=== PATIENT | female | born 1960 | race American Indian/Alaskan Native ===

== ENCOUNTER 2020-01-23 07:17 | Inpatient (IN) | payer MEDICARE ==
[2020-01-23 07:23] LABS: Glucose,Whole Blood 98 mg/dL (75-99)
[2020-01-23] MEDS ORDERED: SODIUM CHLORIDE 0.9% 500 ML 500 ML IV STA (07:30)
[2020-01-23 07:36] LABS: Basophils % (A) 0 %; Eosinophils # (A) 0.1 k/uL (0-0.7); Eosinophils % (A) 2 %; HCT 37.9 % (34.0-46.0); HGB 12.7 gm/dL (11.4-16.0); Lymphocytes # (A) 2.3 k/uL (1.0-4.8); Lymphocytes % (A) 37 %; MCH 31.9 pg (25.0-35.0); MCHC 33.6 g/dL (31.0-37.0); Mean Platelet Volume 7.7; Monocytes # (A) 0.3 k/uL (0-1.0); Monocytes % (A) 6 %; Neutrophils # (A) 3.1 k/uL (1.3-7.7); Neutrophils % (A) 51 %; Platelet Count 247 k/uL (150-450); RDW 12.7 % (11.5-15.5); WBC 6.1 k/uL (3.8-10.6)
--- NOTE | 2020-01-23 07:37 | ED ---
General Adult HPI - General Chief complaint: Neuro Symptoms/Deficit Stated complaint: Poss stroke Time Seen by Provider: 01/23/20 07:17 Source: patient, EMS, RN notes reviewed, old records reviewed Mode of arrival: EMS - History of Present Illness Initial comments: This a 59-year-old female presents emergency Department because of strokelike symptoms. Patient states last night she was having difficulty manipulating remote control for the TV and according to EMS also stated she had some difficulty speaking this morning. Patient started symptoms last night at 10 PM. Patient currently states she's not having any symptoms. Patient denies headache patient denies any weakness anywhere currently patient denies any problems with coordination. I asked the patient why she was sent in she said her called she's not sure why. has not yet here to get the full history from him. Patient denies any chest pain difficulty breathing shortness breath per patient denies any recent fever chills or cough. Patient denies any abdominal pain patient denies nausea vomiting diarrhea. - Related Data Allergies Allergy/AdvReac Type Severity Reaction Status Date / Time No Known Allergies Allergy Verified 01/23/20 07:55 Review of Systems ROS Statement: Those systems with pertinent positive or pertinent negative responses have been documented in the HPI. ROS Other: All systems not noted in ROS Statement are negative. Past Medical History Past Medical History: CVA/TIA Additional Past Medical History / Comment(s): hypotension History of Any Multi-Drug Resistant Organisms: None Reported Past Surgical History: No Surgical Hx Reported Past Psychological History: Anxiety, Depression, PTSD Smoking Status: Never smoker Past Alcohol Use History: None Reported Past Drug Use History: None Reported General Exam - General Exam Comments Initial Comments: GENERAL: Patient is well-developed and well-nourished. Patient is nontoxic and well- hydrated and is in no acute distress. ENT: Neck is soft and supple. No significant lymphadenopathy is noted. Oropharynx is clear. Moist mucous membranes. Neck has full range of motion without eliciting any pain. EYES: The sclera were anicteric and conjunctiva were pink and moist. Extraocular movements were intact and pupils were equal round and reactive to light. Eyelids were unremarkable. PULMONARY: Unlabored respirations. Good breath sounds bilaterally. No audible rales rhonchi or wheezing was noted. CARDIOVASCULAR: There is a regular rate and rhythm without any murmurs gallops or rubs. ABDOMEN: Soft and nontender with normal bowel sounds. SKIN: Skin is clear with no lesions or rashes and otherwise unremarkable. NEUROLOGIC: Patient is alert and oriented x3. Cranial nerves II through XII are grossly in tact. Patient has equal strength of all 4 times. Patient has some decreased sensation in the right lower leg.. Normal speech, volume and content. Symmetrical smile. Finger to nose testing is normal bilaterally MUSCULOSKELETAL: Normal extremities with adequate strength and full range of motion. No lower extremity swelling or edema. No calf tenderness. LYMPHATICS: No significant lymphadenopathy is noted PSYCHIATRIC: Normal psychiatric evaluation. Course Vital Signs 01/23/20 01/23/20 01/23/20 07:17 07:30 07:45 Temperature 98.1 F 98.0 F 98.0 F Pulse Rate 82 82 84 Respiratory 16 16 16 Rate Blood Pressure 185/116 187/118 181/120 O2 Sat by Pulse 99 97 98 Oximetry 01/23/20 01/23/20 01/23/20 08:00 08:15 08:30 Temperature 98.0 F 98 F 98.2 F Pulse Rate 81 86 86 Respiratory 16 18 16 Rate Blood Pressure 185/111 183/112 178/129 O2 Sat by Pulse 97 100 99 Oximetry 01/23/20 01/23/20 09:00 09:26 Temperature 98.1 F Pulse Rate 88 86 Respiratory 16 16 Rate Blood Pressure 175/93 166/118 O2 Sat by Pulse 96 96 Oximetry Medical Decision Making - Medical Decision Making EKG shows normal sinus rhythm at 80 bpm KS interval is 144 QRS is 82 QT interval 412 QTC is 475. Patient's EKG shows no ST segment elevation or depression called that and told nursing that she had a carotid dissection in the past and it was being monitored. At this point time the CT head and neck was also ordered. Dr. Park called back at 813 and after hearing the history decided that the patient should just be on aspirin unless we find something significant on the CAT scan ordered a CTA also stated the patient was on and off confused since last night as well CT of the brain showed no acute abnormality. CT of the head and neck showed a carotid dissection patient's stated that they are aware of this dissecti on. I spoke with about the CTA and he stated that there would be no intervention other than aspirin and Proventil into he also stated that he was okay with the blood pressure being in the 160s over 118. He did not want any intervention with the blood pressure at this time - Lab Data Result diagrams: 01/23/20 07:22 01/23/20 07:22 Lab Results 01/23/20 01/23/20 01/23/20 Range/Units 07:21 07:22 07:22 WBC 6.1 (3.8-10.6) k/uL RBC 4.00 (3.80-5.40) m/uL Hgb 12.7 (11.4-16.0) gm/dL Hct 37.9 (34.0-46.0) % MCV 95.0 (80.0-100.0) fL MCH 31.9 (25.0-35.0) pg MCHC 33.6 (31.0-37.0) g/dL RDW 12.7 (11.5-15.5) % Plt Count 247 (150-450) k/uL Neutrophils % 51 % Lymphocytes % 37 % Monocytes % 6 % Eosinophils % 2 % Basophils % 0 % Neutrophils # 3.1 (1.3-7.7) k/uL Lymphocytes # 2.3 (1.0-4.8) k/uL Monocytes # 0.3 (0-1.0) k/uL Eosinophils # 0.1 (0-0.7) k/uL Basophils # 0.0 (0-0.2) k/uL PT (9.0-12.0) sec INR (<1.2) APTT (22.0-30.0) sec Sodium 139 (137-145) mmol/L Potassium 3.7 (3.5-5.1) mmol/L Chloride 110 H (98-107) mmol/L Carbon Dioxide 20 L (22-30) mmol/L Anion Gap 9 mmol/L BUN 10 (7-17) mg/dL Creatinine 0.56 (0.52-1.04) mg/dL Est GFR (CKD-EPI)AfAm >90 (>60 ml/min/1.73 sqM) Est GFR (CKD-EPI)NonAf >90 (>60 ml/min/1.73 sqM) Glucose 95 (74-99) mg/dL POC Glucose (mg/dL) 98 (75-99) mg/dL POC Glu Stars Analytical Lead ID Norma Jones Calcium 8.1 L (8.4-10.2) mg/dL Total Bilirubin 0.5 (0.2-1.3) mg/dL AST 85 H (14-36) U/L ALT 140 H (4-34) U/L Alkaline Phosphatase 173 H (38-126) U/L Total Creatine Kinase (30-135) U/L CK-MB (CK-2) (0.0-2.4) ng/mL CK-MB (CK-2) Rel Index Troponin I (0.000-0.034) ng/mL Total Protein 6.3 (6.3-8.2) g/dL Albumin 3.6 (3.5-5.0) g/dL Urine Color Urine Appearance (Clear) Urine pH (5.0-8.0) Ur Specific [place] (1.001-1.035) Urine Protein (Negative) Urine Glucose (UA) (Negative) Urine Ketones (Negative) Urine Blood (Negative) Urine Nitrite (Negative) Urine Bilirubin (Negative) Urine Urobilinogen (<2.0) mg/dL Ur Leukocyte Esterase (Negative) Urine RBC (0-5) /hpf Urine WBC (0-5) /hpf Ur Squamous Epith Cells (0-4) /hpf 01/23/20 01/23/20 01/23/20 Range/Units 07:22 07:22 08:53 WBC (3.8-10.6) k/uL RBC (3.80-5.40) m/uL Hgb (11.4-16.0) gm/dL Hct (34.0-46.0) % MCV (80.0-100.0) fL MCH (25.0-35.0) pg MCHC (31.0-37.0) g/dL RDW (11.5-15.5) % Plt Count (150-450) k/uL Neutrophils % % Lymphocytes % % Monocytes % % Eosinophils % % Basophils % % Neutrophils # (1.3-7.7) k/uL Lymphocytes # (1.0-4.8) k/uL Monocytes # (0-1.0) k/uL Eosinophils # (0-0.7) k/uL Basophils # (0-0.2) k/uL PT 10.9 (9.0-12.0) sec INR 1.1 (<1.2) APTT 24.9 (22.0-30.0) sec Sodium (137-145) mmol/L Potassium (3.5-5.1) mmol/L Chloride (98-107) mmol/L Carbon Dioxide (22-30) mmol/L Anion Gap mmol/L BUN (7-17) mg/dL Creatinine (0.52-1.04) mg/dL Est GFR (CKD-EPI)AfAm (>60 ml/min/1.73 sqM) Est GFR (CKD-EPI)NonAf (>60 ml/min/1.73 sqM) Glucose (74-99) mg/dL POC Glucose (mg/dL) (75-99) mg/dL POC Glu Stars Analytical Lead ID Calcium (8.4-10.2) mg/dL Total Bilirubin (0.2-1.3) mg/dL AST (14-36) U/L ALT (4-34) U/L Alkaline Phosphatase (38-126) U/L Total Creatine Kinase 41 (30-135) U/L CK-MB (CK-2) 1.1 (0.0-2.4) ng/mL CK-MB (CK-2) Rel Index 2.7 Troponin I <0.012 (0.000-0.034) ng/mL Total Protein (6.3-8.2) g/dL Albumin (3.5-5.0) g/dL Urine Color Light Yellow Urine Appearance Clear (Clear) Urine pH 6.5 (5.0-8.0) Ur Specific [place] 1.045 H (1.001-1.035) Urine Protein Negative (Negative) Urine Glucose (UA) Negative (Negative) Urine Ketones 2+ H (Negative) Urine Blood Negative (Negative) Urine Nitrite Negative (Negative) Urine Bilirubin Negative (Negative) Urine Urobilinogen <2.0 (<2.0) mg/dL Ur Leukocyte Esterase Large H (Negative) Urine RBC 5 (0-5) /hpf Urine WBC 4 (0-5) /hpf Ur Squamous Epith Cells 1 (0-4) /hpf Critical Care Time Critical Care Time: Yes Total Critical Care Time: 35 Disposition Clinical Impression: Cerebrovascular accident (CVA) Disposition: ADMITTED IP TO THIS [facility] Referrals: Nonstaff,Physician [Primary Care Provider] - 1-2 days Time of Disposition: 09:36
[2020-01-23 07:45] LABS: INR 1.1 (<1.2); Partial Thromboplastin Time 24.9 sec (22.0-30.0)
--- NOTE | 2020-01-23 07:45 | CT ---
EXAMINATION TYPE: CT brain wo con DATE OF EXAM: 01/23/2020 COMPARISON: None HISTORY: 59-year-old female Neuro deficit, acute, stroke suspected TECHNIQUE: Examination was done in axial plane without intravenous contrast. Coronal and sagittal r econstructions performed. CT DLP: 1099.4 mGycm Automated exposure control for dose reduction was used. FINDINGS: There is no evidence of acute intracranial hemorrhage, acute ischemic changes, mass, mass-effect, or extra-axial fluid collection. There is no effacement of cerebral sulci or basal subarachnoid cister ns. There is no hydrocephalus. There is no midline shift. Car-white matter distinction is preserv ed. Mild bifrontal atrophy. Benign basal ganglionic calcifications. Partially empty sella. Visualized paranasal sinuses and mastoid air cells are well pneumatized. Visualized orbits and globes are intact. IMPRESSION: Mild bifrontal atrophy. No acute intracranial abnormality seen.
[2020-01-23 07:46] LABS: Prothrombin Time 10.9 sec (9.0-12.0)
[2020-01-23 07:49] LABS: ALT 140 U/L (4-34); AST 85 U/L (14-36); African American GFR (CKD) >90 (>60 ml/min/1.73 sqM); Albumin 3.6 g/dL (3.5-5.0); Alkaline Phosphatase 173 U/L (38-126); Anion Gap 9 mmol/L; Blood Urea Nitrogen 10 mg/dL (7-17); Calcium 8.1 mg/dL (8.4-10.2); Carbon Dioxide 20 mmol/L (22-30); Chloride 110 mmol/L (98-107); Glucose 95 mg/dL (74-99); Non-African American GFR(CKD) >90 (>60 ml/min/1.73 sqM); Potassium 3.7 mmol/L (3.5-5.1); Sodium 139 mmol/L (137-145); Total Bilirubin 0.5 mg/dL (0.2-1.3); Total Protein 6.3 g/dL (6.3-8.2)
[2020-01-23 08:01] LABS: Creatine Kinase 41 U/L (30-135)
--- NOTE | 2020-01-23 08:03 | XR ---
EXAMINATION TYPE: XR chest 2V DATE OF EXAM: 01/23/2020 COMPARISON: None HISTORY: 59-year-old female confusion, altered mental status TECHNIQUE: AP and lateral views FINDINGS: Heart borderline in size. There is some focal posterior basilar opacity on the lateral view as well a s some mild increased interstitial density on the frontal view. No sizable effusion. Vertebroplasty c hanges in the upper thoracic spine. IMPRESSION: Some focal posterior basilar opacity on the lateral view and mild patchy interstitial density on the frontal view. Consider surveillance to exclude atypical pneumonia or interstitial pneumonitis.
[2020-01-23 08:14] LABS: Creatine Kinase MB 1.1 ng/mL (0.0-2.4); Troponin I <0.012 ng/mL (0.000-0.034)
--- NOTE | 2020-01-23 09:05 | CT ---
EXAMINATION TYPE: CT angio head neck DATE OF EXAM: 01/23/2020 COMPARISON: CT brain same day HISTORY: 59-year-old female Neuro deficit, acute, stroke suspected, history of carotid dissection TECHNIQUE: Contiguous axial scanning of the head and neck performed with IV Contrast, patient injecte d with 65 mL of Isovue 370. Coronal/sagittal MIP reconstructions performed. 3-D reconstructions gener ated on a dedicated independent workstation. CT DLP: 309.8 mGycm Automated exposure control for dose reduction was used. FINDINGS: NECK: BOVINE configuration to the aortic arch. The left vertebral artery is dominant. Both vessels are patent throughout the course. Tortuous lower right common carotid artery. Otherwise, the right common and internal carotid arteries are patent. Tortuous lower left common carotid artery which is a bovine origin. Otherwise, left common carotid ar edil is patent. There is a dissection of the upper left cervical internal carotid artery with opacification along bot h lumens and peripheral calcification about the more lateral lumen. 7 mm hypodense nodule left lobe of the thyroid gland. BRAIN: Hypoplastic V4 segment right vertebral artery, possibly terminating as a PICA branch. The left internal carotid artery dissection continues into the vertical petrous segment. The basilar artery is patent. Remainder of the anterior and posterior circulation appear patent. No aneurysmal change is identified. IMPRESSION: NECK: 1. BOVINE CONFIGURATION TO THE AORTIC ARCH. KNOWN DISSECTION OF THE UPPER CERVICAL LEFT ICA EXTENDING INTO THE VERTICAL PETROUS SEGMENT. There is similar enhancement within both lumens without arterial occlusion. 2. No significant ICA stenosis. 3. Dominant left vertebral artery. BRAIN: 1. The nondominant V4 segment right vertebral artery becomes very hypoplastic, possibly terminating a s a PICA branch. 2. No continuation of the patient's known left ICA dissection beyond the petrous segment. 3. No large vessel intracranial arterial occlusion or aneurysmal change.
[2020-01-23 09:15] LABS: Appearance,Urine Clear (Clear); Bilirubin,Urine Negative (Negative); Blood,Urine Negative (Negative); Color,Urine Light Yellow; Glucose,Urine (UA) Negative (Negative); Ketones,Urine 2+ (Negative); Leukocyte Esterase,Urine Large (Negative); Nitrite,Urine Negative (Negative); PH, Urine 6.5 (5.0-8.0); Protein,Urine Negative (Negative); RBC,Urine 5 /hpf (0-5); Specific Gravity,Urine 1.045 (1.001-1.035); Squamous Epithelial Cell,Urine 1 /hpf (0-4); Urobilinogen,Urine <2.0 mg/dL (<2.0); WBC,Urine 4 /hpf (0-5)
[2020-01-23] MEDS ORDERED: hydrALAZINE HCL 20 MG/ML 1 ML VIAL IVP STA (09:28)
[2020-01-23] MEDS ORDERED: ASPIRIN 325 MG TAB PO STA (09:37)
[2020-01-23] MEDS ORDERED: SUCCINYLCHOLINE CHLORIDE VIAL 200 MG/10 ML VIAL IV ONE (09:47)
[2020-01-23] MEDS ORDERED: PROPOFOL 10 MG/ML 20 ML VIAL IV ONE (09:47)
[2020-01-23] MEDS: SODIUM CHLORIDE 0.9% 1,000 ML IV SCH (13:22)
--- NOTE | 2020-01-23 14:09 | P.HPIM ---
History of Present Illness H&P Date: 01/23/20 The patient is a 59-year-old female who presented to the ER via EMS with confusion. The patient continues to be confused and is unable to provide valuable history hence the history is obtained from the medical record more specifically ER notes. I attempted to call the patient's next of kin Per[place] without any success and reaching him. Per the note the patient also was having difficulty using her home TV remote and had difficulty speaking this morning. Apparently the patient's symptoms began late last evening at approximately 10 PM. The patient denies any discomfort denies chest pain shortness of breath fever chills or cough But simply responded no to all after mention questions. She also denied any history of CVA or TIA. The patient did state that she lives at home with her . She was only oriented to self and had difficulty verbalizing her thoughts and stared blankly at me during her interview. She was unable to read the time on the clock which was 12:25 PM. She attempted to get out of bed but was redirected to remain in bed. On presentation code stroke was called she was noted to be hypertensive with blood pressure 166/118. CT of the head was negative for any acute intracranial abnormality. Indicated mild bifrontal atrophy. 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 There is no large vessel intracranial arterial occlusion or aneurysmal change. The ER physician contacted Dr. Schulte and recommended conservative management with aspirin and Brilinta. Review of Systems ROS unobtainable: due to mental status Past Medical History Past Medical History: CVA/TIA, Renal Disease Additional Past Medical History / Comment(s): Multiple falls last 4 weeks-went to [facility] on [address] and was found to have hypotension, stroke like symptoms approximately 2.5 yrs ago-worked up at [facility] and found caratid dissection/clot-received TPA and had full recovery, nephrolithiasis with surgery, magaly en Y and pt has had stomach problems since, overactive bladder, past sleep walking years ago. History of Any Multi-Drug Resistant Organisms: None Reported Past Surgical History: Bariatric Surgery, Cholecystectomy, Hysterectomy, Joint Replacement, Orthopedic Surgery Additional Past Surgical History / Comment(s): Magaly en Y, EGD, colonoscopy, cysto d/t kidney stone with stent placed/removed, L total knee arthroplasty, R lower arm injury with plates. Additional Past Anesthesia/Blood Transfusion Reaction / Comment(s): Pt has received blood in past without reaction. Past Psychological History: Anxiety, Depression, PTSD Additional Psychological History / Comment(s): Pt resides with her spouse. She sees a psychiatrist regularly and is doing well. Pt is independent. Smoking Status: Never smoker Past Alcohol Use History: None Reported Past Drug Use History: None Reported - Past Family History Mother Family Medical History: COPD Additional Family Medical History / Comment(s): Mother is on oxygen. She was a smoker. Father Family Medical History: Cancer Additional Family Medical History / Comment(s): Father had 1/2 lung removed d/t lung cancer. He has a peice of liver removed d/t cancer. He is an exsmoker. Medications and Allergies Home Medications Medication Instructions Recorded Confirmed Type Atorvastatin [Lipitor] 40 mg PO HS 01/23/20 01/23/20 History Calcium Carbonate [Calcium] 600 mg PO BID 01/23/20 01/23/20 History Cyclobenzaprine [Flexeril] 10 mg PO HS PRN 01/23/20 01/23/20 History Ergocalciferol (Vitamin D2) 50,000 unit PO DIRECTED 01/23/20 01/23/20 History [Drisdol] Escitalopram [Lexapro] 20 mg PO DAILY 01/23/20 01/23/20 History Gabapentin [Gralise] 600 mg PO HS 01/23/20 01/23/20 History Levothyroxine Sodium [Synthroid] 25 mcg PO ORTIZ 01/23/20 01/23/20 History Levothyroxine Sodium [Synthroid] 50 mcg PO [id number] 01/23/20 01/23/20 History Midodrine HCl [ProAmatine] 10 mg PO TID 01/23/20 01/23/20 History Mirabegron [Myrbetriq] 50 mg PO DAILY 01/23/20 01/23/20 History Multivitamins, Thera [Multivitamin 1 tab PO DAILY 01/23/20 01/23/20 History (formulary)] Nascobal (B12) 500mcg/[place] 1 spray NASAL Q7D 01/23/20 01/23/20 History OLANZapine [ZyPREXA] 10 mg PO DAILY 01/23/20 01/23/20 History Pantoprazole [Protonix] 40 mg PO DAILY PRN 01/23/20 01/23/20 History Pilocarpine [Salagen] 5 mg PO TID PRN 01/23/20 01/23/20 History Solifenacin Succinate [Vesicare] 5 mg PO DAILY 01/23/20 01/23/20 History Warfarin Sodium [Coumadin] 9 mg PO SUMOWEFR 01/23/20 01/23/20 History Allergies Allergy/AdvReac Type Severity Reaction Status Date / Time No Known Allergies Allergy Verified 01/23/20 10:27 Physical Exam Vitals: Vital Signs Temp Pulse Resp BP Pulse Ox 01/23/20 10:10 87 16 165/98 100 01/23/20 09:26 86 16 166/118 96 01/23/20 09:00 98.1 F 88 16 175/93 96 01/23/20 08:30 98.2 F 86 16 178/129 99 01/23/20 08:15 98 F 86 18 183/112 100 01/23/20 08:00 98.0 F 81 16 185/111 97 01/23/20 07:45 98.0 F 84 16 181/120 98 01/23/20 07:30 98.0 F 82 16 187/118 97 01/23/20 07:17 98.1 F 82 16 185/116 99 Intake and Output 01/22/20 01/23/20 01/23/20 22:59 06:59 14:59 Other: # Voids 0 Weight 66.224 kg Constitutional: No acute distress, conversant, pleasant Eyes: Anicteric sclerae, moist conjunctiva, no lid-lag, PERRLA ENMT: NC/AT,Oropharynx clear, no erythema, exudates Neck:Supple, FROM, no masses, or JVD, No carotid bruits; No thyromegaly Lungs: Clear to auscultation, Clear to percussion, Normal respiratory effort, no accessory muscle use Cardiovascular: Heart regular in rate and rhythm, No murmurs, gallops, or rubs no peripheral edema Abdominal: Soft Nontender, nom distended, no guarding, no rebound or rigidity, Normoactive bowel sounds No hepatomegaly, No splenomegaly, No palpable mass No abdominal wall hernia noted Skin: Normal temperature, tone, texture, turgor, No induration No subcutaneous nodules, No rash, lesions, No ulcers Extremities:No digital cyanosis No clubbing, Pedal pulses intact and symmetrical Radial pulses intact and symmetrical Normal gait and station, No calf tenderness Psychiatric: Alert and oriented to person only Neuro: Aphasic Speech intelligible but answers inappropriately, confused, only able to follow simple commands Results CBC & Chem 7: 01/23/20 07:22 01/23/20 07:22 Labs: Abnormal Lab Results - Last 24 Hours (Table) 01/23/20 01/23/20 Range/Units 07:22 08:53 Chloride 110 H (98-107) mmol/L Carbon Dioxide 20 L (22-30) mmol/L Calcium 8.1 L (8.4-10.2) mg/dL AST 85 H (14-36) U/L ALT 140 H (4-34) U/L Alkaline Phosphatase 173 H (38-126) U/L Ur Specific [place] 1.045 H (1.001-1.035) Urine Ketones 2+ H (Negative) Ur Leukocyte Esterase Large H (Negative) Thrombosis Risk Factor Assmnt - Choose All That Apply Any of the Below Risk Factors Present?: Yes Each Factor Represents 1 point: Age 41-60 years Other Risk Factors: No Other congenital or acquired thrombophilia - If yes, enter type in comment: No Each Risk Factor Represents 5 Points: Stroke (< 1 month) Thrombosis Risk Factor Assessment Total Risk Factor Score: 6 Thrombosis Risk Factor Assessment Level: High Risk Assessment and Plan Assessment: Confusion with ataxia and aphasia Hypertensive urgency Left carotid dissection Hyperlipidemia Elevated LFTs Hypothyroidism Schizoaffective disorder anticoagulation with Coumadin Plan: The patient is admitted anticipated greater than 2 midnight stay with confusion with ataxia and aphasia with need to rule out CVA CT/CTA as far as been negative for any acute intracranial pathology, the patient does have a known left carotid dissection and was recommended to be continued on conservative management with aspirin and Brillinta into as the patient had also presented outside the window for which he would be indicated. We'll plan to order a neurology consultation, KINJAL echo, MRI of the head. We'll continue to observe blood pressures allowing for permissive hypertension. We'll check a swallow eval. Continue to monitor patient's clinical course and will plan to consult PTOT Left message with the patient's to call me back to establish a baseline CODE STATUS: Full code Anticipated discharge place: group home facility versus home Medical decision maker: Patient and her Perico Prophylaxis: SCDs Greater than 60 minutes was spent in evaluation of this complex patient
[2020-01-23] MEDS ORDERED: levETIRAcetam IV 250 MG in SODIUM CHLORIDE 0.9% 100 ML IVPB STA ×2 (14:30→16:32)
[2020-01-23] MEDS ORDERED: LORazepam 2 MG/ML INJ IV ONE (14:31)
--- NOTE | 2020-01-23 15:02 | ECHOF ---
Referral Reason:confusion/ataxia rule out CVA MEASUREMENTS -------- HEIGHT: 165.1 cm WEIGHT: 66.2 kg BP: 165/98 RVIDd: 3.2 cm (< 3.3) IVSd: 1.7 cm (0.6 - 1.1) LVIDd: 4.1 cm (3.9 - 5.3) LVPWd: 1.5 cm (0.6 - 1.1) IVSs: 1.9 cm LVIDs: 3.0 cm LVPWs: 1.7 cm LAESV Index (A-L): 39.01 ml/m Ao Diam: 3.1 cm (2.0 - 3.7) AV Cusp: 1.9 cm (1.5 - 2.6) MV EXCURSION: 12.364 mm (> 18.000) MV EF SLOPE: 94 mm/s (70 - 150) EPSS: 0.4 cm MV E Liu: 0.84 m/s MV DecT: 131 ms MV A Liu: 0.56 m/s MV E/A Ratio: 1.50 RAP: 5.00 mmHg RVSP: 49.56 mmHg FINDINGS -------- Sinus rhythm. This was a technically adequate study. The left ventricular size is normal. There is moderate concentric left ventricular hypertrophy. O verall left ventricular systolic function is normal with, an EF between 55 - 60 %. The right ventricle is normal in size. LA is moderately dilated 34-39 ml/m2 The right atrial size is normal. Interatrial and interventricular septum intact. The aortic valve is trileaflet, and appears structurally normal. No aortic stenosis or regurgitation. The mitral valve leaflets are mildly thickened. Moderate mitral regurgitation is present. Moderate tricuspid regurgitation present. There is moderate pulmonary hypertension. The right nabeel tricular systolic pressure, as measured by Doppler, is 49.56mmHg. There is no pulmonic regurgitation present. The aortic root size is normal. Normal inferior vena cava with normal inspiratory collapse consistent with estimated right atrial pre ssure of 5 mmHg. There is no pericardial effusion. CONCLUSIONS -------- 1. There is moderate concentric left ventricular hypertrophy. 2. Overall left ventricular systolic function is normal with, an EF between 55 - 60 %. 3. LA is moderately dilated 34-39 ml/m2 4. The aortic valve is trileaflet, and appears structurally normal. No aortic stenosis or regurgitati on. 5. The mitral valve leaflets are mildly thickened. 6. Moderate mitral regurgitation is present. 7. Moderate tricuspid regurgitation present. 8. There is moderate pulmonary hypertension. 9. There is no pulmonic regurgitation present. 10. Normal inferior vena cava with normal inspiratory collapse consistent with estimated right atrial pressure of 5 mmHg. 11. There is no pericardial effusion. DEVELOPMENT ENG: Kyra Benito RDCS
--- NOTE | 2020-01-23 16:19 | MR ---
EXAMINATION TYPE: MR brain wo/w con DATE OF EXAM: 01/23/2020 COMPARISON: CT AngioJet head and neck and CT brain of the same date HISTORY: rule out cva, Neuro deficit TECHNIQUE: Multiplanar, multisequence images of the brain and brainstem is performed without and with IV contras t, utilizing 6.5 mL intravenous Gadavist . FINDINGS: Examination is limited by patient motion artifact. Diffusion weighted images demonstrate no evidence of a recent infarct or other diffusion abnormality. There is no extra-axial fluid collection. Minimal T2/FLAIR hyperintensity in the periventricular wh ite matter. The ventricular system and cisternal spaces are normal in size and appearance. The brai n volume is age appropriate. Linear T2 hypointensity and FLAIR hypointensity is seen outlining the cr anial aspect of the central sulcus on the right however no restricted diffusion is seen on the CT bra in of the same date no evidence of intracranial hemorrhage is seen. Additionally this is FLAIR hypoin tense not hyperintense. This could represent hemosiderin deposition from chronic old subarachnoid hem orrhage or prominent veins when correlated with the postcontrast coronal imaging. Midline structures demonstrate normal morphology. Motion artifact on the sagittal images however a pa rtially empty sella turcica is seen. The craniocervical junction appears within normal limits. Post contrast images demonstrate no abnormal enhancement. The dural venous sinuses appear patent. The visu alized sinuses display minimal mucosal thickening within the ethmoid sinuses but are otherwise clear and the globes are intact. The known left internal carotid artery dissection again is noted on the CTA of the same date does not involve the petrous nor intracranial portions of the left internal carotid artery. Right V4 segment is again extremely hypoplastic. IMPRESSION: Examination is limited by patient motion artifact. 1. No acute infarct, midline shift or mass effect. No abnormal intracranial enhancement. 2. T2/FLAIR hypointensity along the cranial aspect of the central sulcus on the right when correlated with the CT of the same date could represent hemosiderin deposition from old, chronic subarachnoid h emorrhage or prominent draining veins. 3. Mild burden nonspecific white matter change, most commonly on the basis of chronic microangiopathy . 4. As stated on the CTA head and neck of the same date the patient's known left internal carotid marly ry dissection does not continue be on the petrous segment into the intracranial portion of the left i nternal carotid artery.
[2020-01-23 17:13] LABS: Basophils % (A) 0 %; Eosinophils % (A) 0 %; HCT 36.9 % (34.0-46.0); HGB 12.3 gm/dL (11.4-16.0); Lymphocytes % (A) 16 %; MCH 31.9 pg (25.0-35.0); MCHC 33.4 g/dL (31.0-37.0); MCV 95.6 fL (80.0-100.0); Mean Platelet Volume 8.1; Monocytes # (A) 0.3 k/uL (0-1.0); Monocytes % (A) 6 %; Neutrophils # (A) 4.6 k/uL (1.3-7.7); Neutrophils % (A) 74 %; Platelet Count 281 k/uL (150-450); RBC 3.85 m/uL (3.80-5.40); RDW 12.9 % (11.5-15.5); WBC 6.1 k/uL (3.8-10.6)
[2020-01-23 17:26] LABS: ALT 126 U/L (4-34); AST 73 U/L (14-36); Amylase 37 U/L (30-110); C Reactive Protein <5.0 mg/L (<10.0); GGT 178 U/L (12-43)
[2020-01-23 17:30] LABS: Amphetamine Screen,Urine Not Detected (NotDetected); Barbiturate Screen,Urine Not Detected (NotDetected); Benzodiazepines Screen,Urine Not Detected (NotDetected); Cocaine Screen,Urine Not Detected (NotDetected); Methadone Screen, Urine Not Detected (NotDetected); Opiate Screen,Urine Not Detected (NotDetected); Oxycodone Screen, Urine Not Detected (NotDetected); Phencyclidine Screen,Urine Not Detected (NotDetected); Tricyclic Antidepressant,Urine Not Detected (NotDetected); Urn Cannabinoid Scrn Not Detected (NotDetected)
--- NOTE | 2020-01-23 17:35 | P.CNNES ---
History of Present Illness Consult date: 01/23/20 Reason for Consult: Aphasia Chief complaint: Increasing confusion and word finding difficulty. History of Present Illness: This is a new neurology consult requested for further advice and recommendations for a 59-year-old female who was admitted for finding difficulty. The patient was brought in by EMS.The patient underwent a stroke work with ANTERIOS-stroke. CT scan of the head did not show any evidence of acute ischemi but there was significant cortical atrophy and evidence of a prior dissection involving the left ICA upper cervical area that was noted on CT Angio. There is no evidence of any intracranial or extracranial large vessel occlusion Pertinent labs on admission include a positive UA with significant elevation in leukocyte esterase as well as elevated liver function enzymes. Initial NIH stroke scale was reported to be 2 but after further evaluation based on her aphasia she was given a NIH stroke scale of 7. Additional history provided by her indicates that she has been having these episodes of altered mental status that involve difficulty speech and twitching of her face for some period of time. Her reports that she had periods where she would be unable to answer questions. She still however is mostly able to follow simple commands but at times will. Her very confused. During examination I witnessed facial twitching on the left side of the face up at the eyebrow. I also noted that she was doing some lip smacking and picking at her clothes. These are activities very suspicious for complex partial seizures. Intermittently during these episodes the patient would be able to only answer yes and no questions. She had great difficulty in following the commands to open and close her eyes. She could however raise her arms and lift her legs when we reassessed her on her NIH stroke scale. Review of Systems The patient was unable to provide a review of systems. Review of systems was reviewed in the patient's chart. Past Medical History Past Medical History: CVA/TIA, Renal Disease Additional Past Medical History / Comment(s): Multiple falls last 4 weeks-went to [facility] on [address] and was found to have hypotension, stroke like symptoms approximately 2.5 yrs ago-worked up at [facility] and found caratid dissection/clot-received TPA and had full recovery, nephrolithiasis with surgery, john en Y and pt has had stomach problems since, overactive bladder, past sleep walking years ago. History of Any Multi-Drug Resistant Organisms: None Reported Past Surgical History: Bariatric Surgery, Cholecystectomy, Hysterectomy, Joint Replacement, Orthopedic Surgery Additional Past Surgical History / Comment(s): John en Y, EGD, colonoscopy, cysto d/t kidney stone with stent placed/removed, L total knee arthroplasty, R lower arm injury with plates. Additional Past Anesthesia/Blood Transfusion Reaction / Comment(s): Pt has received blood in past without reaction. Past Psychological History: Anxiety, Depression, PTSD Additional Psychological History / Comment(s): Pt resides with her spouse. She sees a psychiatrist regularly and is doing well. Pt is independent. Smoking Status: Never smoker Past Alcohol Use History: None Reported Past Drug Use History: None Reported - Past Family History Mother Family Medical History: COPD Additional Family Medical History / Comment(s): Mother is on oxygen. She was a smoker. Father Family Medical History: Cancer Additional Family Medical History / Comment(s): Father had 1/2 lung removed d/t lung cancer. He has a peice of liver removed d/t cancer. He is an exsmoker. Medications and Allergies Home Medications Medication Instructions Recorded Confirmed Type Atorvastatin [Lipitor] 40 mg PO HS 01/23/20 01/23/20 History Calcium Carbonate [Calcium] 600 mg PO BID 01/23/20 01/23/20 History Cyclobenzaprine [Flexeril] 10 mg PO HS PRN 01/23/20 01/23/20 History Ergocalciferol (Vitamin D2) 50,000 unit PO DIRECTED 01/23/20 01/23/20 History [Drisdol] Escitalopram [Lexapro] 20 mg PO DAILY 01/23/20 01/23/20 History Gabapentin [Gralise] 600 mg PO HS 01/23/20 01/23/20 History Levothyroxine Sodium [Synthroid] 25 mcg PO ORTIZ 01/23/20 01/23/20 History Levothyroxine Sodium [Synthroid] 50 mcg PO MOTUWETHFRSA 01/23/20 01/23/20 History Midodrine HCl [ProAmatine] 10 mg PO TID 01/23/20 01/23/20 History Mirabegron [Myrbetriq] 50 mg PO DAILY 01/23/20 01/23/20 History Multivitamins, Thera [Multivitamin 1 tab PO DAILY 01/23/20 01/23/20 History (formulary)] Nascobal (B12) 500mcg/[place] 1 spray NASAL Q7D 01/23/20 01/23/20 History OLANZapine [ZyPREXA] 10 mg PO DAILY 01/23/20 01/23/20 History Pantoprazole [Protonix] 40 mg PO DAILY PRN 01/23/20 01/23/20 History Pilocarpine [Salagen] 5 mg PO TID PRN 01/23/20 01/23/20 History Solifenacin Succinate [Vesicare] 5 mg PO DAILY 01/23/20 01/23/20 History Warfarin Sodium [Coumadin] 9 mg PO SUMOWEFR 01/23/20 01/23/20 History Allergies Allergy/AdvReac Type Severity Reaction Status Date / Time No Known Allergies Allergy Verified 01/23/20 10:27 Physical Examination - Vital Signs Vital Signs: Vital Signs Temp Pulse Pulse Resp BP BP Pulse Ox 01/23/20 12:00 98.0 F 89 18 172/88 98 01/23/20 10:10 87 16 165/98 100 01/23/20 09:26 86 16 166/118 96 01/23/20 09:00 98.1 F 88 16 175/93 96 01/23/20 08:30 98.2 F 86 16 178/129 99 01/23/20 08:15 98 F 86 18 183/112 100 01/23/20 08:00 98.0 F 81 16 185/111 97 01/23/20 07:45 98.0 F 84 16 181/120 98 01/23/20 07:30 98.0 F 82 16 187/118 97 01/23/20 07:17 98.1 F 82 16 185/116 99 Intake and Output 01/23/20 01/23/20 01/23/20 06:59 14:59 22:59 Other: # Voids 0 0 Weight 66.224 kg Gen. physical examination: Appearance: Awake alert no acute distress. HEENT clear sclera clear oropharynx. Dry mucous membranes. Extremities: No edema noted in the hands or feet. Skin: No rash bruising or petechia noted. Scars noted over the left knee. Neurological exam NIH stroke scale 7 Pupils: 2 mm equally reactive to light and accommodation. Cranial nerve examination: Extraocular movements are full. There is no nystagmus noted on vertical horizontal gaze. Face appears symmetric. Palate elevates symmetrically. Shoulder shrug is symmetric. Tongue is midline without fasciculations or deviation. Cranial nerve VIII is intact by clinical observa tion. Mental status: The patient is awake intermittently she is able to follow commands but not consistently. She has only the ability due to repeat yes and no but that is not consistent either. Overall appears with an expressive aphasia at times questionable receptive aphasia. Patient was unable to provide any history or conversation. Minimal speech output does indicate she had fluency present. Unable to assess her orientation due to her aphasia. Motor examination: The patient was noted to have a brief periods of twitching involving the left. The right eyelid and occasionally twitching around the right corner of the mouth. Patient was noted to be fumbling with her sheets and rarely gently lipsmacking. Patient does appear to be able to move all 4 extremities equally. No evidence of any hemiparesis. No fasciculations of the muscles noted or tremor noted in the extremities. Patient was able to lift both legs off the bed at 30 and sustain this for 5 seconds. Patient had difficulty however executing arm strength maneuvers. Their biceps triceps and brachial radialis appear to be -5 over 5 on testing. Lower extremity testing appears -5 over 5 with some mild weakness noted in the hip flexors proximally. Deep tendon reflexes: +2 over the biceps brachial radialis and triceps. Patellar reflexes are absent bilaterally. Ankle jerks are trace bilaterally. Plantar responses are withdrawal bilaterally. No ankle clonus is elicited. Sensory examination patient does withdraw to tactile stimulation. Unable to do formal testing due to her expressive aphasia. Gait examination deferred. Results - Laboratory Findings CBC and BMP: 01/23/20 07:22 01/23/20 07:22 Abnormal Lab Findings: Abnormal Labs 01/23/20 01/23/20 07:22 08:53 Chloride 110 H Carbon Dioxide 20 L Calcium 8.1 L AST 85 H ALT 140 H Alkaline Phosphatase 173 H Ur Specific [place] 1.045 H Urine Ketones 2+ H Ur Leukocyte Esterase Large H - Diagnostic Findings EKG: report reviewed Chest x-ray: report reviewed Additional findings: CT of the head reviewed along with the CT angiogram of the head and neck. The CT of the brain does show out of proportion atrophy for this patient's stated age. There is also significant cerebellar degeneration out of proportion for this patient's stated age. Assessment and Plan Assessment: Neurology consult requested for 59-year-old female who has a history of a clot retrieval. TPA 2 half years ago for carotid dissection and has been admitted for further evaluation of aphasia. The patient currently now is on oral anticoagulation. The computed tomography scan shows out of proportion atrophy and cerebellar atrophy for this patient's stated age. On examination the patient did have an NIH stroke scale 7 and was noted to have suspicious activity for focal motor seizures. Review of her last visit indicate high probability of an acute urinary tract infection in the presence of elevated liver enzymes. This patient does have a history of nephrolithiasis. Summary 1. History of intermittent increasing episodes of both expressive and receptive aphasia of unclear etiology. 2. History of carotid dissection clot retrieval TPA 2.5 years ago 3. Computed tomography scan shows no evidence of stroke but significant atrophy and cerebellar atrophy out of proportion for this patient's stated age. 4. Abnormal neurological exam: Expressive and receptive aphasia with episodes of focal twitching involving the left side of the face, lip smacking and nonpurposeful picking at her clothes and sheets. Activity suspicious for complex partial seizures without secondary generalization. 5. No evidence of an acute ischemic infarct, hemorrhagic infarct on CT of the head. Plan: 1. Stat MRI of the brain with and without contrast to rule out underlying structural mass lesion. 2. Start Keppra IV and give 250 mg bolus dose IV now and monitor. Then follow with 500 mg IV every 12. We'll reassess daily and hope to consider switching to oral within the next 48 hours. 3. Stat urine drug screen. 4. Metabolic workup to look for potential underlying factors to lower seizure threshold. 5. EEG in the morning. 6. Aspiration patient precautions per nursing protocol. Neuro checks every 2 hours per nursing protocol. 7. PT/OT/ speech evaluation. 8. Patient to be maintained on Holter monitoring. 9. Transthoracic cardiac echo with cardiology consult. 10. Normal saline 90 mL per hour 1 L for gentle hydration. 11. Speech therapy to provide swallow evaluation today. 12. Hospitalist team to address abnormal UA suggestive of urinary tract infection. This could be potentially lowering her seizure threshold. 13. Patient to be under seizure precautions per nursing protocol. 14. Blood pressure management: Maintain systolic blood pressure less than 140 diastolic blood pressure between 80 and 90. 15. Continue with recommendations by cardiology for oral anticoagulation. High probability this patient could be at risk for cardioembolic event. 16. DVT prophylaxis with compression stockings. 17. Once cleared by speech therapy with swallow evaluation: Cardiac diet Thank you for this consultation. This patient's prognosis remains guarded. Further recommendations will be made as this case evolves.
[2020-01-23 18:01] LABS: Erythrocyte Sedimentation Rate 17 mm/hr (0-20)
[2020-01-23 19:11] LABS: T4, Free (Free Thyroxine) 1.73 ng/dL (0.78-2.19)
[2020-01-23] MEDS: TICAGRELOR 90 MG TAB PO SCH (20:00)
[2020-01-23] MEDS ORDERED: levETIRAcetam IV 500 MG in SODIUM CHLORIDE 0.9% 100 ML IVPB SCH (21:00)
[2020-01-24 01:04] LABS: Prolactin 49.6 ng/mL (2.8-29.2)
[2020-01-24] MEDS: SODIUM CHLORIDE 0.9% 1,000 ML IV SCH ×2 (04:32→08:57)
[2020-01-24] MEDS: levETIRAcetam IV 500 MG in SODIUM CHLORIDE 0.9% 100 ML IVPB SCH ×2 (04:33→17:55)
[2020-01-24 04:42] LABS: Glucose,Whole Blood 115 mg/dL (75-99)
[2020-01-24] MEDS ORDERED: diphenhydrAMINE 50 MG/ML 1 ML VIAL IVP ONE (05:34)
[2020-01-24 06:01] LABS: Cholesterol 133 mg/dL (<200); HDL Cholesterol 77 mg/dL (40-60); LDL Cholesterol,Calculated 46 mg/dL (0-99); Triglycerides 48 mg/dL (<150)
--- NOTE | 2020-01-24 06:08 | P.EN ---
I was notified to evalute patient , less responsive and tachycardiac .. rule out seizure patient RN reports that she is almost back to her baseline, she responds on and off, and minimally talking would answer with yes and no only . she made brief eye contact. but then followed my simple commands neck is stiff, as her extremity are but moves with reassurance as if she is purposefully resists. then she has moements where she starts moving her mouth smoothly and wet her lips and swallows, then goes back to stiff grin reflexes over bialteral knee are equal +2 no clonus over bilateral ankle hands in claw spasm, but soft when i try to move it passively when i attempted to move patients extremities and place her in uncomfortable positions, she seems to maintain that position for more than a minute , and then slowly returns to resting position. her SBP 140-150, HR 95-103, afebrile, oxygen sat 98% differential diagnosis #1 partial seizure , or status epilepticus (not clear what is her baseline mental status), neuro following , continue keppra, seizure precautions #2 Catatonia ([facility] psych history ) , psych eval however patient is not hypoxic, and followed simple commands (so i doubt this is a seizure now, but she could have had an episode earlier but now resolved, however concerns remain if this could be status epilepticus , neurology was notified with these symptoms already) when i asked her to look to the left then look to the right, then she stopped following commands. but then attempted to lift her right hand when asked with alot of effort but what she did was she lifted her right upper extremity off the bed about 1-2 inches then was stuck in that position. but then when i place both upper extremity in an uncomfortable po sition above her head , she was able to maintain that for about a minute then very slowly lowered that back to resting position may be over 15-30 seconds. #3 Neuroleptic malignant syndrome (check CPK, not clear what is her baseline mental status , no fever, no diaphoresis , but she does have some rigidity, and tachycardia) plan check creatine kinase (was normal upon admission ) patient has elevated liver enzymes upon admission no metabolic abnormalities otherwise except for mild acidosis patient is not currently on any antipsychotic meds #4 meningitis no fever, no leukocytosis consider LP otherwise
[2020-01-24] MEDS ORDERED: LORazepam 2 MG/ML INJ IV STA ×2 (06:12→20:16)
[2020-01-24 06:46] LABS: Creatine Kinase 95 U/L (30-135)
[2020-01-24 06:50] LABS: C Reactive Protein <5.0 mg/L (<10.0)
[2020-01-24] MEDS: TICAGRELOR 90 MG TAB PO SCH (08:54)
[2020-01-24] MEDS ORDERED: ASPIRIN 81 MG PO SCH (09:00)
[2020-01-24] MEDS ORDERED: ASPIRIN 325 MG TAB PO SCH (09:00)
--- NOTE | 2020-01-24 10:53 | XR ---
EXAMINATION TYPE: XR chest 1V DATE OF EXAM: 01/24/2020 COMPARISON: 01/23/20 HISTORY: Shortness of breath TECHNIQUE: Single frontal view of the chest is obtained. FINDINGS: Any mediastinal silhouette is enlarged. Senescent changes are seen throughout the lungs. N o new focal consolidation, pleural effusion or pneumothorax. Kyphoplasty changes are redemonstrated o f the upper thoracic spine with diffuse osseous demineralization. Cardia mediastinal silhouette is en larged. Surgical clips in the upper abdomen. IMPRESSION: Chronic changes with no acute cardiopulmonary process.
--- NOTE | 2020-01-24 13:00 | EEG ---
ELECTROENCEPHALOGRAM REPORT DATE OF SERVICE: 01/24/2020. HISTORY: This is an inpatient EEG performed on a 59-year-old female who is admitted for possible transient ischemic attack. The patient was found to have focal seizures involving the left side of her face with both expressive and receptive aphasia. The urine drug screen was positive for methamphetamine. Her past medical history is significant for a prior aneurysm clipping intracranially. She is currently on Keppra for seizure management. TECHNICAL REPORT: This is an inpatient EEG performed on the [employer] EEG monitor with electrodes placed according to the international 10-20 system and a single EKG channel. Simultaneous video EEG monitoring was performed. This EEG was reviewed in both the longitudinal bipolar, average differential and transverse montages. Hyperventilation was not performed. The recording begins with a low to moderate amplitude background consisting primarily of frequencies in the background from 5 to 7 Hz up to maximum 8 Hz. This is consistent with drowsiness and wakefulness. Excessive muscle artifact is also noted in the frontal head regions. Throughout this study, there are episodes between 1 to 4 seconds of frontal intermittent rhythmic delta activity noted bifrontally. Rare episodes of high amplitude single sharp and slow-wave discharges are noted to occur over the right frontal central parietal head region. This is best viewed in the average referential montage with maximum negativity at the right frontal electrode placement. This is not associated with any clinical event. Deeper stages of sleep were not achieved. IMPRESSION: This is an abnormal awake drowsy EEG recording. This EEG is considered abnormal due to the frequent frontal intermittent delta activity that was noted bifrontally. In addition, the rare episodes of single high amplitude sharp and slow-wave discharges lateralize to the right hemisphere. The wake background appears normal for the patient's stated age. Drowsiness/sleep architecture also appears normal for the patient's stage age. CLINICAL CORRELATION: The appearance of frontal intermittent rhythmic delta activity could suggest an underlying structural mass lesion. The episodes of epileptiform activity lateralized to the right frontal central parietal region indicate an underlying epileptogenic focus involving this head region. This EEG confirms this patient has increased risk for seizures. Further clinical correlation is needed. Serial EEGS are recommended. If possible, a more prolonged overnight study could provide additional information. MMODL / IJN: [id number] / MICHAEL
--- NOTE | 2020-01-24 13:36 | P.CN ---
Psychiatric Consult - . Consult date: 01/24/20 Consult:: 01/24/20 13:28 IDENTIFYING DATA: This patient is a 59-year-old female currently admitted for a CVA and altered mental status. HISTORY OF PRESENT ILLNESS: The patient presented to the hospital yesterday and was seen in the ER for strokelike symptoms. According to ER report patient had altered mental status and apparently had an acute onset of difficulty using her remote for her TV at home and had changes in her speech and was brought into the hospital by EMS. Patient was not a very good historian. Her urinalysis was positive for infection and patient had a CT of her brain which did not show any acute ischemia however did show carotid dissection in her neck which apparently is an ongoing issue. Psychiatry was consulted for altered mental status. Neurology currently following a long. Attempted to see patient this afternoon however patient was sleeping soundly at the bedside. Resident Service Coordinator attempted to awaken patient however patient did not awake at this time and was not responding to any commands. Unable to assess for sleep, mood and unable to assess for auditory or visual hallucinations. Patient was not responding to internal stimuli. Unable to assess for suicidal homicidal ideation intent or plan. PAST PSYCHIATRIC HISTORY: Patient has a significant history of anxiety and depression and is currently on Lexapro 20 mg daily and Zyprexa 10 mg daily. PAST MEDICAL HISTORY: CVA and carotid dissection.. ALLERGIES: as per EMR. CHEMICAL DEPENDENCY HISTORY: Unable to assess. FAMILY PSYCHIATRIC/SUBSTANCE USE HISTORY: Unable to assess SOCIAL HISTORY: Unable to assess due to mental status.. MENTAL STATUS EXAM: General Appearance: Patient appears to be stated age is sleeping soundly and unable to be awoken. Patient appears to have fair hygiene and grooming wearing hospital gown. Behavior: Not following any commands, sleeping soundly in her bed. Speech: Unable to assess Mood/Affect: Unable to assess Suicidality/Homicidality: Unable to assess Perceptions: Unable to assess Though content/process: Unable to assess Memory and concentration: Patient not able to participate in cognitive exam as patient is unable to be awoken. Patient does not follow any commands. Judgment and insight: poor IMPRESSIONS: Likely delirium secondary to CVA, seizures or possibly urinary infection. PLAN: -At this time patient DOES NOT meet criteria for inpatient psychiatric admission. -Delirium precautions recommended with patient including - avoiding use of narcotics and [employer] sedatives, limit anticholinergic medications when possible, frequent re-orientation, minimize use of restraints, open window shades during the day and close them at night -Would recommend the following medication changes/additions: Will hold off on restarting patient's antidepressants and Zyprexa at this time. Avoid benzodiazepines and anticholinergic medications as this may worsen delirium. -Appreciate neurology recommendations. Neurology continuing to workup patient's CVA and seizures. -Psychiatry will sign off at this point, please contact with any questions.
--- NOTE | 2020-01-24 13:41 | P.CRDCN ---
History of Present Illness Consult date: 01/24/20 Requesting physician: Rani Cao Chief complaint: expressive aphasia History of present illness: This is a 59-year-old female with history of possible prior TIA, apparently she was at [facility] on arrival recently, she had been experiencing multiple falls at home and was found to be quite hypotensive. She was initiated at that time on midodrine. Patient also had history of strokelike symptoms 2-1/2 years ago, she was worked up at [facility] and found to have a carotid dissection/clot retrieval with TPA and had full recovery. She presented to the hospital on this admission with mental status changes as well as symptoms of expressive aphasia. Apparently the patient was also not able to use the remote control for her television. The patient has been seen in consultation by neurology. She under went a stroke evaluation with the telemetry stroke, the computed tomography scan of the head did not show any evidence of acute ischemia but there was significant cortical atrophy and evidence of prior dissection involving the left ICA, upper cervical area. There is no evidence of any intracranial or extracranial large vessel occlusion. Her initial NIH stroke scale was 7 on presentation here. She apparently had another episode this morning with what appeared to be possible seizure activity, she was given some Ativan just prior to the time of my evaluation. Initially she was brought into the hospital with suspicion of possible stroke, for this reason a cardiology consultation was requested, to rule out the possibility of cardiac causes for her stroke. It appears that the opinion of the neurologist is that the patient may be having complex partial seizures. Her EKG on presentation here shows a normal sinus rhythm with no acute changes. No atrial arrhythmias have been noted on the monitor. Blood pressure 160/90 with a heart rate of 112 to 1:15. White blood cell count 6.1, hemoglobin 12.3, platelet count 281. GGT 178, AST 73, ALT 126. Less than 0.012. TSH level 0.31. Positive UTI. Drug screen positive for methamphetamines. Sodium 139, potassium 3.7, chloride 110, CO2 20, BUN 10, creatinine 0.5. At my examination, the patient was quite lethargic, as mentioned she had just received a dose of Ativan. Past Medical History Past Medical History: CVA/TIA, Renal Disease Additional Past Medical History / Comment(s): Multiple falls last 4 weeks-went to [facility] on [address] and was found to have hypotension, stroke like symptoms approximately 2.5 yrs ago-worked up at [facility] and found caratid dissection/clot-received TPA and had full recovery, nephrolithiasis with surgery, john en Y and pt has had stomach problems since, overactive bladder, past sleep walking years ago. History of Any Multi-Drug Resistant Organisms: None Reported Past Surgical History: Bariatric Surgery, Cholecystectomy, Hysterectomy, Joint Replacement, Orthopedic Surgery Additional Past Surgical History / Comment(s): John en Y, EGD, colonoscopy, cysto d/t kidney stone with stent placed/removed, L total knee arthroplasty, R lower arm injury with plates. Additional Past Anesthesia/Blood Transfusion Reaction / Comment(s): Pt has received blood in past without reaction. Past Psychological History: Anxiety, Depression, PTSD Additional Psychological History / Comment(s): Pt resides with her spouse. She sees a psychiatrist regularly and is doing well. Pt is independent. Smoking Status: Never smoker Past Alcohol Use History: None Reported Past Drug Use History: None Reported - Past Family History Mother Family Medical History: COPD Additional Family Medical History / Comment(s): Mother is on oxygen. She was a smoker. Father Family Medical History: Cancer Additional Family Medical History / Comment(s): Father had 1/2 lung removed d/t lung cancer. He has a peice of liver removed d/t cancer. He is an exsmoker. Medications and Allergies Home Medications Medication Instructions Recorded Confirmed Type Atorvastatin [Lipitor] 40 mg PO HS 01/23/20 01/23/20 History Calcium Carbonate [Calcium] 600 mg PO BID 01/23/20 01/23/20 History Cyclobenzaprine [Flexeril] 10 mg PO HS PRN 01/23/20 01/23/20 History Ergocalciferol (Vitamin D2) 50,000 unit PO DIRECTED 01/23/20 01/23/20 History [Drisdol] Escitalopram [Lexapro] 20 mg PO DAILY 01/23/20 01/23/20 History Gabapentin [Gralise] 600 mg PO HS 01/23/20 01/23/20 History Levothyroxine Sodium [Synthroid] 25 mcg PO ORTIZ 01/23/20 01/23/20 History Levothyroxine Sodium [Synthroid] 50 mcg PO MOTUWETHFRSA 01/23/20 01/23/20 His tory Midodrine HCl [ProAmatine] 10 mg PO TID 01/23/20 01/23/20 History Mirabegron [Myrbetriq] 50 mg PO DAILY 01/23/20 01/23/20 History Multivitamins, Thera [Multivitamin 1 tab PO DAILY 01/23/20 01/23/20 History (formulary)] Nascobal (B12) 500mcg/Neihart 1 spray NASAL Q7D 01/23/20 01/23/20 History OLANZapine [ZyPREXA] 10 mg PO DAILY 01/23/20 01/23/20 History Pantoprazole [Protonix] 40 mg PO DAILY PRN 01/23/20 01/23/20 History Pilocarpine [Salagen] 5 mg PO TID PRN 01/23/20 01/23/20 History Solifenacin Succinate [Vesicare] 5 mg PO DAILY 01/23/20 01/23/20 History Warfarin Sodium [Coumadin] 9 mg PO SUMOWEFR 01/23/20 01/23/20 History Allergies Allergy/AdvReac Type Severity Reaction Status Date / Time No Known Allergies Allergy Verified 01/23/20 10:27 Physical Exam Vitals: Vital Signs Temp Pulse Resp BP BP Pulse Ox 01/24/20 08:50 115 H 22 160/98 98 01/24/20 08:00 115 H 24 01/24/20 05:30 111 H 142/93 01/24/20 04:58 103 H 17 178/81 99 01/24/20 04:39 98 F 119 H 24 186/119 98 01/24/20 03:37 98.1 F 97 16 164/94 97 01/23/20 23:00 89 16 160/81 98 01/23/20 20:00 97.9 F 89 16 158/83 97 01/23/20 18:20 148/76 01/23/20 16:00 86 20 170/93 99 Intake and Output 01/23/20 01/24/20 01/24/20 22:59 06:59 14:59 Intake Total 600 Output Total 400 1500 Balance 200 -1500 Intake: Intake, IV Titration 360 Amount Sodium Chloride 0.9% 1, 360 000 ml @ 90 mls/hr IV . Q11H7M [facility] Rx#:[id number] Oral 240 Output: Urine 400 1500 Straight 600 Other: # Voids 0 1 Weight 77.5 kg PHYSICAL EXAMINATION: GENERAL: 59-year-old female, quite lethargic, in no acute distress at the time of my examination HEENT: Head is atraumatic, normocephalic. Pupils equal, round. Sclera anicteric. Conjunctiva are clear. Mucous membranes of the mouth are moist. Neck is supple. There is no elevated jugular venous pressure. No carotid bruit is heard. HEART EXAMINATION: Heart S1, S2 normal. No murmur or gallop heard. CHEST EXAMINATION: Lungs are clear to auscultation and precussion. No chest wall tenderness is noted on palpation or with deep breathing. ABDOMEN: Soft, nontender. Bowel sounds are heard. No organomegaly noted. EXTREMITIES: 2+ peripheral pulses with no evidence of peripheral edema and no calf tenderness noted. NEUROLOGIC [patient is lethargic, arousable Results 01/23/20 16:49 01/23/20 07:22 Cardiac Enzymes 01/23/20 01/23/20 01/24/20 Range/Units 16:49 16:49 06:04 AST 73 H (14-36) U/L Troponin I <0.012 <0.012 (0.000-0.034) ng/mL Lipids 01/23/20 Range/Units 07:22 Triglycerides 48 (<150) mg/dL Cholesterol 133 (<200) mg/dL HDL Cholesterol 77 H (40-60) mg/dL CBC 01/23/20 Range/Units 16:49 WBC 6.1 (3.8-10.6) k/uL RBC 3.85 (3.80-5.40) m/uL Hgb 12.3 (11.4-16.0) gm/dL Hct 36.9 (34.0-46.0) % Plt Count 281 (150-450) k/uL Comprehensive Metabolic Panel 01/23/20 Range/Units 16:49 AST 73 H (14-36) U/L ALT 126 H (4-34) U/L Current Medications Generic Name Dose Route Start Last Admin Trade Name Freq PRN Reason Stop Dose Admin Aspirin 81 mg 01/24/20 09:00 01/24/20 08:54 Aspirin PO 81 mg DAILY [facility] Administration Sodium Chloride 1,000 mls @ 90 mls/hr 01/23/20 13:15 01/24/20 08:57 Saline 0.9% IV Not Given .Q11H7M [facility] Levetiracetam 500 mg/ Sodium 105 mls @ 400 mls/hr 01/24/20 05:00 01/24/20 04:33 Chloride IVPB 400 mls/hr Q12H [facility] Administration Intake and Output 01/23/20 01/24/20 01/24/20 22:59 06:59 14:59 Intake Total 600 Output Total 400 1500 Balance 200 -1500 Intake: Intake, IV Titration 360 Amount Sodium Chloride 0.9% 1, 360 000 ml @ 90 mls/hr IV . Q11H7M [facility] Rx#:[id number] Oral 240 Output: Urine 400 1500 Straight 600 Other: # Voids 0 1 Weight 77.5 kg 01/23/20 16:49 01/23/20 07:22 EKG Interpretations (text) EKG shows a normal sinus rhythm with nonspecific ST-T wave changes Assessment and Plan Plan: Assessment and plan #1 symptoms of confusion with associated expressive aphasia CAT scan of the brain did not reveal any evidence of stroke, it did show significant atrophy wh ich was out of proportion for the patient stated age. It is felt by neurology that the patient may be experiencing complex partial seizures. #2 accelerated hypertension #3 drug screen positive for methamphetamine use #4 history of left carotid dissection and prior clot removal / TPA #5 history of hypothyroidism, TSH this admission, TSH 0.31 Plan We will obtain an echocardiogram with Doppler study. Add Norvasc 5 mg daily to the patient's medication regime. Discontinue the Coumadin and Brilinta per Dr. Castillo and start the patient on subcu heparin. DNP note has been reviewed, I agree with a documented findings and plan of care. Patient was seen and examined.
[2020-01-24] MEDS ORDERED: amLODIPine 5 MG TAB PO SCH (14:00)
--- NOTE | 2020-01-24 18:22 | P.PN ---
Subjective Progress Note Date: 01/24/20 Patient seen and examined at bedside, still pretty aphasic more somnolent and less arousable, today, apparently had a dose of Ativan approximately 6 AM this morning. Patient is scheduled to have a EEG today, UDS did come positive for methamphetamine prolactin was positive at 49.6, Patient is also tachypneic, echocardiogram showing moderate left concentric hypertrophy ejection fraction 55-60% there's moderate MR and moderate TR moderate PAH, urinalysis was abnormal positive for ketones and leuk esterase Objective - Vital Signs Vital signs: Vital Signs Temp 98 F 01/24/20 04:39 Pulse 105 H 01/24/20 12:00 Resp 24 01/24/20 12:00 BP 154/90 01/24/20 12:00 Pulse Ox 96 01/24/20 17:24 Intake & Output 01/23/20 01/24/20 01/24/20 18:59 06:59 18:59 Intake Total 240 360 736 Output Total 400 1500 Balance -160 -1140 736 Weight 66.224 kg 77.5 kg Intake: Intake, IV Titration 360 Amount Sodium Chloride 0.9% 1, 360 000 ml @ 90 mls/hr IV . Q11H7M [facility] Rx#:[id number] Oral 240 736 Output: Urine 400 1500 Straight 600 Other: # Voids 0 1 1 - Exam Constitutional: No acute distress, conversant, pleasant Eyes: Anicteric sclerae, moist conjunctiva, no lid-lag, PERRLA ENMT: NC/AT,Oropharynx clear, no erythema, exudates Neck:Supple, FROM, no masses, or JVD, No carotid bruits; No thyromegaly Lungs: Clear to auscultation, Clear to percussion, Normal respiratory effort, no accessory muscle use Cardiovascular: Heart regular in rate and rhythm, No murmurs, gallops, or rubs no peripheral edema Abdominal: Soft Nontender, nom distended, no guarding, no rebound or rigidity, Normoactive bowel sounds No hepatomegaly, No splenomegaly, No palpable mass No abdominal wall hernia noted Skin: Normal temperature, tone, texture, turgor, No induration No subcutaneous nodules, No rash, lesions, No ulcers Extremities:No digital cyanosis No clubbing, Pedal pulses intact and symmetrical Radial pulses intact and symmetrical Normal gait and station, No calf tenderness Neuro: More lethargic withdraws from painful stimuli, not very arousable - Labs CBC & Chem 7: 01/23/20 16:49 01/23/20 07:22 Labs: Abnormal Lab Results - Last 24 Hours (Table) 01/23/20 01/23/20 01/24/20 Range/Units 07:22 16:49 04:40 POC Glucose (mg/dL) 115 H (75-99) mg/dL HDL Cholesterol 77 H (40-60) mg/dL Prolactin 49.6 H (2.8-29.2) ng/mL Assessment and Plan Assessment: Confusion with ataxia and expressive aphasia * Likely secondary to possible partial seizures EEG has been ordered for later today, patient started on Ativan and Keppra * Imaging workup with CT and MRI and negative for any acute intracranial abnormalities * Patient continued on daily aspirin * We'll consult speech therapy for recommendations the patient unable to participate due to being so somnolent * Appreciate neurology recommendations plan, we will consider obtaining an LP Hypertensive urgency * We'll continue to allow permissive hypertension per neurology recommendations * Continued on Norvasc * Echocardiogram confirming preserved LVEF with some MR TR and PAH Left carotid dissection * History of clot removal * Await cardiology recommendations will likely discontinue Brilinta and Coumadin Hyperlipidemia * Continue statin therapy Elevated LFTs * will recheck tomorrow Hypothyroidism * Patient will be resumed on thyroid supplementation unable to tolerate by mouth Schizoaffective disorder * Consult to psychiatry pending anticoagulation with Coumadin Urinalysis abnormal but does not suggestive of UTI * We'll attempt to obtain cultures antibiotics indicated at this time
[2020-01-24] MEDS ORDERED: OLANZapine 10 MG VIAL IM STA (20:41)
[2020-01-24 20:48] LABS: Basophils % (A) 0 %; Eosinophils % (A) 0 %; HCT 35.8 % (34.0-46.0); HGB 11.9 gm/dL (11.4-16.0); Lymphocytes # (A) 1.3 k/uL (1.0-4.8); Lymphocytes % (A) 14 %; MCHC 33.4 g/dL (31.0-37.0); MCV 95.7 fL (80.0-100.0); Mean Platelet Volume 8.1; Monocytes # (A) 0.6 k/uL (0-1.0); Monocytes % (A) 6 %; Neutrophils # (A) 6.9 k/uL (1.3-7.7); Neutrophils % (A) 75 %; Platelet Count 277 k/uL (150-450); RBC 3.74 m/uL (3.80-5.40); RDW 13.1 % (11.5-15.5); WBC 9.1 k/uL (3.8-10.6)
--- NOTE | 2020-01-24 20:53 | XR ---
EXAMINATION TYPE: XR chest 1V portable DATE OF EXAM: 01/24/2020 COMPARISON: Today HISTORY: Short of breath TECHNIQUE: FINDINGS: Heart is enlarged. There is no gross heart failure. There is slight coarsening of the lung markings. There are chest leads. There is some mild atelectasis at the left lung base. There are mult ilevel vertebroplasty with bone cement noted in the upper thoracic spine. IMPRESSION: Mild atelectasis left lower lobe unchanged. No gross heart failure. Stable cardiomegaly.
[2020-01-24 21:00] LABS: ALT 114 U/L (4-34); AST 71 U/L (14-36); C Reactive Protein <5.0 mg/L (<10.0); GGT 165 U/L (12-43)
[2020-01-24] MEDS ORDERED: HEPARIN SODIUM,PORCINE 5,000 UNIT/ML 1 ML VIAL SQ SCH (21:00)
[2020-01-24] MEDS ORDERED: LORazepam 2 MG/ML INJ IV PRN ×3 (21:01)
[2020-01-24 21:36] LABS: Erythrocyte Sedimentation Rate 16 mm/hr (0-20)
[2020-01-24] MEDS: cloNIDine 0.2 MG/24HR PATCH TRANSDERM SCH (21:52)
--- NOTE | 2020-01-24 21:55 | P.PN ---
Progress Note - Text Progress Note Date: 01/24/20 i discussed case with neurology , RN , and went to bed side to evaluate patient still in the differential seizure with possible status epilepticus , neuro evaluating mild NMS ,, which is not severe at this point, and usual treatment is withdrawal of sntipsychotic and patients improve in 1-2 days , no fever no elevated CPK. supportive care ? infection ,, unlikely covid 19 , her blood work does not have the typical features we see with COVID patient s, inaddition patient is not hypoxic or coughing. testing would not twisting frame changer. we are using contact precautions with all patients , virus shedding is not at higher risk compared to out in the community if the patient is asymptomatic, as out in the community you will have asymptomatic patients that could be carrying the virus.. if she starts having coughing, fever, or hypoxia then i would consider testing. concerns of UTI, no leukocytosis, UA is not striking for UTI, however patient is having urinary incontinence. patient is unable to provide meaningful history at this time. however, if I start rocephine, it can lower her threshold for seizures. at this time , i dont think antibiotics will be helpful repeat UA and re-evaluate monitor for fever or leukocytosis , if that, then i would consider antibiotics will continue close monitoring
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
[2020-01-24 23:36] LABS: Appearance,Urine Clear (Clear); Bacteria,Urine Many /hpf; Bilirubin,Urine Negative (Negative); Blood,Urine Small (Negative); Color,Urine Yellow; Glucose,Urine (UA) Negative (Negative); Ketones,Urine 3+ (Negative); Leukocyte Esterase,Urine Negative (Negative); Mucus,Urine Rare /hpf; Nitrite,Urine Positive (Negative); PH, Urine 5.5 (5.0-8.0); Protein,Urine Trace (Negative); RBC,Urine 5 /hpf (0-5); Specific Gravity,Urine 1.017 (1.001-1.035); Squamous Epithelial Cell,Urine <1 /hpf (0-4); Urobilinogen,Urine <2.0 mg/dL (<2.0); WBC,Urine 3 /hpf (0-5)
[2020-01-25] MEDS: SODIUM CHLORIDE 0.9% 1,000 ML IV SCH ×3 (01:14→21:27)
[2020-01-25] MEDS: levETIRAcetam IV 500 MG in SODIUM CHLORIDE 0.9% 100 ML IVPB SCH ×2 (04:12→17:31)
[2020-01-25 06:21] LABS: Basophils % (A) 0 %; Eosinophils % (A) 0 %; HCT 36.4 % (34.0-46.0); HGB 11.8 gm/dL (11.4-16.0); Lymphocytes # (A) 1.3 k/uL (1.0-4.8); Lymphocytes % (A) 17 %; MCH 30.9 pg (25.0-35.0); MCHC 32.3 g/dL (31.0-37.0); MCV 95.7 fL (80.0-100.0); Mean Platelet Volume 7.5; Monocytes # (A) 0.4 k/uL (0-1.0); Monocytes % (A) 6 %; Neutrophils # (A) 5.6 k/uL (1.3-7.7); Neutrophils % (A) 73 %; Platelet Count 267 k/uL (150-450); WBC 7.6 k/uL (3.8-10.6)
[2020-01-25 06:32] LABS: ALT 100 U/L (4-34); AST 63 U/L (14-36); African American GFR (CKD) >90 (>60 ml/min/1.73 sqM); Albumin 3.3 g/dL (3.5-5.0); Alkaline Phosphatase 160 U/L (38-126); Anion Gap 8 mmol/L; Blood Urea Nitrogen 13 mg/dL (7-17); Calcium 7.7 mg/dL (8.4-10.2); Carbon Dioxide 19 mmol/L (22-30); Chloride 112 mmol/L (98-107); Glucose 109 mg/dL (74-99); Non-African American GFR(CKD) >90 (>60 ml/min/1.73 sqM); Potassium 4.7 mmol/L (3.5-5.1); Sodium 139 mmol/L (137-145); Total Bilirubin 0.6 mg/dL (0.2-1.3); Total Protein 6.1 g/dL (6.3-8.2)
[2020-01-25 06:33] LABS: INR 1.1 (<1.2); Prothrombin Time 10.8 sec (9.0-12.0)
--- NOTE | 2020-01-25 12:17 | P.PN ---
Subjective Progress Note Date: 01/25/20 This is a 59-year-old female with history of possible prior TIA, apparently she was at [facility] on arrival recently, she had been experiencing multiple falls at home and was found to be quite hypotensive. She was initiated at that time on midodrine. Patient also had history of strokelike symptoms 2-1/2 years ago, she was worked up at [facility] and found to have a carotid dissection/clot retrieval with TPA and had full recovery. She presented to the hospital on this admission with mental status changes as well as symptoms of expressive aphasia. Apparently the patient was also not able to use the remote control for her television. The patient has been seen in co nsultation by neurology. She under went a stroke evaluation with the telemetry stroke, the computed tomography scan of the head did not show any evidence of acute ischemia but there was significant cortical atrophy and evidence of prior dissection involving the left ICA, upper cervical area. There is no evidence of any intracranial or extracranial large vessel occlusion. Her initial NIH stroke scale was 7 on presentation here. She apparently had another episode this morning with what appeared to be possible seizure activity, she was given some Ativan just prior to the time of my evaluation. Initially she was brought into the hospital with suspicion of possible stroke, for this reason a cardiology consultation was requested, to rule out the possibility of cardiac causes for her stroke. It appears that the opinion of the neurologist is that the patient may be having complex partial seizures. Her EKG on presentation here shows a normal sinus rhythm with no acute changes. No atrial arrhythmias have been noted on the monitor. Blood pressure 160/90 with a heart rate of 112 to 1:15. White blood cell count 6.1, hemoglobin 12.3, platelet count 281. GGT 178, AST 73, ALT 126. Less than 0.012. TSH level 0.31. Positive UTI. Drug screen positive for methamphetamines. Sodium 139, potassium 3.7, chloride 110, CO2 20, BUN 10, creatinine 0.5. At my examination, the patient was quite lethargic, as mentioned she had just received a dose of Ativan. Objective - Vital Signs Vital signs: Vital Signs Temp 98.9 F 01/25/20 08:00 Pulse 109 H 01/25/20 08:00 Resp 28 H 01/25/20 08:00 BP 149/86 01/25/20 08:00 Pulse Ox 98 01/25/20 08:00 Intake & Output 01/24/20 01/25/20 01/25/20 18:59 06:59 18:59 Intake Total 736 1080 230 Output Total 600 650 Balance 736 480 -420 Weight 85.5 kg Intake: Intake, IV Titration 980 Amount Sodium Chloride 0.9% 1, 980 000 ml @ 90 mls/hr IV . Q11H7M KIRA Rx#:[id number] Oral 736 100 230 Output: Urine 600 650 Straight 300 Other: # Voids 1 1 - Exam PHYSICAL EXAMINATION: GENERAL: 59-year-old female, quite lethargic, in no acute distress at the time of my examination HEENT: Head is atraumatic, normocephalic. Pupils equal, round. Sclera anicteric. Conjunctiva are clear. Mucous membranes of the mouth are moist. Neck is supple. There is no elevated jugular venous pressure. No carotid bruit is heard. HEART EXAMINATION: Heart S1, S2 normal. No murmur or gallop heard. CHEST EXAMINATION: Lungs are clear to auscultation and precussion. No chest wall tenderness is noted on palpation or with deep breathing. ABDOMEN: Soft, nontender. Bowel sounds are heard. No organomegaly noted. EXTREMITIES: 2+ peripheral pulses with no evidence of peripheral edema and no calf tenderness noted. NEUROLOGIC [patient is lethargic, arousable - Labs CBC & Chem 7: 01/25/20 06:07 01/25/20 06:07 Labs: Abnormal Lab Results - Last 24 Hours (Table) 01/24/20 01/24/20 01/24/20 Range/Units 20:30 20:30 23:04 RBC 3.74 L (3.80-5.40) m/uL Chloride (98-107) mmol/L Carbon Dioxide (22-30) mmol/L Creatinine (0.52-1.04) mg/dL Glucose (74-99) mg/dL Calcium (8.4-10.2) mg/dL GGT 165 H (12-43) U/L AST 71 H (14-36) U/L ALT 114 H (4-34) U/L Alkaline Phosphatase (38-126) U/L Total Protein (6.3-8.2) g/dL Albumin (3.5-5.0) g/dL Urine Protein Trace H (Negative) Urine Ketones 3+ H (Negative) Urine Blood Small H (Negative) Urine Nitrite Positive H (Negative) Urine Bacteria Many H (None) /hpf Urine Mucus Rare H (None) /hpf 01/25/20 Range/Units 06:07 RBC (3.80-5.40) m/uL Chloride 112 H (98-107) mmol/L Carbon Dioxide 19 L (22-30) mmol/L Creatinine 0.50 L (0.52-1.04) mg/dL Glucose 109 H (74-99) mg/dL Calcium 7.7 L (8.4-10.2) mg/dL GGT (12-43) U/L AST 63 H (14-36) U/L ALT 100 H (4-34) U/L Alkaline Phosphatase 160 H (38-126) U/L Total Protein 6.1 L (6.3-8.2) g/dL Albumin 3.3 L (3.5-5.0) g/dL Urine Protein (Negative) Urine Ketones (Negative) Urine Blood (Negative) Urine Nitrite (Negative) Urine Bacteria (None) /hpf Urine Mucus (None) /hpf Assessment and Plan Plan: Assessment and plan #1 symptoms of confusion with associated expressive aphasia CAT scan of the brain did not reveal any evidence of stroke, it did show significant atrophy which was out of proportion for the patient stated age. It is felt by neurology that the patient may be experiencing complex partial seizures. #2 accelerated hypertension #3 drug screen positive for methamphetamine use #4 history of left carotid dissection and prior clot removal / TPA #5 history of hypothyroidism, TSH this admission, TSH 0.31 Plan Echocardiogram with Doppler study revealed a normal left ventricular systolic function. Blood pressure overall is improved today. From cardiology's perspective, we will follow this patient along with you now on an as-needed basis bases only, please don't hesitate to call with any questions. DNP note has been reviewed, I agree with a documented findings and plan of care. Patient was seen and examined.
--- NOTE | 2020-01-25 13:12 | P.PN ---
Subjective Progress Note Date: 01/25/20 Patient seen and examined at bedside, continues to be pretty aphasic more somnolent and less arousable, today, apparently had a dose of Ativan overnight. EEG yesterday suggested a right frontal parietal electrogenic focus, UDS did come positive for methamphetamine prolactin was positive at 49.6, Patient is also tachypneic, echocardiogram showing moderate left concentric hypertrophy ejection fraction 55-60% there's moderate MR and moderate TR moderate PAH, urinalysis was abnormal positive for ketones and leuk esterase Objective - Vital Signs Vital signs: Vital Signs Temp 98.4 F 01/25/20 12:00 Pulse 117 H 01/25/20 12:00 Resp 24 01/25/20 12:00 BP 162/83 01/25/20 12:00 Pulse Ox 97 01/25/20 12:00 Intake & Output 01/24/20 01/25/20 01/25/20 18:59 06:59 18:59 Intake Total 736 1080 230 Output Total 600 650 Balance 736 480 -420 Weight 85.5 kg Intake: Intake, IV Titration 980 Amount Sodium Chloride 0.9% 1, 980 000 ml @ 90 mls/hr IV . Q11H7M KIRA Rx#:[id number] Oral 736 100 230 Output: Urine 600 650 Straight 300 Other: # Voids 1 1 - Exam Constitutional: No acute distress, conversant, pleasant Eyes: Anicteric sclerae, moist conjunctiva, no lid-lag, PERRLA ENMT: NC/AT,Oropharynx clear, no erythema, exudates Neck:Supple, FROM, no masses, or JVD, No carotid bruits; No thyromegaly Lungs: Clear to auscultation, Clear to percussion, Normal respiratory effort, no accessory muscle use Cardiovascular: Heart regular in rate and rhythm, No murmurs, gallops, or rubs no peripheral edema Abdominal: Soft Nontender, nom distended, no guarding, no rebound or rigidity, Normoactive bowel sounds No hepatomegaly, No splenomegaly, No palpable mass No abdominal wall hernia noted Skin: Normal temperature, tone, texture, turgor, No induration No subcutaneous nodules, No rash, lesions, No ulcers Extremities:No digital cyanosis No clubbing, Pedal pulses intact and symmetrical Radial pulses intact and symmetrical Normal gait and station, No calf tenderness Neuro: More lethargic withdraws from painful stimuli, not very arousable - Labs CBC & Chem 7: 01/25/20 06:07 01/25/20 06:07 Labs: Abnormal Lab Results - Last 24 Hours (Table) 01/24/20 01/24/20 01/24/20 Range/Units 20:30 20:30 23:04 RBC 3.74 L (3.80-5.40) m/uL Chloride (98-107) mmol/L Carbon Dioxide (22-30) mmol/L Creatinine (0.52-1.04) mg/dL Glucose (74-99) mg/dL Calcium (8.4-10.2) mg/dL GGT 165 H (12-43) U/L AST 71 H (14-36) U/L ALT 114 H (4-34) U/L Alkaline Phosphatase (38-126) U/L Total Protein (6.3-8.2) g/dL Albumin (3.5-5.0) g/dL Urine Protein Trace H (Negative) Urine Ketones 3+ H (Negative) Urine Blood Small H (Negative) Urine Nitrite Positive H (Negative) Urine Bacteria Many H (None) /hpf Urine Mucus Rare H (None) /hpf 01/25/20 Range/Units 06:07 RBC (3.80-5.40) m/uL Chloride 112 H (98-107) mmol/L Carbon Dioxide 19 L (22-30) mmol/L Creatinine 0.50 L (0.52-1.04) mg/dL Glucose 109 H (74-99) mg/dL Calcium 7.7 L (8.4-10.2) mg/dL GGT (12-43) U/L AST 63 H (14-36) U/L ALT 100 H (4-34) U/L Alkaline Phosphatase 160 H (38-126) U/L Total Protein 6.1 L (6.3-8.2) g/dL Albumin 3.3 L (3.5-5.0) g/dL Urine Protein (Negative) Urine Ketones (Negative) Urine Blood (Negative) Urine Nitrite (Negative) Urine Bacteria (None) /hpf Urine Mucus (None) /hpf Assessment and Plan Assessment: Confusion with ataxia and expressive aphasia * Likely secondary to possible partial seizures EEG has been ordered for later today, patient continued on Keppra * Imaging workup with CT and MRI and negative for any acute intracranial abnormalities * Patient increasingly catatonic and lethargic concern for seizures versus infection versus NMS * Appreciate neurology recommendations plan, patient unable to have LP done and she did have Brilinta yesterday Hypertensive urgency * We'll continue to allow permissive hypertension per neurology recommendations * Continued on Norvasc * Echocardiogram confirming preserved LVEF with some MR TR and PAH Left carotid dissection * History of clot removal * Await cardiology recommendations will likely discontinue Brilinta and Coumadin Hyperlipidemia * Continue statin therapy Elevated LFTs * will recheck tomorrow Hypothyroidism * Patient will be resumed on thyroid supplementation unable to tolerate by mouth Schizoaffective disorder * Consult to psychiatry pending anticoagulation with Coumadin Urinalysis abnormal but does not suggestive of UTI * We'll attempt to obtain cultures antibiotics indicated at this time disposition * Declining mental status patient catatonic, workup as far as been negative will attempt to get LP done in a timely manner * NG tube will be placed with enteral feeding initiated
--- NOTE | 2020-01-25 15:05 | XR ---
EXAMINATION TYPE: XR chest 1V portable DATE OF EXAM: 01/25/2020 COMPARISON: 01/24/2020 INDICATION: Placement of NG tube TECHNIQUE: Single frontal view of the chest is obtained. FINDINGS: The heart size is mild the prominent. The pulmonary vasculature is normal. The lungs are clear. Multiple calcified lymphadenopathy appears to be at the level of the aortic arch. There is placement of a nasogastric tube. This appears to extend to the distal esophagus and curls to reside slightly more proximal in the distal third of the esophagus. IMPRESSION: 1. Cardiomegaly. 2. Placement of a nasogastric tube which is curled and redirected superiorly within the distal esopha shilpa with the tip in the distal third of the radius thoracic esophagus region.
--- NOTE | 2020-01-25 16:01 | EEG ---
ELECTROENCEPHALOGRAM REPORT DATE OF ADMISSION: 01/23/2020 This is a repeat EEG performed on a 59-year-old female who was admitted to the Emergency Room for possible stroke. She has remained in altered mental status with evidence of positive methamphetamine in the urine. The patient was found to have light facial twitching and global aphasia on her admission. The initial EEG did show evidence of epileptiform activity lateralized to the right frontal, septal and parietal head region. This was associated with extensive slowing of the background but at times reaching an 8 Hz posterior dominant rhythm. Over the interim, the patient has been on Keppra. She has had further neurological deterioration to the point of being almost catatonic. She has minimal response to deep stimulation. She has forced eye closure and dose not track, follow commands and is nonverbal. Her imaging studies did not show evidence of an acute ischemic infarct on this admission. She does; however, have a history of a prior left internal carotid artery dissection treated by thrombectomy two years ago. CURRENT MEDICATIONS: Zyprexa, Keppra. TECHNICAL REPORT: This is an inpatient EEG performed on the [employer] EEG monitor. The electrodes placed according to the international 10-20 system in a single EKG channel. Hyperventilation was not performed. Photic stimulation was performed. This EEG was reviewed in both longitudinal bipolar, average differential and transverse montages. The recording begins with the patient in supine position, eyes closed. There is muscle artifact noted in the bifrontal electrode placement. The background is of low amplitude, synchronous well modulated with theta frequencies between 6 to 7 Hz. Intermittently throughout the study there is also a build up of muscle artifact noted bifrontally. At 12:45:16 sternal chest rub was applied. This caused no change in the background, no evidence of any alerting or increasing the background to wakefulness. Throughout the study there was moderate to high amplitude, frontal intermittent rhythmic delta activity again noted bilaterally. At 12:46:53 an episode of rare sharp wave activity was noted bifrontally. Passive eye opening was noted at 13:09:36 and this was associated with an attenuation of the background and a slowing of the frequencies to 5 to 6 Hz. Persistent frontal intermittent rhythmic delta activity occurred. Photic stimulation was performed with various splash frequencies and failed to elicit a consistent driving response. No clear wake, drowsy state was recorded in this study. IMPRESSION: This is an abnormal followup EEG with worsening compared to the initial EEG on January 22. This EEG consists of generalized slowing consistent with generalized cerebral dysfunction. Persistent frontal intermittent rhythmic delta activity is occurring. This is often associated with encephalopathic states and/or frontal mass lesions. Rare sharp wave activity was noted over the right frontal and left frontal had region. This EEG; however, does not show evidence of repetitive epileptiform activity lateralized to the right hemisphere as the initial study did. This study also showed minimum response to stimulation with change in the background. CLINICAL CORRELATION: This EEG is consistent with generalized cerebral dysfunction consistent with an encephalopathic state. The presence of frontal intermittent rhythmic delta activity along with the rare shock waves again noted over the right hemisphere suggests this patient has an increased risk for seizure activity. This patient is not in nonconvulsive status. No clinical seizures were observed, no electrographic seizures were obtained. No abnormalities were noted in the EKG. RECOMMENDATIONS: Further clinical correlation is required. Serial EEG's are recommended and/or if clinically available, a more prolonged overnight study could provide additional information. MMODL / IJN: [id number] /
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
[2020-01-25] MEDS ORDERED: OXYMETAZOLINE 0.05% NASL SPRAY 1 SPRAY BOTTLE NASAL STA (20:07)
--- NOTE | 2020-01-25 20:22 | XR ---
EXAMINATION TYPE: XR chest 1V portable DATE OF EXAM: 01/25/2020 COMPARISON: Today HISTORY: Short of breath TECHNIQUE: Single view. FINDINGS: Heart is enlarged. There is mild pulmonary congestion. There is some minimal infiltrate left lower l obe. There are chest leads. There is apparent removal of the NG tube compared to exam earlier today. IMPRESSION: There is some mild infiltrate left lower lobe increased compared to exam earlier today. M ild pulmonary vascular congestion but no obvious heart failure. Pulmonary congestion increased compar ed to last exam.
[2020-01-25 20:37] LABS: Glucose,Whole Blood 125 mg/dL (75-99)
[2020-01-25 20:55] LABS: Glucose,Whole Blood 144 mg/dL (75-99)
[2020-01-25] MEDS ORDERED: NALOXONE 0.4 MG/ML 1 ML VIAL IV PRN (21:13)
[2020-01-25] MEDS: PROPOFOL 1,000 MG in EMPTY BAG 1 BAG IV SCH (21:29)
[2020-01-25 21:37] LABS: ABG Base Excess -11.7 mmol/L; ABG HCO3 15 mmol/L (21-25); ABG PCO2 31 mmHg (35-45); ABG PH 7.29 (7.35-7.45); ABG PO2 85 mmHg (83-108); ABG TCO2 16 mmol/L (19-24); Allen Test Performed? Yes
--- NOTE | 2020-01-25 21:53 | XR ---
EXAMINATION TYPE: XR chest 1V DATE OF EXAM: 01/25/2020 COMPARISON: Today HISTORY: Hypoxemia. Intubation. TECHNIQUE: Single view FINDINGS: Endotracheal tube is 2.4 cm from the josefina. There is some patchy airspace consolidation in the left lower lobe. Right lung is clear. There is nasogastric tube with the tip near the gastroesop hageal junction. There are chest leads. There is no heart failure. IMPRESSION: Endotracheal tube in fairly good position. There is increasing infiltrate left lower lobe compared to recent exam. Nasogastric tube is not clearly in the stomach. Tip is probably in the dist al esophagus.
[2020-01-25 22:26] LABS: Appearance,Urine Cloudy (Clear); Bacteria,Urine Many /hpf; Bilirubin,Urine Negative (Negative); Blood,Urine Small (Negative); Color,Urine Yellow; Glucose,Urine (UA) Negative (Negative); Ketones,Urine 3+ (Negative); Leukocyte Esterase,Urine Large (Negative); Mucus,Urine Rare /hpf; Nitrite,Urine Negative (Negative); PH, Urine 5.5 (5.0-8.0); Protein,Urine 1+ (Negative); RBC,Urine 9 /hpf (0-5); Specific Gravity,Urine 1.014 (1.001-1.035); Urobilinogen,Urine <2.0 mg/dL (<2.0); WBC,Urine 42 /hpf (0-5)
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
[2020-01-26] MEDS: PROPOFOL 1,000 MG in EMPTY BAG 1 BAG IV SCH ×4 (00:53→23:29)
[2020-01-26] MEDS: PIPERACILLIN-TAZOBACTAM 3.375 GM in SODIUM CHLORIDE 0.9% 100 ML IVPB SCH ×3 (00:53→16:17)
[2020-01-26 05:00] LABS: ABG HCO3 15 mmol/L (21-25); ABG PCO2 27 mmHg (35-45); ABG PH 7.37 (7.35-7.45); ABG PO2 351 mmHg (83-108); ABG TCO2 16 mmol/L (19-24)
[2020-01-26 05:01] LABS: Allen Test Performed? no
[2020-01-26 05:14] LABS: Basophils % (A) 0 %; Eosinophils % (A) 0 %; HCT 35.7 % (34.0-46.0); Lymphocytes # (A) 0.7 k/uL (1.0-4.8); Lymphocytes % (A) 8 %; MCH 31.9 pg (25.0-35.0); MCHC 33.5 g/dL (31.0-37.0); MCV 95.2 fL (80.0-100.0); Mean Platelet Volume 8.2; Monocytes # (A) 0.4 k/uL (0-1.0); Monocytes % (A) 5 %; Neutrophils # (A) 7.2 k/uL (1.3-7.7); Neutrophils % (A) 84 %; Platelet Count 259 k/uL (150-450); RBC 3.75 m/uL (3.80-5.40); WBC 8.5 k/uL (3.8-10.6)
[2020-01-26 05:37] LABS: African American GFR (CKD) >90 (>60 ml/min/1.73 sqM); Anion Gap 9 mmol/L; Blood Urea Nitrogen 19 mg/dL (7-17); Calcium 7.5 mg/dL (8.4-10.2); Carbon Dioxide 15 mmol/L (22-30); Chloride 116 mmol/L (98-107); Glucose 125 mg/dL (74-99); Non-African American GFR(CKD) >90 (>60 ml/min/1.73 sqM); Potassium 3.5 mmol/L (3.5-5.1); Sodium 140 mmol/L (137-145)
[2020-01-26] MEDS ORDERED: Potassium Replacement Protocol 1 EACH MISC MISCELLANE PRN (05:54)
[2020-01-26] MEDS: levETIRAcetam IV 250 MG in SODIUM CHLORIDE 0.9% 100 ML IVPB SCH ×2 (06:08→18:14)
[2020-01-26] MEDS: SODIUM CHLORIDE 0.9% 1,000 ML IV SCH ×2 (06:08→18:14)
[2020-01-26] MEDS: POTASSIUM BICARBONATE/CIT AC 20 MEQ TABLET.EFF NG-TUBE SCH ×2 (06:08→06:55)
--- NOTE | 2020-01-26 06:43 | XR ---
EXAMINATION TYPE: XR chest 1V DATE OF EXAM: 01/26/2020 HISTORY: respiratory failure. REFERENCE: Previous study dated 01/25/2020. FINDINGS: The patient is ET tube and NG tube remain in place, the NG tube is clearly within the stoma ch at this time. There is dense radiopaque material overlying the thoracic spine, likely secondary to kyphoplasty. There is continuing left basilar airspace disease. There is also some airspace disease in the left up per lobe. The right lung is overinflated but clear. The heart is not enlarged. I could not exclude a small left effusion. IMPRESSION: 1. COPD. 2. CONTINUING LEFT BASILAR AIRSPACE DISEASE WITH A CONCOMITANT EFFUSION.
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
[2020-01-26 08:45] LABS: ALT 84 U/L (4-34); AST 60 U/L (14-36)
[2020-01-26] MEDS ORDERED: levETIRAcetam ORAL SOLN 500 MG/5 ML CUP OG-TUBE SCH (09:00)
--- NOTE | 2020-01-26 10:39 | CT ---
EXAMINATION TYPE: CT angio head neck DATE OF EXAM: 01/26/2020 HISTORY: brain stem CVA COMPARISON: Previous study dated 01/23/2020 CT DLP: 1379.2 mGycm. Automated Exposure Control for Dose Reduction was Utilized. TECHNIQUE: CTA scan of the neck is performed without and with IV Contrast, patient injected with 65 mL of Isovue 370, axial images are obtained, coronal and sagittal reformatted images are reviewed. Th ree-D reconstructed images are created on an independent workstation and reviewed. FINDINGS: There are emphysematous changes within the lungs. The patient is intubated. The tip of the ET tube is just above the josefina and should likely be withdrawn slightly. An NG tube is also present. Its tip is not visualized. Prevertebral soft tissues are unremarkable. Vertebral body height and alignment are maintained. Atlantoaxial relationships are normal. Visualized portions of the paranasal sinuses and mastoids are clear. Within the cranium, Central structures are midline. There is no evidence of hydrocephalus. There is m ild, diffuse periventricular white matter lucency which may be on the basis small vessel ischemic radha nge. There is no evidence of focal lesion, mass effect or intracranial blood. There is a bovine configuration to the aortic arch. The left vertebral artery is dominant and the right vertebral artery is diminutive. There is no significant atheromatous calcification of either carotid bulb. The distal left common car otid artery shows atheromatous calcification as well as a short segment dissection extending into the petrous portion of the internal carotid artery. This is similar in appearance to previous. The basilar artery is patent but is diminutive. The [place] is unremarkable. No sizable aneurysm is seen. No large vessel occlusion is ident ified. IMPRESSION: 1. REVISUALIZATION OF THE PATIENT'S KNOWN DISTAL LEFT INTERNAL CAROTID DISSECTION WHICH DOES NOT APPE AR TO HAVE PROGRESSED. 2. DIMINUTIVE RIGHT VERTEBRAL ARTERY. 3. BORDERLINE APPEARANCE OF THE AORTIC ARCH. 4. EMPHYSEMATOUS CHANGE. 5. LOW LYING ET TUBE. 6. LEFT THYROID NODULE NOT WELL VISUALIZED ON TODAY'S EXAMINATION. 7. NO DEFINITE ACUTE INTRACRANIAL ABNORMALITY.
[2020-01-26] MEDS: LEVOTHYROXINE IVP 100 MCG/5 ML VIAL IV SCH (10:42)
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
[2020-01-26 16:06] LABS: Arsenic Whole Blood <3 mcg/L (< 23); Mercury Whole Blood <2 mcg/L (< 11)
--- NOTE | 2020-01-26 16:12 | XR ---
EXAMINATION TYPE: XR chest 1V portable DATE OF EXAM: 01/26/2020 COMPARISON: Today HISTORY: Respiratory failure TECHNIQUE: FINDINGS: Endotracheal tube is 5 cm from the josefina. There is left subclavian catheter with the tip i n the superior vena cava. There is nasogastric tube with the tip at the gastric fundus. There is some infiltrate in the left lower lobe. Right lung is clear. Trachea is midline. There is no heart failur e. Heart size is normal. IMPRESSION: Left lower lobe infiltrate is the same or slightly improved compared to exam this morning . No heart failure.
[2020-01-26] MEDS ORDERED: amLODIPine 5 MG TAB PO SCH (16:30)
[2020-01-26 16:43] LABS: Glucose,CSF 75 mg/dL (40-70); Total Protein,CSF 29 mg/dL (12-60)
--- NOTE | 2020-01-26 16:45 | P.PN ---
Subjective Progress Note Date: 01/26/20 Principal diagnosis: Ventilator dependent acute respiratory failure Patient seen and examined at bedside. Patient continues to be vent dependent. Today patient opens her eyes slightly and responds to painful stimuli. Objective - Vital Signs Vital signs: Vital Signs Temp 99.1 F 01/26/20 08:00 Pulse 113 H 01/26/20 16:00 Resp 32 H 01/26/20 16:00 BP 133/96 01/26/20 16:00 Pulse Ox 98 01/26/20 16:00 Intake & Output 01/25/20 01/26/20 01/26/20 18:59 06:59 18:59 Intake Total 230 945.096 870 Output Total 1350 665 990 Balance -1120 280.096 -120 Weight 85.5 kg 86 kg 86 kg Intake: IV 720 580 Sodium Chloride 0.9% 1, 720 580 000 ml @ 50 mls/hr IV . Q20H [facility] Rx#:[id number] Intake, IV Titration 225.096 200 Amount Piperacillin-Tazobactam 3 75 200 .375 gm In Sodium Chloride 0.9% 100 ml @ 25 mls/hr IVPB Q8HR [facility] Rx# :[id number] Propofol 1,000 mg In 150.096 Empty Bag 1 bag @ Titrate IV .Q0M [facility] Rx#: [id number] Oral 230 Tube Feeding 60 Other 30 Output: Urine 1350 665 990 Other: Voiding Method Indwelling Catheter Indwelling Catheter ABP, PAP, CO, CI - Last Documented Arterial Blood Pressure 154/94 - Exam General: [vent support mildly arousable ] Derm: [warm], [dry] Head: [atraumatic], [normocephalic], [symmetric] Eyes: [EOMI], [no lid lag], [anicteric sclera] Mouth: [no lip lesion], [mucus membranes moist] Cardiovascular: [S1S2 reg], [no murmur], [positive posterior tibial pulse bilate ral], Lungs: [[b/l rhonchi, b/l rales] , [no accessory muscle use] Abdominal: [soft], [ nontender to palpation], [no guarding], [no appreciable organomegaly] Ext: [no gross muscle atrophy], [no edema], [no contractures] Neuro: [ CN II-XI grossly intact], [no focal neuro deficits] Psych: sedated - Labs CBC & Chem 7: 01/26/20 04:10 01/26/20 04:10 Labs: Abnormal Lab Results - Last 24 Hours (Table) 01/25/20 01/25/20 01/25/20 Range/Units 06:07 20:35 20:53 RBC (3.80-5.40) m/uL Lymphocytes # (1.0-4.8) k/uL ABG pH (7.35-7.45) ABG pCO2 (35-45) mmHg ABG pO2 (83-108) mmHg ABG HCO3 (21-25) mmol/L ABG Total CO2 (19-24) mmol/L ABG O2 Saturation (94-97) % Chloride (98-107) mmol/L Carbon Dioxide (22-30) mmol/L BUN (7-17) mg/dL Glucose (74-99) mg/dL POC Glucose (mg/dL) 125 H 144 H (75-99) mg/dL Calcium (8.4-10.2) mg/dL AST (14-36) U/L ALT (4-34) U/L Prolactin 37.0 H (2.8-29.2) ng/mL Urine Appearance (Clear) Urine Protein (Negative) Urine Ketones (Negative) Urine Blood (Negative) Ur Leukocyte Esterase (Negative) Urine RBC (0-5) /hpf Urine WBC (0-5) /hpf Urine WBC Clumps (None) /hpf Urine Bacteria (None) /hpf Urine Mucus (None) /hpf 01/25/20 01/25/20 01/26/20 Range/Units 21:34 22:00 04:10 RBC 3.75 L (3.80-5.40) m/uL Lymphocytes # 0.7 L (1.0-4.8) k/uL ABG pH 7.29 L (7.35-7.45) ABG pCO2 31 L (35-45) mmHg ABG pO2 (83-108) mmHg ABG HCO3 15 L (21-25) mmol/L ABG Total CO2 16 L (19-24) mmol/L ABG O2 Saturation 93.0 L (94-97) % Chloride (98-107) mmol/L Carbon Dioxide (22-30) mmol/L BUN (7-17) mg/dL Glucose (74-99) mg/dL POC Glucose (mg/dL) (75-99) mg/dL Calcium (8.4-10.2) mg/dL AST (14-36) U/L ALT (4-34) U/L Prolactin (2.8-29.2) ng/mL Urine Appearance Cloudy H (Clear) Urine Protein 1+ H (Negative) Urine Ketones 3+ H (Negative) Urine Blood Small H (Negative) Ur Leukocyte Esterase Large H (Negative) Urine RBC 9 H (0-5) /hpf Urine WBC 42 H (0-5) /hpf Urine WBC Clumps Few H (None) /hpf Urine Bacteria Many H (None) /hpf Urine Mucus Rare H (None) /hpf 01/26/20 01/26/20 01/26/20 Range/Units 04:10 04:10 04:58 RBC (3.80-5.40) m/uL Lymphocytes # (1.0-4.8) k/uL ABG pH (7.35-7.45) ABG pCO2 27 L (35-45) mmHg ABG pO2 351 H (83-108) mmHg ABG HCO3 15 L (21-25) mmol/L ABG Total CO2 16 L (19-24) mmol/L ABG O2 Saturation 98.0 H (94-97) % Chloride 116 H (98-107) mmol/L Carbon Dioxide 15 L (22-30) mmol/L BUN 19 H (7-17) mg/dL Glucose 125 H (74-99) mg/dL POC Glucose (mg/dL) (75-99) mg/dL Calcium 7.5 L (8.4-10.2) mg/dL AST 60 H (14-36) U/L ALT 84 H (4-34) U/L Prolactin (2.8-29.2) ng/mL Urine Appearance (Clear) Urine Protein (Negative) Urine Ketones (Negative) Urine Blood (Negative) Ur Leukocyte Esterase (Negative) Urine RBC (0-5) /hpf Urine WBC (0-5) /hpf Urine WBC Clumps (None) /hpf Urine Bacteria (None) /hpf Urine Mucus (None) /hpf Microbiology - Last 24 Hours (Table) 01/25/20 21:30 Gram Stain - Preliminary Sputum Sputum Culture - Preliminary 01/25/20 22:00 Urine Culture - Preliminary Urine,Voided 01/24/20 20:30 Blood Culture - Preliminary Blood No Growth after 24 hours 01/25/20 14:08 Blood Fungal Culture - Preliminary Blood Assessment and Plan Assessment: -Acute hypoxic respiratory failure multi-factorial secondary to aspiration pneumonia and altered mental status due to recurrent seizures Pulmonary recommendations appreciated and neurology recs appreciated Continue IV antibiotics for aspiration pneumonia Consult ID CT of brain and MRI of brain negative for acute pathology -Hypertension uncontrolled Patient is currently on clonidine transdermal patch will add Norvasc 5 mg daily -Left carotid dissection Cardiology recommendations appreciated CT revealed revisualization of the patient's known testicular distal left internal carotid dissection which does not appear to have progressed. Diminutive right vertebral or artery. Borderline appearance of the aortic arc. Emphysematous changes. Low-lying ET tube. -Hyperlipidemia continue statin -Elevated LFTs improving continue to trend -Hypothyroidism Patient will be resumed on thyroid supplementation unable to tolerate by mouth -Schizoaffective disorder psychiatry pending anticoagulation with Coumadin Am labs
[2020-01-26 17:00] LABS: Appearance,CSF Clear; CSF Tube Number 4; Nucleated Cells, CSF 0 u/L (0-5); Red Blood Cell,CSF 2 u/L (0-10)
[2020-01-26 18:47] LABS: Glucose,Whole Blood 144 mg/dL (75-99)
--- NOTE | 2020-01-26 19:01 | P.PCN ---
Date of Procedure: 01/26/20 Preoperative Diagnosis: altered mental status, respiratory failure, aspiration Postoperative Diagnosis: same Procedure(s) Performed: Central line insertion Anesthesia: local Surgeon: Anyi Caldwell Estimated Blood Loss (ml): 0 Pathology: other Condition: stable Disposition: ICU Operative Findings: Indication: Hemodynamic monitoring/Intravenous access. A time-out was completed verifying correct patient, procedure, site, positioning, and implant(s) or special equipment if applicable. The patient was placed in a dependent position appropriate for central line placement based on the vein to be cannulated. The patient left shoulder/upper chest was prepped and draped in sterile fashion. 1% Lidocaine was used to anesthetize the surrounding skin area. A triple lumen 9F Cordis catheter was introduced into the left subclavian vein using Seldinger technique. The cathet er was threaded smoothly over the guide wire and appropriate blood return was obtained. Each lumen of the catheter was evacuated of air and flushed with sterile saline. The catheter was then sutured in place to the skin and a sterile dressing applied. Perfusion to the extremity distal to the point of catheter insertion was checked and found to be adequate. The patient tolerated the procedure well and there were no complications.
--- NOTE | 2020-01-26 19:07 | P.PCN ---
Date of Procedure: 01/26/20 Preoperative Diagnosis: ltered mental status Postoperative Diagnosis: altered mental status Procedure(s) Performed: lumbar puncture Anesthesia: local Surgeon: Anyi Caldwell Estimated Blood Loss (ml): 0 Disposition: ICU Operative Findings: PROCEDURE SUMMARY: A time-out was performed. My hands were washed immediately prior to the procedure. I wore a surgical cap, mask with protective eyewear, sterile gown and sterile gloves throughout the procedure. The patient was placed in the left lateralposition with help from the nursing staff. The area was cleansed and draped in usual sterile fashion using betadine scrub. Anesthesia was achieved with 1% lidocaine. A 20-gauge 3.5-inch spinal needle was placed in theL4-L5 lumbar interspace. On the first attempt, clear colored cerebral spinal fluid was obtained. The opening pressure was not measured. CSF was collected into 4 tubes. These were sent for the usual tests, including 1 tube to be held for further analysis if needed. A sterile bandaid was placed over the puncture site. The patient had no immediate complications and tolerated the procedure well. Estimated blood loss was none.
[2020-01-27 00:09] LABS: Glucose,Whole Blood 181 mg/dL (75-99)
[2020-01-27] MEDS: PIPERACILLIN-TAZOBACTAM 3.375 GM in SODIUM CHLORIDE 0.9% 100 ML IVPB SCH ×3 (00:11→15:57)
--- NOTE | 2020-01-27 00:19 | P.CONS ---
History of Present Illness - Reason for Consult Consult date: 01/26/20 pneumonia Requesting physician: Jack Jin - Chief Complaint shortness of breath x 1 day - History of Present Illness Patient is a 59-year-old female admitted to the hospital on 01/23/2020 the patient presented via EMS for episodes of confusion apparently the patient was having difficulty using her home TV remote and has difficulty speaking he had difficulty verbalizing her thoughts and started blankly patient did have elevated blood pressure on presentation to the hospital a CT of the brain was negative for any intracranial bleed CT angiogram of the neck shows no laceration of the left upper cervical ICA codominant left vertebral artery no large percen tage bilateral atrial occlusion or aneurysmal change patient currently has been treated with aspirin and Brilinta and has been evaluated by neurology services last night the patient was noticed to reduce to be becoming less responsive and NG was attempted which led to epistaxis with the worsening respiratory distress and possible aspiration subsequently the patient has been transferred out of the ICU she was maintained on BiPAP subsequent antibiotic intubated because of respiratory status patient did have a low-grade fever of 99.9 early in the morning around 4 AM patient has been mildly tachycardic and this morning her white count was normal kidney function normal levels is mildly elevated she did have positive UA as of yesterday with large as well as trace 40 WBCs and many bacteria patient also have LP completed today which was colorless white cells 0 glucose 75 protein of 29 patient did have a chest x-ray with left lower lobe infiltrate concerning for possible aspiration pneumonia patient will be started on Zosyn infectious disease was consulted for further recommendation of antibi otic therapy most information has been obtained from from review of the chart as the patient is currently intubated on the vent and is unable to provide any reliable history. 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 History of Any Multi-Drug Resistant Organisms: None Reported Past Surgical History: Bariatric Surgery, Cholecystectomy, Hysterectomy, Joint Replacement, Orthopedic Surgery Additional Past Surgical History / Comment(s): John en Y, EGD, colonoscopy, cysto d/t kidney stone with stent placed/removed, L total knee arthroplasty, R lower arm injury with plates. Additional Past Anesthesia/Blood Transfusion Reaction / Comm: Pt has received blood in past without reaction. Past Psychological History: Anxiety, Depression, PTSD Additional Psychological History / Comment(s): Pt resides with her spouse. She sees a psychiatrist regularly and is doing well. Pt is independent. Smoking Status: Never smoker Past Alcohol Use History: None Reported Past Drug Use History: None Reported - Past Family History Mother Family Medical History: COPD Additional Family Medical History / Comment(s): Mother is on oxygen. She was a smoker. Father Family Medical History: Cancer Additional Family Medical History / Comment(s): Father had 1/2 lung removed d/t lung cancer. He has a peice of liver removed d/t cancer. He is an exsmoker. Medications and Allergies Home Medications Medication Instructions Recorded Confirmed Type Atorvastatin [Lipitor] 40 mg PO HS 01/23/20 01/23/20 History Calcium Carbonate [Calcium] 600 mg PO BID 01/23/20 01/23/20 History Cyclobenzaprine [Flexeril] 10 mg PO HS PRN 01/23/20 01/23/20 History Ergocalciferol (Vitamin D2) 50,000 unit PO DIRECTED 01/23/20 01/23/20 History [Drisdol] Escitalopram [Lexapro] 20 mg PO DAILY 01/23/20 01/23/20 History Gabapentin [Gralise] 600 mg PO HS 01/23/20 01/23/20 History Levothyroxine Sodium [Synthroid] 25 mcg PO ORTIZ 01/23/20 01/23/20 History Levothyroxine Sodium [Synthroid] 50 mcg PO [id number] 01/23/20 01/23/20 History Midodrine HCl [ProAmatine] 10 mg PO TID 01/23/20 01/23/20 History Mirabegron [Myrbetriq] 50 mg PO DAILY 01/23/20 01/23/20 History Multivitamins, Thera [Multivitamin 1 tab PO DAILY 01/23/20 01/23/20 History (formulary)] Nascobal (B12) 500mcg/Hudson 1 spray NASAL Q7D 01/23/20 01/23/20 History OLANZapine [ZyPREXA] 10 mg PO DAILY 01/23/20 01/23/20 History Pantoprazole [Protonix] 40 mg PO DAILY PRN 01/23/20 01/23/20 History Pilocarpine [Salagen] 5 mg PO TID PRN 01/23/20 01/23/20 History Solifenacin Succinate [Vesicare] 5 mg PO DAILY 01/23/20 01/23/20 History Warfarin Sodium [Coumadin] 9 mg PO SUMOWEFR 01/23/20 01/23/20 History Allergies Allergy/AdvReac Type Severity Reaction Status Date / Time No Known Allergies Allergy Verified 01/23/20 10:27 Physical Exam Vitals: Vital Signs Temp Pulse Pulse Resp BP BP Pulse Ox 01/26/20 15:00 94 29 H 133/96 99 01/26/20 13:00 93 28 H 133/96 99 01/26/20 12:00 92 27 H 121/85 98 01/26/20 11:00 90 27 H 98 01/26/20 09:00 114 H 31 H 98 01/26/20 08:00 99.1 F 95 25 H 127/81 98 01/26/20 07:00 105 H 26 H 98 01/26/20 06:00 104 H 26 H 97 01/26/20 05:00 92 24 98 01/26/20 04:00 99.9 F H 98 115 H 24 123/53 98 01/26/20 03:00 97 24 123/53 99 01/26/20 02:00 104 H 24 99 01/26/20 01:00 111 H 29 H 110/99 98 01/26/20 00:00 116 H 29 H 96 01/25/20 23:30 122 H 27 H 94 L 01/25/20 23:00 116 H 33 H 94 L 01/25/20 22:49 115 H 30 H 01/25/20 22:45 118 H 32 H 95 01/25/20 22:30 117 H 32 H 95 01/25/20 22:15 120 H 32 H 95 01/25/20 22:00 122 H 35 H 01/25/20 21:45 98.3 F 118 H 137/97 01/25/20 21:30 116 H 30 H 01/25/20 21:15 123 H 31 H 149/108 93 L 01/25/20 21:00 120 H 27 H 140/80 87 L 01/25/20 20:50 78 L 01/25/20 20:02 92 L 01/25/20 15:53 98.7 F 98 16 160/94 94 L Intake and Output 01/26/20 01/26/20 01/26/20 06:59 14:59 22:59 Intake Total 932.057 580 50 Output Total 665 765 50 Balance 267.057 -185 0 Intake: IV 720 480 50 Sodium Chloride 0.9% 1, 720 480 50 000 ml @ 50 mls/hr IV . Q20H [facility] Rx#:[id number] Intake, IV Titration 212.057 100 Amount Piperacillin-Tazobactam 3 75 100 .375 gm In Sodium Chloride 0.9% 100 ml @ 25 mls/hr IVPB Q8HR [facility] Rx# :[id number] Propofol 1,000 mg In 137.057 Empty Bag 1 bag @ Titrate IV .Q0M [facility] Rx#: [id number] Output: Urine 665 765 50 Other: Voiding Method Indwelling Catheter Indwelling Catheter Weight 86 kg 86 kg ABP, PAP, CO, CI - Last 8 Hours Arterial Blood Pressure 139/85 Arterial Blood Pressure 139/83 Arterial Blood Pressure 140/85 Arterial Blood Pressure 139/86 Arterial Blood Pressure 136/84 Arterial Blood Pressure 149/79 Arterial Blood Pressure 115/74 GENERAL DESCRIPTION: Middle-aged female lying in bed, intubated on the vent no tachypnea or accessory muscle of respiration use. HEENT: Shows Pallor , no scleral icterus. Oral mucous membrane cannot be examined as the patient intubated patient intubated on the vent nECK: Trachea central, no thyromegaly. LUNGS: Unlabored breathing. Decreased breath sound at the base. No wheeze or crackle. HEART: S1, S2, regular rate and rhythm. ABDOMEN: Soft, no tenderness , guarding or rigidity EXTREMITIES: No edema of feet. SKIN: No rash, no masses palpable. NEUROLOGICAL: The patient is sedated on the vent. Results CBC & Chem 7: 01/26/20 04:10 01/26/20 04:10 Labs: Abnormal Lab Results - Last 24 Hours (Table) 01/25/20 01/25/20 01/25/20 Range/Units 06:07 20:35 20:53 RBC (3.80-5.40) m/uL Lymphocytes # (1.0-4.8) k/uL ABG pH (7.35-7.45) ABG pCO2 (35-45) mmHg ABG pO2 (83-108) mmHg ABG HCO3 (21-25) mmol/L ABG Total CO2 (19-24) mmol/L ABG O2 Saturation (94-97) % Chloride (98-107) mmol/L Carbon Dioxide (22-30) mmol/L BUN (7-17) mg/dL Glucose (74-99) mg/dL POC Glucose (mg/dL) 125 H 144 H (75-99) mg/dL Calcium (8.4-10.2) mg/dL AST (14-36) U/L ALT (4-34) U/L Prolactin 37.0 H (2.8-29.2) ng/mL Urine Appearance (Clear) Urine Protein (Negative) Urine Ketones (Negative) Urine Blood (Negative) Ur Leukocyte Esterase (Negative) Urine RBC (0-5) /hpf Urine WBC (0-5) /hpf Urine WBC Clumps (None) /hpf Urine Bacteria (None) /hpf Urine Mucus (None) /hpf 01/25/20 01/25/20 01/26/20 Range/Units 21:34 22:00 04:10 RBC 3.75 L (3.80-5.40) m/uL Lymphocytes # 0.7 L (1.0-4.8) k/uL ABG pH 7.29 L (7.35-7.45) ABG pCO2 31 L (35-45) mmHg ABG pO2 (83-108) mmHg ABG HCO3 15 L (21-25) mmol/L ABG Total CO2 16 L (19-24) mmol/L ABG O2 Saturation 93.0 L (94-97) % Chloride (98-107) mmol/L Carbon Dioxide (22-30) mmol/L BUN (7-17) mg/dL Glucose (74-99) mg/dL POC Glucose (mg/dL) (75-99) mg/dL Calcium (8.4-10.2) mg/dL AST (14-36) U/L ALT (4-34) U/L Prolactin (2.8-29.2) ng/mL Urine Appearance Cloudy H (Clear) Urine Protein 1+ H (Negative) Urine Ketones 3+ H (Negative) Urine Blood Small H (Negative) Ur Leukocyte Esterase Large H (Negative) Urine RBC 9 H (0-5) /hpf Urine WBC 42 H (0-5) /hpf Urine WBC Clumps Few H (None) /hpf Urine Bacteria Many H (None) /hpf Urine Mucus Rare H (None) /hpf 01/26/20 01/26/20 01/26/20 Range/Units 04:10 04:10 04:58 RBC (3.80-5.40) m/uL Lymphocytes # (1.0-4.8) k/uL ABG pH (7.35-7.45) ABG pCO2 27 L (35-45) mmHg ABG pO2 351 H (83-108) mmHg ABG HCO3 15 L (21-25) mmol/L ABG Total CO2 16 L (19-24) mmol/L ABG O2 Saturation 98.0 H (94-97) % Chloride 116 H (98-107) mmol/L Carbon Dioxide 15 L (22-30) mmol/L BUN 19 H (7-17) mg/dL Glucose 125 H (74-99) mg/dL POC Glucose (mg/dL) (75-99) mg/dL Calcium 7.5 L (8.4-10.2) mg/dL AST 60 H (14-36) U/L ALT 84 H (4-34) U/L Prolactin (2.8-29.2) ng/mL Urine Appearance (Clear) Urine Protein (Negative) Urine Ketones (Negative) Urine Blood (Negative) Ur Leukocyte Esterase (Negative) Urine RBC (0-5) /hpf Urine WBC (0-5) /hpf Urine WBC Clumps (None) /hpf Urine Bacteria (None) /hpf Urine Mucus (None) /hpf Microbiology - Last 24 Hours (Table) 01/25/20 21:30 Gram Stain - Preliminary Sputum Sputum Culture - Preliminary 01/25/20 22:00 Urine Culture - Preliminary Urine,Voided 01/24/20 20:30 Blood Culture - Preliminary Blood No Growth after 24 hours 01/25/20 14:08 Blood Fungal Culture - Preliminary Blood Assessment and Plan Assessment: 1-patient with acute vent dependent respiratory failure which is likely multifactorial and a possible component of aspiration pneumonitis as the patient did have significant epistaxis after multiple episodes of NG insertion with the process during her hospital record for resistant gram-negative pathogen [id number] urinary tract infection (1) Aspiration pneumonia Current Visit: Yes Status: Acute Code(s): J69.0 - PNEUMONITIS DUE TO INHALATION OF FOOD AND VOMIT SNOMED Code(s): 741917737 (2) UTI (urinary tract infection) Current Visit: Yes Status: Acute Code(s): N39.0 - URINARY TRACT INFECTION, SITE NOT SPECIFIED SNOMED Code(s): 76657021 Plan: 1-Zosyn 3.375 g every 8 hour 2-gentle IV fluid We will follow on clinical condition and cultures to further adjust medication if needed Thank you for this consultation we will follow the patient along with you Time with Patient: Greater than 30
[2020-01-27] MEDS: INSULIN ASPART (NovoLOG) 100 UNIT/ML VIAL SQ SCH ×4 (00:50→19:12)
[2020-01-27 04:21] LABS: ABG Base Excess -8.2 mmol/L; ABG HCO3 16 mmol/L (21-25); ABG Oxygen Saturation 97.1 % (94-97); ABG PCO2 25 mmHg (35-45); ABG PH 7.42 (7.35-7.45); ABG PO2 133 mmHg (83-108); ABG TCO2 17 mmol/L (19-24); Allen Test Performed? Yes
[2020-01-27] MEDS: PROPOFOL 1,000 MG in EMPTY BAG 1 BAG IV SCH ×4 (04:41→22:39)
[2020-01-27 05:16] LABS: ALT 72 U/L (4-34); AST 59 U/L (14-36); African American GFR (CKD) >90 (>60 ml/min/1.73 sqM); Albumin 2.7 g/dL (3.5-5.0); Alkaline Phosphatase 131 U/L (38-126); Anion Gap 8 mmol/L; Blood Urea Nitrogen 24 mg/dL (7-17); Calcium 7.9 mg/dL (8.4-10.2); Carbon Dioxide 16 mmol/L (22-30); Chloride 121 mmol/L (98-107); Glucose 170 mg/dL (74-99); Magnesium 2.3 mg/dL (1.6-2.3); Non-African American GFR(CKD) >90 (>60 ml/min/1.73 sqM); Phosphorus 1.8 mg/dL (2.5-4.5); Potassium 3.5 mmol/L (3.5-5.1); Sodium 145 mmol/L (137-145); Total Bilirubin 0.6 mg/dL (0.2-1.3); Total Protein 5.3 g/dL (6.3-8.2)
[2020-01-27 05:25] LABS: Basophils % (A) 0 %; Eosinophils % (A) 0 %; HCT 35.1 % (34.0-46.0); HGB 11.6 gm/dL (11.4-16.0); Lymphocytes # (A) 1.3 k/uL (1.0-4.8); Lymphocytes % (A) 15 %; MCH 31.7 pg (25.0-35.0); MCV 96.3 fL (80.0-100.0); Mean Platelet Volume 8.3; Monocytes # (A) 0.5 k/uL (0-1.0); Monocytes % (A) 6 %; Neutrophils # (A) 6.3 k/uL (1.3-7.7); Neutrophils % (A) 75 %; Platelet Count 262 k/uL (150-450); RBC 3.64 m/uL (3.80-5.40); RDW 13.4 % (11.5-15.5); WBC 8.4 k/uL (3.8-10.6)
[2020-01-27 05:58] LABS: Glucose,Whole Blood 175 mg/dL (75-99)
[2020-01-27] MEDS: POTASSIUM BICARBONATE/CIT AC 20 MEQ TABLET.EFF NG-TUBE SCH ×2 (06:03→06:55)
[2020-01-27] MEDS: levETIRAcetam IV 250 MG in SODIUM CHLORIDE 0.9% 100 ML IVPB SCH ×2 (06:04→19:12)
--- NOTE | 2020-01-27 06:46 | XR ---
EXAMINATION TYPE: XR chest 1V DATE OF EXAM: 01/27/2020 HISTORY: intubated. REFERENCE: Previous study dated 01/26/2020. FINDINGS: Patient is ET tube remains in place unchanged in appearance.. The patient is NG tube is bar tom within the lumen of the stomach and should likely be advanced. 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 There is left basilar airspace disease. There is a worsening left effusion. The right lung is clear. The heart is not enlarged. There is underlying COPD. IMPRESSION: 1. MALPOSITIONING OF THE PATIENT IS NG TUBE WHICH SHOULD BE ADVANCED. 2. CONTINUING LEFT BASILAR AIRSPACE DISEASE. 3. WORSENING LEFT-SIDED EFFUSION. NUMBER 4 UNDERLYING COPD.
[2020-01-27] MEDS: LEVOTHYROXINE IVP 100 MCG/5 ML VIAL IV SCH (08:40)
[2020-01-27] MEDS: POTAS-SOD-PHOS 278-164-250 MG 1 EACH PACKET PO SCH ×3 (08:41→19:54)
[2020-01-27] MEDS: amLODIPine 2.5 MG TAB PO SCH (08:42)
[2020-01-27 11:50] LABS: Glucose,Whole Blood 205 mg/dL (75-99)
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
--- NOTE | 2020-01-27 15:03 | P.PN ---
Subjective Progress Note Date: 01/27/20 Principal diagnosis: Hypoxic respiratory failure Patient seen and examined at bedside. Patient continues to be vent dependent secondary to hypoxic respiratory failure and altered mental state. Earlier today sedation was decreased and patient became agitated resulting in SVT. Patient converted to normal sinus rhythm after propofol was given. Chest x-ray reveals worsening left-sided effusion with underlying COPD. Objective - Vital Signs Vital signs: Vital Signs Temp 100.7 F H 01/27/20 12:00 Pulse 137 H 01/27/20 14:00 Resp 30 H 01/27/20 14:00 BP 154/103 01/27/20 14:00 Pulse Ox 98 01/27/20 14:00 Intake & Output 01/26/20 01/27/20 01/27/20 18:59 06:59 18:59 Intake Total 1170 1164.328 167.720 Output Total 1140 990 75 Balance 30 174.328 92.720 Weight 86 kg Intake: IV 680 600 50 Sodium Chloride 0.9% 1, 680 600 50 000 ml @ 50 mls/hr IV . Q20H [facility] Rx#:[id number] Intake, IV Titration 400 164.328 87.720 Amount Piperacillin-Tazobactam 3 200 .375 gm In Sodium Chloride 0.9% 100 ml @ 25 mls/hr IVPB Q8HR [facility] Rx# :[id number] Propofol 1,000 mg In 100 164.328 87.720 Empty Bag 1 bag @ Titrate IV .Q0M [facility] Rx#: [id number] levETIRAcetam IV 250 mg 100 In Sodium Chloride 0.9% 100 ml @ 400 mls/hr IVPB Q12H [facility] Rx#:[id number] Tube Feeding 60 310 30 Other 30 90 Output: Urine 1140 990 75 Other: Voiding Method Indwelling Catheter Indwelling Catheter Indwelling Catheter ABP, PAP, CO, CI - Last Documented Arterial Blood Pressure 140/96 - Exam General: sedated appears at stated age] Derm: [warm], [dry] Head: [atraumatic], [normocephalic], [symmetric] Eyes: [EOMI], [no lid lag], [anicteric sclera] Mouth: [no lip lesion], [mucus membranes moist] Cardiovascular: [S1S2 reg], [no murmur], [positive posterior tibial pulse bilateral], Lungs: [diminished bilateral], [scattered rhonchi, no rales] , [no accessory muscle use] Abdominal: [soft], [ nontender to palpation], [no guarding], [no appreciable organomegaly] Ext: [no gross muscle atrophy], [no edema], [no contractures] Neuro: [ CN II-XI grossly intact], [no focal neuro deficits] - Labs CBC & Chem 7: 01/27/20 04:01/27/20 04:20 Labs: Abnormal Lab Results - Last 24 Hours (Table) 01/26/20 01/26/20 01/27/20 Range/Units 16:05 18:45 00:07 RBC (3.80-5.40) m/uL ABG pCO2 (35-45) mmHg ABG pO2 (83-108) mmHg ABG HCO3 (21-25) mmol/L ABG Total CO2 (19-24) mmol/L ABG O2 Saturation (94-97) % Chloride (98-107) mmol/L Carbon Dioxide (22-30) mmol/L BUN (7-17) mg/dL Glucose (74-99) mg/dL POC Glucose (mg/dL) 144 H 181 H (75-99) mg/dL Calcium (8.4-10.2) mg/dL Phosphorus (2.5-4.5) mg/dL AST (14-36) U/L ALT (4-34) U/L Alkaline Phosphatase (38-126) U/L Total Protein (6.3-8.2) g/dL Albumin (3.5-5.0) g/dL CSF Glucose 75 H (40-70) mg/dL 01/27/20 01/27/20 01/27/20 Range/Units 04:16 04: 04:20 RBC 3.64 L (3.80-5.40) m/uL ABG pCO2 25 L (35-45) mmHg ABG pO2 133 H (83-108) mmHg ABG HCO3 16 L (21-25) mmol/L ABG Total CO2 17 L (19-24) mmol/L ABG O2 Saturation 97.1 H (94-97) % Chloride 121 H (98-107) mmol/L Carbon Dioxide 16 L (22-30) mmol/L BUN 24 H (7-17) mg/dL Glucose 170 H (74-99) mg/dL POC Glucose (mg/dL) (75-99) mg/dL Calcium 7.9 L (8.4-10.2) mg/dL Phosphorus 1.8 L (2.5-4.5) mg/dL AST 59 H (14-36) U/L ALT 72 H (4-34) U/L Alkaline Phosphatase 131 H (38-126) U/L Total Protein 5.3 L (6.3-8.2) g/dL Albumin 2.7 L (3.5-5.0) g/dL CSF Glucose (40-70) mg/dL 01/27/20 01/27/20 Range/Units 05:57 11:49 RBC (3.80-5.40) m/uL ABG pCO2 (35-45) mmHg ABG pO2 (83-108) mmHg ABG HCO3 (21-25) mmol/L ABG Total CO2 (19-24) mmol/L ABG O2 Saturation (94-97) % Chloride (98-107) mmol/L Carbon Dioxide (22-30) mmol/L BUN (7-17) mg/dL Glucose (74-99) mg/dL POC Glucose (mg/dL) 175 H 205 H (75-99) mg/dL Calcium (8.4-10.2) mg/dL Phosphorus (2.5-4.5) mg/dL AST (14-36) U/L ALT (4-34) U/L Alkaline Phosphatase (38-126) U/L Total Protein (6.3-8.2) g/dL Albumin (3.5-5.0) g/dL CSF Glucose (40-70) mg/dL Microbiology - Last 24 Hours (Table) 01/25/20 21:30 Gram Stain - Preliminary Sputum Sputum Culture - Preliminary 01/26/20 16:05 CSF Gram Stain - Preliminary Cerebral Spinal Fluid CSF Culture - Preliminary 01/24/20 20:30 Blood Culture - Preliminary Blood No Growth after 48 hours 01/25/20 22:00 Urine Culture - Preliminary Urine,Voided Gram Neg Bacilli Assessment and Plan Assessment: -Acute hypoxic respiratory failure multi-factorial secondary to aspiration pneumonia and altered mental status due to recurrent seizures vs psychiatric d/o vs catatonia Pulmonary recommendations appreciated along with neurology and psychiatry Continue IV antibiotics for aspiration pneumonia and gram negative bacteria in urine -Hypertension decrease norvasc to 2.5mg daily -Left carotid dissection Cardiology recommendations appreciated CT revealed revisualization of the patient's known testicular distal left internal carotid dissection which does not appear to have progressed. Diminutive right vertebral or artery. Borderline appearance of the aortic arc. Emphysematous changes. Low-lying ET tube. -Hyperlipidemia continue statin -Elevated LFTs improving continue to trend -Hypothyroidism levothyroxine IVP check tsh -Schizoaffective disorder psychiatry pending -Am labs
[2020-01-27] MEDS: SODIUM CHLORIDE 0.9% 1,000 ML IV SCH (15:33)
[2020-01-27] MEDS: NOREPINEPHRINE 4 MG in SODIUM CHLORIDE 0.9% 250 ML IV SCH (15:33)
[2020-01-27] MEDS ORDERED: ACETAMINOPHEN TAB 325 MG TAB PO PRN (17:56)
[2020-01-27 18:10] LABS: Glucose,Whole Blood 242 mg/dL (75-99)
--- NOTE | 2020-01-27 20:57 | EEG ---
ELECTROENCEPHALOGRAM REPORT PROCEDURE DATE: 01/27/2020. ELECTROENCEPHALOGRAM (EEG) REPORT: TECHNIQUE: A routine 18 channel EEG was performed with video using the 10/20 electrode placement system. HISTORY: Stroke, seizure. Patient had presented to the emergency department with confusion. CURRENT MEDICATIONS: Narcan, Ativan, Synthroid, Keppra, insulin, fentanyl citrate and insulin. STUDY DURATION: 30 minutes. FINDINGS: BACKGROUND: A sustained posterior dominant rhythm was not seen. Frequencies of the posterior quadrants consisted of poorly modulated 2-4 Hz waveforms. ACTIVATION: Hyperventilation: Not performed. Photic stimulation: No driving seen. Sleep: Distinctive sleep stages not seen. ABNORMALITIES: 1. Frequent moderate to high voltage frontally predominant triphasic waves were seen. 2. Intermixed with the abnormality mentioned in #1 above with diffuse synchronous and asynchronous 2-4 hertz slow wave activity, more frontally predominant. IMPRESSION: Abnormal EEG. The triphasic waves mentioned above are not epileptiform in nature. The diffuse synchronous and asynchronous delta range slowing mentioned above is not epileptiform in nature. Triphasic waves can be seen in the setting of a metabolic encephalopathy. In combination, these findings indicate severe diffuse cerebral dysfunction as may be seen in a toxometabolic encephalopathy. No seizures were recorded. No epileptiform activity was present. MMODL / IJN: [id number] /
--- NOTE | 2020-01-27 21:12 | PN ---
PROGRESS NOTE DATE OF SERVICE: 01/27/2020 REASON FOR FOLLOWUP: Aspiration pneumonia. INTERVAL HISTORY: The patient is currently spiking a fever of 101.7. The patient is hemodynamically stable not requiring any pressor support. FiO2 is currently down to 40%. No significant has been reported or any diarrhea. PHYSICAL EXAMINATION: Blood pressure is 125/86, pulse of 135, temperature 101.7. She is 97% on 40% FiO2. General description is a middle-aged female intubated on the vent. Respiratory system: Unlabored breathing, decreased breath sounds at the base. No wheeze. Heart S1, S2. Regular rate and rhythm. Abdomen soft, no tenderness. LABS: Hemoglobin 11.8, white count 8.4, BUN of 24, creatinine 0.61. Urine showing an E coli. The pathogen is ESBL. DIAGNOSTIC IMPRESSION AND PLAN: Patient with acute respiratory failure which is likely multifactorial. Did have a component of pneumonia, likely aspiration etiology, now with urine showing ESBL pathogen. We will discontinue Zosyn and start the patient on meropenem. Repeat the blood culture in view of the persistent fever and monitor clinical course closely. MMODL / IJN: [id number] /
[2020-01-27] MEDS: MEROPENEM 1 GM in SODIUM CHLORIDE 0.9% 100 ML IVPB SCH (22:01)
[2020-01-27 23:44] LABS: Glucose,Whole Blood 160 mg/dL (75-99)
[2020-01-28] MEDS: INSULIN ASPART (NovoLOG) 100 UNIT/ML VIAL SQ SCH ×5 (00:02→23:46)
[2020-01-28] MEDS: PROPOFOL 1,000 MG in EMPTY BAG 1 BAG IV SCH ×2 (02:17→07:09)
[2020-01-28] MEDS: NOREPINEPHRINE 4 MG in SODIUM CHLORIDE 0.9% 250 ML IV SCH (03:00)
[2020-01-28 04:19] LABS: Basophils % (A) 0 %; Eosinophils # (A) 0.1 k/uL (0-0.7); Eosinophils % (A) 1 %; HGB 11.1 gm/dL (11.4-16.0); Lymphocytes # (A) 1.2 k/uL (1.0-4.8); Lymphocytes % (A) 12 %; MCH 31.3 pg (25.0-35.0); MCHC 32.7 g/dL (31.0-37.0); MCV 95.5 fL (80.0-100.0); Mean Platelet Volume 8.9; Monocytes # (A) 0.4 k/uL (0-1.0); Monocytes % (A) 4 %; Neutrophils # (A) 7.9 k/uL (1.3-7.7); Neutrophils % (A) 81 %; Platelet Count 233 k/uL (150-450); RBC 3.55 m/uL (3.80-5.40); RDW 13.6 % (11.5-15.5); WBC 9.7 k/uL (3.8-10.6)
[2020-01-28 04:36] LABS: ALT 61 U/L (4-34); AST 47 U/L (14-36); African American GFR (CKD) >90 (>60 ml/min/1.73 sqM); Albumin 2.4 g/dL (3.5-5.0); Alkaline Phosphatase 118 U/L (38-126); Anion Gap 4 mmol/L; Blood Urea Nitrogen 26 mg/dL (7-17); Calcium 7.8 mg/dL (8.4-10.2); Carbon Dioxide 21 mmol/L (22-30); Chloride 123 mmol/L (98-107); Glucose 165 mg/dL (74-99); LDH 638 U/L (313-618); Non-African American GFR(CKD) >90 (>60 ml/min/1.73 sqM); Phosphorus 2.2 mg/dL (2.5-4.5); Potassium 3.6 mmol/L (3.5-5.1); Sodium 148 mmol/L (137-145); Total Bilirubin 0.8 mg/dL (0.2-1.3); Total Protein 5.1 g/dL (6.3-8.2)
[2020-01-28 04:50] LABS: C Reactive Protein 165.9 mg/L (<10.0)
[2020-01-28 04:53] LABS: ABG Base Excess -1.5 mmol/L; ABG HCO3 22 mmol/L (21-25); ABG Oxygen Saturation 96.6 % (94-97); ABG PCO2 28 mmHg (35-45); ABG PO2 113 mmHg (83-108); ABG TCO2 23 mmol/L (19-24); Allen Test Performed? Yes
[2020-01-28 05:31] LABS: Mycoplasma IgG Antibody (EIA) 1.17 INDEX (<=0.90); Mycoplasma IgM Antibody 0.21 INDEX (<=0.90)
[2020-01-28] MEDS: MEROPENEM 1 GM in SODIUM CHLORIDE 0.9% 100 ML IVPB SCH ×3 (05:40→23:31)
[2020-01-28 05:45] LABS: Glucose,Whole Blood 182 mg/dL (75-99)
[2020-01-28] MEDS: levETIRAcetam IV 250 MG in SODIUM CHLORIDE 0.9% 100 ML IVPB SCH ×2 (06:22→19:45)
[2020-01-28 07:08] LABS: T4, Free (Free Thyroxine) 1.46 ng/dL (0.78-2.19)
[2020-01-28] MEDS ORDERED: POTASSIUM CHLORIDE 10 MEQ in WATER FOR INJECTION 1 100ML.BAG IVPB SCH (08:00)
[2020-01-28] MEDS: POTAS-SOD-PHOS 278-164-250 MG 1 EACH PACKET PO SCH ×3 (08:04→23:36)
[2020-01-28] MEDS: LEVOTHYROXINE IVP 100 MCG/5 ML VIAL IV SCH (08:07)
--- NOTE | 2020-01-28 09:08 | XR ---
EXAMINATION TYPE: XR chest 1V DATE OF EXAM: 01/28/2020 COMPARISON: 01/27/2020 HISTORY: COVID, shortness of breath TECHNIQUE: Single frontal view of the chest is obtained. FINDINGS: There is been interval advancement of the enteric tube now located at or just beyond the g astroesophageal junction. The retrocardiac opacity remains with a component of atelectasis slightly e levating the mid left hemidiaphragm. Endotracheal tube appears similar in positioning terminating at the level of the aortic arch. Kyphoplasty change of the thoracic spine likely obscures visualization. Similar positioning of the left subclavian central venous catheter. Trace pleural effusions blunt th e costophrenic angles. Diffuse osseous demineralization seen. Underlying emphysema. Stable cardiomedi astinal silhouette size. IMPRESSION: 1. Interval advancement of the enteric tube that could continue to be advanced approximately 2 to 3 c m for more optimal placement. Appropriate placement of the left subclavian approach central venous ca theter and endotracheal tube. 2. Stable retrocardiac opacity, likely combination of both atelectasis and pneumonia.
[2020-01-28] MEDS: amLODIPine 2.5 MG TAB PO SCH (09:39)
[2020-01-28] MEDS: DEXTROSE 5%-0.45% NACL 1,000 ML IV SCH (09:52)
[2020-01-28 11:43] LABS: Glucose,Whole Blood 142 mg/dL (75-99)
[2020-01-28 12:22] LABS: Hemoglobin A1C 6.3 % (4.0-6.0)
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
--- NOTE | 2020-01-28 13:07 | P.PN ---
Subjective Progress Note Date: 01/28/20 Principal diagnosis: Altered mental status Sedation held last night and patient started to become agitated, it was restarted in the morning. Otherwise no overnight issues. Patient still on mechanical ventilation. Objective - Vital Signs Vital signs: Vital Signs Temp 100.2 F H 01/28/20 12:00 Pulse 105 H 01/28/20 12:00 Resp 24 01/28/20 12:00 BP 133/101 01/28/20 12:00 Pulse Ox 97 01/28/20 12:00 Intake & Output 01/27/20 01/28/20 01/28/20 18:59 06:59 18:59 Intake Total 2336.996 9006.904 708.432 Output Total 585 700 260 Balance 964.720 988.904 448.432 Weight 69.7 kg 69.7 kg Intake: IV 600 650 100 Sodium Chloride 0.9% 1, 600 650 100 000 ml @ 50 mls/hr IV . Q20H [facility] Rx#:[id number] Intake, IV Titration 487.720 168.904 288.432 Amount Dextrose 5%-0.45% NaCl 1, 150 000 ml @ 50 mls/hr IV . Q20H [facility] Rx#:[id number] Piperacillin-Tazobactam 3 200 .375 gm In Sodium Chloride 0.9% 100 ml @ 25 mls/hr IVPB Q8HR [facility] Rx# :[id number] Propofol 1,000 mg In 187.720 168.904 138.432 Empty Bag 1 bag @ Titrate IV .Q0M [facility] Rx#: [id number] levETIRAcetam IV 250 mg 100 In Sodium Chloride 0.9% 100 ml @ 400 mls/hr IVPB Q12H [facility] Rx#:[id number] Tube Feeding 402 780 260 Other 60 90 60 Output: Urine 585 700 260 Other: Voiding Method Indwelling Catheter Indwelling Catheter Indwelling Catheter ABP, PAP, CO, CI - Last Documented Arterial Blood Pressure 141/93 - Exam General: sedated appears at stated age] Derm: [warm], [dry] Head: [atraumatic], [normocephalic], [symmetric] Eyes: [EOMI], [no lid lag], [anicteric sclera] Mouth: [no lip lesion], [mucus membranes moist] Cardiovascular: [S1S2 reg], [no murmur], [positive posterior tibial pulse bilateral], Lungs: [diminished bilateral], [scattered rhonchi, no rales] , [no accessory muscle use] Abdominal: [soft], [ nontender to palpation], [no guarding], [no appreciable organomegaly] Ext: [no gross muscle atrophy], [no edema], [no contractures] Neuro: [ CN II-XI grossly intact], [no focal neuro deficits] - Labs CBC & Chem 7: 01/28/20 04:07 01/28/20 04:07 Labs: Abnormal Lab Results - Last 24 Hours (Table) 01/24/20 01/27/20 01/27/20 Range/Units 20:30 18:09 23:43 RBC (3.80-5.40) m/uL Hgb (11.4-16.0) gm/dL Neutrophils # (1.3-7.7) k/uL D-Dimer (<0.60) mg/L FEU ABG pH (7.35-7.45) ABG pCO2 (35-45) mmHg ABG pO2 (83-108) mmHg Sodium (137-145) mmol/L Chloride (98-107) mmol/L Carbon Dioxide (22-30) mmol/L BUN (7-17) mg/dL Creatinine (0.52-1.04) mg/dL Glucose (74-99) mg/dL POC Glucose (mg/dL) 242 H 160 H (75-99) mg/dL Hemoglobin A1c (4.0-6.0) % Calcium (8.4-10.2) mg/dL Phosphorus (2.5-4.5) mg/dL AST (14-36) U/L ALT (4-34) U/L Lactate Dehydrogenase (313-618) U/L C-Reactive Protein (<10.0) mg/L Total Protein (6.3-8.2) g/dL Albumin (3.5-5.0) g/dL TSH (0.465-4.680) mIU/L Mycoplasma pneumon IgG 1.17 H (<=0.90) INDEX 01/28/20 01/28/20 01/28/20 Range/Units 04:07 04:07 04:07 RBC 3.55 L (3.80-5.40) m/uL Hgb 11.1 L (11.4-16.0) gm/dL Neutrophils # 7.9 H (1.3-7.7) k/uL D-Dimer (<0.60) mg/L FEU ABG pH (7.35-7.45) ABG pCO2 (35-45) mmHg ABG pO2 (83-108) mmHg Sodium 148 H (137-145) mmol/L Chloride 123 H (98-107) mmol/L Carbon Dioxide 21 L (22-30) mmol/L BUN 26 H (7-17) mg/dL Creatinine 0.49 L (0.52-1.04) mg/dL Glucose 165 H (74-99) mg/dL POC Glucose (mg/dL) (75-99) mg/dL Hemoglobin A1c 6.3 H (4.0-6.0) % Calcium 7.8 L (8.4-10.2) mg/dL Phosphorus 2.2 L (2.5-4.5) mg/dL AST 47 H (14-36) U/L ALT 61 H (4-34) U/L Lactate Dehydrogenase 638 H (313-618) U/L C-Reactive Protein 165.9 H (<10.0) mg/L Total Protein 5.1 L (6.3-8.2) g/dL Albumin 2.4 L (3.5-5.0) g/dL TSH 0.226 L (0.465-4.680) mIU/L Mycoplasma pneumon IgG (<=0.90) INDEX 01/28/20 01/28/20 01/28/20 Range/Units 04:07 04:48 05:44 RBC (3.80-5.40) m/uL Hgb (11.4-16.0) gm/dL Neutrophils # (1.3-7.7) k/uL D-Dimer 1.02 H (<0.60) mg/L FEU ABG pH 7.50 H (7.35-7.45) ABG pCO2 28 L (35-45) mmHg ABG pO2 113 H (83-108) mmHg Sodium (137-145) mmol/L Chloride (98-107) mmol/L Carbon Dioxide (22-30) mmol/L BUN (7-17) mg/dL Creatinine (0.52-1.04) mg/dL Glucose (74-99) mg/dL POC Glucose (mg/dL) 182 H (75-99) mg/dL Hemoglobin A1c (4.0-6.0) % Calcium (8.4-10.2) mg/dL Phosphorus (2.5-4.5) mg/dL AST (14-36) U/L ALT (4-34) U/L Lactate Dehydrogenase (313-618) U/L C-Reactive Protein (<10.0) mg/L Total Protein (6.3-8.2) g/dL Albumin (3.5-5.0) g/dL TSH (0.465-4.680) mIU/L Mycoplasma pneumon IgG (<=0.90) INDEX 01/28/20 Range/Units 11:42 RBC (3.80-5.40) m/uL Hgb (11.4-16.0) gm/dL Neutrophils # (1.3-7.7) k/uL D-Dimer (<0.60) mg/L FEU ABG pH (7.35-7.45) ABG pCO2 (35-45) mmHg ABG pO2 (83-108) mmHg Sodium (137-145) mmol/L Chloride (98-107) mmol/L Carbon Dioxide (22-30) mmol/L BUN (7-17) mg/dL Creatinine (0.52-1.04) mg/dL Glucose (74-99) mg/dL POC Glucose (mg/dL) 142 H (75-99) mg/dL Hemoglobin A1c (4.0-6.0) % Calcium (8.4-10.2) mg/dL Phosphorus (2.5-4.5) mg/dL AST (14-36) U/L ALT (4-34) U/L Lactate Dehydrogenase (313-618) U/L C-Reactive Protein (<10.0) mg/L Total Protein (6.3-8.2) g/dL Albumin (3.5-5.0) g/dL TSH (0.465-4.680) mIU/L Mycoplasma pneumon IgG (<=0.90) INDEX Microbiology - Last 24 Hours (Table) 04/03/20 21:30 Gram Stain - Final Sputum Sputum Culture - Final 01/24/20 20:30 Blood Culture - Preliminary Blood No Growth after 72 hours 01/25/20 22:00 Urine Culture - Final Urine,Voided Escherichia coli Escherichia coli#2 01/26/20 16:05 CSF Gram Stain - Preliminary Cerebral Spinal Fluid CSF Culture - Preliminary Assessment and Plan Plan: -Acute hypoxic respiratory failure multi-factorial secondary to aspiration pneumonia and altered mental status due to recurrent seizures vs psychiatric due to catatonia Pulmonary recommendations appreciated along with neurology and psychiatry Continue meropenem for aspiration pneumonia and e.coli in urine Pulmonary planning on sedation holiday today to see how patient does and possibly EEG -Hypernatremia IV fluids changed to D5 half normal saline -Hypertension Continue clonidine patch and Norvasc -Left carotid dissection Stable according to repeat imaging -Hyperlipidemia continue statin -Elevated LFTs improving continue to trend -Hypothyroidism levothyroxine IVP check tsh -Schizoaffective disorder -Am labs
[2020-01-28] MEDS: PANTOPRAZOLE 40 MG/10 ML VIAL IVP SCH (14:53)
[2020-01-28] MEDS: CHLORHEXIDINE GLUCONATE 15 ML CUP MUCOUS MEM SCH ×2 (14:54→23:26)
[2020-01-28] MEDS ORDERED: SODIUM CHLORIDE 0.9% IVPB ONE (18:00)
[2020-01-28] MEDS ORDERED: PHENYTOIN SODIUM IVPB ONE (18:00)
[2020-01-28 18:05] LABS: Glucose,Whole Blood 157 mg/dL (75-99)
--- NOTE | 2020-01-28 18:31 | P.PN ---
Subjective Progress Note Date: 01/28/20 Patient is a 59-year-old female admitted to the hospital on 01/23/2020 for strokelike symptoms. She was having difficulty with manipulating remote control for the TV and according to the EMS also had difficulty speaking on the morning of admission. CT head showed mild bifrontal atrophy. CTA of the neck showed bovine configuration to the aortic arch. No dissection of the upper cervical left ICA extending into the vertical petrous segment. There is similar enhancement within both lumens without arterial occlusion. No significant ICA stenosis. Dominant left vertebral artery. CT of the brain showed nondominant V4 segment right vertebral artery becomes very hypoplastic, possibly terminating as a PICA branch. No continuation of the patient's known left ICA dissection beyond the petrous segment. No large vessel intercranial arterial occlusion or aneurysmal change. Patient had a repeat CTA of head and neck on 01/26/2020 again revealed the visualization of the patient's known distal left ICA dissection. Diminutive right vertebral artery. Borderline appearance of the aortic arch. 2-D echo showed moderate concentric LVH, EF 55-60%. Left atrium is moderately dilated. Moderate MR, TR. MRI of the brain showed no acute process. T2/FLAIR hypointensity along the cranial aspect of the central sulcus on the right when correlated with the CT of the same date could represent hemosiderin deposition from old chronic subarachnoid hemorrhage or prominent draining veins. Patient's blood test shows normal WBC 9.7 hemoglobin 11.1 PT/PTT normal. Sodium 148, potassium 3.6, renal functions with BUN 26, creatinine 0.49. A1c 6.3, AST is 47, ALT 61 both elevated. Ammonia is <9. TSH is mildly low 0.226, free T4 normal. Prolactin mildly elevated 37.0, B12 627. Folate 18.0. Total choles terol 133, LDL 46, HDL 77 and triglycerides 48. CSF protein is normal 29, glucose 75, WBC 0, RBC 2. Viral panel negative including HSV 1, and HSV 2, varicella-zoster, CMV, adenovirus and enterovirus. Urine drug screen positive for methamphetamine. Patient is off sedation since 10:30 AM. Patient is not suffering any clinical improvement. Previously she was under prevent 40 g. She is not following any commands. Please refer to examination below. Objective - Vital Signs Vital signs: Vital Signs Temp 100.2 F H 04/06/20 12:00 Pulse 104 H 01/28/20 15:00 Resp 24 01/28/20 15:00 BP 133/101 01/28/20 12:00 Pulse Ox 98 01/28/20 15:00 Intake & Output 01/27/20 01/28/20 01/28/20 18:59 06:59 18:59 Intake Total 5488.174 6132.904 960.432 Output Total 585 700 390 Balance 964.720 988.904 570.432 Weight 69.7 kg 69.7 kg Intake: IV 600 650 100 Sodium Chloride 0.9% 1, 600 650 100 000 ml @ 50 mls/hr IV . Q20H [facility] Rx#:[id number] Intake, IV Titration 487.720 168.904 438.432 Amount Dextrose 5%-0.45% NaCl 1, 300 000 ml @ 50 mls/hr IV . Q20H [facility] Rx#:[id number] Piperacillin-Tazobactam 3 200 .375 gm In Sodium Chloride 0.9% 100 ml @ 25 mls/hr IVPB Q8HR [facility] Rx# :[id number] Propofol 1,000 mg In 187.720 168.904 138.432 Empty Bag 1 bag @ Titrate IV .Q0M [facility] Rx#: [id number] levETIRAcetam IV 250 mg 100 In Sodium Chloride 0.9% 100 ml @ 400 mls/hr IVPB Q12H [facility] Rx#:[id number] Tube Feeding 402 780 362 Other 60 90 60 Output: Urine 585 700 390 Other: Voiding Method Indwelling Catheter Indwelling Catheter Indwelling Catheter ABP, PAP, CO, CI - Last Documented Arterial Blood Pressure 141/89 - Exam On examination patient is completely obtunded, not following commands. Does not respond to noxious stimuli. Does not open her eyes to calling name or with noxious stimulus. Patient is exhibiting very slow rhythmic twitching of her eyelids when her eyes are manually opened. Otherwise no obvious seizure activity. Pupils are round and reacting. - Labs CBC & Chem 7: 01/29/20 04:25 01/29/20 04:25 Labs: Abnormal Lab Results - Last 24 Hours (Table) 01/24/20 01/27/20 01/27/20 Range/Units 20:30 18:09 23:43 RBC (3.80-5.40) m/uL Hgb (11.4-16.0) gm/dL Neutrophils # (1.3-7.7) k/uL D-Dimer (<0.60) mg/L FEU ABG pH (7.35-7.45) ABG pCO2 (35-45) mmHg ABG pO2 (83-108) mmHg Sodium (137-145) mmol/L Chloride (98-107) mmol/L Carbon Dioxide (22-30) mmol/L BUN (7-17) mg/dL Creatinine (0.52-1.04) mg/dL Glucose (74-99) mg/dL POC Glucose (mg/dL) 242 H 160 H (75-99) mg/dL Hemoglobin A1c (4.0-6.0) % Calcium (8.4-10.2) mg/dL Phosphorus (2.5-4.5) mg/dL Ferritin (10.0-291.0) ng/mL AST (14-36) U/L ALT (4-34) U/L Lactate Dehydrogenase (313-618) U/L C-Reactive Protein (<10.0) mg/L Total Protein (6.3-8.2) g/dL Albumin (3.5-5.0) g/dL TSH (0.465-4.680) mIU/L Mycoplasma pneumon IgG 1.17 H (<=0.90) INDEX 01/28/20 01/28/20 01/28/20 Range/Units 04:07 04:07 04:07 RBC 3.55 L (3.80-5.40) m/uL Hgb 11.1 L (11.4-16.0) gm/dL Neutrophils # 7.9 H (1.3-7.7) k/uL D-Dimer (<0.60) mg/L FEU ABG pH (7.35-7.45) ABG pCO2 (35-45) mmHg ABG pO2 (83-108) mmHg Sodium 148 H (137-145) mmol/L Chloride 123 H (98-107) mmol/L Carbon Dioxide 21 L (22-30) mmol/L BUN 26 H (7-17) mg/dL Creatinine 0.49 L (0.52-1.04) mg/dL Glucose 165 H (74-99) mg/dL POC Glucose (mg/dL) (75-99) mg/dL Hemoglobin A1c 6.3 H (4.0-6.0) % Calcium 7.8 L (8.4-10.2) mg/dL Phosphorus 2.2 L (2.5-4.5) mg/dL Ferritin 491.0 H (10.0-291.0) ng/mL AST 47 H (14-36) U/L ALT 61 H (4-34) U/L Lactate Dehydrogenase 638 H (313-618) U/L C-Reactive Protein 165.9 H (<10.0) mg/L Total Protein 5.1 L (6.3-8.2) g/dL Albumin 2.4 L (3.5-5.0) g/dL TSH 0.226 L (0.465-4.680) mIU/L Mycoplasma pneumon IgG (<=0.90) INDEX 01/28/20 01/28/20 01/28/20 Range/Units 04:07 04:48 05:44 RBC (3.80-5.40) m/uL Hgb (11.4-16.0) gm/dL Neutrophils # (1.3-7.7) k/uL D-Dimer 1.02 H (<0.60) mg/L FEU ABG pH 7.50 H (7.35-7.45) ABG pCO2 28 L (35-45) mmHg ABG pO2 113 H (83-108) mmHg Sodium (137-145) mmol/L Chloride (98-107) mmol/L Carbon Dioxide (22-30) mmol/L BUN (7-17) mg/dL Creatinine (0.52-1.04) mg/dL Glucose (74-99) mg/dL POC Glucose (mg/dL) 182 H (75-99) mg/dL Hemoglobin A1c (4.0-6.0) % Calcium (8.4-10.2) mg/dL Phosphorus (2.5-4.5) mg/dL Ferritin (10.0-291.0) ng/mL AST (14-36) U/L ALT (4-34) U/L Lactate Dehydrogenase (313-618) U/L C-Reactive Protein (<10.0) mg/L Total Protein (6.3-8.2) g/dL Albumin (3.5-5.0) g/dL TSH (0.465-4.680) mIU/L Mycoplasma pneumon IgG (<=0.90) INDEX 01/28/20 Range/Units 11:42 RBC (3.80-5.40) m/uL Hgb (11.4-16.0) gm/dL Neutrophils # (1.3-7.7) k/uL D-Dimer (<0.60) mg/L FEU ABG pH (7.35-7.45) ABG pCO2 (35-45) mmHg ABG pO2 (83-108) mmHg Sodium (137-145) mmol/L Chloride (98-107) mmol/L Carbon Dioxide (22-30) mmol/L BUN (7-17) mg/dL Creatinine (0.52-1.04) mg/dL Glucose (74-99) mg/dL POC Glucose (mg/dL) 142 H (75-99) mg/dL Hemoglobin A1c (4.0-6.0) % Calcium (8.4-10.2) mg/dL Phosphorus (2.5-4.5) mg/dL Ferritin (10.0-291.0) ng/mL AST (14-36) U/L ALT (4-34) U/L Lactate Dehydrogenase (313-618) U/L C-Reactive Protein (<10.0) mg/L Total Protein (6.3-8.2) g/dL Albumin (3.5-5.0) g/dL TSH (0.465-4.680) mIU/L Mycoplasma pneumon IgG (<=0.90) INDEX Microbiology - Last 24 Hours (Table) 01/25/20 21:30 Gram Stain - Final Sputum Sputum Culture - Final 01/24/20 20:30 Blood Culture - Preliminary Blood No Growth after 72 hours 01/25/20 22:00 Urine Culture - Final Urine,Voided Escherichia coli Escherichia coli#2 01/26/20 16:05 CSF Gram Stain - Preliminary Cerebral Spinal Fluid CSF Culture - Preliminary Assessment and Plan Assessment: * Acute altered mental status, with severe encephalopathy, obtundation, unresponsiveness. * Persistently abnormal EEG. Rule out subclinical status. Patient's examination revealed rhythmic twitching of the eyelids on manually opening the eyes. * History of left ICA dissection. Patient was on Coumadin. Plan: * Full loading dose of Dilantin 1 g IVPB stat, and then maintain on Dilantin 200 mg twice a day. Check levels in the morning. * Repeat EEG in the morning, if no improvement. * Continue Keppra for now. * Patient to be started on aspirin 325 mg daily due to her history of left ICA dissection for stroke prevention.
--- NOTE | 2020-01-28 22:34 | EEG ---
ELECTROENCEPHALOGRAM REPORT DATE OF SERVICE: 01/28/2020 PREAMBLE: A 59-year-old female with history of persistent encephalopathy. This study is performed to evaluate for encephalopathy, rule out status. This is a followup EEG. EEG FINDINGS: A 21-channel portable EEG recorded utilizing standard referential and bipolar montages. The recording starts and continues with the presence of bilaterally symmetric, moderate amplitude activity and diffuse delta and theta activity seen in bihemispheric region. Frequent triphasic type waves were seen in bihemispheric region. At times, the appearance of generalized sharp waves also seen periodically during the study. Different stages of sleep were not seen. Photic driving response was not seen. IMPRESSION: This is a severely abnormal EEG due to: 1. Background slowing. 2. Excessive triphasic waves. 3. Presence of sporadic generalized sharp waves intermixed with these triphasic type waves. Clinical correlation: This electroencephalogram is suggestive of generalized cerebral dysfunction, as can be seen with toxic metabolic encephalopathy or due to diffuse structural brain abnormality. Presence of excessive triphasic waves is suggestive of hepatic encephalopathy. Clinical correlation is recommended. There was some sporadic generalized sharp waves seen intermixed with these triphasic waves. This implies underlying cortical irritability and tendency for seizures. Clinical correlation is strongly recommended. MMODL / IJN: [id number] / [facility]OSPITALTerence
--- NOTE | 2020-01-28 23:07 | PN ---
PROGRESS NOTE DATE OF SERVICE: 01/28/2020 REASON FOR FOLLOWUP: Aspiration pneumonia. INTERVAL HISTORY: The patient is currently running a low-grade fever of 100.2, though overall fever pattern has improved compared to 101.5 the day before. The patient is hemodynamically stable. The patient remains intubated on the vent. FiO2 is currently stable at 40%. No significant purulent secretions in the ET. No diarrhea has been reported. PHYSICAL EXAMINATION: Blood pressure is 118/76, pulse of 90, temperature of 99.8. She is 98% on 40% FiO2. General description is a middle-aged female lying in bed in no distress. RESPIRATORY SYSTEM: Unlabored breathing with decreased breath sounds at the base. No wheeze. HEART: S1, S2. Regular rate and rhythm. ABDOMEN: Soft. No tenderness. LABS: Hemoglobin 11.1, white count 9.7, BUN of 26, creatinine 0.49. Urine is showing two E coli. One of them is ESBL. Sputum culture has been negative so far. DIAGNOSTIC IMPRESSION AND PLAN: Patient with acute respiratory failure which is likely multifactorial with a possible component of pneumonia, likely aspiration etiology in this patient who did have a component of urinary tract infection. Urine is showing ESBL. Antibiotic was adjusted to meropenem yesterday; to continue and monitor clinical course closely. Continue with supportive care. MMODL / IJN: [id number] /
[2020-01-28] MEDS: PHENYTOIN SODIUM INJ 200 MG in SODIUM CHLORIDE 0.9% 100 ML IVPB SCH (23:27)
[2020-01-28 23:29] LABS: Glucose,Whole Blood 193 mg/dL (75-99)
[2020-01-29] MEDS: NOREPINEPHRINE 4 MG in SODIUM CHLORIDE 0.9% 250 ML IV SCH ×3 (01:22→23:23)
[2020-01-29 04:43] LABS: Basophils % (A) 0 %; Eosinophils # (A) 0.1 k/uL (0-0.7); Eosinophils % (A) 1 %; HCT 34.4 % (34.0-46.0); HGB 11.5 gm/dL (11.4-16.0); Lymphocytes # (A) 1.1 k/uL (1.0-4.8); Lymphocytes % (A) 10 %; MCH 31.8 pg (25.0-35.0); MCHC 33.4 g/dL (31.0-37.0); MCV 95.4 fL (80.0-100.0); Monocytes # (A) 0.5 k/uL (0-1.0); Monocytes % (A) 4 %; Neutrophils # (A) 9.4 k/uL (1.3-7.7); Neutrophils % (A) 83 %; Platelet Count 271 k/uL (150-450); RBC 3.61 m/uL (3.80-5.40); RDW 13.7 % (11.5-15.5); WBC 11.3 k/uL (3.8-10.6)
[2020-01-29 04:59] LABS: ALT 70 U/L (4-34); AST 62 U/L (14-36); African American GFR (CKD) >90 (>60 ml/min/1.73 sqM); Albumin 2.5 g/dL (3.5-5.0); Alkaline Phosphatase 129 U/L (38-126); Anion Gap 3 mmol/L; Blood Urea Nitrogen 22 mg/dL (7-17); Calcium 7.8 mg/dL (8.4-10.2); Carbon Dioxide 24 mmol/L (22-30); Chloride 123 mmol/L (98-107); Glucose 189 mg/dL (74-99); Non-African American GFR(CKD) >90 (>60 ml/min/1.73 sqM); Potassium 3.6 mmol/L (3.5-5.1); Sodium 150 mmol/L (137-145); Total Bilirubin 0.6 mg/dL (0.2-1.3); Total Protein 5.1 g/dL (6.3-8.2)
[2020-01-29 05:36] LABS: Glucose,Whole Blood 177 mg/dL (75-99)
[2020-01-29] MEDS ORDERED: Potassium Replacement Protocol 1 EACH MISC MISCELLANE PRN (05:48)
[2020-01-29] MEDS ORDERED: POTASSIUM BICARBONATE/CIT AC 20 MEQ TABLET.EFF NG-TUBE SCH (06:00)
[2020-01-29] MEDS: MEROPENEM 1 GM in SODIUM CHLORIDE 0.9% 100 ML IVPB SCH ×3 (06:16→21:41)
[2020-01-29] MEDS: INSULIN ASPART (NovoLOG) 100 UNIT/ML VIAL SQ SCH ×3 (06:16→18:11)
[2020-01-29] MEDS: levETIRAcetam IV 250 MG in SODIUM CHLORIDE 0.9% 100 ML IVPB SCH ×2 (07:15→18:11)
[2020-01-29] MEDS: DEXTROSE 5%-0.45% NACL 1,000 ML IV SCH (07:16)
[2020-01-29 07:19] LABS: ABG Base Excess 1.5 mmol/L; ABG HCO3 25 mmol/L (21-25); ABG Oxygen Saturation 97.1 % (94-97); ABG PCO2 31 mmHg (35-45); ABG PH 7.51 (7.35-7.45); ABG PO2 118 mmHg (83-108); ABG TCO2 26 mmol/L (19-24)
--- NOTE | 2020-01-29 07:19 | XR ---
EXAMINATION TYPE: XR chest 1V DATE OF EXAM: 01/29/2020 COMPARISON: 01/28/2020 HISTORY: 59-year-old female pneumonia TECHNIQUE: Single frontal view of the chest is obtained. FINDINGS: ET tube tip remains at the medial clavicular heads. NG tube sidehole at the level of the GE junction. It can be further advanced by 3 to 4 cm. Left subclavian CVC tip at the cavoatrial junction. Heart n ormal size. Hyperinflation. Focal patchy left basilar opacity remains. Vertebroplasty change at the u pper thoracic spine. IMPRESSION: 1. COPD with continued left basilar airspace disease. 2. NG tube sidehole at the GE junction level. Advance by 3 to 4 cm into the stomach.
[2020-01-29] MEDS: PANTOPRAZOLE 40 MG/10 ML VIAL IVP SCH (08:43)
[2020-01-29] MEDS: amLODIPine 2.5 MG TAB PO SCH (08:43)
[2020-01-29] MEDS: DEXTROSE 5% IN WATER 1,000 ML IV SCH ×2 (08:43→20:17)
[2020-01-29] MEDS: CHLORHEXIDINE GLUCONATE 15 ML CUP MUCOUS MEM SCH ×2 (08:43→20:17)
[2020-01-29] MEDS: LEVOTHYROXINE IVP 100 MCG/5 ML VIAL IV SCH (08:43)
[2020-01-29] MEDS: PHENYTOIN SODIUM INJ 200 MG in SODIUM CHLORIDE 0.9% 100 ML IVPB SCH (09:56)
[2020-01-29 11:57] LABS: Glucose,Whole Blood 186 mg/dL (75-99)
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
--- NOTE | 2020-01-29 12:56 | P.PN ---
Subjective Progress Note Date: 01/29/20 Patient is a 59-year-old female admitted to the hospital on 01/23/2020 for strokelike symptoms. She was having difficulty with manipulating remote control for the TV and according to the EMS also had difficulty speaking on the morning of admission. CT head showed mild bifrontal atrophy. CTA of the neck showed bovine configuration to the aortic arch. No dissection of the upper cervical left ICA extending into the vertical petrous segment. There is similar enhancement within both lumens without arterial occlusion. No significant ICA stenosis. Dominant left vertebral artery. CT of the brain showed nondominant V4 segment right vertebral artery becomes very hypoplastic, possibly terminating as a PICA branch. No continuation of the patient's known left ICA dissection beyond the petrous segment. No large vessel intercranial arterial occlusion or aneurysmal change. Patient had a repeat CTA of head and neck on 01/26/2020 again revealed the visualization of the patient's known distal left ICA dissection. Diminutive right vertebral artery. Borderline appearance of the aortic arch. 2-D echo showed moderate concentric LVH, EF 55-60%. Left atrium is moderately dilated. Moderate MR, TR. MRI of the brain showed no acute process. T2/FLAIR hypointensity along the cranial aspect of the central sulcus on the right when correlated with the CT of the same date could represent hemosiderin deposition from old chronic subarachnoid hemorrhage or prominent draining veins. Patient's blood test shows normal WBC 9.7 hemoglobin 11.1 PT/PTT normal. Sodium 148, potassium 3.6, renal functions with BUN 26, creatinine 0.49. A1c 6.3, AST is 47, ALT 61 both elevated. Ammonia is <9. TSH is mildly low 0.226, free T4 normal. Prolactin mildly elevated 37.0, B12 627. Folate 18.0. Total choles terol 133, LDL 46, HDL 77 and triglycerides 48. CSF protein is normal 29, glucose 75, WBC 0, RBC 2. Viral panel negative including HSV 1, and HSV 2, varicella-zoster, CMV, adenovirus and enterovirus. Urine drug screen positive for methamphetamine. Patient is off sedation since 10:30 AM yesterday. Patient still not showing any clinical improvement. She is not following any commands. Please refer to examination below. Objective - Vital Signs Vital signs: Vital Signs Temp 97.9 F 01/29/20 12:00 Pulse 117 H 01/29/20 12:00 Resp 24 01/29/20 12:00 BP 136/95 01/29/20 12:00 Pulse Ox 98 01/29/20 12:00 Intake & Output 01/28/20 01/29/20 01/29/20 18:59 06:59 18:59 Intake Total 4661.511 9962 1074 Output Total 595 935 480 Balance 1049.432 627 594 Weight 69.7 kg 68.6 kg 68.6 kg Intake: IV 100 758 518 Art line flush 33 18 Dextrose 5% in Water 1, 300 000 ml @ 75 mls/hr IV . [id number] [facility] Rx#:[id number] Dextrose 5%-0.45% NaCl 1, 525 100 000 ml @ 50 mls/hr IV . Q20H [facility] Rx#:[id number] Meropenem 1 gm In Sodium 100 Chloride 0.9% 100 ml @ 200 mls/hr IVPB Q8H [facility] Rx#:[id number] Phenytoin Sodium Inj 200 100 100 mg In Sodium Chloride 0.9 % 100 ml @ 200 mls/hr IVPB BID [facility] Rx#: [id number] Sodium Chloride 0.9% 1, 100 000 ml @ 50 mls/hr IV . Q20H [facility] Rx#:[id number] Intake, IV Titration 888.432 Amount Dextrose 5%-0.45% NaCl 1, 500 000 ml @ 50 mls/hr IV . Q20H [facility] Rx#:[id number] Phenytoin Sodium Inj 200 250 mg In Sodium Chloride 0.9 % 100 ml @ 200 mls/hr IVPB BID [facility] Rx#: [id number] Propofol 1,000 mg In 138.432 Empty Bag 1 bag @ Titrate IV .Q0M [facility] Rx#: [id number] Tube Feeding 566 714 306 Other 90 90 250 Output: Urine 595 935 480 Other: Voiding Method Indwelling Catheter Indwelling Catheter Indwelling Catheter ABP, PAP, CO, CI - Last Documented Arterial Blood Pressure 127/81 - Exam On examination patient is completely obtunded, not following commands. Does not respond to noxious stimuli. Does not open her eyes to calling name or with noxious stimulus. Patient is exhibiting very slow rhythmic twitching of her eyelids when her eyes are manually opened. Otherwise no obvious seizure activity. Pupils are round and reacting. - Labs CBC & Chem 7: 01/29/20 04:25 01/29/20 04:25 Labs: Abnormal Lab Results - Last 24 Hours (Table) 01/28/20 01/28/20 01/28/20 Range/Units 04:07 18:04 23:28 WBC (3.8-10.6) k/uL RBC (3.80-5.40) m/uL Neutrophils # (1.3-7.7) k/uL ABG pH (7.35-7.45) ABG pCO2 (35-45) mmHg ABG pO2 (83-108) mmHg ABG Total CO2 (19-24) mmol/L ABG O2 Saturation (94-97) % Sodium (137-145) mmol/L Chloride (98-107) mmol/L BUN (7-17) mg/dL Creatinine (0.52-1.04) mg/dL Glucose (74-99) mg/dL POC Glucose (mg/dL) 157 H 193 H (75-99) mg/dL Calcium (8.4-10.2) mg/dL Ferritin 491.0 H (10.0-291.0) ng/mL AST (14-36) U/L ALT (4-34) U/L Alkaline Phosphatase (38-126) U/L Ammonia (<30) umol/L Total Protein (6.3-8.2) g/dL Albumin (3.5-5.0) g/dL 01/29/20 01/29/20 01/29/20 Range/Units 04:00 04:25 04:25 WBC 11.3 H (3.8-10.6) k/uL RBC 3.61 L (3.80-5.40) m/uL Neutrophils # 9.4 H (1.3-7.7) k/uL ABG pH 7.51 H (7.35-7.45) ABG pCO2 31 L (35-45) mmHg ABG pO2 118 H (83-108) mmHg ABG Total CO2 26 H (19-24) mmol/L ABG O2 Saturation 97.1 H (94-97) % Sodium 150 H (137-145) mmol/L Chloride 123 H (98-107) mmol/L BUN 22 H (7-17) mg/dL Creatinine 0.38 L (0.52-1.04) mg/dL Glucose 189 H (74-99) mg/dL POC Glucose (mg/dL) (75-99) mg/dL Calcium 7.8 L (8.4-10.2) mg/dL Ferritin (10.0-291.0) ng/mL AST 62 H (14-36) U/L ALT 70 H (4-34) U/L Alkaline Phosphatase 129 H (38-126) U/L Ammonia (<30) umol/L Total Protein 5.1 L (6.3-8.2) g/dL Albumin 2.5 L (3.5-5.0) g/dL 01/29/20 01/29/20 01/29/20 Range/Units 05:34 11:25 11:55 WBC (3.8-10.6) k/uL RBC (3.80-5.40) m/uL Neutrophils # (1.3-7.7) k/uL ABG pH (7.35-7.45) ABG pCO2 (35-45) mmHg ABG pO2 (83-108) mmHg ABG Total CO2 (19-24) mmol/L ABG O2 Saturation (94-97) % Sodium (137-145) mmol/L Chloride (98-107) mmol/L BUN (7-17) mg/dL Creatinine (0.52-1.04) mg/dL Glucose (74-99) mg/dL POC Glucose (mg/dL) 177 H 186 H (75-99) mg/dL Calcium (8.4-10.2) mg/dL Ferritin (10.0-291.0) ng/mL AST (14-36) U/L ALT (4-34) U/L Alkaline Phosphatase (38-126) U/L Ammonia 32 H (<30) umol/L Total Protein (6.3-8.2) g/dL Albumin (3.5-5.0) g/dL Microbiology - Last 24 Hours (Table) 01/27/20 20:47 Blood Culture - Preliminary Blood No Growth after 24 hours 01/24/20 20:30 Blood Culture - Preliminary Blood No Growth after 96 hours 01/25/20 21:30 Gram Stain - Final Sputum Sputum Culture - Final Assessment and Plan Assessment: * Acute encephalopathy, probably hepatic encephalopathy. Patient has triphasic waves seen on the EEG, which is classically seen with hepatic encephalopathy. Patient has persistently abnormal LFTs. * Persistently abnormal EEG, with evidence of significant triphasic waves and some sharp-appearing waves. Subclinical status appears less likely, as patient did not respond to any conventional antiepileptic medications. * History of left ICA dissection. Patient was on Coumadin. Plan: * Dilantin level checked today is 11.6, which is therapeutic. Patient has not shown any clinical improvement as of today. * EEG from yesterday again showed background slowing, excessive triphasic waves, suggestive of hepatic encephalopathy. * Patient's ammonia level was < 9 on arrival to the hospital. Repeat ammonia level today is 32 today, which is mildly elevated, but significantly elevated as compared to the initial ammonia level. Patient has persistently abnormal LFTs. Strongly suspect hepatic encephalopathy at this time. * Recommend GI consultation for probable hepatic encephalopathy. * We will keep her on Keppra, and discontinue Dilantin, as it was not effective. * Patient to be started on aspirin 162 mg daily due to her history of left ICA dissection for stroke prevention.
--- NOTE | 2020-01-29 14:22 | US ---
EXAMINATION TYPE: US liver DATE OF EXAM: 01/29/2020 COMPARISON: NONE CLINICAL HISTORY: r/o cirrhosis. ICU patient. Intubated. Covid. EXAM MEASUREMENTS: Liver Length: 14.3 cm Gallbladder Wall: 0.4 cm CBD: 1.0 cm Right Kidney: 9.4 x 3.9 x 4.6 cm Limited exam due to patient position Pancreas: Echogenic in appearance. Tail obscured by overlying bowel gas Liver: Appears coarse and lobular. Gallbladder: Not well visualized, best seen transverse. LLD images not taken. Evidence for sonographic Tovar's sign: neg CBD: dilated Right Kidney: Limited visualization due to overlying bowel gas IMPRESSION: 1. Underlying cirrhotic liver disease is not excluded. 2. Dilated common bile duct is 1 cm. Gallbladder not well visualized.
[2020-01-29] MEDS: ASPIRIN 81 MG PO SCH (14:52)
[2020-01-29 16:45] LABS: Glucose,Whole Blood 195 mg/dL (75-99)
[2020-01-29 18:12] LABS: Glucose,Whole Blood 167 mg/dL (75-99)
--- NOTE | 2020-01-29 21:42 | PN ---
PROGRESS NOTE DATE OF SERVICE: 01/29/2020 REASON FOR FOLLOWUP: Aspiration pneumonia. INTERVAL HISTORY: The patient is currently afebrile. The patient is hemodynamically stable. FiO2 is currently stable at 35%. No significant purulent secretion through the ET and no diarrhea has been reported. PHYSICAL EXAMINATION: Blood pressure 131/90 with a pulse of 113, temperature 98.1. She is 98% on 35% FiO2. General description is a middle-aged female lying in bed in no distress. RESPIRATORY SYSTEM: Unlabored breathing with decreased breath sounds at the base. No wheeze. HEART: S1, S2. Regular rate and rhythm. ABDOMEN: Soft. No tenderness. LABS: Hemoglobin 11.5, white count 11.3, BUN of 22, creatinine 0.38. Urine with ESBL E coli. Sputum culture has been negative so far. DIAGNOSTIC IMPRESSION AND PLAN: Patient with acute respiratory failure which is likely multifactorial with a component of aspiration pneumonia. The patient also has evidence of ESBL E coli UTI. The patient is currently covered with meropenem; to continue while monitoring her clinical course closely. MMODL / IJN: [id number] /
[2020-01-29 23:59] LABS: Glucose,Whole Blood 168 mg/dL (75-99)
[2020-01-30] MEDS: INSULIN ASPART (NovoLOG) 100 UNIT/ML VIAL SQ SCH ×5 (00:23→23:24)
[2020-01-30 04:25] LABS: Basophils % (A) 0 %; Eosinophils # (A) 0.2 k/uL (0-0.7); Eosinophils % (A) 2 %; HGB 11.4 gm/dL (11.4-16.0); Lymphocytes # (A) 1.1 k/uL (1.0-4.8); Lymphocytes % (A) 11 %; MCH 31.6 pg (25.0-35.0); MCHC 32.7 g/dL (31.0-37.0); MCV 96.8 fL (80.0-100.0); Mean Platelet Volume 9.1; Monocytes # (A) 0.7 k/uL (0-1.0); Monocytes % (A) 6 %; Neutrophils # (A) 8.2 k/uL (1.3-7.7); Neutrophils % (A) 78 %; Platelet Count 266 k/uL (150-450); RBC 3.61 m/uL (3.80-5.40); RDW 13.7 % (11.5-15.5); WBC 10.5 k/uL (3.8-10.6)
[2020-01-30 04:35] LABS: ALT 86 U/L (4-34); AST 87 U/L (14-36); African American GFR (CKD) >90 (>60 ml/min/1.73 sqM); Albumin 2.4 g/dL (3.5-5.0); Alkaline Phosphatase 145 U/L (38-126); Anion Gap 5 mmol/L; Blood Urea Nitrogen 21 mg/dL (7-17); Calcium 7.7 mg/dL (8.4-10.2); Carbon Dioxide 26 mmol/L (22-30); Chloride 117 mmol/L (98-107); Glucose 168 mg/dL (74-99); Non-African American GFR(CKD) >90 (>60 ml/min/1.73 sqM); Potassium 3.8 mmol/L (3.5-5.1); Sodium 148 mmol/L (137-145); Total Bilirubin 0.4 mg/dL (0.2-1.3)
[2020-01-30] MEDS ORDERED: POTASSIUM CHLORIDE ER 20 MEQ TAB.ER PO SCH (05:00)
[2020-01-30 05:22] LABS: Glucose,Whole Blood 165 mg/dL (75-99)
[2020-01-30] MEDS: MEROPENEM 1 GM in SODIUM CHLORIDE 0.9% 100 ML IVPB SCH ×3 (05:36→20:39)
[2020-01-30 06:00] LABS: Glucose,Whole Blood 162 mg/dL (75-99)
[2020-01-30] MEDS: levETIRAcetam IV 250 MG in SODIUM CHLORIDE 0.9% 100 ML IVPB SCH (06:06)
--- NOTE | 2020-01-30 07:25 | XR ---
EXAMINATION TYPE: XR chest 1V portable DATE OF EXAM: 01/30/2020 COMPARISON: NONE HISTORY: SOB, Follow Up FINDINGS: Indwelling tubes and catheters are unchanged. Persistent left lower lobe infiltrate. Mild patchy density right medial lung base as well. Stable appearance of the cardio-mediastinal structures at this time. Pleural effusion unchanged. IMPRESSION: 1. Stable portable chest. Clinical correlation and follow up until resolution is recommended.
[2020-01-30 07:31] LABS: ABG Base Excess 2.4 mmol/L; ABG HCO3 26 mmol/L (21-25); ABG Oxygen Saturation 97.6 % (94-97); ABG PCO2 32 mmHg (35-45); ABG PH 7.51 (7.35-7.45); ABG PO2 135 mmHg (83-108); ABG TCO2 27 mmol/L (19-24)
[2020-01-30 07:33] LABS: Allen Test Performed? no
[2020-01-30] MEDS: DEXTROSE 5% IN WATER 1,000 ML IV SCH ×2 (09:25→20:44)
--- NOTE | 2020-01-30 11:14 | P.PN ---
Subjective Progress Note Date: 01/30/20 Principal diagnosis: Altered mental status Patient has not been showing significant improvement in regards to her mental status. She is currently off sedation for the past 2 days. Not waking up much. Objective - Vital Signs Vital signs: Vital Signs Temp 98.6 F 01/30/20 04:00 Pulse 99 01/30/20 10:00 Resp 24 01/30/20 10:00 BP 124/90 01/30/20 10:00 Pulse Ox 97 01/30/20 10:00 Intake & Output 01/29/20 01/30/20 01/30/20 18:59 06:59 18:59 Intake Total 1871 2159 621 Output Total 965 930 490 Balance 906 1229 131 Weight 68.6 kg 72.1 kg 72.1 kg Intake: IV 1264 998 268 Art line flush 39 33 3 Dextrose 5% in Water 1, 825 825 225 000 ml @ 75 mls/hr IV . [id number] [facility] Rx#:[id number] Dextrose 5%-0.45% NaCl 1, 100 000 ml @ 50 mls/hr IV . Q20H [facility] Rx#:[id number] KVO 140 40 Meropenem 1 gm In Sodium 100 Chloride 0.9% 100 ml @ 200 mls/hr IVPB Q8H [facility] Rx#:[id number] Phenytoin Sodium Inj 200 100 mg In Sodium Chloride 0.9 % 100 ml @ 200 mls/hr IVPB BID [facility] Rx#: [id number] levETIRAcetam IV 250 mg 100 In Sodium Chloride 0.9% 100 ml @ 400 mls/hr IVPB Q12H [facility] Rx#:[id number] Tube Feeding 357 561 153 Other 250 600 200 Output: Urine 965 930 490 Other: Voiding Method Indwelling Catheter Indwelling Catheter Indwelling Catheter # Voids 1 ABP, PAP, CO, CI - Last Documented Arterial Blood Pressure 125/79 - Exam General: No acute distress, on mechanical ventilation Derm: [warm], [dry] Head: [atraumatic], [normocephalic], [symmetric] Eyes: [no lid lag], [anicteric sclera] Mouth: [no lip lesion], [mucus membranes moist] Cardiovascular: [S1S2 reg], [no murmur], [positive posterior tibial pulse bilateral], Lungs: [diminished bilateral], [scattered rhonchi, no rales] , [no accessory muscle use] Abdominal: [soft], [ nontender to palpation], [no guarding], [no appreciable organomegaly] Ext: [no gross muscle atrophy], [no edema], [no contractures] Neuro: No response to painful stimuli, minimal gag reflux, eyes flickering at times. Weak corneal reflux. - Labs CBC & Chem 7: 01/30/20 04:10 01/30/20 09:20 Labs: Abnormal Lab Results - Last 24 Hours (Table) 01/29/20 01/29/20 01/29/20 Range/Units 11:25 11:55 16:42 RBC (3.80-5.40) m/uL Neutrophils # (1.3-7.7) k/uL ABG pH (7.35-7.45) ABG pCO2 (35-45) mmHg ABG pO2 (83-108) mmHg ABG HCO3 (21-25) mmol/L ABG Total CO2 (19-24) mmol/L ABG O2 Saturation (94-97) % Sodium (137-145) mmol/L Chloride (98-107) mmol/L BUN (7-17) mg/dL Creatinine (0.52-1.04) mg/dL Glucose (74-99) mg/dL POC Glucose (mg/dL) 186 H 195 H (75-99) mg/dL Calcium (8.4-10.2) mg/dL AST (14-36) U/L ALT (4-34) U/L Alkaline Phosphatase (38-126) U/L Ammonia 32 H (<30) umol/L Total Protein (6.3-8.2) g/dL Albumin (3.5-5.0) g/dL 01/29/20 01/29/20 01/30/20 Range/Units 18:09 23:57 04:10 RBC 3.61 L (3.80-5.40) m/uL Neutrophils # 8.2 H (1.3-7.7) k/uL ABG pH (7.35-7.45) ABG pCO2 (35-45) mmHg ABG pO2 (83-108) mmHg ABG HCO3 (21-25) mmol/L ABG Total CO2 (19-24) mmol/L ABG O2 Saturation (94-97) % Sodium (137-145) mmol/L Chloride (98-107) mmol/L BUN (7-17) mg/dL Creatinine (0.52-1.04) mg/dL Glucose (74-99) mg/dL POC Glucose (mg/dL) 167 H 168 H (75-99) mg/dL Calcium (8.4-10.2) mg/dL AST (14-36) U/L ALT (4-34) U/L Alkaline Phosphatase (38-126) U/L Ammonia (<30) umol/L Total Protein (6.3-8.2) g/dL Albumin (3.5-5.0) g/dL 01/30/20 01/30/20 01/30/20 Range/Units 04:10 05:20 05:57 RBC (3.80-5.40) m/uL Neutrophils # (1.3-7.7) k/uL ABG pH (7.35-7.45) ABG pCO2 (35-45) mmHg ABG pO2 (83-108) mmHg ABG HCO3 (21-25) mmol/L ABG Total CO2 (19-24) mmol/L ABG O2 Saturation (94-97) % Sodium 148 H (137-145) mmol/L Chloride 117 H (98-107) mmol/L BUN 21 H (7-17) mg/dL Creatinine 0.34 L (0.52-1.04) mg/dL Glucose 168 H (74-99) mg/dL POC Glucose (mg/dL) 165 H 162 H (75-99) mg/dL Calcium 7.7 L (8.4-10.2) mg/dL AST 87 H (14-36) U/L ALT 86 H (4-34) U/L Alkaline Phosphatase 145 H (38-126) U/L Ammonia (<30) umol/L Total Protein 5.0 L (6.3-8.2) g/dL Albumin 2.4 L (3.5-5.0) g/dL 01/30/20 Range/Units 07:29 RBC (3.80-5.40) m/uL Neutrophils # (1.3-7.7) k/uL ABG pH 7.51 H (7.35-7.45) ABG pCO2 32 L (35-45) mmHg ABG pO2 135 H (83-108) mmHg ABG HCO3 26 H (21-25) mmol/L ABG Total CO2 27 H (19-24) mmol/L ABG O2 Saturation 97.6 H (94-97) % Sodium (137-145) mmol/L Chloride (98-107) mmol/L BUN (7-17) mg/dL Creatinine (0.52-1.04) mg/dL Glucose (74-99) mg/dL POC Glucose (mg/dL) (75-99) mg/dL Calcium (8.4-10.2) mg/dL AST (14-36) U/L ALT (4-34) U/L Alkaline Phosphatase (38-126) U/L Ammonia (<30) umol/L Total Protein (6.3-8.2) g/dL Albumin (3.5-5.0) g/dL Microbiology - Last 24 Hours (Table) 01/27/20 20:47 Blood Culture - Preliminary Blood No Growth after 48 hours 01/24/20 20:30 Blood Culture - Preliminary Blood No Growth after 120 hours 01/26/20 16:05 CSF Gram Stain - Preliminary Cerebral Spinal Fluid CSF Culture - Preliminary Assessment and Plan Plan: -Acute hypoxic respiratory failure multi-factorial secondary to aspiration pneumonia and altered mental status due to recurrent seizures vs psychiatric due to catatonia versus hepatic encephalopathy Pulmonary recommendations appreciated along with neurology and psychiatry Continue meropenem for aspiration pneumonia and e.coli in urine 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 Neurologist recommended adding aspirin to protect against carotid artery dissection clotting Liver ultrasound showing possible cirrhosis, GI consulted for possible hepatic encephalopathy Pulmonary will be discussing with possible trach and PEG placement -Hypernatremia Improving Continue D5W at 75 mL per hour. -Hypertension Continue clonidine patch and Norvasc -Left carotid dissection Stable according to repeat imaging Resume aspirin -Hyperlipidemia continue statin -Elevated LFTs Could be secondary to liver cirrhosis Ammonia level checked, was slightly elevated earlier, now normalized. -Hypothyroidism levothyroxine IVP -Schizoaffective disorder -Am labs ammonia level in a.m.
[2020-01-30] MEDS: LACTULOSE 20 GM/30 ML CUP PO SCH ×2 (11:30→20:24)
[2020-01-30] MEDS: LEVOTHYROXINE IVP 100 MCG/5 ML VIAL IV SCH (11:30)
[2020-01-30] MEDS: PANTOPRAZOLE 40 MG/10 ML VIAL IVP SCH (11:30)
[2020-01-30] MEDS: amLODIPine 2.5 MG TAB PO SCH (11:31)
[2020-01-30] MEDS: CHLORHEXIDINE GLUCONATE 15 ML CUP MUCOUS MEM SCH ×2 (11:31→20:24)
[2020-01-30] MEDS: ASPIRIN 81 MG PO SCH (11:31)
[2020-01-30 11:49] LABS: Glucose,Whole Blood 161 mg/dL (75-99)
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
--- NOTE | 2020-01-30 14:00 | P.GSCN ---
History of Present Illness History of present illness: HISTORY OF PRESENTING ILLNESS Patient is being maintained on mechanical ventilatory support secondary to metabolic encephalopathy and hypoxic respiratory failure. We have been asked to place a trach and PEG tube for nursing home ventilatory support and nutrition. REVIEW OF SYSTEMS Sedated on the ventilator PAST MEDICAL HISTORY See list PAST SURGICAL HISTORY See list MEDICATIONS See list PHYSICAL EXAMINATION Blood pressure 134/81 heart rate 107 afebrile and maintaining oxygen saturation on mechanical ventilation. CONSTITUTIONAL: No apparent distress. HEENT: ET tube in place NEUROLOGIC EXAMINATION: Sedated on mechanical ventilator ASSESSMENT Acute hypoxic respiratory failure Protein calorie malnutrition PLAN Hold tube feedings as of midnight tonight for PEG and trach placement tomorrow afternoon. Neurology is planning to speak to the today and this will determine moving forward with procedure tomorrow. If the is agreeable, consent will be obtained. The above impression and plan of care have been discussed and directed by the signing physician. Allyson Duff, nurse practitioner, acting as scribe for signing physician. Past Medical History Past Medical History: CVA/TIA Additional Past Medical History / Comment(s): Multiple falls last 4 weeks-went to [facility] on [address] and was found to have hypotension, stroke like symptoms approximately 2.5 yrs ago-worked up at [facility] and found caratid dissection/clot-received TPA and had full recovery, nephrolithiasis with surgery, john en Y and pt has had stomach problems since, overactive bladder, past sleep walking years ago. History of Any Multi-Drug Resistant Organisms: None Reported Past Surgical History: Bariatric Surgery, Cholecystectomy, Hysterectomy, Joint Replacement, Orthopedic Surgery Additional Past Surgical History / Comment(s): John en Y, EGD, colonoscopy, cysto d/t kidney stone with stent placed/removed, L total knee arthroplasty, R lower arm injury with plates. Additional Past Anesthesia/Blood Transfusion Reaction / Comm: Pt has received blood in past without reaction. Past Psychological History: Anxiety, Depression, PTSD Additional Psychological History / Comment(s): Pt resides with her spouse. She sees a psychiatrist regularly and is doing well. Pt is independent. Smoking Status: Never smoker Past Alcohol Use History: None Reported Past Drug Use History: None Reported - Past Family History Mother Family Medical History: COPD Additional Family Medical History / Comment(s): Mother is on oxygen. She was a smoker. Father Family Medical History: Cancer Additional Family Medical History / Comment(s): Father had 1/2 lung removed d/t lung cancer. He has a peice of liver removed d/t cancer. He is an exsmoker. Medications and Allergies Home Medications Medication Instructions Recorded Confirmed Type Atorvastatin [Lipitor] 40 mg PO HS 01/23/20 01/23/20 History Calcium Carbonate [Calcium] 600 mg PO BID 01/23/20 01/23/20 History Cyclobenzaprine [Flexeril] 10 mg PO HS PRN 01/23/20 01/23/20 History Ergocalciferol (Vitamin D2) 50,000 unit PO DIRECTED 01/23/20 01/23/20 History [Drisdol] Escitalopram [Lexapro] 20 mg PO DAILY 01/23/20 01/23/20 History Gabapentin [Gralise] 600 mg PO HS 01/23/20 01/23/20 History Levothyroxine Sodium [Synthroid] 25 mcg PO ORTIZ 01/23/20 01/23/20 History Levothyroxine Sodium [Synthroid] 50 mcg PO MOTUWETHFRSA 01/23/20 01/23/20 History Midodrine HCl [ProAmatine] 10 mg PO TID 01/23/20 01/23/20 History Mirabegron [Myrbetriq] 50 mg PO DAILY 01/23/20 01/23/20 History Multivitamins, Thera [Multivitamin 1 tab PO DAILY 01/23/20 01/23/20 History (formulary)] Nascobal (B12) 500mcg/[place] 1 spray NASAL Q7D 01/23/20 01/23/20 History OLANZapine [ZyPREXA] 10 mg PO DAILY 01/23/20 01/23/20 History Pantoprazole [Protonix] 40 mg PO DAILY PRN 01/23/20 01/23/20 History Pilocarpine [Salagen] 5 mg PO TID PRN 01/23/20 01/23/20 History Solifenacin Succinate [Vesicare] 5 mg PO DAILY 01/23/20 01/23/20 History Warfarin Sodium [Coumadin] 9 mg PO SUMOWEFR 01/23/20 01/23/20 History Allergies Allergy/AdvReac Type Severity Reaction Status Date / Time No Known Allergies Allergy Verified 01/23/20 10:27 Surgical - Exam Vital Signs Temp Pulse Resp BP Pulse Ox 98.1 F 82 16 185/116 98 01/23/20 07:17 01/23/20 07:17 01/23/20 07:17 01/23/20 07:17 01/23/20 07:17 Results - Labs 01/30/20 04:10 01/30/20 09:20 Abnormal Lab Results - Last 24 Hours (Table) 01/29/20 01/29/20 01/29/20 Range/Units 16:42 18:09 23:57 RBC (3.80-5.40) m/uL Neutrophils # (1.3-7.7) k/uL ABG pH (7.35-7.45) ABG pCO2 (35-45) mmHg ABG pO2 (83-108) mmHg ABG HCO3 (21-25) mmol/L ABG Total CO2 (19-24) mmol/L ABG O2 Saturation (94-97) % Sodium (137-145) mmol/L Chloride (98-107) mmol/L BUN (7-17) mg/dL Creatinine (0.52-1.04) mg/dL Glucose (74-99) mg/dL POC Glucose (mg/dL) 195 H 167 H 168 H (75-99) mg/dL Calcium (8.4-10.2) mg/dL AST (14-36) U/L ALT (4-34) U/L Alkaline Phosphatase (38-126) U/L Total Protein (6.3-8.2) g/dL Albumin (3.5-5.0) g/dL 01/30/20 01/30/20 01/30/20 Range/Units 04:10 04:10 05:20 RBC 3.61 L (3.80-5.40) m/uL Neutrophils # 8.2 H (1.3-7.7) k/uL ABG pH (7.35-7.45) ABG pCO2 (35-45) mmHg ABG pO2 (83-108) mmHg ABG HCO3 (21-25) mmol/L ABG Total CO2 (19-24) mmol/L ABG O2 Saturation (94-97) % Sodium 148 H (137-145) mmol/L Chloride 117 H (98-107) mmol/L BUN 21 H (7-17) mg/dL Creatinine 0.34 L (0.52-1.04) mg/dL Glucose 168 H (74-99) mg/dL POC Glucose (mg/dL) 165 H (75-99) mg/dL Calcium 7.7 L (8.4-10.2) mg/dL AST 87 H (14-36) U/L ALT 86 H (4-34) U/L Alkaline Phosphatase 145 H (38-126) U/L Total Protein 5.0 L (6.3-8.2) g/dL Albumin 2.4 L (3.5-5.0) g/dL 01/30/20 01/30/20 01/30/20 Range/Units 05:57 07:29 11:47 RBC (3.80-5.40) m/uL Neutrophils # (1.3-7.7) k/uL ABG pH 7.51 H (7.35-7.45) ABG pCO2 32 L (35-45) mmHg ABG pO2 135 H (83-108) mmHg ABG HCO3 26 H (21-25) mmol/L ABG Total CO2 27 H (19-24) mmol/L ABG O2 Saturation 97.6 H (94-97) % Sodium (137-145) mmol/L Chloride (98-107) mmol/L BUN (7-17) mg/dL Creatinine (0.52-1.04) mg/dL Glucose (74-99) mg/dL POC Glucose (mg/dL) 162 H 161 H (75-99) mg/dL Calcium (8.4-10.2) mg/dL AST (14-36) U/L ALT (4-34) U/L Alkaline Phosphatase (38-126) U/L Total Protein (6.3-8.2) g/dL Albumin (3.5-5.0) g/dL Microbiology - Last 24 Hours (Table) 01/27/20 20:47 Blood Culture - Preliminary Blood No Growth after 48 hours 01/24/20 20:30 Blood Culture - Preliminary Blood No Growth after 120 hours 01/26/20 16:05 CSF Gram Stain - Preliminary Cerebral Spinal Fluid CSF Culture - Preliminary Diabetes panel 01/30/20 01/30/20 Range/Units 04:10 09:20 Sodium 148 H (137-145) mmol/L Potassium 3.8 4.1 (3.5-5.1) mmol/L Chloride 117 H (98-107) mmol/L Carbon Dioxide 26 (22-30) mmol/L BUN 21 H (7-17) mg/dL Creatinine 0.34 L (0.52-1.04) mg/dL Glucose 168 H (74-99) mg/dL Calcium 7.7 L (8.4-10.2) mg/dL AST 87 H (14-36) U/L ALT 86 H (4-34) U/L Alkaline Phosphatase 145 H (38-126) U/L Total Protein 5.0 L (6.3-8.2) g/dL Albumin 2.4 L (3.5-5.0) g/dL Calcium panel 01/30/20 Range/Units 04:10 Calcium 7.7 L (8.4-10.2) mg/dL Albumin 2.4 L (3.5-5.0) g/dL Pituitary panel 01/30/20 01/30/20 Range/Units 04:10 09:20 Sodium 148 H (137-145) mmol/L Potassium 3.8 4.1 (3.5-5.1) mmol/L Chloride 117 H (98-107) mmol/L Carbon Dioxide 26 (22-30) mmol/L BUN 21 H (7-17) mg/dL Creatinine 0.34 L (0.52-1.04) mg/dL Glucose 168 H (74-99) mg/dL Calcium 7.7 L (8.4-10.2) mg/dL Adrenal panel 01/30/20 01/30/20 Range/Units 04:10 09:20 Sodium 148 H (137-145) mmol/L Potassium 3.8 4.1 (3.5-5.1) mmol/L Chloride 117 H (98-107) mmol/L Carbon Dioxide 26 (22-30) mmol/L BUN 21 H (7-17) mg/dL Creatinine 0.34 L (0.52-1.04) mg/dL Glucose 168 H (74-99) mg/dL Calcium 7.7 L (8.4-10.2) mg/dL Total Bilirubin 0.4 (0.2-1.3) mg/dL AST 87 H (14-36) U/L ALT 86 H (4-34) U/L Alkaline Phosphatase 145 H (38-126) U/L Total Protein 5.0 L (6.3-8.2) g/dL Albumin 2.4 L (3.5-5.0) g/dL
--- NOTE | 2020-01-30 16:05 | P.CONS ---
History of Present Illness - Reason for Consult Consult date: 01/30/20 Altered mental status, possible hepatic encephalopathy Requesting physician: Reilly Nix - Chief Complaint Altered mental status - History of Present Illness 59-year-old female with a medical history significant for hypothyroidism, PTSD, depression, anxiety, prior John-en-Y surgery, hypertension, prior CVA, prior carotid dissection who presented to the hospital due to altered mental status. Patient was noted to have difficulty speaking and understanding after presentation to the hospital. Mentation remains poor and patient was subsequently intubated with concerns over aspiration pneumonia resulting in hypoxia. Patient has been seen by the neurology service with consideration for subclinical seizures however mentation has not improved on epileptic medication. Patient has remained unresponsive even after sedation has been held, unclear if this is secondary to subclinical seizures, metabolic encephalopathy, catatonia, with concerns over possible hepatic encephalopathy given triphasic wave form on EEG. Patient's liver enzymes only mildly elevated with total bilirubin 0.9, alkaline phosphatase 148, AST 87 and MALT 86. Prior INR was found to be normal. Ammonia level only mildly elevated at 27. Platelet count normal at 266 with WBC 10.5 and hemoglobin 11.4. Ultrasound was significant for a nodular appearing liver. Review of Systems Patient currently unresponsive and review of systems cannot be obtained secondar y to mental status ROS unobtainable: due to mental status (.) Past Medical History Past Medical History: CVA/TIA Additional Past Medical History / Comment(s): Multiple falls last 4 weeks-went to [facility] on [address] and was found to have hypotension, stroke like symptoms approximately 2.5 yrs ago-worked up at [facility] and found caratid dissection/clot-received TPA and had full recovery, nephrolithiasis with park rgery, john en Y and pt has had stomach problems since, overactive bladder, past sleep walking years ago. History of Any Multi-Drug Resistant Organisms: None Reported Past Surgical History: Bariatric Surgery, Cholecystectomy, Hysterectomy, Joint Replacement, Orthopedic Surgery Additional Past Surgical History / Comment(s): John en Y, EGD, colonoscopy, cysto d/t kidney stone with stent placed/removed, L total knee arthroplasty, R lower arm injury with plates. Additional Past Anesthesia/Blood Transfusion Reaction / Comm: Pt has received blood in past without reaction. Past Psychological History: Anxiety, Depression, PTSD Additional Psychological History / Comment(s): Pt resides with her spouse. She sees a psychiatrist regularly and is doing well. Pt is independent. Smoking Status: Never smoker Past Alcohol Use History: None Reported Past Drug Use History: None Reported - Past Family History Mother Family Medical History: COPD Additional Family Medical History / Comment(s): Mother is on oxygen. She was a smoker. Father Family Medical History: Cancer Additional Family Medical History / Comment(s): Father had 1/2 lung removed d/t lung cancer. He has a peice of liver removed d/t cancer. He is an exsmoker. Medications and Allergies Home Medications Medication Instructions Recorded Confirmed Type Atorvastatin [Lipitor] 40 mg PO HS 01/23/20 01/23/20 History Calcium Carbonate [Calcium] 600 mg PO BID 01/23/20 01/23/20 History Cyclobenzaprine [Flexeril] 10 mg PO HS PRN 01/23/20 01/23/20 History Ergocalciferol (Vitamin D2) 50,000 unit PO DIRECTED 01/23/20 01/23/20 History [Drisdol] Escitalopram [Lexapro] 20 mg PO DAILY 01/23/20 01/23/20 History Gabapentin [Gralise] 600 mg PO HS 01/23/20 01/23/20 History Levothyroxine Sodium [Synthroid] 25 mcg PO [place]ARK 01/23/20 01/23/20 History Levothyroxine Sodium [Synthroid] 50 mcg PO MOTUWETHFRSA 01/23/20 01/23/20 History Midodrine HCl [ProAmatine] 10 mg PO TID 01/23/20 01/23/20 History Mirabegron [Myrbetriq] 50 mg PO DAILY 01/23/20 01/23/20 History Multivitamins, Thera [Multivitamin 1 tab PO DAILY 01/23/20 01/23/20 History (formulary)] Nascobal (B12) 500mcg/[place] 1 spray NASAL Q7D 01/23/20 01/23/20 History OLANZapine [ZyPREXA] 10 mg PO DAILY 01/23/20 01/23/20 History Pantoprazole [Protonix] 40 mg PO DAILY PRN 01/23/20 01/23/20 History Pilocarpine [Salagen] 5 mg PO TID PRN 01/23/20 01/23/20 History Solifenacin Succinate [Vesicare] 5 mg PO DAILY 01/23/20 01/23/20 History Warfarin Sodium [Coumadin] 9 mg PO SUMOWEFR 01/23/20 01/23/20 History Allergies Allergy/AdvReac Type Severity Reaction Status Date / Time No Known Allergies Allergy Verified 01/23/20 10:27 Physical Exam Vitals: Vital Signs Temp Pulse Resp BP Pulse Ox 01/30/20 15:00 105 H 127/82 98 01/30/20 14:00 112 H 122/67 98 01/30/20 13:00 99 F 107 H 134/81 97 01/30/20 12:00 112 H 126/74 97 01/30/20 11:00 106 H 24 124/84 97 01/30/20 10:00 99 24 124/90 97 01/30/20 09:00 112 H 24 130/94 97 01/30/20 08:00 102 H 24 120/74 99 01/30/20 07:00 101 H 24 130/86 98 01/30/20 06:00 114 H 26 H 122/81 99 01/30/20 05:00 114 H 24 126/66 99 01/30/20 04:00 98.6 F 116 H 25 H 126/83 98 01/30/20 03:00 116 H 24 125/71 98 01/30/20 02:00 109 H 24 112/77 99 01/30/20 01:00 112 H 24 139/90 98 01/30/20 00:00 98.6 F 118 H 26 H 125/80 98 01/29/20 23:00 112 H 24 129/87 98 01/29/20 22:00 113 H 30 H 139/92 98 01/29/20 21:00 129 H 26 H 132/85 96 01/29/20 20:00 98.1 F 116 H 24 131/90 98 01/29/20 19:00 112 H 24 131/86 98 01/29/20 18:00 115 H 26 H 127/88 98 01/29/20 17:00 114 H 24 127/85 98 01/29/20 16:00 99.7 F H 102 H 24 130/81 98 Intake and Output 01/30/20 01/30/20 01/30/20 06:59 14:59 22:59 Intake Total 1572 1311 126 Output Total 690 890 75 Balance 882 421 51 Intake: IV 764 703 75 Art line flush 24 3 Dextrose 5% in Water 1, 600 600 75 000 ml @ 75 mls/hr IV . [id number] [facility] Rx#:[id number] KVO 140 100 Tube Feeding 408 408 51 Other 400 200 Output: Urine 690 890 75 Other: Voiding Method Indwelling Catheter Indwelling Catheter Weight 72.1 kg 72.1 kg ABP, PAP, CO, CI - Last 8 Hours Arterial Blood Pressure 120/74 Arterial Blood Pressure 135/83 Arterial Blood Pressure 123/76 Arterial Blood Pressure 137/85 Arterial Blood Pressure 133/84 Arterial Blood Pressure 125/79 Arterial Blood Pressure 145/95 Arterial Blood Pressure 108/100 On physical examination, patient appears comfortable in no apparent distress. HEAD: Normocephalic, atraumatic. EYES: No scleral icterus. No conjunctival injection. MOUTH: No lesions, tongue midline, endotracheal tube in place. NECK: Trachea midline, no gross abnormalities. CHEST: Coarse respiratory noises in all lung hernandez. HEART: Regular rate and rhythm. ABDOMEN: Soft, nontender to palpation. Bowel sounds are positive. No organomegaly. No guarding or rigidity. EXTREMITIES: No pedal edema, no palmar erythema. SKIN: No rashes, no jaundice no evidence of spider angiomas. NEUROLOGIC: Not awake or oriented no response to painful stimuli. Results CBC & Chem 7: 01/30/20 04:10 01/30/20 09:20 Labs: Abnormal Lab Results - Last 24 Hours (Table) 01/29/20 01/29/20 01/29/20 Range/Units 16:42 18:09 23:57 RBC (3.80-5.40) m/uL Neutrophils # (1.3-7.7) k/uL ABG pH (7.35-7.45) ABG pCO2 (35-45) mmHg ABG pO2 (83-108) mmHg ABG HCO3 (21-25) mmol/L ABG Total CO2 (19-24) mmol/L ABG O2 Saturation (94-97) % Sodium (137-145) mmol/L Chloride (98-107) mmol/L BUN (7-17) mg/dL Creatinine (0.52-1.04) mg/dL Glucose (74-99) mg/dL POC Glucose (mg/dL) 195 H 167 H 168 H (75-99) mg/dL Calcium (8.4-10.2) mg/dL AST (14-36) U/L ALT (4-34) U/L Alkaline Phosphatase (38-126) U/L Total Protein (6.3-8.2) g/dL Albumin (3.5-5.0) g/dL 01/30/20 01/30/20 01/30/20 Range/Units 04:10 04:10 05:20 RBC 3.61 L (3.80-5.40) m/uL Neutrophils # 8.2 H (1.3-7.7) k/uL ABG pH (7.35-7.45) ABG pCO2 (35-45) mmHg ABG pO2 (83-108) mmHg ABG HCO3 (21-25) mmol/L ABG Total CO2 (19-24) mmol/L ABG O2 Saturation (94-97) % Sodium 148 H (137-145) mmol/L Chloride 117 H (98-107) mmol/L BUN 21 H (7-17) mg/dL Creatinine 0.34 L (0.52-1.04) mg/dL Glucose 168 H (74-99) mg/dL POC Glucose (mg/dL) 165 H (75-99) mg/dL Calcium 7.7 L (8.4-10.2) mg/dL AST 87 H (14-36) U/L ALT 86 H (4-34) U/L Alkaline Phosphatase 145 H (38-126) U/L Total Protein 5.0 L (6.3-8.2) g/dL Albumin 2.4 L (3.5-5.0) g/dL 01/30/20 01/30/20 01/30/20 Range/Units 05:57 07:29 11:47 RBC (3.80-5.40) m/uL Neutrophils # (1.3-7.7) k/uL ABG pH 7.51 H (7.35-7.45) ABG pCO2 32 L (35-45) mmHg ABG pO2 135 H (83-108) mmHg ABG HCO3 26 H (21-25) mmol/L ABG Total CO2 27 H (19-24) mmol/L ABG O2 Saturation 97.6 H (94-97) % Sodium (137-145) mmol/L Chloride (98-107) mmol/L BUN (7-17) mg/dL Creatinine (0.52-1.04) mg/dL Glucose (74-99) mg/dL POC Glucose (mg/dL) 162 H 161 H (75-99) mg/dL Calcium (8.4-10.2) mg/dL AST (14-36) U/L ALT (4-34) U/L Alkaline Phosphatase (38-126) U/L Total Protein (6.3-8.2) g/dL Albumin (3.5-5.0) g/dL Microbiology - Last 24 Hours (Table) 01/27/20 20:47 Blood Culture - Preliminary Blood No Growth after 48 hours 01/24/20 20:30 Blood Culture - Preliminary Blood No Growth after 120 hours 01/26/20 16:05 CSF Gram Stain - Preliminary Cerebral Spinal Fluid CSF Culture - Preliminary US - abdomen: report reviewed (Nodular appearance of the liver on ultrasound) Assessment and Plan (1) Increased ammonia level Narrative/Plan: 59-year-old female with multiple medical comorbidities who presented for altered mental status of unknown etiology with subsequent decompensation and development of hypoxia requiring intubation. Patient was previously sedated which was weaned however has remained unresponsive. Neurology following the patient's and unclear etiology, patient's altered mental status with concern for possible hepatic encephalopathy in the setting of mildly elevated ammonia and elevated liver enzymes and a predominantly hepatocellular pattern. Differential also includes catatonia, metabolic encephalopathy in a patient with suspected aspiration pneumonia, or subclinical seizures or other etiology. Patient's symptoms have failed to respond to antiepileptic medications. Liver enzymes have remained persistently elevated with AST 87 and MALT 86 today. Normal INR on presentation and platelet count of 266,000 are not suggestive of a cirrhotic liver or portal hypertension with the patient's APRI score 0.9 (greater than 1 is suggestive of a cirrhotic liver). However liver does appear nodular on ultrasound and ammonia was found to be mildly elevated. Cannot rule out a component of hepatic encephalopathy. Current Visit: Yes Status: Acute Code(s): R79.89 - OTHER SPECIFIED ABNORMAL FINDINGS OF BLOOD CHEMISTRY SNOMED Code(s): 388865376 (2) Elevated liver enzymes Current Visit: Yes Status: Acute Code(s): R74.8 - ABNORMAL LEVELS OF OTHER SERUM ENZYMES SNOMED Code(s): 166840769 Plan: Supportive care Continue to monitor CBC, BMP, LFTs Viral hepatitis panel ordered INR ordered for tomorrow Repeat ammonia level in the a.m. Will empirically add lactulose twice a day for treatment of possible hepatic encephalopathy We'll continue to follow symptomatically Thank you for allowing us to participate in the care of the patient
--- NOTE | 2020-01-30 16:24 | P.PN ---
Subjective Progress Note Date: 01/30/20 01/30/2020: Patient continues to be comatose. Not responding to vocal or painful stimuli. Patient continues to have some twitching of her eyelids on manually opening the eyelids. No twitching of the eyes. No twitching of facial muscles, or extremities. No obvious seizure noted by the staff. Patient's liver ultrasound showed liver appears course and low Tamiko. Underlying cirrhotic liver disease is not excluded. Dilated common bile duct 1 cm. Gallbladder not well visualized. Patient's liver functions shows worsening pattern with AST 87 (62 yesterday), ALT 86 (70 yesterday). Repeat ammonia level normal 27. CPK and temperature is normal, therefore doubt NMS. Patient has been seen by gastroenterology, who does not feel symptoms are completely explained by hepatic encephalopathy although may be a component of hepatic encephalopathy. Patient is a 59-year-old female admitted to the hospital on 01/23/2020 for strokelike symptoms. She was having difficulty with manipulating remote control for the TV and according to the EMS also had difficulty speaking on the morning of admission. CT head showed mild bifrontal atrophy. CTA of the neck showed bovine configuration to the aortic arch. No dissection of the upper cervical left ICA extending into the vertical petrous segment. There is similar enhancement within both lumens without arterial occlusion. No significant ICA stenosis. Dominant left vertebral artery. CT of the brain showed nondominant V4 segment right vertebral artery becomes very hypoplastic, possibly terminating as a PICA branch. No continuation of the patient's known left ICA dissection beyond the petrous segment. No large vessel intercranial arterial occlusion or aneurysmal change. Patient had a repeat CTA of head and neck on 01/26/2020 again revealed the visualization of the patient's known distal left ICA dissection. Diminutive right vertebral artery. Borderline appearance of the aortic arch. 2-D echo showed moderate concentric LVH, EF 55-60%. Left atrium is moderately dilated. Moderate MR, TR. MRI of the brain showed no acute process. T2/FLAIR hypointensity along the cranial aspect of the central sulcus on the right when correlated with the CT of the same date could represent hemosiderin deposition from old chronic subarachnoid hemorrhage or prominent draining veins. Patient's blood test shows normal WBC 9.7 hemoglobin 11.1 PT/PTT normal. Sodium 148, potassium 3.6, renal functions with BUN 26, creatinine 0.49. A1c 6.3, AST is 47, ALT 61 both elevated. Ammonia is <9. TSH is mildly low 0.226, free T4 normal. Prolactin mildly elevated 37.0, B12 627. Folate 18.0. Total cholesterol 133, LDL 46, HDL 77 and triglycerides 48. CSF protein is normal 29, glucose 75, WBC 0, RBC 2. Viral panel negative including HSV 1, and HSV 2, varicella-zoster, CMV, adenovirus and enterovirus. Urine drug screen positive for methamphetamine. Patient is off sedation since 10:30 AM yesterday. Patient still not showing any clinical improvement. She is not following any commands. Please refer to examination below. Objective - Vital Signs Vital signs: Vital Signs Temp 99 F 01/30/20 13:00 Pulse 105 H 01/30/20 15:00 Resp 24 01/30/20 11:00 BP 127/82 01/30/20 15:00 Pulse Ox 98 01/30/20 15:00 Intake & Output 01/29/20 01/30/20 01/30/20 18:59 06:59 18:59 Intake Total 1871 2159 1437 Output Total 965 930 965 Balance 906 1229 472 Weight 68.6 kg 72.1 kg 72.1 kg Intake: IV 1264 998 778 Art line flush 39 33 3 Dextrose 5% in Water 1, 825 825 675 000 ml @ 75 mls/hr IV . [id number] [facility] Rx#:[id number] Dextrose 5%-0.45% NaCl 1, 100 000 ml @ 50 mls/hr IV . Q20H [facility] Rx#:[id number] KVO 140 100 Meropenem 1 gm In Sodium 100 Chloride 0.9% 100 ml @ 200 mls/hr IVPB Q8H [facility] Rx#:[id number] Phenytoin Sodium Inj 200 100 mg In Sodium Chloride 0.9 % 100 ml @ 200 mls/hr IVPB BID [facility] Rx#: [id number] levETIRAcetam IV 250 mg 100 In Sodium Chloride 0.9% 100 ml @ 400 mls/hr IVPB Q12H [facility] Rx#:[id number] Tube Feeding 357 561 459 Other 250 600 200 Output: Urine 965 930 965 Other: Voiding Method Indwelling Catheter Indwelling Catheter Indwelling Catheter ABP, PAP, CO, CI - Last Documented Arterial Blood Pressure 120/74 - Exam On examination patient is comatose. Does not respond to verbal or noxious stimuli. Does not open her eyes to calling name or with noxious stimulus. Patient is exhibiting very slow rhythmic twitching of her eyelids when her eyes are manually opened. Otherwise no obvious seizure activity. Pupils are round and reacting. - Labs CBC & Chem 7: 01/30/20 04:10 01/30/20 09:20 Labs: Abnormal Lab Results - Last 24 Hours (Table) 01/29/20 01/29/20 01/29/20 Range/Units 16:42 18:09 23:57 RBC (3.80-5.40) m/uL Neutrophils # (1.3-7.7) k/uL ABG pH (7.35-7.45) ABG pCO2 (35-45) mmHg ABG pO2 (83-108) mmHg ABG HCO3 (21-25) mmol/L ABG Total CO2 (19-24) mmol/L ABG O2 Saturation (94-97) % Sodium (137-145) mmol/L Chloride (98-107) mmol/L BUN (7-17) mg/dL Creatinine (0.52-1.04) mg/dL Glucose (74-99) mg/dL POC Glucose (mg/dL) 195 H 167 H 168 H (75-99) mg/dL Calcium (8.4-10.2) mg/dL AST (14-36) U/L ALT (4-34) U/L Alkaline Phosphatase (38-126) U/L Total Protein (6.3-8.2) g/dL Albumin (3.5-5.0) g/dL 01/30/20 01/30/20 01/30/20 Range/Units 04:10 04:10 05:20 RBC 3.61 L (3.80-5.40) m/uL Neutrophils # 8.2 H (1.3-7.7) k/uL ABG pH (7.35-7.45) ABG pCO2 (35-45) mmHg ABG pO2 (83-108) mmHg ABG HCO3 (21-25) mmol/L ABG Total CO2 (19-24) mmol/L ABG O2 Saturation (94-97) % Sodium 148 H (137-145) mmol/L Chloride 117 H (98-107) mmol/L BUN 21 H (7-17) mg/dL Creatinine 0.34 L (0.52-1.04) mg/dL Glucose 168 H (74-99) mg/dL POC Glucose (mg/dL) 165 H (75-99) mg/dL Calcium 7.7 L (8.4-10.2) mg/dL AST 87 H (14-36) U/L ALT 86 H (4-34) U/L Alkaline Phosphatase 145 H (38-126) U/L Total Protein 5.0 L (6.3-8.2) g/dL Albumin 2.4 L (3.5-5.0) g/dL 01/30/20 01/30/20 01/30/20 Range/Units 05:57 07:29 11:47 RBC (3.80-5.40) m/uL Neutrophils # (1.3-7.7) k/uL ABG pH 7.51 H (7.35-7.45) ABG pCO2 32 L (35-45) mmHg ABG pO2 135 H (83-108) mmHg ABG HCO3 26 H (21-25) mmol/L ABG Total CO2 27 H (19-24) mmol/L ABG O2 Saturation 97.6 H (94-97) % Sodium (137-145) mmol/L Chloride (98-107) mmol/L BUN (7-17) mg/dL Creatinine (0.52-1.04) mg/dL Glucose (74-99) mg/dL POC Glucose (mg/dL) 162 H 161 H (75-99) mg/dL Calcium (8.4-10.2) mg/dL AST (14-36) U/L ALT (4-34) U/L Alkaline Phosphatase (38-126) U/L Total Protein (6.3-8.2) g/dL Albumin (3.5-5.0) g/dL Microbiology - Last 24 Hours (Table) 01/27/20 20:47 Blood Culture - Preliminary Blood No Growth after 48 hours 01/24/20 20:30 Blood Culture - Preliminary Blood No Growth after 120 hours 01/26/20 16:05 CSF Gram Stain - Preliminary Cerebral Spinal Fluid CSF Culture - Preliminary Assessment and Plan Assessment: * Acute encephalopathy, probably hepatic encephalopathy/hepatic coma. Patient has triphasic waves seen on the EEG, which is classically seen with hepatic e ncephalopathy. Patient has persistently abnormal LFTs. * Persistently abnormal EEG, with evidence of significant triphasic waves and some sharp-appearing waves. Subclinical status appears less likely, as patient did not respond to any conventional antiepileptic medications. * History of left ICA dissection. Patient was on Coumadin. Plan: * Patient continues to be comatose. Started on lactulose today. GI input appreciated. * EEG from 01/28/2020 again showed background slowing, excessive triphasic waves, suggestive of hepatic encephalopathy. We will repeat EEG in a.m. * Patient continues to have persistently abnormal liver functions. Ammonia level is now normal. Uncertain if it is hepatic coma or some other process. We will repeat EEG in a.m. Increase Keppra to 500 mg twice a day. * Continue aspirin 81 mg daily due to her history of left ICA dissection for stroke prevention.
[2020-01-30 16:53] LABS: Hepatitis A Antibody IgM Non-Reactive (Non-Reactive); Hepatitis C IgG Antibody Non-Reactive (Non-Reactive)
[2020-01-30 16:54] LABS: Hepatitis B Core IgM Non-Reactive (Non-Reactive); Hepatitis B Surface Antigen Non-Reactive (Non-Reactive)
--- NOTE | 2020-01-30 17:06 | PN ---
PROGRESS NOTE DATE OF SERVICE: 01/30/2020 REASON FOR FOLLOWUP: ESBL E coli urinary tract infection and possible aspiration pneumonia. INTERVAL HISTORY: The patient remains to be afebrile. The patient is hemodynamically stable. Not on any pressor support. The patient remains to be intubated on the vent. FiO2 is currently 30%. No significant purulent secretion has been reported and no diarrhea. PHYSICAL EXAMINATION: Blood pressure 127/87, pulse of 107, temperature 98.9. She is 98% on 30% FiO2. General description is a middle-aged female, lying in bed in no distress. RESPIRATORY SYSTEM: Unlabored breathing, decreased breath sounds, no wheeze. HEART: S1, S2. Regular rate and rhythm. ABDOMEN: Soft, no tenderness. LABS: Hemoglobin 11.4, white count 10.5, BUN of 21, creatinine 0.34. Blood cultures have been negative. DIAGNOSTIC IMPRESSION AND PLAN: Patient with acute ventilator dependent respiratory failure which is likely multifactorial, possible aspiration pneumonia. The patient did have significant epistaxis with attempted NG insertion and aspiration. Patient also showed ESBL E coli in the urine, again is covered with meropenem to continue and monitor clinical course closely. Continue supportive care. MMODL / IJN: [id number] /
[2020-01-30 17:35] LABS: Glucose,Whole Blood 153 mg/dL (75-99)
[2020-01-30] MEDS: NOREPINEPHRINE 4 MG in SODIUM CHLORIDE 0.9% 250 ML IV SCH (19:38)
[2020-01-30] MEDS: levETIRAcetam IV 500 MG in SODIUM CHLORIDE 0.9% 100 ML IVPB SCH (20:39)
[2020-01-30 23:20] LABS: Glucose,Whole Blood 142 mg/dL (75-99)
[2020-01-31 04:54] LABS: Basophils % (A) 0 %; Eosinophils # (A) 0.3 k/uL (0-0.7); Eosinophils % (A) 3 %; HCT 37.5 % (34.0-46.0); HGB 12.3 gm/dL (11.4-16.0); Lymphocytes # (A) 1.3 k/uL (1.0-4.8); Lymphocytes % (A) 13 %; MCH 31.6 pg (25.0-35.0); MCHC 32.9 g/dL (31.0-37.0); MCV 96.1 fL (80.0-100.0); Mean Platelet Volume 8.7; Monocytes # (A) 0.5 k/uL (0-1.0); Monocytes % (A) 5 %; Neutrophils # (A) 7.6 k/uL (1.3-7.7); Neutrophils % (A) 76 %; Platelet Count 309 k/uL (150-450); RDW 13.7 % (11.5-15.5); WBC 9.9 k/uL (3.8-10.6)
[2020-01-31 05:04] LABS: ALT 105 U/L (4-34); AST 92 U/L (14-36); African American GFR (CKD) >90 (>60 ml/min/1.73 sqM); Albumin 2.6 g/dL (3.5-5.0); Alkaline Phosphatase 175 U/L (38-126); Anion Gap 7 mmol/L; Blood Urea Nitrogen 18 mg/dL (7-17); Calcium 7.8 mg/dL (8.4-10.2); Carbon Dioxide 24 mmol/L (22-30); Chloride 111 mmol/L (98-107); Glucose 157 mg/dL (74-99); Non-African American GFR(CKD) >90 (>60 ml/min/1.73 sqM); Potassium 4.4 mmol/L (3.5-5.1); Sodium 142 mmol/L (137-145); Total Bilirubin 0.5 mg/dL (0.2-1.3); Total Protein 5.3 g/dL (6.3-8.2)
[2020-01-31 05:28] LABS: Glucose,Whole Blood 136 mg/dL (75-99)
[2020-01-31] MEDS: INSULIN ASPART (NovoLOG) 100 UNIT/ML VIAL SQ SCH ×4 (05:30→23:57)
[2020-01-31] MEDS: MEROPENEM 1 GM in SODIUM CHLORIDE 0.9% 100 ML IVPB SCH ×3 (05:34→21:05)
[2020-01-31 07:20] LABS: ABG HCO3 24 mmol/L (21-25); ABG Oxygen Saturation 96.2 % (94-97); ABG PCO2 31 mmHg (35-45); ABG PH 7.51 (7.35-7.45); ABG PO2 96 mmHg (83-108); ABG TCO2 25 mmol/L (19-24)
[2020-01-31 07:22] LABS: Allen Test Performed? no
--- NOTE | 2020-01-31 07:58 | XR ---
EXAMINATION TYPE: XR chest 1V portable DATE OF EXAM: 01/31/2020 COMPARISON: 01/30/2020 INDICATION: Left lower lobe infiltrate TECHNIQUE: Single frontal view of the chest is obtained. FINDINGS: The heart size is normal. The pulmonary vasculature is normal. Left lower lobe infiltrate may be worsening retrocardiac region. Small left pleural effusion may be p resent. Endotracheal tube tip is above the josefina. Nasogastric tube transverses the thorax. Left central veno us catheter tip in the proximal right atrium. IMPRESSION: 1. Worsening consolidation retrocardiac left lower lobe. 2. Multiple lines and catheters discussed above
[2020-01-31] MEDS ORDERED: fentaNYL (PF) 50 MCG/ML 2 ML AMP ONE (08:45)
[2020-01-31] MEDS ORDERED: ROCURONIUM BROMIDE 10 MG/ML 5 ML VIAL IV ONE (08:45)
[2020-01-31] MEDS ORDERED: MIDAZOLAM 2 MG/2 ML VIAL ONE (08:45)
[2020-01-31] MEDS ORDERED: SODIUM CHLORIDE 0.9% 1,000 ML IV ONE (08:50)
[2020-01-31] MEDS ORDERED: LIDOCAINE 1% INJ 10MG/ML (20 ML MDV) SQ ONE (08:50)
--- NOTE | 2020-01-31 10:23 | P.OP ---
Date of Procedure: 01/31/20 Preoperative Diagnosis: Respiratory failure Protein calorie malnutrition Postoperative Diagnosis: Respiratory failure Protein calorie malnutrition Procedure(s) Performed: Tracheostomy EGD Anesthesia: MAC Surgeon: Abdifatah Garcia Estimated Blood Loss (ml): 5 Pathology: none sent Condition: stable Disposition: PACU Description of Procedure: The patient's placed on the operating table in supine position. She received general anesthesia. Her neck was prepped and draped usual fashion. A standard Friona incision was made and then using left cautery the platysma and subcutaneous fat was divided. The trachea was visualized. The endotracheal tube was then inserted into the right mainstem bronchus after the balloon was deflated. Patient was ventilated. The patient was then disconnected from the ventilator. The tracheotomy was then performed between the second and third tracheal rings. The endotracheal tube was then brought back under direct vision. And then the #7 foam cuff of bovina tracheostomy tube was placed into the trachea. Patient's cut to the ventilator and end-tidal CO2 was confirmed. The skin was closed with 3-0 nylon. The trachea was secured with umbilical tape. Next EGD is performed. The gastroscope placed oropharynx and passed in the esophagus and into the stomach. The patient had evidence of appears gastric bypass. There was no significant stomach to place a PEG tube. This point scope was withdrawn. The patient will require a feeding J-tube for her malnutrition
[2020-01-31] MEDS: LACTULOSE 20 GM/30 ML CUP PO SCH ×2 (10:47→20:22)
[2020-01-31] MEDS: amLODIPine 2.5 MG TAB PO SCH (10:47)
[2020-01-31] MEDS: ASPIRIN 81 MG PO SCH (10:47)
[2020-01-31] MEDS: LEVOTHYROXINE IVP 100 MCG/5 ML VIAL IV SCH (10:51)
[2020-01-31] MEDS: PANTOPRAZOLE 40 MG/10 ML VIAL IVP SCH (10:52)
[2020-01-31] MEDS: CHLORHEXIDINE GLUCONATE 15 ML CUP MUCOUS MEM SCH ×2 (10:52→21:05)
--- NOTE | 2020-01-31 11:08 | P.PN ---
Subjective Progress Note Date: 01/31/20 Principal diagnosis: Altered mental status Patient's condition has been the same, still patient is unresponsive. She just went down for tracheostomy and PEG tube placement. Objective - Vital Signs Vital signs: Vital Signs Temp 98.4 F 01/31/20 08:00 Pulse 101 H 01/31/20 08:00 Resp 24 01/31/20 08:00 BP 113/80 01/31/20 09:00 Pulse Ox 99 01/31/20 08:00 Intake & Output 01/30/20 01/31/20 01/31/20 18:59 06:59 18:59 Intake Total 1815 1439 334 Output Total 1240 795 285 Balance 575 644 49 Weight 72.1 kg 71.5 kg 71.5 kg Intake: IV 1003 933 334 Art line flush 3 33 9 Dextrose 5% in Water 1, 900 900 225 000 ml @ 75 mls/hr IV . [id number] [facility] Rx#:[id number] KVO 100 Tube Feeding 612 306 Other 200 200 Output: Urine 1240 795 280 Estimated Blood Loss 5 Other: Voiding Method Indwelling Catheter Indwelling Catheter Indwelling Catheter ABP, PAP, CO, CI - Last Documented Arterial Blood Pressure 115/81 - Exam General: No acute distress, on mechanical ventilation Derm: [warm], [dry] Head: [atraumatic], [normocephalic], [symmetric] Eyes: [no lid lag], [anicteric sclera] Mouth: [no lip lesion], [mucus membranes moist] Cardiovascular: [S1S2 reg], [no murmur], [positive posterior tibial pulse bilateral], Lungs: [diminished bilateral], [scattered rhonchi, no rales] , [no accessory muscle use] Abdominal: [soft], [ nontender to palpation], [no guarding], [no appreciable organomegaly] Ext: [no gross muscle atrophy], [no edema], [no contractures] Neuro: No response to painful stimuli, minimal gag reflux, eyes flickering at times. Weak corneal reflux. - Labs CBC & Chem 7: 01/31/20 04:45 01/31/20 04:45 Labs: Abnormal Lab Results - Last 24 Hours (Table) 01/30/20 01/30/20 01/30/20 Range/Units 11:47 17:33 23:19 ABG pH (7.35-7.45) ABG pCO2 (35-45) mmHg ABG Total CO2 (19-24) mmol/L Chloride (98-107) mmol/L BUN (7-17) mg/dL Creatinine (0.52-1.04) mg/dL Glucose (74-99) mg/dL POC Glucose (mg/dL) 161 H 153 H 142 H (75-99) mg/dL Calcium (8.4-10.2) mg/dL AST (14-36) U/L ALT (4-34) U/L Alkaline Phosphatase (38-126) U/L Ammonia (<30) umol/L Total Protein (6.3-8.2) g/dL Albumin (3.5-5.0) g/dL 01/31/20 01/31/20 01/31/20 Range/Units 04:45 04:45 05:26 ABG pH (7.35-7.45) ABG pCO2 (35-45) mmHg ABG Total CO2 (19-24) mmol/L Chloride 111 H (98-107) mmol/L BUN 18 H (7-17) mg/dL Creatinine 0.28 L (0.52-1.04) mg/dL Glucose 157 H (74-99) mg/dL POC Glucose (mg/dL) 136 H (75-99) mg/dL Calcium 7.8 L (8.4-10.2) mg/dL AST 92 H (14-36) U/L ALT 105 H (4-34) U/L Alkaline Phosphatase 175 H (38-126) U/L Ammonia 31 H (<30) umol/L Total Protein 5.3 L (6.3-8.2) g/dL Albumin 2.6 L (3.5-5.0) g/dL 01/31/20 Range/Units 07:18 ABG pH 7.51 H (7.35-7.45) ABG pCO2 31 L (35-45) mmHg ABG Total CO2 25 H (19-24) mmol/L Chloride (98-107) mmol/L BUN (7-17) mg/dL Creatinine (0.52-1.04) mg/dL Glucose (74-99) mg/dL POC Glucose (mg/dL) (75-99) mg/dL Calcium (8.4-10.2) mg/dL AST (14-36) U/L ALT (4-34) U/L Alkaline Phosphatase (38-126) U/L Ammonia (<30) umol/L Total Protein (6.3-8.2) g/dL Albumin (3.5-5.0) g/dL Microbiology - Last 24 Hours (Table) 01/27/20 20:47 Blood Culture - Preliminary Blood No Growth after 72 hours 01/24/20 20:30 Blood Culture - Final Blood No Growth after 144 hours 01/26/20 16:05 CSF Gram Stain - Final Cerebral Spinal Fluid CSF Culture - Final Assessment and Plan Plan: -Acute hypoxic respiratory failure multi-factorial secondary to aspiration pneumonia and altered mental status due to recurrent seizures vs psychiatric due to catatonia versus hepatic encephalopathy Pulmonary, neurology, GI following patient Continue meropenem for aspiration pneumonia and e.coli in urine 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 Also checking hepatitis profile. S/p trach and PEG placement -Hypernatremia Improving Continue D5W at 75 mL per hour. -Hypertension Continue clonidine patch and Norvasc -Left carotid dissection Stable according to repeat imaging Resume aspirin -Hyperlipidemia continue statin -Elevated LFTs Could be secondary to liver cirrhosis Ammonia level checked, slightly elevated Send hepatitis profile GI on board -Hypothyroidism levothyroxine IVP -Schizoaffective disorder -Am labs
[2020-01-31] MEDS: levETIRAcetam IV 500 MG in SODIUM CHLORIDE 0.9% 100 ML IVPB SCH ×2 (11:10→21:05)
[2020-01-31] MEDS: NOREPINEPHRINE 4 MG in SODIUM CHLORIDE 0.9% 250 ML IV SCH (11:11)
[2020-01-31 11:40] LABS: Glucose,Whole Blood 125 mg/dL (75-99)
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
[2020-01-31] MEDS: DEXTROSE 5% IN WATER 1,000 ML IV SCH (13:01)
--- NOTE | 2020-01-31 17:58 | EEG ---
ELECTROENCEPHALOGRAM REPORT DATE OF SERVICE: 01/31/2020 PREAMBLE: This is a 59-year-old female with a history of severe encephalopathy, comatose state, has a follow up EEG performed today. EEG FINDINGS: A portable 21-channel routine EEG was recorded utilizing 10/20 international system using bipolar and referential montages. The recording starts and continues with the presence of diffuse mixed delta and theta frequency intermixed with triphasic waves seen in bihemispheric region. However, on this current study, there are more periods of intermittent fairly well-formed background activity in 5 to 7 Hz theta seen. Different stages of sleep were not seen. Photic driving response was not seen. No definitive focal or generalized epileptiform activity was seen. IMPRESSION: Abnormal EEG due to background slowing and presence of excessive triphasic waves seen in bihemispheric region. This is suggestive of generalized cerebral dysfunction as can be seen with toxic metabolic encephalopathies. Presence of triphasic waves is suggestive of hepatic encephalopathy. Clinical correlation is recommended. No definitive epileptiform activity was seen. When compared with the previous EEG, there is much improvement in the background. Clinical correlation is recommended. MMODL / IJN: [id number] /
[2020-01-31 18:14] LABS: Glucose,Whole Blood 132 mg/dL (75-99)
--- NOTE | 2020-01-31 19:33 | P.PN ---
Subjective Progress Note Date: 01/31/20 01/31/2020: Patient had undergone track and PEG today. She has very minimally responded to calling her name loudly with minimal trying to open the eyes. Otherwise no change. She is off sedation since 01/28/2020. 01/30/2020: Patient continues to be comatose. Not responding to vocal or painful stimuli. Patient continues to have some twitching of her eyelids on manually opening the eyelids. No twitching of the eyes. No twitching of facial muscles, or extremities. No obvious seizure noted by the staff. Patient's liver ultrasound showed liver appears course and low [place]. Underlying cirrhotic liver disease is not excluded. Dilated common bile duct 1 cm. Gallbladder not well visualized. Patient's liver functions shows worsening pattern with AST 87 (62 yesterday), ALT 86 (70 yesterday). Repeat ammonia level normal 27. CPK and temperature is normal, therefore doubt NMS. Patient has b een seen by gastroenterology, who does not feel symptoms are completely explained by hepatic encephalopathy although may be a component of hepatic encephalopathy. Patient is a 59-year-old female admitted to the hospital on 01/23/2020 for strokelike symptoms. She was having difficulty with manipulating remote control for the TV and according to the EMS also had difficulty speaking on the morning of admission. CT head showed mild bifrontal atrophy. CTA of the neck showed bovine configuration to the aortic arch. No dissection of the upper cervical left ICA extending into the vertical petrous segment. There is similar enhancement within both lumens without arterial occlusion. No significant ICA stenosis. Dominant left vertebral artery. CT of the brain showed nondominant V4 segment right vertebral artery becomes very hypoplastic, possibly terminating as a PICA branch. No continuation of the patient's known left ICA dissection beyond the petrous segment. No large vessel intercranial arterial occlusion or aneurysmal change. Patient had a repeat CTA of head and neck on 01/26/2020 again revealed the visualization of the patient's known distal left ICA dissection. Diminutive right vertebral artery. Borderline appearance of the aortic arch. 2-D echo showed moderate concentric LVH, EF 55-60%. Left atrium is moderately dilated. Moderate MR, TR. MRI of the brain showed no acute process. T2/FLAIR hypointensity along the cranial aspect of the central sulcus on the right when correlated with the CT of the same date could represent hemosiderin deposition from old chronic subarachnoid hemorrhage or prominent draining veins. Patient's blood test shows normal WBC 9.7 hemoglobin 11.1 PT/PTT normal. Sodium 148, potassium 3.6, renal functions with BUN 26, creatinine 0.49. A1c 6.3, AST is 47, ALT 61 both elevated. Ammonia is <9. TSH is mildly low 0.226, free T4 normal. Prolactin mildly elevated 37.0, B12 627. Folate 18.0. Total cholesterol 133, LDL 46, HDL 77 and triglycerides 48. CSF protein is normal 29, glucose 75, WBC 0, RBC 2. Viral panel negative including HSV 1, and HSV 2, varicella-zoster, CMV, adenovirus and enterovirus. Urine drug screen positive for methamphetamine. Patient is off sedation since 10:30 AM yesterday. Patient still not showing any clinical improvement. She is not following any commands. Please refer to examination below. Objective - Vital Signs Vital signs: Vital Signs Temp 98.2 F 01/31/20 16:00 Pulse 107 H 01/31/20 19:00 Resp 24 01/31/20 19:00 BP 111/86 01/31/20 19:00 Pulse Ox 97 01/31/20 19:00 Intake & Output 01/31/20 01/31/20 02/01/20 06:59 18:59 06:59 Intake Total 1439 1158 78 Output Total 795 1055 50 Balance 644 103 28 Weight 71.5 kg 71.5 kg Intake: IV 933 1158 78 Art line flush 33 33 3 Dextrose 5% in Water 1, 900 750 75 000 ml @ 75 mls/hr IV . [id number] [facility] Rx#:[id number] Meropenem 1 gm In Sodium 100 Chloride 0.9% 100 ml @ 200 mls/hr IVPB Q8H [facility] Rx#:[id number] levETIRAcetam IV 250 mg 175 In Sodium Chloride 0.9% 100 ml @ 400 mls/hr IVPB Q12H [facility] Rx#:[id number] Tube Feeding 306 Other 200 Output: Urine 795 1050 50 Estimated Blood Loss 5 Other: Voiding Method Indwelling Catheter Indwelling Catheter # Voids 1 ABP, PAP, CO, CI - Last Documented Arterial Blood Pressure 112/77 - Exam On examination patient is comatose. Patient very minimally tried to open her eye when I called her name. It was not very consistent. Does not track. Does not respond to verbal or noxious stimuli. No obvious seizure activity. Pupils are round and reacting. - Labs CBC & Chem 7: 01/31/20 04:45 01/31/20 04:45 Labs: Abnormal Lab Results - Last 24 Hours (Table) 01/30/20 01/31/20 01/31/20 Range/Units 23:19 04:45 04:45 ABG pH (7.35-7.45) ABG pCO2 (35-45) mmHg ABG Total CO2 (19-24) mmol/L Chloride 111 H (98-107) mmol/L BUN 18 H (7-17) mg/dL Creatinine 0.28 L (0.52-1.04) mg/dL Glucose 157 H (74-99) mg/dL POC Glucose (mg/dL) 142 H (75-99) mg/dL Calcium 7.8 L (8.4-10.2) mg/dL AST 92 H (14-36) U/L ALT 105 H (4-34) U/L Alkaline Phosphatase 175 H (38-126) U/L Ammonia 31 H (<30) umol/L Total Protein 5.3 L (6.3-8.2) g/dL Albumin 2.6 L (3.5-5.0) g/dL 01/31/20 01/31/20 01/31/20 Range/Units 05:26 07:18 11:38 ABG pH 7.51 H (7.35-7.45) ABG pCO2 31 L (35-45) mmHg ABG Total CO2 25 H (19-24) mmol/L Chloride (98-107) mmol/L BUN (7-17) mg/dL Creatinine (0.52-1.04) mg/dL Glucose (74-99) mg/dL POC Glucose (mg/dL) 136 H 125 H (75-99) mg/dL Calcium (8.4-10.2) mg/dL AST (14-36) U/L ALT (4-34) U/L Alkaline Phosphatase (38-126) U/L Ammonia (<30) umol/L Total Protein (6.3-8.2) g/dL Albumin (3.5-5.0) g/dL 01/31/20 Range/Units 18:12 ABG pH (7.35-7.45) ABG pCO2 (35-45) mmHg ABG Total CO2 (19-24) mmol/L Chloride (98-107) mmol/L BUN (7-17) mg/dL Creatinine (0.52-1.04) mg/dL Glucose (74-99) mg/dL POC Glucose (mg/dL) 132 H (75-99) mg/dL Calcium (8.4-10.2) mg/dL AST (14-36) U/L ALT (4-34) U/L Alkaline Phosphatase (38-126) U/L Ammonia (<30) umol/L Total Protein (6.3-8.2) g/dL Albumin (3.5-5.0) g/dL Microbiology - Last 24 Hours (Table) 01/27/20 20:47 Blood Culture - Preliminary Blood No Growth after 72 hours 01/24/20 20:30 Blood Culture - Final Blood No Growth after 144 hours 01/26/20 16:05 CSF Gram Stain - Final Cerebral Spinal Fluid CSF Culture - Final Assessment and Plan Assessment: * Acute encephalopathy, probably hepatic encephalopathy/hepatic coma. Patient has triphasic waves seen on the EEG, which is classically seen with hepatic encephalopathy. Patient has persistently abnormal LFTs. * Persistently abnormal EEG, with evidence of significant triphasic waves, consistent with hepatic encephalopathy. Repeat EEG from today appears improvement with slight appearance of normal appearing background, and less triphasic waves. No definitive epileptiform activity seen. No electrographic evidence of status epilepticus. * History of left ICA dissection. Patient was on Coumadin. Plan: * Patient is status post trach and PEG. * EEG from today, 01/31/2020, revealed improvement of background slowing, some appearance of relatively better background activity, and less triphasic waves. No definitive epileptiform activity seen. Continue Keppra 500 mg twice a day. * Patient's LFTs continues to worsen. Hepatitis panel negative, ramirez virus PCR negative. Influenza negative. * Although her ammonia is normal, or borderline abnormal, but with abnormal liver parenchyma, persistently abnormal liver functions, and triphasic waves seen on EEG, overall picture is suggestive of hepatic coma. Continue lactulose. * Continue aspirin 81 mg daily due to her history of left ICA dissection for stroke prevention. * Hopefully mentation will improve in the next day or 2.
[2020-01-31] MEDS: cloNIDine 0.2 MG/24HR PATCH TRANSDERM SCH (22:01)
--- NOTE | 2020-01-31 22:01 | PN ---
PROGRESS NOTE DATE OF SERVICE: 01/31/2020 REASON FOR FOLLOWUP: ESBL E coli UTI and aspiration pneumonia. INTERVAL HISTORY: The patient has been afebrile. The patient did have a tracheostomy done today for failure to be weaned off the vent. The patient is hemodynamically stable, not requiring pressor support. No diarrhea has been reported. PHYSICAL EXAMINATION: On examination, her blood pressure is 150/85 with a pulse of 102, temperature 98.4. She is 97% on 30% FiO2. General description is a middle-aged female lying in bed in no distress. RESPIRATORY SYSTEM: Unlabored breathing with decreased breath sounds at the base. No wheeze. HEART: S1, S2. Regular rate and rhythm. ABDOMEN: Soft. No tenderness. LABS: Hemoglobin is 12.3, white count 9.9, BUN of 18, creatinine 0.28. DIAGNOSTIC IMPRESSION AND PLAN: Patient with acute respiratory failure which is likely multifactorial with a possible component of aspiration pneumonia in this patient who did have ESBL Escherichia coli urinary tract infection. The patient is currently covered with the meropenem. That should continue and monitor clinical course closely. Continue with supportive care. MMODL / IJN: [id number] /
[2020-01-31 23:53] LABS: Glucose,Whole Blood 131 mg/dL (75-99)
[2020-02-01] MEDS: NOREPINEPHRINE 4 MG in SODIUM CHLORIDE 0.9% 250 ML IV SCH ×2 (04:05→19:08)
[2020-02-01 05:11] LABS: Basophils % (A) 0 %; Eosinophils # (A) 0.3 k/uL (0-0.7); Eosinophils % (A) 3 %; HCT 36.3 % (34.0-46.0); HGB 11.6 gm/dL (11.4-16.0); Lymphocytes # (A) 1.2 k/uL (1.0-4.8); Lymphocytes % (A) 14 %; MCH 30.9 pg (25.0-35.0); MCHC 31.9 g/dL (31.0-37.0); MCV 96.7 fL (80.0-100.0); Mean Platelet Volume 8.8; Monocytes # (A) 0.5 k/uL (0-1.0); Monocytes % (A) 5 %; Neutrophils # (A) 6.8 k/uL (1.3-7.7); Neutrophils % (A) 76 %; Platelet Count 278 k/uL (150-450); RBC 3.75 m/uL (3.80-5.40); RDW 13.6 % (11.5-15.5)
[2020-02-01 05:22] LABS: ALT 92 U/L (4-34); AST 72 U/L (14-36); African American GFR (CKD) >90 (>60 ml/min/1.73 sqM); Albumin 2.4 g/dL (3.5-5.0); Alkaline Phosphatase 214 U/L (38-126); Anion Gap 3 mmol/L; Blood Urea Nitrogen 17 mg/dL (7-17); Calcium 7.6 mg/dL (8.4-10.2); Carbon Dioxide 23 mmol/L (22-30); Chloride 108 mmol/L (98-107); Glucose 143 mg/dL (74-99); Non-African American GFR(CKD) >90 (>60 ml/min/1.73 sqM); Potassium 4.2 mmol/L (3.5-5.1); Sodium 134 mmol/L (137-145); Total Bilirubin 0.3 mg/dL (0.2-1.3)
[2020-02-01 05:24] LABS: Prothrombin Time 10.4 sec (9.0-12.0)
[2020-02-01] MEDS: MEROPENEM 1 GM in SODIUM CHLORIDE 0.9% 100 ML IVPB SCH ×3 (05:41→21:05)
[2020-02-01] MEDS: DEXTROSE 5% IN WATER 1,000 ML IV SCH ×2 (05:42→19:08)
[2020-02-01 05:53] LABS: Glucose,Whole Blood 158 mg/dL (75-99)
[2020-02-01] MEDS: INSULIN ASPART (NovoLOG) 100 UNIT/ML VIAL SQ SCH ×3 (05:53→19:09)
[2020-02-01 07:09] LABS: ABG Base Excess -0.3 mmol/L; ABG HCO3 23 mmol/L (21-25); ABG Oxygen Saturation 95.2 % (94-97); ABG PCO2 28 mmHg (35-45); ABG PH 7.51 (7.35-7.45); ABG PO2 84 mmHg (83-108); ABG TCO2 24 mmol/L (19-24)
--- NOTE | 2020-02-01 07:09 | XR ---
EXAMINATION TYPE: XR chest 1V portable DATE OF EXAM: 02/01/2020 CLINICAL HISTORY: Difficulty breathing progress study. TECHNIQUE: Single AP portable upright view of the chest is obtained. COMPARISON: Chest x-ray from one day earlier and older studies. FINDINGS: New tracheostomy tube. Interval removal of endotracheal and orogastric tubes. Stable left subclavian central venous catheter. Persistent mild cardiomegaly. Background chronic emphysematous change with left basilar opacity. Righ t lung remains clear. Osseous structures remain demineralized. Surgical clips epigastric region noted . IMPRESSION: New tracheostomy tube. Stable mild cardiomegaly with underlying emphysematous change and left basilar acute infiltrate and/or atelectasis with probable small left pleural effusion all redemo nstrated.
[2020-02-01 07:57] LABS: Allen Test Performed? no
[2020-02-01] MEDS ORDERED: ROCURONIUM BROMIDE 10 MG/ML 5 ML VIAL IV ONE (08:09)
[2020-02-01] MEDS ORDERED: MIDAZOLAM 2 MG/2 ML VIAL ONE (08:09)
[2020-02-01] MEDS ORDERED: PHENYLEPHRINE-0.9% NACL SYG 1 MG/10 ML SYRINGE ONE (08:09)
[2020-02-01] MEDS ORDERED: HYDROmorphone (PF) 1 MG/ML ONE (08:09)
--- NOTE | 2020-02-01 09:55 | P.OP ---
Date of Procedure: 02/01/20 Preoperative Diagnosis: Protein calorie Malnutrition Postoperative Diagnosis: Protein calorie Malnutrition Procedure(s) Performed: Feeding jejunostomy tube Anesthesia: VIBHA Surgeon: Abdifatah Garcia Estimated Blood Loss (ml): 10 Pathology: none sent Condition: stable Disposition: PACU Description of Procedure: The patient's placed on the operating table in supine position. She received general anesthesia. Her abdomen was prepped and draped in sterile fashion. The abdomen was entered through a midline incision. The small bowel was visualized small bowel was then run. The jejunojejunostomy was visualized. In the small bowel was run the ligament of [place]itz. There were several adhesive bands were lysed. A suitable spot for the jejunostomy tube was found on the jejunum. Using 3-0 GI silk suture a pursestring suture was placed on the jejunum and then the 16- Somali WILBUR tube was placed through the abdominal wall and then placed through an enterotomy into the jejunum. The catheter was positioned into the jejunum. The catheter was then secured by the pursestring suture. The balloon was inflated with 6 mL of saline. Using 3-0 GI silk suture the Jejunum was tacked to the anterior abdominal wall. The catheter then was secured with a 2-0 Prolene suture. The fascia was then closed with looped #1 PDS suture. Skin was closed ilana. Patient top she will was sent back to the ICU in stable condition.
[2020-02-01] MEDS: ASPIRIN 81 MG PO SCH (10:08)
[2020-02-01] MEDS: amLODIPine 2.5 MG TAB PO SCH (10:08)
[2020-02-01] MEDS: LACTULOSE 20 GM/30 ML CUP PO SCH (10:09)
[2020-02-01] MEDS: levETIRAcetam IV 500 MG in SODIUM CHLORIDE 0.9% 100 ML IVPB SCH ×2 (10:14→20:56)
[2020-02-01] MEDS: LEVOTHYROXINE IVP 100 MCG/5 ML VIAL IV SCH (10:14)
[2020-02-01] MEDS: PANTOPRAZOLE 40 MG/10 ML VIAL IVP SCH (10:14)
[2020-02-01] MEDS: CHLORHEXIDINE GLUCONATE 15 ML CUP MUCOUS MEM SCH ×2 (10:14→20:59)
--- NOTE | 2020-02-01 11:12 | P.PN ---
Subjective Progress Note Date: 02/01/20 Principal diagnosis: Altered mental status Patient is postop and status post tracheostomy yesterday and J-tube placement today. Overall stable, responding to pain. Objective - Vital Signs Vital signs: Vital Signs Temp 98.1 F 02/01/20 08:00 Pulse 89 02/01/20 10:00 Resp 24 02/01/20 10:00 BP 133/94 02/01/20 09:00 Pulse Ox 99 02/01/20 10:00 Intake & Output 01/31/20 02/01/20 02/01/20 18:59 06:59 18:59 Intake Total 1158 1156 472 Output Total 1055 750 285 Balance 103 406 187 Weight 71.5 kg 74.4 kg 74.4 kg Intake: IV 1158 1156 472 Art line flush 33 36 12 Dextrose 5% in Water 1, 750 900 300 000 ml @ 75 mls/hr IV . [id number] [facility] Rx#:[id number] KVO 220 60 Meropenem 1 gm In Sodium 100 Chloride 0.9% 100 ml @ 200 mls/hr IVPB Q8H [facility] Rx#:[id number] levETIRAcetam IV 250 mg 175 100 In Sodium Chloride 0.9% 100 ml @ 400 mls/hr IVPB Q12H [facility] Rx#:[id number] Output: Urine 1050 750 275 Estimated Blood Loss 5 10 Other: Voiding Method Indwelling Catheter Indwelling Catheter Indwelling Catheter # Voids 1 ABP, PAP, CO, CI - Last Documented Arterial Blood Pressure 98/60 - Exam Patient not examined due to suspected covid infection. Defer physical exam to primary care team. - Labs CBC & Chem 7: 02/01/20 04:52 02/01/20 04:52 Labs: Abnormal Lab Results - Last 24 Hours (Table) 01/31/20 01/31/20 01/31/20 Range/Units 11:38 18:12 23:52 RBC (3.80-5.40) m/uL ABG pH (7.35-7.45) ABG pCO2 (35-45) mmHg Sodium (137-145) mmol/L Chloride (98-107) mmol/L Creatinine (0.52-1.04) mg/dL Glucose (74-99) mg/dL POC Glucose (mg/dL) 125 H 132 H 131 H (75-99) mg/dL Calcium (8.4-10.2) mg/dL AST (14-36) U/L ALT (4-34) U/L Alkaline Phosphatase (38-126) U/L Total Protein (6.3-8.2) g/dL Albumin (3.5-5.0) g/dL 02/01/20 02/01/20 02/01/20 Range/Units 04:52 04:52 05:52 RBC 3.75 L (3.80-5.40) m/uL ABG pH (7.35-7.45) ABG pCO2 (35-45) mmHg Sodium 134 L (137-145) mmol/L Chloride 108 H (98-107) mmol/L Creatinine 0.38 L (0.52-1.04) mg/dL Glucose 143 H (74-99) mg/dL POC Glucose (mg/dL) 158 H (75-99) mg/dL Calcium 7.6 L (8.4-10.2) mg/dL AST 72 H (14-36) U/L ALT 92 H (4-34) U/L Alkaline Phosphatase 214 H (38-126) U/L Total Protein 5.0 L (6.3-8.2) g/dL Albumin 2.4 L (3.5-5.0) g/dL 02/01/20 Range/Units 07:04 RBC (3.80-5.40) m/uL ABG pH 7.51 H (7.35-7.45) ABG pCO2 28 L (35-45) mmHg Sodium (137-145) mmol/L Chloride (98-107) mmol/L Creatinine (0.52-1.04) mg/dL Glucose (74-99) mg/dL POC Glucose (mg/dL) (75-99) mg/dL Calcium (8.4-10.2) mg/dL AST (14-36) U/L ALT (4-34) U/L Alkaline Phosphatase (38-126) U/L Total Protein (6.3-8.2) g/dL Albumin (3.5-5.0) g/dL Microbiology - Last 24 Hours (Table) 01/27/20 20:47 Blood Culture - Preliminary Blood No Growth after 96 hours Assessment and Plan (1) Increased ammonia level Narrative/Plan: 59-year-old female with multiple medical comorbidities who presented for altered mental status of unknown etiology with subsequent decompensation and development of hypoxia requiring intubation. Patient was previously sedated which was weaned however has remained unresponsive. Neurology following the patient's and unclear etiology, patient's altered mental status with concern for possible hepatic encephalopathy in the setting of mildly elevated ammonia and elevated liver enzymes and a predominantly hepatocellular pattern. Differential also includes catatonia, metabolic encephalopathy in a patient with suspected aspiration pneumonia, or subclinical seizures or other etiology. Patient's symptoms have failed to respond to antiepileptic medications. Liver enzymes have remained persistently elevated with AST 87 and MALT 86 today. Normal INR on presentation and platelet count of 266,000 are not suggestive of a cirrhotic liver or portal hypertension with the patient's APRI score 0.9 (greater than 1 is suggestive of a cirrhotic liver). However liver does appear nodular on ultrasound and ammonia was found to be mildly elevated. Cannot rule out a component of hepatic encephalopathy. Current Visit: Yes Status: Acute Code(s): R79.89 - OTHER SPECIFIED ABNORMAL FINDINGS OF BLOOD CHEMISTRY SNOMED Code(s): 470510946 (2) Elevated liver enzymes Current Visit: Yes Status: Acute Code(s): R74.8 - ABNORMAL LEVELS OF OTHER SERUM ENZYMES SNOMED Code(s): 907753459 Plan: Supportive care Continue to monitor CBC, BMP, LFTs Viral hepatitis panel negative INR normal Repeat ammonia level in the a.m. Will empirically add lactulose twice a day for treatment of possible hepatic encephalopathy, which was switched to rectal today We'll continue to follow symptomatically Thank you for allowing us to participate in the care of the patient
[2020-02-01 11:41] LABS: Glucose,Whole Blood 112 mg/dL (75-99)
[2020-02-01] MEDS: LACTULOSE 200 GM/300 ML (FROM 1/2 GAL JUG) RECTAL SCH ×2 (11:58→22:48)
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
--- NOTE | 2020-02-01 12:25 | P.PN ---
Subjective Progress Note Date: 02/01/20 Principal diagnosis: Altered mental status Patient just has a feeding tube placed by general surgery. She still unresponsive. Nurse supported that she was withdrawing to pain earlier but patient did not do that for me this morning. She is opening her eyes but not on purpose. Objective - Vital Signs Vital signs: Vital Signs Temp 98 F 02/01/20 12:00 Pulse 99 02/01/20 12:00 Resp 24 02/01/20 12:00 BP 94/51 02/01/20 11:00 Pulse Ox 98 02/01/20 12:00 Intake & Output 01/31/20 02/01/20 02/01/20 18:59 06:59 18:59 Intake Total 1158 1156 668 Output Total 1055 750 380 Balance 103 406 288 Weight 71.5 kg 74.4 kg 74.4 kg Intake: IV 1158 1156 668 Art line flush 33 36 18 Dextrose 5% in Water 1, 750 900 450 000 ml @ 75 mls/hr IV . [id number] [facility]A Rx#:[id number] KVO 220 100 Meropenem 1 gm In Sodium 100 Chloride 0.9% 100 ml @ 200 mls/hr IVPB Q8H [facility] Rx#:[id number] levETIRAcetam IV 250 mg 175 100 In Sodium Chloride 0.9% 100 ml @ 400 mls/hr IVPB Q12H [facility] Rx#:[id number] Output: Urine 1050 750 370 Estimated Blood Loss 5 10 Other: Voiding Method Indwelling Catheter Indwelling Catheter Indwelling Catheter # Voids 1 ABP, PAP, CO, CI - Last Documented Arterial Blood Pressure 97/68 - Exam General: No acute distress, on mechanical ventilation Derm: [warm], [dry] Head: [atraumatic], [normocephalic], [symmetric] Eyes: [no lid lag], [anicteric sclera] Mouth: [no lip lesion], [mucus membranes moist] Cardiovascular: [S1S2 reg], [no murmur], [positive posterior tibial pulse bilateral], Lungs: [diminished bilateral], [scattered rhonchi, no rales] , [no accessory muscle use] Abdominal: [soft], [ nontender to palpation], [no guarding], [no appreciable organomegaly] Ext: [no gross muscle atrophy], [no edema], [no contractures] Neuro: No response to painful stimuli, minimal gag reflux, eyes flickering at times. Weak corneal reflux. - Labs CBC & Chem 7: 02/01/20 04:52 02/01/20 04:52 Labs: Abnormal Lab Results - Last 24 Hours (Table) 01/31/20 01/31/20 02/01/20 Range/Units 18:12 23:52 04:52 RBC (3.80-5.40) m/uL ABG pH (7.35-7.45) ABG pCO2 (35-45) mmHg Sodium 134 L (137-145) mmol/L Chloride 108 H (98-107) mmol/L Creatinine 0.38 L (0.52-1.04) mg/dL Glucose 143 H (74-99) mg/dL POC Glucose (mg/dL) 132 H 131 H (75-99) mg/dL Calcium 7.6 L (8.4-10.2) mg/dL AST 72 H (14-36) U/L ALT 92 H (4-34) U/L Alkaline Phosphatase 214 H (38-126) U/L Total Protein 5.0 L (6.3-8.2) g/dL Albumin 2.4 L (3.5-5.0) g/dL 02/01/20 02/01/20 02/01/20 Range/Units 04:52 05:52 07:04 RBC 3.75 L (3.80-5.40) m/uL ABG pH 7.51 H (7.35-7.45) ABG pCO2 28 L (35-45) mmHg Sodium (137-145) mmol/L Chloride (98-107) mmol/L Creatinine (0.52-1.04) mg/dL Glucose (74-99) mg/dL POC Glucose (mg/dL) 158 H (75-99) mg/dL Calcium (8.4-10.2) mg/dL AST (14-36) U/L ALT (4-34) U/L Alkaline Phosphatase (38-126) U/L Total Protein (6.3-8.2) g/dL Albumin (3.5-5.0) g/dL 02/01/20 Range/Units 11:39 RBC (3.80-5.40) m/uL ABG pH (7.35-7.45) ABG pCO2 (35-45) mmHg Sodium (137-145) mmol/L Chloride (98-107) mmol/L Creatinine (0.52-1.04) mg/dL Glucose (74-99) mg/dL POC Glucose (mg/dL) 112 H (75-99) mg/dL Calcium (8.4-10.2) mg/dL AST (14-36) U/L ALT (4-34) U/L Alkaline Phosphatase (38-126) U/L Total Protein (6.3-8.2) g/dL Albumin (3.5-5.0) g/dL Microbiology - Last 24 Hours (Table) 01/27/20 20:47 Blood Culture - Preliminary Blood No Growth after 96 hours Assessment and Plan Plan: -Acute hypoxic respiratory failure multi-factorial secondary to aspiration pneumonia and altered mental status due to unclear etiology, could be recurrent seizures vs psychiatric due to catatonia versus hepatic encephalopathy Pulmonary, neurology, GI following patient Had LP already which did not show infection Continue meropenem for aspiration pneumonia and e.coli in urine Continue Keppra for possible nonconclusive status epilepticus, neurologist doubts that this is secondary to subclinical seizures because of lack of improvement with phenytoin loading. Dr. Patino ruling out significant liver disease, hepatitis profile negative. Still treating with lactulose anyway. Getting it rectally. Saul called by myself and updated today Consult psychiatry to look into restarting her psychiatric home medications as her insists that patient gets sleepy and lethargic when she does not get her psych meds. S/p trach and PEG placement -Hypernatremia Resolved Continue D5W at 75 mL per hour. -Hypertension Continue clonidine patch and Norvasc -Left carotid dissection Stable according to repeat imaging Resume aspirin -Hyperlipidemia continue statin -Elevated LFTs As above -Hypothyroidism levothyroxine IVP -Schizoaffective disorder Restart lexapr Hold zyprexa due to sedation Consult pschiatry -Am labs
--- NOTE | 2020-02-01 14:31 | P.PN ---
Progress Note - Text Progress Note Date: 02/01/20 Psychiatric progress note: Interval History: Patient was seen for psychiatric follow-up as patient's supposedly wants patients medications to be restarted. Patient was initially seen on 01/24/2020 for psychiatric consultation was thought to have delirium and was nonverbal and not following any commands during examination. At that point psychiatric medications were held including Lexapro and Zyprexa. Patient has been transferred to the ICU and is currently on feeding tube and intubated. Patient continues to be unresponsive and blinks at times according to nurse taking care of patient. Patient also has acute hypoxic failure and aspiration pneumonia which is being treated. Patient was seen by underwriter solicitation director at the bedside and continues to be nonverbal and unresponsive to stimuli and not following any commands. Mental Status Exam: General Appearance: Patient appears to be stated age is laying in bed with her eyes open, blinking intermittently and not tracking movement. Patient is nonverbal. Patient appears to have fair hygiene and grooming wearing hospital gown. Behavior: Not following any commands, blinking intermittently. Not responding to stimuli. Speech: Nonverbal. Mood/Affect: Unable to assess Suicidality/Homicidality: Unable to assess Perceptions: Unable to assess Though content/process: Unable to assess Memory and concentration: Patient not able to participate in cognitive exam. Patient does not follow any commands. Judgment and insight: Unable to assess. Assessment Delirium/encephalopathy, with unknown etiologies possibly secondary to CVA or infection vs. Hepatic etiology. Unlikely that patient has catatonia as patient is not displaying classic signs of this. Plan: -At this time patient DOES NOT meet criteria for inpatient psychiatric admission. -Delirium precautions recommended with patient including - avoiding use of na rcotics and [employer]GER sedatives, limit anticholinergic medications when possible, frequent re-orientation, minimize use of restraints, open window shades during the day and close them at night -Would recommend the following medication changes/additions: I do not see much benefit in restarting Lexapro or Zyprexa at this time this patient is not having any changes in her mood or agitation/psychosis. If anything Zyprexa will make patient more sedated. -Neurology continuing to follow patient. -Will follow along if needed for any questions.
[2020-02-01 17:55] LABS: Glucose,Whole Blood 127 mg/dL (75-99)
--- NOTE | 2020-02-01 18:24 | P.PN ---
Subjective Progress Note Date: 02/01/20 02/01/2020: Patient showing slight but definite clinical improvement. She tried to open her eyes when I called her name. She then closed her eyes. After I manually opened her eyes, she held her eyes open appeared much more awake. Still not much tracking or following commands. 01/31/2020: Patient had undergone track and PEG today. She has very minimally responded to calling her name loudly with minimal trying to open the eyes. Otherwise no change. She is off sedation since 01/28/2020. 01/30/2020: Patient continues to be comatose. Not responding to vocal or painful stimuli. Patient continues to have some twitching of her eyelids on manually opening the eyelids. No twitching of the eyes. No twitching of facial muscles, or extremities. No obvious seizure noted by the staff. Patient's liver ultrasound showed liver appears course and low Tamiko. Underlying cirrhotic liver disease is not excluded. Dilated common bile duct 1 cm. Gallbladder not well visualized. Patient's liver functions shows worsening pattern with AST 87 (62 yesterday), ALT 86 (70 yesterday). Repeat ammonia level normal 27. CPK and temperature is normal, therefore doubt NMS. Patient has been seen by gastroenterology, who does not feel symptoms are completely explained by hepatic encephalopathy although may be a component of hepatic encephalopathy. Patient is a 59-year-old female admitted to the hospital on 01/23/2020 for strokelike symptoms. She was having difficulty with manipulating remote control for the TV and according to the EMS also had difficulty speaking on the morning of admission. CT head showed mild bifrontal atrophy. CTA of the neck showed bovine configuration to the aortic arch. No dissection of the upper cervical left ICA extending into the vertical petrous segment. There is similar enhancement within both lumens without arterial occlusion. No significant ICA stenosis. Dominant left vertebral artery. CT of the brain showed nondominant V4 segment right vertebral artery becomes very hypoplastic, possibly terminating as a PICA branch. No continuation of the patient's known left ICA dissection beyond the petrous segment. No large vessel intercranial arterial occlusion or aneurysmal change. Patient had a repeat CTA of head and neck on 01/26/2020 again revealed the visualization of the patient's known distal left ICA dissection. Diminutive right vertebral artery. Borderline appearance of the aortic arch. 2-D echo showed moderate concentric LVH, EF 55-60%. Left atrium is moderately dilated. Moderate MR, TR. MRI of the brain showed no acute process. T2/FLAIR hypointensity along the cranial aspect of the central sulcus on the right when correlated with the CT of the same date could represent hemosiderin deposition from old chronic subarachnoid hemorrhage or prominent draining veins. Patient's blood test shows normal WBC 9.7 hemoglobin 11.1 PT/PTT normal. Sodium 148, potassium 3.6, renal functions with BUN 26, creatinine 0.49. A1c 6.3, AST is 47, ALT 61 both elevated. Ammonia is <9. TSH is mildly low 0.226, free T4 normal. Prolactin mildly elevated 37.0, B12 627. Folate 18.0. Total cholesterol 133, LDL 46, HDL 77 and triglycerides 48. CSF protein is normal 29, glucose 75, WBC 0, RBC 2. Viral panel negative including HSV 1, and HSV 2, varicella-zoster, CMV, adenovirus and enterovirus. Urine drug screen positive for methamphetamine. Patient is off sedation since 10:30 AM yesterday. Patient still not showing any clinical improvement. She is not following any commands. Please refer to examination below. Objective - Vital Signs Vital signs: Vital Signs Temp 98 F 02/01/20 16:00 Pulse 113 H 02/01/20 18:00 Resp 24 02/01/20 18:00 BP 114/48 02/01/20 18:00 Pulse Ox 94 L 02/01/20 18:00 Intake & Output 01/31/20 02/01/20 02/01/20 18:59 06:59 18:59 Intake Total 1158 1156 1256 Output Total 1055 750 705 Balance 103 406 551 Weight 71.5 kg 74.4 kg 74.4 kg Intake: IV 1158 1156 1256 Art line flush 33 36 36 Dextrose 5% in Water 1, 750 900 900 000 ml @ 75 mls/hr IV . [id number] [facility] Rx#:[id number] KVO 220 220 Meropenem 1 gm In Sodium 100 Chloride 0.9% 100 ml @ 200 mls/hr IVPB Q8H [facility] Rx#:[id number] levETIRAcetam IV 250 mg 175 100 In Sodium Chloride 0.9% 100 ml @ 400 mls/hr IVPB Q12H [facility] Rx#:[id number] Output: Urine 1050 750 695 Estimated Blood Loss 5 10 Other: Voiding Method Indwelling Catheter Indwelling Catheter Indwelling Catheter # Voids 1 ABP, PAP, CO, CI - Last Documented Arterial Blood Pressure 112/79 - Exam On examination patient is responding to calling her name loudly. She opened her eyes slightly but then closed it. After her eyes were manually open, then she held it open and appeared quite awake. Still not tracking or following commands. No obvious seizure activity. Pupils are round and reacting. - Labs CBC & Chem 7: 02/01/20 04:52 02/01/20 04:52 Labs: Abnormal Lab Results - Last 24 Hours (Table) 01/31/20 02/01/20 02/01/20 Range/Units 23:52 04:52 04:52 RBC 3.75 L (3.80-5.40) m/uL ABG pH (7.35-7.45) ABG pCO2 (35-45) mmHg Sodium 134 L (137-145) mmol/L Chloride 108 H (98-107) mmol/L Creatinine 0.38 L (0.52-1.04) mg/dL Glucose 143 H (74-99) mg/dL POC Glucose (mg/dL) 131 H (75-99) mg/dL Calcium 7.6 L (8.4-10.2) mg/dL AST 72 H (14-36) U/L ALT 92 H (4-34) U/L Alkaline Phosphatase 214 H (38-126) U/L Total Protein 5.0 L (6.3-8.2) g/dL Albumin 2.4 L (3.5-5.0) g/dL 02/01/20 02/01/20 02/01/20 Range/Units 05:52 07:04 11:39 RBC (3.80-5.40) m/uL ABG pH 7.51 H (7.35-7.45) ABG pCO2 28 L (35-45) mmHg Sodium (137-145) mmol/L Chloride (98-107) mmol/L Creatinine (0.52-1.04) mg/dL Glucose (74-99) mg/dL POC Glucose (mg/dL) 158 H 112 H (75-99) mg/dL Calcium (8.4-10.2) mg/dL AST (14-36) U/L ALT (4-34) U/L Alkaline Phosphatase (38-126) U/L Total Protein (6.3-8.2) g/dL Albumin (3.5-5.0) g/dL 02/01/20 Range/Units 17:54 RBC (3.80-5.40) m/uL ABG pH (7.35-7.45) ABG pCO2 (35-45) mmHg Sodium (137-145) mmol/L Chloride (98-107) mmol/L Creatinine (0.52-1.04) mg/dL Glucose (74-99) mg/dL POC Glucose (mg/dL) 127 H (75-99) mg/dL Calcium (8.4-10.2) mg/dL AST (14-36) U/L ALT (4-34) U/L Alkaline Phosphatase (38-126) U/L Total Protein (6.3-8.2) g/dL Albumin (3.5-5.0) g/dL Microbiology - Last 24 Hours (Table) 01/27/20 20:47 Blood Culture - Preliminary Blood No Growth after 96 hours Assessment and Plan Assessment: * Acute encephalopathy, probably hepatic encephalopathy/hepatic coma. Patient has triphasic waves seen on the EEG, which is classically seen with hepatic encephalopathy. Patient has persistently abnormal LFTs. * History of left ICA dissection. Patient was on Coumadin. Plan: * Patient is showing definite signs of clinical improvement. Patient is opening her eyes mildly, more consistently to calling her name. * Patient is status post trach and PEG 01/31/2020.. * Patient's LFTs has started to show improvement. AST 72, ALT 92. Hepatitis panel negative, ramirez virus PCR negative. Influenza negative. * Continue lactulose, patient receiving it rectally. * Continue aspirin 81 mg daily due to her history of left ICA dissection for stroke prevention. * Hopefully mentation will continue to improve gradually in the next day or 2. * Neurology coverage not available on the weekend.
--- NOTE | 2020-02-01 22:41 | PN ---
PROGRESS NOTE DATE OF SERVICE: 02/01/2020 REASON FOR FOLLOWUP: Aspiration pneumonia and ESBL E coli UTI. INTERVAL HISTORY: The patient is currently afebrile. The patient remains intubated on the vent through the trach. He is hemodynamically stable, not requiring any pressor support. No diarrhea has been reported. PHYSICAL EXAMINATION: Blood pressure 109/71 with a pulse of 112, temperature of 99.1. She is 99% on 30% FiO2. General description is a middle-aged female lying in bed in no distress. RESPIRATORY SYSTEM: Unlabored breathing with decreased breath sounds at the base. No wheeze. HEART: S1, S2. Regular rate and rhythm. ABDOMEN: Soft. No tenderness. LABS: Hemoglobin 11.6, white count 9.0. BUN of 17, creatinine 0.38. Electrolytes have been normal. Liver enzymes mildly elevated. DIAGNOSTIC IMPRESSION AND PLAN: Patient with acute respiratory failure which is likely multifactorial in this patient who did have a component of possible aspiration pneumonia. The patient is status post trach and jejunostomy tube placement. The patient is currently covered with meropenem to cover for the ESBL E coli UTI as well as aspiration pneumonia and we will monitor her clinical course closely. MMODL / IJN: [id number] /
[2020-02-01 23:52] LABS: Glucose,Whole Blood 138 mg/dL (75-99)
[2020-02-02] MEDS: INSULIN ASPART (NovoLOG) 100 UNIT/ML VIAL SQ SCH ×4 (00:21→18:18)
[2020-02-02] MEDS: DEXTROSE 5% IN WATER 1,000 ML IV SCH (02:00)
[2020-02-02] MEDS: MEROPENEM 1 GM in SODIUM CHLORIDE 0.9% 100 ML IVPB SCH ×3 (05:37→21:12)
[2020-02-02 05:41] LABS: ALT 68 U/L (4-34); AST 63 U/L (14-36); African American GFR (CKD) >90 (>60 ml/min/1.73 sqM); Albumin 2.4 g/dL (3.5-5.0); Alkaline Phosphatase 195 U/L (38-126); Anion Gap 5 mmol/L; Blood Urea Nitrogen 15 mg/dL (7-17); Calcium 7.5 mg/dL (8.4-10.2); Carbon Dioxide 20 mmol/L (22-30); Chloride 107 mmol/L (98-107); Glucose 140 mg/dL (74-99); Non-African American GFR(CKD) >90 (>60 ml/min/1.73 sqM); Potassium 4.1 mmol/L (3.5-5.1); Sodium 132 mmol/L (137-145); Total Bilirubin 0.3 mg/dL (0.2-1.3)
[2020-02-02 05:43] LABS: Glucose,Whole Blood 128 mg/dL (75-99)
[2020-02-02 05:47] LABS: Basophils % (A) 0 %; Eosinophils # (A) 0.2 k/uL (0-0.7); Eosinophils % (A) 2 %; HCT 35.7 % (34.0-46.0); HGB 11.7 gm/dL (11.4-16.0); Lymphocytes % (A) 11 %; MCH 31.4 pg (25.0-35.0); MCHC 32.8 g/dL (31.0-37.0); MCV 95.7 fL (80.0-100.0); Mean Platelet Volume 8.5; Monocytes # (A) 0.5 k/uL (0-1.0); Monocytes % (A) 5 %; Neutrophils # (A) 7.6 k/uL (1.3-7.7); Neutrophils % (A) 80 %; Platelet Count 335 k/uL (150-450); RBC 3.73 m/uL (3.80-5.40); RDW 13.8 % (11.5-15.5); WBC 9.4 k/uL (3.8-10.6)
[2020-02-02 05:57] LABS: Glucose,Whole Blood 144 mg/dL (75-99)
[2020-02-02 06:25] LABS: ABG Base Excess -1.2 mmol/L; ABG HCO3 21 mmol/L (21-25); ABG Oxygen Saturation 96.1 % (94-97); ABG PCO2 25 mmHg (35-45); ABG PH 7.54 (7.35-7.45); ABG PO2 92 mmHg (83-108); ABG TCO2 22 mmol/L (19-24); Allen Test Performed? Yes
--- NOTE | 2020-02-02 06:49 | XR ---
EXAMINATION TYPE: XR chest 1V portable DATE OF EXAM: 02/02/2020 HISTORY: Pneumonia. REFERENCE: Previous study dated 02/01/2020. FINDINGS: Tracheostomy tube remains in place. Its tip overlies the tracheal air column in this single frontal projection. A left subclavian catheter remains in place. Its tip is at the cavoatrial juncti on. There've been multiple previous thoracoplasties. Lungs are overinflated. There is improved aeration at the left lung base. There is a small left effus ion. IMPRESSION: 1. COPD. 2. IMPROVED AERATION, LEFT LUNG BASE. 3. SMALL LEFT EFFUSION.
[2020-02-02] MEDS: amLODIPine 2.5 MG TAB PO SCH (09:11)
[2020-02-02] MEDS: NOREPINEPHRINE 4 MG in SODIUM CHLORIDE 0.9% 250 ML IV SCH (09:11)
[2020-02-02] MEDS: ASPIRIN 81 MG PO SCH (09:11)
[2020-02-02] MEDS: ESCITALOPRAM 20 MG TAB PO SCH (09:12)
[2020-02-02] MEDS: LEVOTHYROXINE IVP 100 MCG/5 ML VIAL IV SCH (09:38)
[2020-02-02] MEDS: levETIRAcetam IV 500 MG in SODIUM CHLORIDE 0.9% 100 ML IVPB SCH ×2 (09:39→21:12)
[2020-02-02] MEDS: PANTOPRAZOLE 40 MG/10 ML VIAL IVP SCH (09:39)
[2020-02-02] MEDS: CHLORHEXIDINE GLUCONATE 15 ML CUP MUCOUS MEM SCH ×2 (09:39→21:12)
[2020-02-02] MEDS: SODIUM CHLORIDE 0.9% 1,000 ML IV SCH (09:41)
--- NOTE | 2020-02-02 10:04 | P.PN ---
Subjective Progress Note Date: 02/02/20 Principal diagnosis: CVA Patient remains on the ventilator. J-tube feedings to begin today. No issues with the tracheostomy. Patient is afebrile. Objective - Vital Signs Vital signs: Vital Signs Temp 98.8 F 02/02/20 04:00 Pulse 103 H 02/02/20 07:00 Resp 24 02/02/20 07:00 BP 110/81 02/02/20 07:00 Pulse Ox 100 02/02/20 07:00 Intake & Output 02/01/20 02/02/20 02/02/20 18:59 06:59 18:59 Intake Total 1256 1176 98 Output Total 705 660 50 Balance 551 516 48 Weight 74.4 kg 75.5 kg Intake: IV 1256 1176 98 Art line flush 36 36 3 Dextrose 5% in Water 1, 900 900 75 000 ml @ 75 mls/hr IV . [id number] [facility] Rx#:[id number] KVO 220 240 20 levETIRAcetam IV 250 mg 100 In Sodium Chloride 0.9% 100 ml @ 400 mls/hr IVPB Q12H [facility] Rx#:[id number] Output: Urine 695 660 50 Estimated Blood Loss 10 Other: Voiding Method Indwelling Catheter Indwelling Catheter ABP, PAP, CO, CI - Last Documented Arterial Blood Pressure 81/76 - Exam Tracheostomy intact without drainage or erythema Midline dressing clean and dry, J-tube intact - Labs CBC & Chem 7: 02/02/20 05:10 02/02/20 05:10 Labs: Abnormal Lab Results - Last 24 Hours (Table) 02/01/20 02/01/20 02/01/20 Range/Units 11:39 17:54 23:51 RBC (3.80-5.40) m/uL ABG pH (7.35-7.45) ABG pCO2 (35-45) mmHg Sodium (137-145) mmol/L Carbon Dioxide (22-30) mmol/L Creatinine (0.52-1.04) mg/dL Glucose (74-99) mg/dL POC Glucose (mg/dL) 112 H 127 H 138 H (75-99) mg/dL Calcium (8.4-10.2) mg/dL AST (14-36) U/L ALT (4-34) U/L Alkaline Phosphatase (38-126) U/L Total Protein (6.3-8.2) g/dL Albumin (3.5-5.0) g/dL 02/02/20 02/02/20 02/02/20 Range/Units 05:10 05:10 05:42 RBC 3.73 L (3.80-5.40) m/uL ABG pH (7.35-7.45) ABG pCO2 (35-45) mmHg Sodium 132 L (137-145) mmol/L Carbon Dioxide 20 L (22-30) mmol/L Creatinine 0.32 L (0.52-1.04) mg/dL Glucose 140 H (74-99) mg/dL POC Glucose (mg/dL) 128 H (75-99) mg/dL Calcium 7.5 L (8.4-10.2) mg/dL AST 63 H (14-36) U/L ALT 68 H (4-34) U/L Alkaline Phosphatase 195 H (38-126) U/L Total Protein 5.0 L (6.3-8.2) g/dL Albumin 2.4 L (3.5-5.0) g/dL 02/02/20 02/02/20 Range/Units 05:56 06:19 RBC (3.80-5.40) m/uL ABG pH 7.54 H (7.35-7.45) ABG pCO2 25 L (35-45) mmHg Sodium (137-145) mmol/L Carbon Dioxide (22-30) mmol/L Creatinine (0.52-1.04) mg/dL Glucose (74-99) mg/dL POC Glucose (mg/dL) 144 H (75-99) mg/dL Calcium (8.4-10.2) mg/dL AST (14-36) U/L ALT (4-34) U/L Alkaline Phosphatase (38-126) U/L Total Protein (6.3-8.2) g/dL Albumin (3.5-5.0) g/dL Microbiology - Last 24 Hours (Table) 01/27/20 20:47 Blood Culture - Preliminary Blood No Growth after 120 hours Assessment and Plan (1) Cerebrovascular accident (CVA) Narrative/Plan: Initiate J-tube feedings today at low rate of 10 mL. No medications through the J-tube. Continue tracheostomy care. Current Visit: Yes Status: Acute Code(s): I63.9 - CEREBRAL INFARCTION, UNSPECIFIED SNOMED Code(s): 452519205
[2020-02-02] MEDS: LACTULOSE 200 GM/300 ML (FROM 1/2 GAL JUG) RECTAL SCH ×2 (12:15→22:03)
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
[2020-02-02 12:20] LABS: Glucose,Whole Blood 137 mg/dL (75-99)
--- NOTE | 2020-02-02 18:11 | PN ---
PROGRESS NOTE DATE OF SERVICE: 02/02/2020 REASON FOR FOLLOWUP: 1. Aspiration pneumonia. 2. ESBL E. coli urinary tract infection. INTERVAL HISTORY: The patient is currently afebrile. The patient is hemodynamically stable. Not requiring any pressor support. FiO2 is currently at 30%. Tube feeds have been restarted and no diarrhea has been reported. The patient still not responding to the nursing staff. PHYSICAL EXAMINATION: Blood pressure 124/66, pulse of 117, temperature of 98. She is 98% on 30% FiO2. General description is a middle-aged female lying in bed in no distress. Respiratory system: Unlabored breathing. Clear to auscultation anteriorly. Heart S1, S2. Regular rate and rhythm. ABDOMEN: Soft. No tenderness. EXTREMITIES: No edema of the feet. LABS: Hemoglobin 11.5, white count 9.4, BUN of 15, creatinine 0.32. Liver enzymes are mildly elevated. Blood culture has been negative. DIAGNOSTIC IMPRESSION AND PLAN: Patient with mental status changes and acute respiratory failure which is likely multifactorial possible component of aspiration pneumonitis. This patient also has component of ESBL E coli urinary tract infection. Patient is currently covered on meropenem to continue and monitor clinical course closely. MMODL / IJN: [id number] /
[2020-02-02 18:19] LABS: Glucose,Whole Blood 110 mg/dL (75-99)
--- NOTE | 2020-02-02 19:50 | P.PN ---
Subjective Progress Note Date: 02/02/20 (Delayed charting seen at 1145 ) Principal diagnosis: altered mentation Patient is a 59-year-old female with a past medical history of stroke, multiple falls, chronic pain, and prior John-en-Y gastric bypass who presented to the ER via EMS with confusion. Patient has had a prolonged hospital stay and this is hospital day 10 and my first evaluation. Patient seen and examined at bedside. Her eyes are open but she is not following simple commands, she is off sedation, no acute events overnight per nursing. Unable to give meds that she has a J-tube secondary to John-en-Y. Continues to have rectal lactulose. Objective - Vital Signs Vital signs: Vital Signs Temp 98 F 02/02/20 16:00 Pulse 116 H 02/02/20 19:00 Resp 32 H 02/02/20 19:00 BP 121/60 02/02/20 19:00 Pulse Ox 98 02/02/20 19:00 Intake & Output 02/02/20 02/02/20 02/03/20 06:59 18:59 06:59 Intake Total 1176 1266 108 Output Total 660 675 125 Balance 516 591 -17 Weight 75.5 kg 75.5 kg Intake: IV 1176 1176 98 Art line flush 36 36 3 Dextrose 5% in Water 1, 900 225 000 ml @ 75 mls/hr IV . [id number] [facility] Rx#:[id number] KVO 240 240 20 Sodium Chloride 0.9% 1, 675 75 000 ml @ 75 mls/hr IV . [id number] [facility] Rx#:[id number] Tube Feeding 60 10 Other 30 Output: Urine 660 675 125 Other: Voiding Method Indwelling Catheter Indwelling Catheter ABP, PAP, CO, CI - Last Documented Arterial Blood Pressure 108/93 - Exam General: ill appearing, no distress, appears at stated age Derm: warm, dry Head: atraumatic, normocephalic, symmetric Eyes: EOMI, no lid lag, anicteric sclera Mouth: no lip lesion, mucus membranes moist, trach in place Cardiovascular: S1S2 reg, no murmur, positive posterior tibial pulse bilateral, Lungs: Coarse breath sounds bilateral, no rhonchi, no rales , no accessory muscle use, on vent Abdominal: soft, nontender to palpation, no guarding, no appreciable organomegaly Ext: no gross muscle atrophy, 2+ edema bilateral, no contractures Neuro: Positive cough, positive gag, breathing over vent, positive corneal reflex Psych: Eyes open, not tracking, not following commands - Labs CBC & Chem 7: 02/02/20 05:10 02/02/20 05:10 Labs: Abnormal Lab Results - Last 24 Hours (Table) 02/01/20 02/02/20 02/02/20 Range/Units 23:51 05:10 05:10 RBC 3.73 L (3.80-5.40) m/uL ABG pH (7.35-7.45) ABG pCO2 (35-45) mmHg Sodium 132 L (137-145) mmol/L Carbon Dioxide 20 L (22-30) mmol/L Creatinine 0.32 L (0.52-1.04) mg/dL Glucose 140 H (74-99) mg/dL POC Glucose (mg/dL) 138 H (75-99) mg/dL Calcium 7.5 L (8.4-10.2) mg/dL AST 63 H (14-36) U/L ALT 68 H (4-34) U/L Alkaline Phosphatase 195 H (38-126) U/L Total Protein 5.0 L (6.3-8.2) g/dL Albumin 2.4 L (3.5-5.0) g/dL 02/02/20 02/02/20 02/02/20 Range/Units 05:42 05:56 06:19 RBC (3.80-5.40) m/uL ABG pH 7.54 H (7.35-7.45) ABG pCO2 25 L (35-45) mmHg Sodium (137-145) mmol/L Carbon Dioxide (22-30) mmol/L Creatinine (0.52-1.04) mg/dL Glucose (74-99) mg/dL POC Glucose (mg/dL) 128 H 144 H (75-99) mg/dL Calcium (8.4-10.2) mg/dL AST (14-36) U/L ALT (4-34) U/L Alkaline Phosphatase (38-126) U/L Total Protein (6.3-8.2) g/dL Albumin (3.5-5.0) g/dL 02/02/20 02/02/20 Range/Units 12:19 18:18 RBC (3.80-5.40) m/uL ABG pH (7.35-7.45) ABG pCO2 (35-45) mmHg Sodium (137-145) mmol/L Carbon Dioxide (22-30) mmol/L Creatinine (0.52-1.04) mg/dL Glucose (74-99) mg/dL POC Glucose (mg/dL) 137 H 110 H (75-99) mg/dL Calcium (8.4-10.2) mg/dL AST (14-36) U/L ALT (4-34) U/L Alkaline Phosphatase (38-126) U/L Total Protein (6.3-8.2) g/dL Albumin (3.5-5.0) g/dL Microbiology - Last 24 Hours (Table) 01/27/20 20:47 Blood Culture - Preliminary Blood No Growth after 120 hours Assessment and Plan Assessment: Acute hypoxic respiratory failure secondary to aspiration pneumonia requiring ventilator support -Vent management per pulmonary -ID recommendations appreciated -Continue with meropenem -Pulmonary hygiene -Sputum culture with normal respiratory geoffrey Acute toxic/metabolic encephalopathy with unclear etiology -Per neurology EEG appears consistent with hepatic encephalopathy, however no consistent elevation in ammonia has been seen -On Keppra for possible seizure -CSF fluid culture negative -Neurology recommendations appreciated ESBL urinary tract infection -Continue with meropenem - ID recs Chronic left carotid dissection - was on coumadin unable to tolerated oral unable to use j-tube for meds - Dyslipidemia - unable to tolerated orals Schizoaffective disorder and PTSD - psych recs appreciated - unable to have oral meds and lexapro not indicated at this time Hypothyroidism - synthroid IV unable to have meds throug J-tube DVT prophylaxis: start Lovenox Discussed with: Nursing Anticipated discharge: 4-[address]: LT[facility] A total of 35 minutes was spent on the care of this complex patient more than 50% of the time was spent in counseling and care coordination.
--- NOTE | 2020-02-02 20:13 | P.PN ---
Subjective Progress Note Date: 02/02/20 Principal diagnosis: Altered mental status Patient is postop and status post tracheostomy and J-tube placement. No acute events per nursing. No change in mentation. Objective - Vital Signs Vital signs: Vital Signs Temp 98.2 F 02/02/20 08:00 Pulse 106 H 02/02/20 10:00 Resp 24 02/02/20 10:00 BP 110/82 02/02/20 09:00 Pulse Ox 99 02/02/20 10:00 Intake & Output 02/01/20 02/02/20 02/02/20 18:59 06:59 18:59 Intake Total 1256 1176 392 Output Total 705 660 200 Balance 551 516 192 Weight 74.4 kg 75.5 kg Intake: IV 1256 1176 392 Art line flush 36 36 12 Dextrose 5% in Water 1, 900 900 225 000 ml @ 75 mls/hr IV . [id number] [facility] Rx#:[id number] KVO 220 240 80 Sodium Chloride 0.9% 1, 75 000 ml @ 75 mls/hr IV . [id number] [facility] Rx#:[id number] levETIRAcetam IV 250 mg 100 In Sodium Chloride 0.9% 100 ml @ 400 mls/hr IVPB Q12H [facility] Rx#:[id number] Output: Urine 695 660 200 Estimated Blood Loss 10 Other: Voiding Method Indwelling Catheter Indwelling Catheter Indwelling Catheter ABP, PAP, CO, CI - Last Documented Arterial Blood Pressure 117/84 - Exam Patient not examined due to suspected covid infection. Defer physical exam to primary care team. - Labs CBC & Chem 7: 02/02/20 05:10 02/02/20 05:10 Labs: Abnormal Lab Results - Last 24 Hours (Table) 02/01/20 02/01/20 02/02/20 Range/Units 17:54 23:51 05:10 RBC 3.73 L (3.80-5.40) m/uL ABG pH (7.35-7.45) ABG pCO2 (35-45) mmHg Sodium (137-145) mmol/L Carbon Dioxide (22-30) mmol/L Creatinine (0.52-1.04) mg/dL Glucose (74-99) mg/dL POC Glucose (mg/dL) 127 H 138 H (75-99) mg/dL Calcium (8.4-10.2) mg/dL AST (14-36) U/L ALT (4-34) U/L Alkaline Phosphatase (38-126) U/L Total Protein (6.3-8.2) g/dL Albumin (3.5-5.0) g/dL 02/02/20 02/02/20 02/02/20 Range/Units 05:10 05:42 05:56 RBC (3.80-5.40) m/uL ABG pH (7.35-7.45) ABG pCO2 (35-45) mmHg Sodium 132 L (137-145) mmol/L Carbon Dioxide 20 L (22-30) mmol/L Creatinine 0.32 L (0.52-1.04) mg/dL Glucose 140 H (74-99) mg/dL POC Glucose (mg/dL) 128 H 144 H (75-99) mg/dL Calcium 7.5 L (8.4-10.2) mg/dL AST 63 H (14-36) U/L ALT 68 H (4-34) U/L Alkaline Phosphatase 195 H (38-126) U/L Total Protein 5.0 L (6.3-8.2) g/dL Albumin 2.4 L (3.5-5.0) g/dL 02/02/20 Range/Units 06:19 RBC (3.80-5.40) m/uL ABG pH 7.54 H (7.35-7.45) ABG pCO2 25 L (35-45) mmHg Sodium (137-145) mmol/L Carbon Dioxide (22-30) mmol/L Creatinine (0.52-1.04) mg/dL Glucose (74-99) mg/dL POC Glucose (mg/dL) (75-99) mg/dL Calcium (8.4-10.2) mg/dL AST (14-36) U/L ALT (4-34) U/L Alkaline Phosphatase (38-126) U/L Total Protein (6.3-8.2) g/dL Albumin (3.5-5.0) g/dL Microbiology - Last 24 Hours (Table) 01/27/20 20:47 Blood Culture - Preliminary Blood No Growth after 120 hours Assessment and Plan (1) Increased ammonia level Narrative/Plan: 59-year-old female with multiple medical comorbidities who presented for altered mental status of unknown etiology with subsequent decompensation and development of hypoxia requiring intubation. Patient was previously sedated which was weaned however has remained unresponsive. Neurology following the patient's and unclear etiology, patient's altered mental status with concern for possible hepatic encephalopathy in the setting of mildly elevated ammonia and elevated liver enzymes and a predominantly hepatocellular pattern. Differential also includes catatonia, metabolic encephalopathy in a patient with suspected aspiration pneumonia, or subclinical seizures or other etiology. Patient's symptoms have failed to respond to antiepileptic medications. Liver enzymes have remained persistently elevated with AST 87 and MALT 86 today. Normal INR on presentation and platelet count of 266,000 are not suggestive of a cirrhotic liver or portal hypertension with the patient's APRI score 0.9 (greater than 1 is suggestive of a cirrhotic liver). However liver does appear nodular on u ltrasound and ammonia was found to be mildly elevated. Cannot rule out a component of hepatic encephalopathy. Current Visit: Yes Status: Acute Code(s): R79.89 - OTHER SPECIFIED ABNORMAL FINDINGS OF BLOOD CHEMISTRY SNOMED Code(s): 386644326 (2) Elevated liver enzymes Current Visit: Yes Status: Acute Code(s): R74.8 - ABNORMAL LEVELS OF OTHER SERUM ENZYMES SNOMED Code(s): 154707166 Plan: Supportive care Continue to monitor CBC, BMP, LFTs Viral hepatitis panel negative INR normal Repeat ammonia level in the a.m. Will empirically add lactulose twice a day rectally for treatment of possible hepatic encephalopathy We'll continue to follow symptomatically Thank you for allowing us to participate in the care of the patient
[2020-02-02] MEDS: ENOXAPARIN 40 MG/0.4 ML SYRINGE SQ SCH (21:12)
[2020-02-02 23:58] LABS: Glucose,Whole Blood 103 mg/dL (75-99)
[2020-02-03] MEDS: INSULIN ASPART (NovoLOG) 100 UNIT/ML VIAL SQ SCH ×5 (03:00→23:45)
[2020-02-03] MEDS: NOREPINEPHRINE 4 MG in SODIUM CHLORIDE 0.9% 250 ML IV SCH (03:01)
[2020-02-03] MEDS: SODIUM CHLORIDE 0.9% 1,000 ML IV SCH ×2 (03:03→11:15)
[2020-02-03 04:48] LABS: Basophils % (A) 0 %; Eosinophils # (A) 0.2 k/uL (0-0.7); Eosinophils % (A) 2 %; HCT 31.6 % (34.0-46.0); HGB 10.6 gm/dL (11.4-16.0); Lymphocytes # (A) 0.9 k/uL (1.0-4.8); Lymphocytes % (A) 9 %; MCH 32.1 pg (25.0-35.0); MCHC 33.6 g/dL (31.0-37.0); MCV 95.5 fL (80.0-100.0); Mean Platelet Volume 7.9; Monocytes # (A) 0.4 k/uL (0-1.0); Monocytes % (A) 4 %; Neutrophils % (A) 83 %; Platelet Count 344 k/uL (150-450); RBC 3.31 m/uL (3.80-5.40); WBC 9.7 k/uL (3.8-10.6)
[2020-02-03 05:12] LABS: ALT 61 U/L (4-34); AST 76 U/L (14-36); African American GFR (CKD) >90 (>60 ml/min/1.73 sqM); Albumin 2.2 g/dL (3.5-5.0); Alkaline Phosphatase 161 U/L (38-126); Anion Gap 4 mmol/L; Blood Urea Nitrogen 13 mg/dL (7-17); Calcium 7.2 mg/dL (8.4-10.2); Carbon Dioxide 20 mmol/L (22-30); Chloride 109 mmol/L (98-107); Glucose 110 mg/dL (74-99); Non-African American GFR(CKD) >90 (>60 ml/min/1.73 sqM); Potassium 3.7 mmol/L (3.5-5.1); Sodium 133 mmol/L (137-145); Total Bilirubin 0.4 mg/dL (0.2-1.3); Total Protein 4.8 g/dL (6.3-8.2)
[2020-02-03] MEDS: MEROPENEM 1 GM in SODIUM CHLORIDE 0.9% 100 ML IVPB SCH ×3 (05:27→22:03)
[2020-02-03] MEDS ORDERED: POTASSIUM CHLORIDE 20 MEQ in WATER FOR INJECTION 1 100ML.BAG IVPB ONE (05:38)
[2020-02-03 06:08] LABS: Glucose,Whole Blood 106 mg/dL (75-99)
--- NOTE | 2020-02-03 06:53 | XR ---
EXAMINATION TYPE: XR chest 1V portable DATE OF EXAM: 02/03/2020 HISTORY: Pneumonia. REFERENCE: Previous study dated 02/02/2020. FINDINGS: The current study is rotated. There is a tracheostomy IMPRESSION: 1. SUBOPTIMAL EXAMINATION. 2. CONTINUING LEFT BASILAR AIRSPACE DISEASE AND I SUSPECT A SMALL CONCOMITANT EFFUSION.
[2020-02-03 07:39] LABS: ABG HCO3 18 mmol/L (21-25); ABG Oxygen Saturation 99.1 % (94-97); ABG PCO2 21 mmHg (35-45); ABG PH 7.55 (7.35-7.45); ABG PO2 135 mmHg (83-108); ABG TCO2 19 mmol/L (19-24); Allen Test Performed? Yes
[2020-02-03] MEDS: levETIRAcetam IV 500 MG in SODIUM CHLORIDE 0.9% 100 ML IVPB SCH ×2 (08:17→21:05)
[2020-02-03] MEDS: LEVOTHYROXINE IVP 100 MCG/5 ML VIAL IV SCH (08:17)
[2020-02-03] MEDS: ESCITALOPRAM 20 MG TAB PO SCH (08:17)
[2020-02-03] MEDS: ASPIRIN 81 MG PO SCH (08:17)
[2020-02-03] MEDS: amLODIPine 2.5 MG TAB PO SCH (08:17)
[2020-02-03] MEDS: CHLORHEXIDINE GLUCONATE 15 ML CUP MUCOUS MEM SCH ×2 (08:18→21:05)
[2020-02-03] MEDS: PANTOPRAZOLE 40 MG/10 ML VIAL IVP SCH (08:18)
--- NOTE | 2020-02-03 11:01 | P.PN ---
Subjective Progress Note Date: 02/03/20 Principal diagnosis: CVA Patient remains on the ventilator. She is more alert at this time. Tube feeds going at 10 mL per hour. No issues with the patient's tracheostomy. Objective - Vital Signs Vital signs: Vital Signs Temp 99.4 F 02/03/20 08:00 Pulse 112 H 02/03/20 10:00 Resp 44 H 02/03/20 10:00 BP 123/80 02/03/20 10:00 Pulse Ox 99 02/03/20 10:00 Intake & Output 02/02/20 02/03/20 02/03/20 18:59 06:59 18:59 Intake Total 1266 1376 266 Output Total 675 805 140 Balance 591 571 126 Weight 75.5 kg 77.1 kg 77.1 kg Intake: IV 1176 1156 256 Art line flush 36 36 6 Dextrose 5% in Water 1, 225 000 ml @ 75 mls/hr IV . [id number] [facility] Rx#:[id number] KVO 240 20 Meropenem 1 gm In Sodium 200 Chloride 0.9% 100 ml @ 200 mls/hr IVPB Q8H [facility] Rx#:[id number] Sodium Chloride 0.9% 1, 675 900 150 000 ml @ 75 mls/hr IV . [id number] [facility] Rx#:[id number] levETIRAcetam IV 250 mg 100 In Sodium Chloride 0.9% 100 ml @ 400 mls/hr IVPB Q12H [facility] Rx#:[id number] Tube Feeding 60 160 10 Other 30 60 Output: Urine 675 805 140 Other: Voiding Method Indwelling Catheter Indwelling Catheter Indwelling Catheter ABP, PAP, CO, CI - Last Documented Arterial Blood Pressure 94/79 - Exam Tracheostomy site clean, no significant erythema Abdomen: Soft, dressing intact, mild tenderness, J-tube intact - Labs CBC & Chem 7: 02/03/20 04:25 02/03/20 04:25 Labs: Abnormal Lab Results - Last 24 Hours (Table) 02/02/20 02/02/20 02/02/20 Range/Units 12:19 18:18 23:56 RBC (3.80-5.40) m/uL Hgb (11.4-16.0) gm/dL Hct (34.0-46.0) % Neutrophils # (1.3-7.7) k/uL Lymphocytes # (1.0-4.8) k/uL ABG pH (7.35-7.45) ABG pCO2 (35-45) mmHg ABG pO2 (83-108) mmHg ABG HCO3 (21-25) mmol/L ABG O2 Saturation (94-97) % Sodium (137-145) mmol/L Chloride (98-107) mmol/L Carbon Dioxide (22-30) mmol/L Creatinine (0.52-1.04) mg/dL Glucose (74-99) mg/dL POC Glucose (mg/dL) 137 H 110 H 103 H (75-99) mg/dL Calcium (8.4-10.2) mg/dL AST (14-36) U/L ALT (4-34) U/L Alkaline Phosphatase (38-126) U/L Total Protein (6.3-8.2) g/dL Albumin (3.5-5.0) g/dL 02/03/20 02/03/20 02/03/20 Range/Units 04:25 04:25 06:07 RBC 3.31 L (3.80-5.40) m/uL Hgb 10.6 L (11.4-16.0) gm/dL Hct 31.6 L (34.0-46.0) % Neutrophils # 8.0 H (1.3-7.7) k/uL Lymphocytes # 0.9 L (1.0-4.8) k/uL ABG pH (7.35-7.45) ABG pCO2 (35-45) mmHg ABG pO2 (83-108) mmHg ABG HCO3 (21-25) mmol/L ABG O2 Saturation (94-97) % Sodium 133 L (137-145) mmol/L Chloride 109 H (98-107) mmol/L Carbon Dioxide 20 L (22-30) mmol/L Creatinine 0.28 L (0.52-1.04) mg/dL Glucose 110 H (74-99) mg/dL POC Glucose (mg/dL) 106 H (75-99) mg/dL Calcium 7.2 L (8.4-10.2) mg/dL AST 76 H (14-36) U/L ALT 61 H (4-34) U/L Alkaline Phosphatase 161 H (38-126) U/L Total Protein 4.8 L (6.3-8.2) g/dL Albumin 2.2 L (3.5-5.0) g/dL 02/03/20 Range/Units 07:35 RBC (3.80-5.40) m/uL Hgb (11.4-16.0) gm/dL Hct (34.0-46.0) % Neutrophils # (1.3-7.7) k/uL Lymphocytes # (1.0-4.8) k/uL ABG pH 7.55 H (7.35-7.45) ABG pCO2 21 L (35-45) mmHg ABG pO2 135 H (83-108) mmHg ABG HCO3 18 L (21-25) mmol/L ABG O2 Saturation 99.1 H (94-97) % Sodium (137-145) mmol/L Chloride (98-107) mmol/L Carbon Dioxide (22-30) mmol/L Creatinine (0.52-1.04) mg/dL Glucose (74-99) mg/dL POC Glucose (mg/dL) (75-99) mg/dL Calcium (8.4-10.2) mg/dL AST (14-36) U/L ALT (4-34) U/L Alkaline Phosphatase (38-126) U/L Total Protein (6.3-8.2) g/dL Albumin (3.5-5.0) g/dL Microbiology - Last 24 Hours (Table) 01/27/20 20:47 Blood Culture - Final Blood No Growth after 144 hours Assessment and Plan (1) Cerebrovascular accident (CVA) Narrative/Plan: Continue gradually advancing tube feeds through her jejunostomy. Current Visit: Yes Status: Acute Code(s): I63.9 - CEREBRAL INFARCTION, UNSPECIFIED SNOMED Code(s): 307960846
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
[2020-02-03 12:26] LABS: Glucose,Whole Blood 99 mg/dL (75-99)
[2020-02-03] MEDS: LACTULOSE 200 GM/300 ML (FROM 1/2 GAL JUG) RECTAL SCH ×2 (12:42→23:44)
--- NOTE | 2020-02-03 15:21 | P.PN ---
Subjective Progress Note Date: 02/03/20 Principal diagnosis: altered mentation Patient is a 59-year-old female with a past medical history of stroke, multiple falls, chronic pain, and prior John-en-Y gastric bypass who presented to the ER via EMS with confusion. On presentation to the ER code stroke was called and he was noted to be hypertensive with a blood pressure 166/118. CT of the head was performed was negative for any acute intracranial abnormality but indicated mild bifrontal atrophy, CTA of the neck indicated a known dissection of the left ICA extending into the vertical history as segment without any critical ICA stenosis, there was no large vessel or intracranial occlusion or aneurysmal change. The ER physician contacted [facility] who recommended admission to our facility. She was also found to have elevated LFTs and history of schizoaffective disorder. She was seen by neurology and was felt to have signs suspicious for complex partial seizures stat MRI of the brain was ordered this indicated no acute infarction, midline shift, or mass effect. She was noted to have hypo-intensity along cranial aspect of the central sulcus on the right, mild burden of nonspecific white matter changes most likely due to chronic microangiopathy. She was given a stat dose of Keppra IV. Echocardiogram was ordered which showed an EF of 55-60% without any significant valvular disease, moderate pulmonary hypertension. Overnight on 01/23 the patient became less responsive. She was noted to have a stiff neck. There is concern for possible partial seizure, catatonia, or neuroleptic malignant syndrome. Cardiology was consulted for accelerated hypertension and they recommended adding Norvasc. Her BRCA1 time Coumadin were held secondary to needing an LP. She was seen by psychiatry who felt that she likely had delirium secondary to CVA versus seizures versus UTI. EEG demonstrated an abnormal focus involving the right hemisphere and abnormal activity in the bifrontal lobes and neurology suggested continuing Keppra. On 01/24 the patient had an NG tube ordered secondary to poor nutritional intake. She did develop a significant nosebleed. She became hypoxic and subsequently required intubation. Her Keppra and Synthroid was transitioned to IV. She was also started on Zosyn for concern for aspiration pneumonia. 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 LP obtained which showed benign CSF. Infectious disease consulted who was concerned for aspiration PNA and UTI and agreed with Zosyn. 01/27 reevaluated by neurology off sedation for multiple hours and not following commands. Dilantin was added to her keppra and ASa was recommended for her ICA dissection. BY 01/28 she had been off sedation for 24 hours and still did not show any neurologic improvement. Repeat EEG on 01/27 neurology was concerned for hepatic encephalopathy and patient was started on lactulose. Urine culture showed ESBL E Coli and her Zosyn was transitioned to Merrem. SHe was tested for CVOID and FLu A/B all of which were negative. GI was consulted for elevated liver enzymes and stated possible hepatic encephalopathy, hepatitis profile negative. Trach completed on 01/31/2020. EEG from 01/30 had slight improvement and less triphasic waves. J-tube placed for. She was reevaluated by psychiatry for for but she did not meet criteria for inpatient psychiatric admission and did not recommended adding Lexapro or Zyprexa. Patient seen and examined at bedside. Eyes are open sitting with her head forward in bed. Looks at me when I enter the room. Eyes appear to track me when I walk around the room. When I ask her to look at me she is unable to do so. She cannot follow the command of closing her eyes. No withdrawal to pain in b/l UE, RLE no reaction to pain, LLE on bending large toe foot moves slightly and right leg lifts. Eyes again track me around the room but when I say her name appears that eyes drift away- unable to determine if this is purposeful. Objective - Vital Signs Vital signs: Vital Signs Temp 99.4 F 02/03/20 08:00 Pulse 112 H 02/03/20 10:00 Resp 44 H 02/03/20 10:00 BP 123/80 02/03/20 10:00 Pulse Ox 99 02/03/20 10:00 Intake & Output 02/02/20 02/03/20 02/03/20 18:59 06:59 18:59 Intake Total 1266 1376 266 Output Total 675 805 140 Balance 591 571 126 Weight 75.5 kg 77.1 kg 77.1 kg Intake: IV 1176 1156 256 Art line flush 36 36 6 Dextrose 5% in Water 1, 225 000 ml @ 75 mls/hr IV . [id number] [facility] Rx#:[id number] KVO 240 20 Meropenem 1 gm In Sodium 200 Chloride 0.9% 100 ml @ 200 mls/hr IVPB Q8H [facility] Rx#:[id number] Sodium Chloride 0.9% 1, 675 900 150 000 ml @ 75 mls/hr IV . [id number] [facility] Rx#:[id number] levETIRAcetam IV 250 mg 100 In Sodium Chloride 0.9% 100 ml @ 400 mls/hr IVPB Q12H [facility] Rx#:[id number] Tube Feeding 60 160 10 Other 30 60 Output: Urine 675 805 140 Other: Voiding Method Indwelling Catheter Indwelling Catheter Indwelling Catheter ABP, PAP, CO, CI - Last Documented Arterial Blood Pressure 94/79 - Exam General:non toxic, no distress, appears at stated age, sitting with head forward Derm: warm, dry Head: atraumatic, normocephalic, symmetric Eyes: EOMI, no lid lag, anicteric sclera Mouth: no lip lesion, mucus membranes dry, trach in place Cardiovascular: S1S2 reg, no murmur, positive posterior tibial pulse bilateral, Lungs: Coarse breath sounds bilateral, no rhonchi, no rales , no accessory muscle use, on vent Abdominal: soft, nontender to palpation, no guarding, no appreciable organ omegaly Ext: no gross muscle atrophy, diffuse anasarca, no contractures Neuro: Eyes appear to track me when I walk around the room. When I ask her to look at me she is unable to do so. She cannot follow the command of closing her eyes. No withdrawal to pain in b/l UE, RLE no reaction to pain, LLE on bending large toe foot moves slightly and right leg lifts. Eyes again track me around the room but when I say her name appears that eyes drift away- unable to determine if this is purposeful. Psych: Eyes open, not tracking, not following commands - Labs CBC & Chem 7: 02/03/20 04:25 02/03/20 04:25 Labs: Abnormal Lab Results - Last 24 Hours (Table) 02/02/20 02/02/20 02/03/20 Range/Units 18:18 23:56 04:25 RBC 3.31 L (3.80-5.40) m/uL Hgb 10.6 L (11.4-16.0) gm/dL Hct 31.6 L (34.0-46.0) % Neutrophils # 8.0 H (1.3-7.7) k/uL Lymphocytes # 0.9 L (1.0-4.8) k/uL ABG pH (7.35-7.45) ABG pCO2 (35-45) mmHg ABG pO2 (83-108) mmHg ABG HCO3 (21-25) mmol/L ABG O2 Saturation (94-97) % Sodium (137-145) mmol/L Chloride (98-107) mmol/L Carbon Dioxide (22-30) mmol/L Creatinine (0.52-1.04) mg/dL Glucose (74-99) mg/dL POC Glucose (mg/dL) 110 H 103 H (75-99) mg/dL Calcium (8.4-10.2) mg/dL AST (14-36) U/L ALT (4-34) U/L Alkaline Phosphatase (38-126) U/L Total Protein (6.3-8.2) g/dL Albumin (3.5-5.0) g/dL 02/03/20 02/03/20 02/03/20 Range/Units 04:25 06:07 07:35 RBC (3.80-5.40) m/uL Hgb (11.4-16.0) gm/dL Hct (34.0-46.0) % Neutrophils # (1.3-7.7) k/uL Lymphocytes # (1.0-4.8) k/uL ABG pH 7.55 H (7.35-7.45) ABG pCO2 21 L (35-45) mmHg ABG pO2 135 H (83-108) mmHg ABG HCO3 18 L (21-25) mmol/L ABG O2 Saturation 99.1 H (94-97) % Sodium 133 L (137-145) mmol/L Chloride 109 H (98-107) mmol/L Carbon Dioxide 20 L (22-30) mmol/L Creatinine 0.28 L (0.52-1.04) mg/dL Glucose 110 H (74-99) mg/dL POC Glucose (mg/dL) 106 H (75-99) mg/dL Calcium 7.2 L (8.4-10.2) mg/dL AST 76 H (14-36) U/L ALT 61 H (4-34) U/L Alkaline Phosphatase 161 H (38-126) U/L Total Protein 4.8 L (6.3-8.2) g/dL Albumin 2.2 L (3.5-5.0) g/dL Microbiology - Last 24 Hours (Table) 01/27/20 20:47 Blood Culture - Final Blood No Growth after 144 hours Assessment and Plan Assessment: Acute hypoxic respiratory failure secondary to aspiration pneumonia requiring ventilator support -Vent management per pulmonary -ID recommendations appreciated -Continue with meropenem -Pulmonary hygiene -Sputum culture with normal respiratory geoffrey Acute toxic/metabolic encephalopathy with unclear etiology -Per neurology EEG appears consistent with hepatic encephalopathy, on lactulose -On Keppra for possible seizure (was given trail of dilantin in addition but this has been removed) -CSF fluid culture negative -Neurology recommendations appreciated, await re-eval on 02/04/20 ESBL urinary tract infection -Continue with meropenem - ID recs Chronic left carotid dissection - was on coumadin unable to tolerated oral unable to use j-tube for meds - Change ASA to rectal Dyslipidemia - unable to tolerated orals Schizoaffective disorder and PTSD - psych recs appreciated - unable to have oral meds and lexapro not indicated at this time Hypothyroidism - synthroid IV unable to have meds throug J-tube DVT prophylaxis: Lovenox Discussed with: Nursing, Anticipated discharge: 4-[address]: [facility] A total of 35 minutes was spent on the care of this complex patient more than 50% of the time was spent in counseling and care coordination.
[2020-02-03 17:13] LABS: Glucose,Whole Blood 106 mg/dL (75-99)
--- NOTE | 2020-02-03 17:42 | P.PN ---
Subjective Progress Note Date: 02/03/20 Principal diagnosis: Altered mental status Patient is postop and status post tracheostomy and J-tube placement. No acute events per nursing. Some mild improvement in mentation noted. Objective - Vital Signs Vital signs: Vital Signs Temp 99.4 F 02/03/20 08:00 Pulse 108 H 02/03/20 08:00 Resp 31 H 02/03/20 08:00 BP 133/75 02/03/20 08:00 Pulse Ox 100 02/03/20 08:00 Intake & Output 02/02/20 02/03/20 02/03/20 18:59 06:59 18:59 Intake Total 1266 1376 266 Output Total 675 805 140 Balance 591 571 126 Weight 75.5 kg 77.1 kg Intake: IV 1176 1156 256 Art line flush 36 36 6 Dextrose 5% in Water 1, 225 000 ml @ 75 mls/hr IV . [id number] [facility] Rx#:[id number] KVO 240 20 Meropenem 1 gm In Sodium 200 Chloride 0.9% 100 ml @ 200 mls/hr IVPB Q8H [facility] Rx#:[id number] Sodium Chloride 0.9% 1, 675 900 150 000 ml @ 75 mls/hr IV . [id number] [facility] Rx#:[id number] levETIRAcetam IV 250 mg 100 In Sodium Chloride 0.9% 100 ml @ 400 mls/hr IVPB Q12H [facility] Rx#:[id number] Tube Feeding 60 160 10 Other 30 60 Output: Urine 675 805 140 Other: Voiding Method Indwelling Catheter Indwelling Catheter Indwelling Catheter ABP, PAP, CO, CI - Last Documented Arterial Blood Pressure 121/72 - Exam On physical examination, patient appears comfortable in no apparent distress. HEAD: Normocephalic, atraumatic. EYES: No scleral icterus. No conjunctival injection. MOUTH: No lesions, tongue midline. NECK: Trachea midline, no gross abnormalities tracheostomy in place. ABDOMEN: Soft, nontender with G-tube in place. Bowel sounds are positive. No organomegaly. No guarding or rigidity. EXTREMITIES: No pedal edema. SKIN: No rashes, no jaundice. NEUROLOGIC: Awake and responsive to painful stimuli. - Labs CBC & Chem 7: 02/03/20 04:25 02/03/20 04:25 Labs: Abnormal Lab Results - Last 24 Hours (Table) 02/02/20 02/02/20 02/02/20 Range/Units 12:19 18:18 23:56 RBC (3.80-5.40) m/uL Hgb (11.4-16.0) gm/dL Hct (34.0-46.0) % Neutrophils # (1.3-7.7) k/uL Lymphocytes # (1.0-4.8) k/uL ABG pH (7.35-7.45) ABG pCO2 (35-45) mmHg ABG pO2 (83-108) mmHg ABG HCO3 (21-25) mmol/L ABG O2 Saturation (94-97) % Sodium (137-145) mmol/L Chloride (98-107) mmol/L Carbon Dioxide (22-30) mmol/L Creatinine (0.52-1.04) mg/dL Glucose (74-99) mg/dL POC Glucose (mg/dL) 137 H 110 H 103 H (75-99) mg/dL Calcium (8.4-10.2) mg/dL AST (14-36) U/L ALT (4-34) U/L Alkaline Phosphatase (38-126) U/L Total Protein (6.3-8.2) g/dL Albumin (3.5-5.0) g/dL 02/03/20 02/03/20 02/03/20 Range/Units 04:25 04:25 06:07 RBC 3.31 L (3.80-5.40) m/uL Hgb 10.6 L (11.4-16.0) gm/dL Hct 31.6 L (34.0-46.0) % Neutrophils # 8.0 H (1.3-7.7) k/uL Lymphocytes # 0.9 L (1.0-4.8) k/uL ABG pH (7.35-7.45) ABG pCO2 (35-45) mmHg ABG pO2 (83-108) mmHg ABG HCO3 (21-25) mmol/L ABG O2 Saturation (94-97) % Sodium 133 L (137-145) mmol/L Chloride 109 H (98-107) mmol/L Carbon Dioxide 20 L (22-30) mmol/L Creatinine 0.28 L (0.52-1.04) mg/dL Glucose 110 H (74-99) mg/dL POC Glucose (mg/dL) 106 H (75-99) mg/dL Calcium 7.2 L (8.4-10.2) mg/dL AST 76 H (14-36) U/L ALT 61 H (4-34) U/L Alkaline Phosphatase 161 H (38-126) U/L Total Protein 4.8 L (6.3-8.2) g/dL Albumin 2.2 L (3.5-5.0) g/dL 02/03/20 Range/Units 07:35 RBC (3.80-5.40) m/uL Hgb (11.4-16.0) gm/dL Hct (34.0-46.0) % Neutrophils # (1.3-7.7) k/uL Lymphocytes # (1.0-4.8) k/uL ABG pH 7.55 H (7.35-7.45) ABG pCO2 21 L (35-45) mmHg ABG pO2 135 H (83-108) mmHg ABG HCO3 18 L (21-25) mmol/L ABG O2 Saturation 99.1 H (94-97) % Sodium (137-145) mmol/L Chloride (98-107) mmol/L Carbon Dioxide (22-30) mmol/L Creatinine (0.52-1.04) mg/dL Glucose (74-99) mg/dL POC Glucose (mg/dL) (75-99) mg/dL Calcium (8.4-10.2) mg/dL AST (14-36) U/L ALT (4-34) U/L Alkaline Phosphatase (38-126) U/L Total Protein (6.3-8.2) g/dL Albumin (3.5-5.0) g/dL Microbiology - Last 24 Hours (Table) 01/27/20 20:47 Blood Culture - Final Blood No Growth after 144 hours Assessment and Plan (1) Increased ammonia level Narrative/Plan: 59-year-old female with multiple medical comorbidities who presented for altered mental status of unknown etiology with subsequent decompensation and development of hypoxia requiring intubation. Patient was previously sedated which was wea leonid however has remained unresponsive. Neurology following the patient's and unclear etiology, patient's altered mental status with concern for possible hepatic encephalopathy in the setting of mildly elevated ammonia and elevated liver enzymes and a predominantly hepatocellular pattern. Differential also includes catatonia, metabolic encephalopathy in a patient with suspected aspiration pneumonia, or subclinical seizures or other etiology. Patient's symptoms have failed to respond to antiepileptic medications. Liver enzymes have remained persistently elevated with AST 87 and MALT 86 today. Normal INR on presentation and platelet count of 266,000 are not suggestive of a cirrhotic liver or portal hypertension with the patient's APRI score 0.9 (greater than 1 is suggestive of a cirrhotic liver). However liver does appear nodular on ultrasound and ammonia was found to be mildly elevated. Cannot rule out a component of hepatic encephalopathy. Some improvement in mentation today. Current Visit: Yes Status: Acute Code(s): R79.89 - OTHER SPECIFIED ABNORMAL FINDINGS OF BLOOD CHEMISTRY SNOMED Code(s): 784317559 (2) Elevated liver enzymes Current Visit: Yes Status: Acute Code(s): R74.8 - ABNORMAL LEVELS OF OTHER SERUM ENZYMES SNOMED Code(s): 881022613 Plan: Supportive care Continue to monitor CBC, BMP, LFTs Viral hepatitis panel negative INR normal Continue lactulose for empiric treatment of possible hepatic encephalopathy We'll continue to follow symptomatically Thank you for allowing us to participate in the care of the patient
[2020-02-03] MEDS: ENOXAPARIN 40 MG/0.4 ML SYRINGE SQ SCH (21:05)
--- NOTE | 2020-02-03 22:07 | PN ---
PROGRESS NOTE DATE OF SERVICE: 02/03/2020 REASON FOR FOLLOWUP: ESBL E coli UTI and aspiration pneumonia. INTERVAL HISTORY: The patient is currently afebrile. The patient remains to be lethargic on the trach collar and unable to provide any history. Tolerating tube feeds. No diarrhea has been reported. PHYSICAL EXAMINATION: Blood pressure 130/73 with a pulse of 122, temperature of 99.4. She is 99% on 30% FiO2. General description is a middle-aged female lying in bed in no distress. Respiratory system: Unlabored breathing, decreased breath sounds in the bases. No wheeze. Heart: S1, S2. Regular rate and rhythm. Abdomen soft, no tenderness. LABS: Hemoglobin is 10.8, white count 9.7, BUN of 13, creatinine 0.28. DIAGNOSTIC IMPRESSION AND PLAN: Patient with mental status changes which is multifactorial in this patient who did have a possible component of aspiration pneumonia and ESBL E coli UTI. Currently covered with meropenem, to continue and monitor clinical course closely. MMODL / IJN: [id number] /
[2020-02-03 23:44] LABS: Glucose,Whole Blood 112 mg/dL (75-99)
[2020-02-04] MEDS: SODIUM CHLORIDE 0.9% 1,000 ML IV SCH ×2 (03:25→09:34)
[2020-02-04 06:03] LABS: ABG Base Excess -0.4 mmol/L; ABG HCO3 22 mmol/L (21-25); ABG Oxygen Saturation 98.3 % (94-97); ABG PCO2 27 mmHg (35-45); ABG PH 7.53 (7.35-7.45); ABG PO2 98 mmHg (83-108); ABG TCO2 23 mmol/L (19-24); Allen Test Performed? Yes
[2020-02-04 06:15] LABS: Glucose,Whole Blood 117 mg/dL (75-99)
[2020-02-04 06:20] LABS: Basophils % (A) 0 %; Eosinophils # (A) 0.2 k/uL (0-0.7); Eosinophils % (A) 2 %; HCT 29.5 % (34.0-46.0); HGB 9.5 gm/dL (11.4-16.0); Lymphocytes # (A) 0.8 k/uL (1.0-4.8); Lymphocytes % (A) 7 %; MCH 30.9 pg (25.0-35.0); MCHC 32.3 g/dL (31.0-37.0); MCV 95.5 fL (80.0-100.0); Mean Platelet Volume 7.6; Monocytes # (A) 0.5 k/uL (0-1.0); Monocytes % (A) 4 %; Neutrophils # (A) 9.6 k/uL (1.3-7.7); Neutrophils % (A) 85 %; Platelet Count 442 k/uL (150-450); RBC 3.09 m/uL (3.80-5.40); RDW 14.1 % (11.5-15.5); WBC 11.3 k/uL (3.8-10.6)
[2020-02-04] MEDS: MEROPENEM 1 GM in SODIUM CHLORIDE 0.9% 100 ML IVPB SCH ×2 (06:26→15:09)
[2020-02-04] MEDS: INSULIN ASPART (NovoLOG) 100 UNIT/ML VIAL SQ SCH ×3 (06:28→18:33)
[2020-02-04 06:31] LABS: ALT 70 U/L (4-34); AST 92 U/L (14-36); African American GFR (CKD) >90 (>60 ml/min/1.73 sqM); Albumin 2.3 g/dL (3.5-5.0); Alkaline Phosphatase 164 U/L (38-126); Anion Gap 3 mmol/L; Blood Urea Nitrogen 11 mg/dL (7-17); Calcium 7.1 mg/dL (8.4-10.2); Carbon Dioxide 22 mmol/L (22-30); Chloride 111 mmol/L (98-107); Glucose 111 mg/dL (74-99); Non-African American GFR(CKD) >90 (>60 ml/min/1.73 sqM); Potassium 3.5 mmol/L (3.5-5.1); Sodium 136 mmol/L (137-145); Total Bilirubin 0.4 mg/dL (0.2-1.3); Total Protein 4.9 g/dL (6.3-8.2)
[2020-02-04] MEDS: POTASSIUM CHLORIDE 20 MEQ in WATER FOR INJECTION 1 100ML.BAG IVPB SCH ×2 (06:50→09:07)
--- NOTE | 2020-02-04 07:29 | XR ---
EXAMINATION TYPE: XR chest 1V portable DATE OF EXAM: 02/04/2020 COMPARISON: 02/03/2020 HISTORY: SOB, Follow Up FINDINGS: Indwelling tubes and catheters are unchanged. Left basilar infiltrate and/or atelectasis with small effusion is slightly improved. Stable appearance of the cardio-mediastinal structures at this time. IMPRESSION: 1. Left basilar infiltrate and/or atelectasis with small effusion is slightly improved. Clinical co rrelation and follow up until resolution is recommended.
[2020-02-04] MEDS ORDERED: ASPIRIN 300 MG SUPP RECTAL SCH (09:00)
[2020-02-04] MEDS: LEVOTHYROXINE IVP 100 MCG/5 ML VIAL IV SCH (09:09)
[2020-02-04] MEDS: levETIRAcetam IV 500 MG in SODIUM CHLORIDE 0.9% 100 ML IVPB SCH ×2 (09:09→20:32)
[2020-02-04] MEDS: CHLORHEXIDINE GLUCONATE 15 ML CUP MUCOUS MEM SCH ×2 (09:09→20:32)
[2020-02-04] MEDS: PANTOPRAZOLE 40 MG/10 ML VIAL IVP SCH (09:10)
[2020-02-04] MEDS: amLODIPine 2.5 MG TAB PO SCH (09:10)
[2020-02-04] MEDS: ASPIRIN 325 MG TAB PO SCH (09:10)
[2020-02-04] MEDS: ESCITALOPRAM 20 MG TAB PO SCH (09:10)
[2020-02-04] MEDS: fentaNYL (PF) 50 MCG/ML 2 ML AMP IVP PRN ×2 (10:29→15:40)
[2020-02-04 11:59] LABS: Glucose,Whole Blood 131 mg/dL (75-99)
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
--- NOTE | 2020-02-04 13:01 | PN ---
PROGRESS NOTE DATE OF DICTATION: 02/04/2020 REQUESTING PHYSICIAN: Dr. Cao The patient is a 59-year-old, pleasant, white female admitted to the hospital with altered mental status and possible CVA and remains intubated and on the vent with altered mental status for the last 12 days duration. Sedation has been stopped for six days and still continues to remain lethargic and not responding appropriately and, hence, she underwent J-tube placement as well as tracheostomy done a few days ago. She was noted to have slightly elevated ammonia level at the time of admission to the hospital and, hence, there was question of hepatic encephalopathy. However, serum transaminases are minimally elevated throughout hospitalization. No history of chronic liver disease that was diagnosed in the past. Ammonia level was repeated today, which was less than 9. She continues to remain on oral lactulose. PHYSICAL EXAMINATION: She remains on the vent with a tracheostomy in place. T-max is 100.1, blood pressure 141/91, pulse rate 98, and respirations 34. HEENT: Unremarkable. Conjunctivae pink. Sclerae anicteric. Oral cavity, no lesions. NECK: No JVD or lymph node enlargement. There was tracheostomy in place. CHEST: Clear to auscultation. HEART: Regular rate and rhythm. ABDOMEN: Soft. J-tube in place. EXTREMITIES: No pedal edema. NEUROLOGIC: Slightly responsive to verbal stimuli. LABS: From today, WBC 11.3, hemoglobin 9.5, platelets normal. Basic metabolic panel is within normal limits. AST and ALT are 92 and 70 respectively. Total bilirubin and alkaline phosphatase are within normal limits. Serologies for hepatitis A, B, and C were negative. COVID was negative. IMPRESSION: 1. Mild elevation of serum transaminases, which continued to remain stable during the entire hospitalization. Clinically, no evidence of chronic liver disease. She was noted to have mild elevation of ammonia at the time of admission to the hospital and has been maintained on lactulose since then and ammonia has been less than 9. She may have underlying chronic liver disease but doubt hepatic encephalopathy as the only contributing factor to the altered mental status. 2. Altered mental status secondary to metabolic encephalopathy. 3. Acute respiratory failure with possible aspiration pneumonia, remains on the vent with a tracheostomy in place. 4. History of J-tube placement, presently on J-tube feeds, tolerating well. MMODL / IJN: [id number] /
--- NOTE | 2020-02-04 15:06 | P.PN ---
Subjective Progress Note Date: 02/04/20 CHIEF COMPLAINT: CVA HISTORY OF PRESENT ILLNESS: Patient examined at the bedside. Patient is status post trach and jejunostomy. Tube feedings are infusing. Patient tolerating well. PHYSICAL EXAM: VITAL SIGNS: Reviewed. GENERAL: Well-developed in no acute distress. HEENT: Trach intact. No sclera icterus. Extraocular movements grossly intact. Moist buccal mucosa. Head is atraumatic, normocephalic. ABDOMEN: Soft. Nondistended. Nontender. J-tube noted. NEUROLOGIC: Not thoroughly examined. ASSESSMENT: 1. CVA 2. Acute hypoxic respiratory failure PLAN: -Continue tube feeds via J-tube as tolerated Nurse practitioner note has been reviewed by physician. Signing provider agrees with the documented findings, assessment, and plan of care. Objective - Vital Signs Vital signs: Vital Signs Temp 99.7 F H 02/04/20 12:00 Pulse 91 02/04/20 12:00 Resp 32 H 02/04/20 12:00 BP 93/62 02/04/20 12:00 Pulse Ox 99 02/04/20 12:00 Intake & Output 02/03/20 02/04/20 02/04/20 18:59 06:59 18:59 Intake Total 1600 1553 1210 Output Total 785 755 615 Balance 815 798 595 Weight 77.1 kg 76.3 kg Intake: IV 1136 1103 450 Art line flush 36 3 Meropenem 1 gm In Sodium 100 200 Chloride 0.9% 100 ml @ 200 mls/hr IVPB Q8H [facility] Rx#:[id number] Sodium Chloride 0.9% 1, 900 900 450 000 ml @ 75 mls/hr IV . [id number] [facility] Rx#:[id number] levETIRAcetam IV 250 mg 100 In Sodium Chloride 0.9% 100 ml @ 400 mls/hr IVPB Q12H [facility] Rx#:[id number] Intake, IV Titration 254 Amount Norepinephrine 4 mg In 254 Sodium Chloride 0.9% 250 ml @ 0.05 MCG/KG/MIN 16. 383 mls/hr IV .[id number] [facility] Rx#:[id number] Tube Feeding 120 360 460 Other 90 90 300 Output: Urine 785 755 615 Other: Voiding Method Indwelling Catheter Indwelling Catheter Indwelling Catheter ABP, PAP, CO, CI - Last Documented Arterial Blood Pressure 94/79 - Labs CBC & Chem 7: 02/04/20 06:00 02/04/20 06:00 Labs: Abnormal Lab Results - Last 24 Hours (Table) 02/03/20 02/03/20 02/04/20 Range/Units 17:12 23:43 06:00 WBC 11.3 H (3.8-10.6) k/uL RBC 3.09 L (3.80-5.40) m/uL Hgb 9.5 L (11.4-16.0) gm/dL Hct 29.5 L (34.0-46.0) % Neutrophils # 9.6 H (1.3-7.7) k/uL Lymphocytes # 0.8 L (1.0-4.8) k/uL ABG pH (7.35-7.45) ABG pCO2 (35-45) mmHg ABG O2 Saturation (94-97) % Sodium (137-145) mmol/L Chloride (98-107) mmol/L Creatinine (0.52-1.04) mg/dL Glucose (74-99) mg/dL POC Glucose (mg/dL) 106 H 112 H (75-99) mg/dL Calcium (8.4-10.2) mg/dL AST (14-36) U/L ALT (4-34) U/L Alkaline Phosphatase (38-126) U/L Total Protein (6.3-8.2) g/dL Albumin (3.5-5.0) g/dL 02/04/20 02/04/20 02/04/20 Range/Units 06:00 06:02 06:13 WBC (3.8-10.6) k/uL RBC (3.80-5.40) m/uL Hgb (11.4-16.0) gm/dL Hct (34.0-46.0) % Neutrophils # (1.3-7.7) k/uL Lymphocytes # (1.0-4.8) k/uL ABG pH 7.53 H (7.35-7.45) ABG pCO2 27 L (35-45) mmHg ABG O2 Saturation 98.3 H (94-97) % Sodium 136 L (137-145) mmol/L Chloride 111 H (98-107) mmol/L Creatinine 0.31 L (0.52-1.04) mg/dL Glucose 111 H (74-99) mg/dL POC Glucose (mg/dL) 117 H (75-99) mg/dL Calcium 7.1 L (8.4-10.2) mg/dL AST 92 H (14-36) U/L ALT 70 H (4-34) U/L Alkaline Phosphatase 164 H (38-126) U/L Total Protein 4.9 L (6.3-8.2) g/dL Albumin 2.3 L (3.5-5.0) g/dL 02/04/20 Range/Units 11:57 WBC (3.8-10.6) k/uL RBC (3.80-5.40) m/uL Hgb (11.4-16.0) gm/dL Hct (34.0-46.0) % Neutrophils # (1.3-7.7) k/uL Lymphocytes # (1.0-4.8) k/uL ABG pH (7.35-7.45) ABG pCO2 (35-45) mmHg ABG O2 Saturation (94-97) % Sodium (137-145) mmol/L Chloride (98-107) mmol/L Creatinine (0.52-1.04) mg/dL Glucose (74-99) mg/dL POC Glucose (mg/dL) 131 H (75-99) mg/dL Calcium (8.4-10.2) mg/dL AST (14-36) U/L ALT (4-34) U/L Alkaline Phosphatase (38-126) U/L Total Protein (6.3-8.2) g/dL Albumin (3.5-5.0) g/dL Microbiology - Last 24 Hours (Table) 01/25/20 14:08 Blood Fungal Culture - Preliminary Blood
--- NOTE | 2020-02-04 16:50 | P.PN ---
Subjective Progress Note Date: 02/04/20 (delayed charting seen at 1100) Principal diagnosis: altered mentation Patient is a 59-year-old female with a past medical history of stroke, multiple falls, chronic pain, and prior John-en-Y gastric bypass who presented to the ER via EMS with confusion. On presentation to the ER code stroke was called and he was noted to be hypertensive with a blood pressure 166/118. CT of the head was performed was negative for any acute intracranial abnormality but indicated mild bifrontal atrophy, CTA of the neck indicated a known dissection of the left ICA extending into the vertical history as segment without any critical ICA stenosis, there was no large vessel or intracranial occlusion or aneurysmal change. The ER physician contacted Dr. Schulte of the ID stroke ne twork who recommended admission to our facility. She was also found to have elevated LFTs and history of schizoaffective disorder. She was seen by neurology and was felt to have signs suspicious for complex partial seizures stat MRI of the brain was ordered this indicated no acute infarction, midline shift, or mass effect. She was noted to have hypo-intensity along cranial aspect of the central sulcus on the right, mild burden of nonspecific white matter changes most likely due to chronic microangiopathy. She was given a stat dose of Keppra IV. Echocardiogram was ordered which showed an EF of 55-60% without any significant valvular disease, moderate pulmonary hypertension. Overnight on 01/23 the patient became less responsive. She was noted to have a stiff neck. There is concern for possible partial seizure, catatonia, or neuroleptic malignant syndrome. Cardiology was consulted for accelerated hypertension and they recommended adding Norvasc. Her Coumadin was held secondary to needing an LP. She was seen by psychiatry who felt that she likely had delirium secondary to CVA versus seizures versus UTI. EEG demonstrated an abnormal focus involving the right hemisphere and abnormal activity in the bifrontal lobes and neurology suggested continuing Keppra. On 01/24 the patient had an NG tube ordered secondary to poor nutritional intake. She did develop a significant nosebleed. She became hypoxic and subsequently required intubation. Her Keppra and Synthroid were transitioned to IV. She was also started on Zosyn for concern for aspiration pneumonia. 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 LP obtained which showed benign CSF. Infectious disease consulted who was concerned for aspiration PNA and UTI and agreed with Zosyn. 01/27 reevaluated by neurology off sedation for multiple hours and not following commands. Dilantin was added to her keppra and ASA was recommended for her ICA dissection. By 01/28 she had been off sedation for 24 hours and still did not show any neurologic improvement. Repeat EEG on 01/27 neurology was concerned for hepatic encephalopathy and patient was started on lactulose. Urine culture showed ESBL E Coli and her Zosyn was transitioned to Merrem. SHe was tested for CVOID and Flu A/B all of which were negative. GI was consulted for elevated liver enzymes and stated possible hepa tic encephalopathy, hepatitis profile negative. Trach completed on 01/31/2020. EEG from 01/30 had slight improvement and less triphasic waves. J-tube placed . She was reevaluated by psychiatry 02/01/20 for but she did not meet criteria for inpatient psychiatric admission and did not recommended adding Lexapro or Zyprexa. She did have an increase in wakefullness on 02/02 but was not purposefully following commands. Weaning: Attempted for a few minutes without success 02/01, able to tolerate 9 hours 02/02. Patient seen and examined at bedside just received Fentanyl. Sleeping opens eyes to verbal stimuli but immediately falls back sleep. Per nursing no acute events overnight. Objective - Vital Signs Vital signs: Vital Signs Temp 99.7 F H 02/04/20 12:00 Pulse 95 02/04/20 15:00 Resp 36 H 02/04/20 15:00 BP 127/87 02/04/20 15:00 Pulse Ox 98 02/04/20 15:00 Intake & Output 02/03/20 02/04/20 02/04/20 18:59 06:59 18:59 Intake Total 1600 1553 1535 Output Total 785 755 815 Balance 815 798 720 Weight 77.1 kg 76.3 kg Intake: IV 1136 1103 775 Art line flush 36 3 Meropenem 1 gm In Sodium 100 200 100 Chloride 0.9% 100 ml @ 200 mls/hr IVPB Q8H [facility] Rx#:[id number] Sodium Chloride 0.9% 1, 900 900 675 000 ml @ 75 mls/hr IV . [id number] [facility] Rx#:[id number] levETIRAcetam IV 250 mg 100 In Sodium Chloride 0.9% 100 ml @ 400 mls/hr IVPB Q12H [facility] Rx#:[id number] Intake, IV Titration 254 Amount Norepinephrine 4 mg In 254 Sodium Chloride 0.9% 250 ml @ 0.05 MCG/KG/MIN 16. 383 mls/hr IV .[id number] [facility] Rx#:[id number] Tube Feeding 120 360 460 Other 90 90 300 Output: Urine 785 755 815 Other: Voiding Method Indwelling Catheter Indwelling Catheter Indwelling Catheter ABP, PAP, CO, CI - Last Documented Arterial Blood Pressure 94/79 - Exam General:non toxic, no distress, appears at stated age Derm: warm, dry Head: atraumatic, normocephalic, symmetric Eyes: EOMI, no lid lag, anicteric sclera Mouth: no lip lesion, mucus membranes dry, trach in place Cardiovascular: S1S2 reg, no murmur, positive posterior tibial pulse bilateral, Lungs: Coarse breath sounds bilateral, no rhonchi, no rales , no accessory m uscle use, on vent Abdominal: soft, nontender to palpation, no guarding, no appreciable organomegaly Ext: no gross muscle atrophy, diffuse anasarca, no contractures Neuro: opens eyes to verbal stimuli but immediately falls back asleep. Psych: Eyes open, not tracking, not following commands - Labs CBC & Chem 7: 02/04/20 06:00 02/04/20 06:00 Labs: Abnormal Lab Results - Last 24 Hours (Table) 02/03/20 02/03/20 02/04/20 Range/Units 17:12 23:43 06:00 WBC 11.3 H (3.8-10.6) k/uL RBC 3.09 L (3.80-5.40) m/uL Hgb 9.5 L (11.4-16.0) gm/dL Hct 29.5 L (34.0-46.0) % Neutrophils # 9.6 H (1.3-7.7) k/uL Lymphocytes # 0.8 L (1.0-4.8) k/uL ABG pH (7.35-7.45) ABG pCO2 (35-45) mmHg ABG O2 Saturation (94-97) % Sodium (137-145) mmol/L Chloride (98-107) mmol/L Creatinine (0.52-1.04) mg/dL Glucose (74-99) mg/dL POC Glucose (mg/dL) 106 H 112 H (75-99) mg/dL Calcium (8.4-10.2) mg/dL AST (14-36) U/L ALT (4-34) U/L Alkaline Phosphatase (38-126) U/L Total Protein (6.3-8.2) g/dL Albumin (3.5-5.0) g/dL 02/04/20 02/04/20 02/04/20 Range/Units 06:00 06:02 06:13 WBC (3.8-10.6) k/uL RBC (3.80-5.40) m/uL Hgb (11.4-16.0) gm/dL Hct (34.0-46.0) % Neutrophils # (1.3-7.7) k/uL Lymphocytes # (1.0-4.8) k/uL ABG pH 7.53 H (7.35-7.45) ABG pCO2 27 L (35-45) mmHg ABG O2 Saturation 98.3 H (94-97) % Sodium 136 L (137-145) mmol/L Chloride 111 H (98-107) mmol/L Creatinine 0.31 L (0.52-1.04) mg/dL Glucose 111 H (74-99) mg/dL POC Glucose (mg/dL) 117 H (75-99) mg/dL Calcium 7.1 L (8.4-10.2) mg/dL AST 92 H (14-36) U/L ALT 70 H (4-34) U/L Alkaline Phosphatase 164 H (38-126) U/L Total Protein 4.9 L (6.3-8.2) g/dL Albumin 2.3 L (3.5-5.0) g/dL 02/04/20 Range/Units 11:57 WBC (3.8-10.6) k/uL RBC (3.80-5.40) m/uL Hgb (11.4-16.0) gm/dL Hct (34.0-46.0) % Neutrophils # (1.3-7.7) k/uL Lymphocytes # (1.0-4.8) k/uL ABG pH (7.35-7.45) ABG pCO2 (35-45) mmHg ABG O2 Saturation (94-97) % Sodium (137-145) mmol/L Chloride (98-107) mmol/L Creatinine (0.52-1.04) mg/dL Glucose (74-99) mg/dL POC Glucose (mg/dL) 131 H (75-99) mg/dL Calcium (8.4-10.2) mg/dL AST (14-36) U/L ALT (4-34) U/L Alkaline Phosphatase (38-126) U/L Total Protein (6.3-8.2) g/dL Albumin (3.5-5.0) g/dL Microbiology - Last 24 Hours (Table) 01/25/20 14:08 Blood Fungal Culture - Preliminary Blood Assessment and Plan Assessment: Acute hypoxic respiratory failure secondary to aspiration pneumonia requiring ventilator support -Vent management per pulmonary continue CPAP trials -ID recommendations appreciated -Continue with meropenem -Pulmonary hygiene -Sputum culture with normal respiratory geoffrey Acute toxic/metabolic encephalopathy with unclear etiology -Per neurology EEG appears consistent with hepatic encephalopathy, on lactulose with minimal improvements. - D/w neurology feels that she has had slow improvement and may continue to improve over time and would benefit from LTAC with continued weaning and tincture of time. -On Keppra for possible seizure (was given trail of dilantin in addition but this has been removed) -CSF fluid culture negative -Neurology recommendations appreciated, await re-eval today ESBL urinary tract infection -Continue with meropenem D # 9 - ID recs Chronic left carotid dissection - was on coumadin per neuro can be on ASA now - rectal ASA Dyslipidemia - resume via J-tube Schizoaffective disorder and PTSD - psych recs appreciated - unable to have oral meds and lexapro not indicated at this time Hypothyroidism -change to PO Mild transaminitis, undetermined etiology - follow liver enyzmes. Patient has had slow continued improvement, She has complete 2 weaning trials, Awake and improving DVT prophylaxis: Lovenox Discussed with: Nursing Anticipated discharge: 1-[address]: LTAC A total of 35 minutes was spent on the care of this complex patient more than 50% of the time was spent in counseling and care coordination.
[2020-02-04 18:32] LABS: Glucose,Whole Blood 141 mg/dL (75-99)
[2020-02-04] MEDS: ATORVASTATIN 40 MG TAB PEJ/J-Tube SCH (20:32)
[2020-02-04] MEDS: ENOXAPARIN 40 MG/0.4 ML SYRINGE SQ SCH (20:32)
--- NOTE | 2020-02-04 21:59 | PN ---
PROGRESS NOTE DATE OF SERVICE: 02/04/2020 REASON FOR FOLLOWUP: Aspiration pneumonia and ESBL E coli urinary tract infection. INTERVAL HISTORY: The patient is currently afebrile. She was noticed to be slightly more responsive today as did she moved around her head to her name but did not communicate any further. Has been tolerating her tube feeds and no diarrhea has been reported. PHYSICAL EXAMINATION: On examination, her blood pressure is 108/59 with a pulse of 75. Temperature is 98, she is 99% on 30% FiO2. General description is a middle-aged female lying in bed in no distress. Respiratory system: Unlabored breathing, decreased breath sounds at the bases. No wheeze. HEART: S1, S2. Regular rate and rhythm. Abdomen soft, no tenderness. LABS: Hemoglobin 9.5, white count 9.3, BUN of 11, creatinine 0.31. DIAGNOSTIC IMPRESSION AND PLAN: Patient with acute respiratory failure which is likely multifactorial, possible component of aspiration pneumonitis in this patient who did have ESBL E coli in the urine. The patient is currently covered with meropenem to continue and we will monitor clinical course closely. MMODL / IJN: [id number] /
--- NOTE | 2020-02-04 22:00 | P.PN ---
Subjective Progress Note Date: 02/04/20 02/04/2020: Patient is very alert, awake, tracheostomy in place. Patient is making eye contact, trying to communicate with head, nodding appropriately. Patient following commands, trying to moving arms and legs. Patient appears diffusely weak, but still able to comprehend and follow directions. 02/01/2020: Patient showing slight but definite clinical improvement. She tried to open her eyes when I called her name. She then closed her eyes. After I manually opened her eyes, she held her eyes open appeared much more awake. Still not much tracking or following commands. 01/31/2020: Patient had undergone track and PEG today. She has very minimally responded to calling her name loudly with minimal trying to open the eyes. Otherwise no change. She is off sedation since 01/28/2020. 01/30/2020: Patient continues to be comatose. Not responding to vocal or painful stimuli. Patient continues to have some twitching of her eyelids on manually opening the eyelids. No twitching of the eyes. No twitching of facial muscles, or extremities. No obvious seizure noted by the staff. Patient's liver ultrasound showed liver appears course and low [place]. Underlying cirrhotic liver disease is not excluded. Dilated common bile duct 1 cm. Gallbladder not well visualized. Patient's liver functions shows worsening pattern with AST 87 (62 yesterday), ALT 86 (70 yesterday). Repeat ammonia level normal 27. CPK and temperature is normal, therefore doubt NMS. Patient has been seen by gastroenterology, who does not feel symptoms are completely explained by hepatic encephalopathy although may be a component of hepatic encephalopathy. Patient is a 59-year-old female admitted to the hospital on 01/23/2020 for strokelike symptoms. She was having difficulty with manipulating remote control for the TV and according to the EMS also had difficulty speaking on the morning of admission. CT head showed mild bifrontal atrophy. CTA of the neck showed bovine configuration to the aortic arch. No dissection of the upper cervical left ICA extending into the vertical petrous segment. There is similar enhancement within both lumens without arterial occlusion. No significant ICA stenosis. Dominant left vertebral artery. CT of the brain showed nondominant V4 segment right vertebral artery becomes very hypoplastic, possibly terminating as a PICA branch. No continuation of the patient's known left ICA dissection beyond the petrous segment. No large vessel intercranial arterial occlusion or aneurysmal change. Patient had a repeat CTA of head and neck on 01/26/2020 again revealed the visualization of the patient's known distal left ICA dissection. Diminutive right vertebral artery. Borderline appearance of the aortic arch. 2-D echo showed moderate concentric LVH, EF 55-60%. Left atrium is moderately dilated. Moderate MR, TR. MRI of the brain showed no acute process. T2/FLAIR hypointensity along the cranial aspect of the central sulcus on the right when correlated with the CT of the same date could represent hemosiderin deposition from old chronic subarachnoid hemorrhage or prominent draining veins. Patient's blood test shows normal WBC 9.7 hemoglobin 11.1 PT/PTT normal. Sodium 148, potassium 3.6, renal functions with BUN 26, creatinine 0.49. A1c 6.3, AST is 47, ALT 61 both elevated. Ammonia is <9. TSH is mildly low 0.226, free T4 normal. Prolactin mildly elevated 37.0, B12 627. Folate 18.0. Total cholesterol 133, LDL 46, HDL 77 and triglycerides 48. CSF protein is normal 29, glucose 75, WBC 0, RBC 2. Viral panel negative including HSV 1, and HSV 2, varicella-zoster, CMV, adenovirus and enterovirus. Urine drug screen positive for methamphetamine. Patient is off sedation since 10:30 AM yesterday. Patient still not showing any clinical improvement. She is not following any commands. Please refer to examination below. Objective - Vital Signs Vital signs: Vital Signs Temp 99.7 F H 02/04/20 12:00 Pulse 97 02/04/20 19:00 Resp 28 H 02/04/20 19:00 BP 121/64 02/04/20 19:00 Pulse Ox 100 02/04/20 19:00 Intake & Output 02/04/20 02/04/20 02/05/20 06:59 18:59 06:59 Intake Total 1553 2045 75 Output Total 755 920 100 Balance 798 1125 -25 Weight 76.3 kg Intake: IV 1103 925 75 Art line flush 3 Meropenem 1 gm In Sodium 200 100 Chloride 0.9% 100 ml @ 200 mls/hr IVPB Q8H [facility] Rx#:[id number] Sodium Chloride 0.9% 1, 900 825 75 000 ml @ 75 mls/hr IV . [id number] [facility] Rx#:[id number] Tube Feeding 360 620 Other 90 500 Output: Urine 755 920 100 Other: Voiding Method Indwelling Catheter Indwelling Catheter ABP, PAP, CO, CI - Last Documented Arterial Blood Pressure 94/79 - Exam On examination patient is showing remarkable clinical improvement. Very much alert and awake, following commands, making eye contact, nodding appropriately. Appears generalized weak. - Labs CBC & Chem 7: 02/04/20 06:00 02/04/20 06:00 Labs: Abnormal Lab Results - Last 24 Hours (Table) 02/03/20 02/04/20 02/04/20 Range/Units 23:43 06:00 06:00 WBC 11.3 H (3.8-10.6) k/uL RBC 3.09 L (3.80-5.40) m/uL Hgb 9.5 L (11.4-16.0) gm/dL Hct 29.5 L (34.0-46.0) % Neutrophils # 9.6 H (1.3-7.7) k/uL Lymphocytes # 0.8 L (1.0-4.8) k/uL ABG pH (7.35-7.45) ABG pCO2 (35-45) mmHg ABG O2 Saturation (94-97) % Sodium 136 L (137-145) mmol/L Chloride 111 H (98-107) mmol/L Creatinine 0.31 L (0.52-1.04) mg/dL Glucose 111 H (74-99) mg/dL POC Glucose (mg/dL) 112 H (75-99) mg/dL Calcium 7.1 L (8.4-10.2) mg/dL AST 92 H (14-36) U/L ALT 70 H (4-34) U/L Alkaline Phosphatase 164 H (38-126) U/L Total Protein 4.9 L (6.3-8.2) g/dL Albumin 2.3 L (3.5-5.0) g/dL 02/04/20 02/04/20 02/04/20 Range/Units 06:02 06:13 11:57 WBC (3.8-10.6) k/uL RBC (3.80-5.40) m/uL Hgb (11.4-16.0) gm/dL Hct (34.0-46.0) % Neutrophils # (1.3-7.7) k/uL Lymphocytes # (1.0-4.8) k/uL ABG pH 7.53 H (7.35-7.45) ABG pCO2 27 L (35-45) mmHg ABG O2 Saturation 98.3 H (94-97) % Sodium (137-145) mmol/L Chloride (98-107) mmol/L Creatinine (0.52-1.04) mg/dL Glucose (74-99) mg/dL POC Glucose (mg/dL) 117 H 131 H (75-99) mg/dL Calcium (8.4-10.2) mg/dL AST (14-36) U/L ALT (4-34) U/L Alkaline Phosphatase (38-126) U/L Total Protein (6.3-8.2) g/dL Albumin (3.5-5.0) g/dL 02/04/20 Range/Units 18:30 WBC (3.8-10.6) k/uL RBC (3.80-5.40) m/uL Hgb (11.4-16.0) gm/dL Hct (34.0-46.0) % Neutrophils # (1.3-7.7) k/uL Lymphocytes # (1.0-4.8) k/uL ABG pH (7.35-7.45) ABG pCO2 (35-45) mmHg ABG O2 Saturation (94-97) % Sodium (137-145) mmol/L Chloride (98-107) mmol/L Creatinine (0.52-1.04) mg/dL Glucose (74-99) mg/dL POC Glucose (mg/dL) 141 H (75-99) mg/dL Calcium (8.4-10.2) mg/dL AST (14-36) U/L ALT (4-34) U/L Alkaline Phosphatase (38-126) U/L Total Protein (6.3-8.2) g/dL Albumin (3.5-5.0) g/dL Microbiology - Last 24 Hours (Table) 01/25/20 14:08 Blood Fungal Culture - Preliminary Blood Assessment and Plan Assessment: * Acute encephalopathy, probably hepatic encephalopathy/hepatic coma. Patient has triphasic waves seen on the EEG, which is classically seen with hepatic encephalopathy. Patient has persistently abnormal LFTs. * Patient's encephalopathy remarkably improved. Patient is quite alert and awake, following commands. * History of left ICA dissection. Patient was on Coumadin. Plan: * Patient is remarkably improved as compared to the last examination from Tuesday. Patient is alert awake, following commands, makes eye contact. Trying to move all 4 extremities on command. Prognosis appears good. * Patient is status post trach and PEG 01/31/2020.. * Patient's LFTs continues to be elevated. Hepatitis panel negative, ramirez virus PCR negative. Influenza negative. Ammonia is normal. * Continue lactulose, patient receiving it rectally. * Continue aspirin 81 mg daily due to her history of left ICA dissection for stroke prevention. * We will follow.
[2020-02-04 23:51] LABS: Glucose,Whole Blood 140 mg/dL (75-99)
[2020-02-05] MEDS: INSULIN ASPART (NovoLOG) 100 UNIT/ML VIAL SQ SCH ×4 (00:25→17:52)
[2020-02-05] MEDS: MEROPENEM 1 GM in SODIUM CHLORIDE 0.9% 100 ML IVPB SCH ×3 (00:25→15:15)
[2020-02-05 04:58] LABS: ABG Base Excess -0.3 mmol/L; ABG HCO3 23 mmol/L (21-25); ABG Oxygen Saturation 98.4 % (94-97); ABG PCO2 31 mmHg (35-45); ABG PH 7.48 (7.35-7.45); ABG PO2 113 mmHg (83-108); ABG TCO2 24 mmol/L (19-24); Allen Test Performed? Yes
[2020-02-05 05:28] LABS: Basophils % (A) 0 %; Eosinophils # (A) 0.2 k/uL (0-0.7); Eosinophils % (A) 2 %; HCT 28.8 % (34.0-46.0); HGB 9.4 gm/dL (11.4-16.0); Lymphocytes # (A) 0.9 k/uL (1.0-4.8); Lymphocytes % (A) 9 %; MCH 31.6 pg (25.0-35.0); MCHC 32.8 g/dL (31.0-37.0); MCV 96.3 fL (80.0-100.0); Mean Platelet Volume 7.5; Monocytes # (A) 0.5 k/uL (0-1.0); Monocytes % (A) 5 %; Neutrophils # (A) 8.6 k/uL (1.3-7.7); Neutrophils % (A) 82 %; Platelet Count 460 k/uL (150-450); RBC 2.99 m/uL (3.80-5.40); RDW 13.9 % (11.5-15.5); WBC 10.5 k/uL (3.8-10.6)
[2020-02-05 05:45] LABS: Sodium 135 mmol/L (137-145)
[2020-02-05 05:46] LABS: ALT 57 U/L (4-34); AST 62 U/L (14-36); African American GFR (CKD) >90 (>60 ml/min/1.73 sqM); Albumin 2.3 g/dL (3.5-5.0); Alkaline Phosphatase 136 U/L (38-126); Anion Gap 2 mmol/L; Blood Urea Nitrogen 10 mg/dL (7-17); Calcium 7.2 mg/dL (8.4-10.2); Carbon Dioxide 24 mmol/L (22-30); Chloride 109 mmol/L (98-107); Glucose 125 mg/dL (74-99); Non-African American GFR(CKD) >90 (>60 ml/min/1.73 sqM); Potassium 3.9 mmol/L (3.5-5.1); Total Bilirubin 0.3 mg/dL (0.2-1.3); Total Protein 4.8 g/dL (6.3-8.2)
[2020-02-05] MEDS: SODIUM CHLORIDE 0.9% 1,000 ML IV SCH ×2 (06:21→17:52)
[2020-02-05] MEDS: LEVOTHYROXINE 50 MCG TAB PEJ/J-Tube SCH (06:33)
[2020-02-05] MEDS ORDERED: POTASSIUM BICARBONATE/CIT AC 20 MEQ TABLET.EFF NG-TUBE SCH (07:00)
--- NOTE | 2020-02-05 07:10 | XR ---
EXAMINATION TYPE: XR chest 1V portable DATE OF EXAM: 02/05/2020 COMPARISON: 02/04/2020 HISTORY: Shortness of breath TECHNIQUE: Single frontal view of the chest is obtained. FINDINGS: Tracheostomy tube and central line stable. Increased densities overlying the vertebral col umn could been the basis of previous vertebral plasty. A persistent left-sided infiltrate and small e ffusion. Underlying COPD suggested. No pneumothorax. Heart size stable. IMPRESSION: Stable left lower lobe infiltrate and small effusion.
[2020-02-05] MEDS: CHLORHEXIDINE GLUCONATE 15 ML CUP MUCOUS MEM SCH ×2 (08:56→19:49)
[2020-02-05] MEDS: amLODIPine 2.5 MG TAB PO SCH (08:56)
[2020-02-05] MEDS: ESCITALOPRAM 20 MG TAB PO SCH (08:56)
[2020-02-05] MEDS: ASPIRIN 325 MG TAB PO SCH (08:56)
[2020-02-05] MEDS: PANTOPRAZOLE 40 MG/10 ML VIAL IVP SCH (08:57)
[2020-02-05] MEDS: levETIRAcetam IV 500 MG in SODIUM CHLORIDE 0.9% 100 ML IVPB SCH ×2 (08:57→19:49)
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
[2020-02-05 11:26] LABS: Glucose,Whole Blood 139 mg/dL (75-99)
[2020-02-05 13:24] VITALS: BMI 26.4
--- NOTE | 2020-02-05 14:17 | P.PN ---
Subjective Progress Note Date: 02/05/20 CHIEF COMPLAINT: CVA HISTORY OF PRESENT ILLNESS: Patient examined at the bedside. Patient is status post trach and jejunostomy. Tube feedings are infusing. Patient tolerating well. PHYSICAL EXAM: VITAL SIGNS: Reviewed. GENERAL: Well-developed in no acute distress. HEENT: Trach intact. No sclera icterus. Extraocular movements grossly intact. Moist buccal mucosa. Head is atraumatic, normocephalic. ABDOMEN: Soft. Nondistended. Nontender. J-tube noted. NEUROLOGIC: Not thoroughly examined. ASSESSMENT: 1. CVA 2. Acute hypoxic respiratory failure PLAN: -Continue tube feeds via J-tube as tolerated -No meds to be given down J tube per Dr. Garcia Nurse practitioner note has been reviewed by physician. Signing provider agrees with the documented findings, assessment, and plan of care. Objective - Vital Signs Vital signs: Vital Signs Temp 99 F 02/05/20 08:00 Pulse 86 02/05/20 09:00 Resp 21 02/05/20 09:00 BP 129/77 02/05/20 09:00 Pulse Ox 97 02/05/20 09:00 Intake & Output 02/04/20 02/05/20 02/05/20 18:59 06:59 18:59 Intake Total 2045 1638 699 Output Total 920 815 255 Balance 1125 823 444 Weight 72.1 kg 72.1 kg Intake: IV 925 1000 225 Meropenem 1 gm In Sodium 100 100 Chloride 0.9% 100 ml @ 200 mls/hr IVPB Q8H [facility] Rx#:[id number] Sodium Chloride 0.9% 1, 825 900 225 000 ml @ 75 mls/hr IV . [id number] [facility] Rx#:[id number] Intake, IV Titration 100 100 Amount levETIRAcetam IV 500 mg 100 100 In Sodium Chloride 0.9% 100 ml @ 400 mls/hr IVPB Q12HR [facility] Rx#:[id number] Tube Feeding 620 538 174 Other 500 200 Output: Urine 920 815 255 Other: Voiding Method Indwelling Catheter Indwelling Catheter Indwelling Catheter ABP, PAP, CO, CI - Last Documented Arterial Blood Pressure 94/79 - Labs CBC & Chem 7: 02/05/20 05:15 02/05/20 05:15 Labs: Abnormal Lab Results - Last 24 Hours (Table) 02/04/20 02/04/20 02/05/20 Range/Units 18:30 23:50 04:56 RBC (3.80-5.40) m/uL Hgb (11.4-16.0) gm/dL Hct (34.0-46.0) % Plt Count (150-450) k/uL Neutrophils # (1.3-7.7) k/uL Lymphocytes # (1.0-4.8) k/uL ABG pH 7.48 H (7.35-7.45) ABG pCO2 31 L (35-45) mmHg ABG pO2 113 H (83-108) mmHg ABG O2 Saturation 98.4 H (94-97) % Sodium (137-145) mmol/L Chloride (98-107) mmol/L Creatinine (0.52-1.04) mg/dL Glucose (74-99) mg/dL POC Glucose (mg/dL) 141 H 140 H (75-99) mg/dL Calcium (8.4-10.2) mg/dL AST (14-36) U/L ALT (4-34) U/L Alkaline Phosphatase (38-126) U/L Total Protein (6.3-8.2) g/dL Albumin (3.5-5.0) g/dL 02/05/20 02/05/20 02/05/20 Range/Units 05:15 05:15 11:24 RBC 2.99 L (3.80-5.40) m/uL Hgb 9.4 L (11.4-16.0) gm/dL Hct 28.8 L (34.0-46.0) % Plt Count 460 H (150-450) k/uL Neutrophils # 8.6 H (1.3-7.7) k/uL Lymphocytes # 0.9 L (1.0-4.8) k/uL ABG pH (7.35-7.45) ABG pCO2 (35-45) mmHg ABG pO2 (83-108) mmHg ABG O2 Saturation (94-97) % Sodium 135 L (137-145) mmol/L Chloride 109 H (98-107) mmol/L Creatinine 0.28 L (0.52-1.04) mg/dL Glucose 125 H (74-99) mg/dL POC Glucose (mg/dL) 139 H (75-99) mg/dL Calcium 7.2 L (8.4-10.2) mg/dL AST 62 H (14-36) U/L ALT 57 H (4-34) U/L Alkaline Phosphatase 136 H (38-126) U/L Total Protein 4.8 L (6.3-8.2) g/dL Albumin 2.3 L (3.5-5.0) g/dL Microbiology - Last 24 Hours (Table) 01/25/20 14:08 Blood Fungal Culture - Preliminary Blood
--- NOTE | 2020-02-05 14:42 | P.PN ---
Subjective Progress Note Date: 02/05/20 02/05/2020: Patient more alert and awake. Patient following commands as she did yesterday. Still appears very generalized weak. Denies headache. Patient able to recognize the name of her grandson. No seizures reported. 02/04/2020: Patient is very alert, awake, tracheostomy in place. Patient is making eye contact, trying to communicate with head, nodding appropriately. Patient following commands, trying to moving arms and legs. Patient appears diffusely weak, but still able to comprehend and follow directions. 02/01/2020: Patient showing slight but definite clinical improvement. She tried to open her eyes when I called her name. She then closed her eyes. After I manually opened her eyes, she held her eyes open appeared much more awake. Still not much tracking or following commands. 01/31/2020: Patient had undergone track and PEG today. She has very minimally responded to calling her name loudly with minimal trying to open the eyes. Otherwise no munguia ge. She is off sedation since 01/28/2020. 01/30/2020: Patient continues to be comatose. Not responding to vocal or painful stimuli. Patient continues to have some twitching of her eyelids on manually opening the eyelids. No twitching of the eyes. No twitching of facial muscles, or extremities. No obvious seizure noted by the staff. Patient's liver ultrasound showed liver appears course and low Purcell. Underlying cirrhotic liver disease is not excluded. Dilated common bile duct 1 cm. Gallbladder not well visualized. Patient's liver functions shows worsening pattern with AST 87 (62 yesterday), ALT 86 (70 yesterday). Repeat ammonia level normal 27. CPK and temperature is normal, therefore doubt NMS. Patient has been seen by gastroenterology, who does not feel symptoms are completely explained by hepatic encephalopathy although may be a component of hepatic encephalopathy. Patient is a 59-year-old female admitted to the hospital on 01/23/2020 for strokelike symptoms. She was having difficulty with manipulating remote control for the TV and according to the EMS also had difficulty speaking on the morning of admission. CT head showed mild bifrontal atrophy. CTA of the neck showed bovine configuration to the aortic arch. No dissection of the upper cervical left ICA extending into the vertical petrous segment. There is similar enhancement within both lumens without arterial occlusion. No significant ICA stenosis. Dominant left vertebral artery. CT of the brain showed nondominant V4 segment right vertebral artery becomes very hypoplastic, possibly terminating as a PICA branch. No continuation of the patient's known left ICA dissection beyond the petrous segment. No large vessel intercranial arterial occlusion or aneurysmal change. Patient had a repeat CTA of head and neck on 01/26/2020 again revealed the visualization of the patient's known distal left ICA dissection. Diminutive right vertebral artery. Borderline appearance of the aortic arch. 2-D echo showed moderate concentric LVH, EF 55-60%. Left atrium is moderately dilated. Moderate MR, TR. MRI of the brain showed no acute process. T2/FLAIR hypointensity along the cranial aspect of the central sulcus on the right when correlated with the CT of the same date could represent hemosiderin deposition from old chronic subarachnoid hemorrhage or prominent draining veins. Patient's blood test shows normal WBC 9.7 hemoglobin 11.1 PT/PTT normal. Sodium 148, potassium 3.6, renal functions with BUN 26, creatinine 0.49. A1c 6.3, AST is 47, ALT 61 both elevated. Ammonia is <9. TSH is mildly low 0.226, free T4 normal. Prolactin mildly elevated 37.0, B12 627. Folate 18.0. Total ch olesterol 133, LDL 46, HDL 77 and triglycerides 48. CSF protein is normal 29, glucose 75, WBC 0, RBC 2. Viral panel negative including HSV 1, and HSV 2, varicella-zoster, CMV, adenovirus and enterovirus. Urine drug screen positive for methamphetamine. Patient is off sedation since 10:30 AM yesterday. Patient still not showing any clinical improvement. She is not following any commands. Please refer to examination below. Objective - Vital Signs Vital signs: Vital Signs Temp 99 F 02/05/20 08:00 Pulse 86 02/05/20 09:00 Resp 21 02/05/20 09:00 BP 129/77 02/05/20 09:00 Pulse Ox 97 02/05/20 09:00 Intake & Output 02/04/20 02/05/20 02/05/20 18:59 06:59 18:59 Intake Total 2045 1638 699 Output Total 920 815 255 Balance 1125 823 444 Weight 72.1 kg 72.1 kg Intake: IV 925 1000 225 Meropenem 1 gm In Sodium 100 100 Chloride 0.9% 100 ml @ 200 mls/hr IVPB Q8H [facility] Rx#:[id number] Sodium Chloride 0.9% 1, 825 900 225 000 ml @ 75 mls/hr IV . [id number] [facility] Rx#:[id number] Intake, IV Titration 100 100 Amount levETIRAcetam IV 500 mg 100 100 In Sodium Chloride 0.9% 100 ml @ 400 mls/hr IVPB Q12HR [facility] Rx#:[id number] Tube Feeding 620 538 174 Other 500 200 Output: Urine 920 815 255 Other: Voiding Method Indwelling Catheter Indwelling Catheter Indwelling Catheter ABP, PAP, CO, CI - Last Documented Arterial Blood Pressure 94/79 - Exam On examination patient is very alert and awake. Patient follows commands. Patient makes eye contact, tracks on either side, although required repeated prompts. Patient appears generalized weak, but able to wiggle her ankles toes, and flex at the biceps. Patient weak in the slip cover estimator, not able to squeeze hands on either side. - Labs CBC & Chem 7: 02/05/20 05:15 02/05/20 05:15 Labs: Abnormal Lab Results - Last 24 Hours (Table) 02/04/20 02/04/20 02/05/20 Range/Units 18:30 23:50 04:56 RBC (3.80-5.40) m/uL Hgb (11.4-16.0) gm/dL Hct (34.0-46.0) % Plt Count (150-450) k/uL Neutrophils # (1.3-7.7) k/uL Lymphocytes # (1.0-4.8) k/uL ABG pH 7.48 H (7.35-7.45) ABG pCO2 31 L (35-45) mmHg ABG pO2 113 H (83-108) mmHg ABG O2 Saturation 98.4 H (94-97) % Sodium (137-145) mmol/L Chloride (98-107) mmol/L Creatinine (0.52-1.04) mg/dL Glucose (74-99) mg/dL POC Glucose (mg/dL) 141 H 140 H (75-99) mg/dL Calcium (8.4-10.2) mg/dL AST (14-36) U/L ALT (4-34) U/L Alkaline Phosphatase (38-126) U/L Total Protein (6.3-8.2) g/dL Albumin (3.5-5.0) g/dL 02/05/20 02/05/20 02/05/20 Range/Units 05:15 05:15 11:24 RBC 2.99 L (3.80-5.40) m/uL Hgb 9.4 L (11.4-16.0) gm/dL Hct 28.8 L (34.0-46.0) % Plt Count 460 H (150-450) k/uL Neutrophils # 8.6 H (1.3-7.7) k/uL Lymphocytes # 0.9 L (1.0-4.8) k/uL ABG pH (7.35-7.45) ABG pCO2 (35-45) mmHg ABG pO2 (83-108) mmHg ABG O2 Saturation (94-97) % Sodium 135 L (137-145) mmol/L Chloride 109 H (98-107) mmol/L Creatinine 0.28 L (0.52-1.04) mg/dL Glucose 125 H (74-99) mg/dL POC Glucose (mg/dL) 139 H (75-99) mg/dL Calcium 7.2 L (8.4-10.2) mg/dL AST 62 H (14-36) U/L ALT 57 H (4-34) U/L Alkaline Phosphatase 136 H (38-126) U/L Total Protein 4.8 L (6.3-8.2) g/dL Albumin 2.3 L (3.5-5.0) g/dL Microbiology - Last 24 Hours (Table) 01/25/20 14:08 Blood Fungal Culture - Preliminary Blood Assessment and Plan Assessment: * Acute encephalopathy, probably toxic metabolic, with some component of hepatic encephalopathy/hepatic coma. Patient has triphasic waves seen on the EEG, which is classically seen with hepatic encephalopathy. Patient has persistently abnormal LFTs. * Patient's encephalopathy remarkably improved. Patient is quite alert and awake, following commands. Mentation has further improved. * History of left ICA dissection. Patient was on Coumadin. Plan: * Patient is showing signs of clinical improvement. Her mentation has improved, still appears generalized weak. Patient will require prolonged PT OT. She may be a candidate for inpatient rehabilitation. Prognosis appears good. * Patient is status post trach and PEG 01/31/2020.. * Patient's LFTs continues to be elevated. Hepatitis panel negative, ramirez virus PCR negative. Influenza negative. Ammonia is normal <9.0. * Continue aspirin 81 mg daily due to her history of left ICA dissection for stroke prevention. * Discussed case in detail with patient's , informed him about patient's condition and overall clinical improvement. * Also discussed with primary attending.
--- NOTE | 2020-02-05 16:35 | PN ---
PROGRESS NOTE DATE OF DICTATION: 02/05/2020 The patient is a 59-year-old, pleasant, white female admitted to the hospital with possible CVA and altered mental status and continues to remain on the vent with a tracheostomy in place as well as J tube placement. She has been off the sedatives for the last week and still not very responsive. She opens her eyes to simple questions today. As per the nursing staff, no acute events noted overnight. Attempts at weaning off the vent were not successful because she is not very alert. She has a J tube in place, tolerating feeds very well. No episodes of nausea, vomiting. PHYSICAL EXAMINATION: On physical examination, patient opening eyes to verbal stimuli. Vital signs are stable. Blood pressure is 129/77, pulse rate 86, temperature 98. HEENT: Unremarkable. Conjunctivae pink. Sclerae anicteric. Oral cavity, no lesions. NECK: No JVD or lymph node enlargement. CHEST: Clear to auscultation. Tracheostomy noted. HEART: Regular rate and rhythm. ABDOMEN: Soft. Bowel sounds are positive. J tube in place. EXTREMITIES: No pedal edema. NEUROLOGIC: She is opening her eyes with simple commands. LABS: WBC 10.5, hemoglobin 9.4, platelets normal. Basic metabolic panel is within normal limits. AST and ALT are 62 and 57 respectively. Alkaline phosphatase 136, T bili 0.3. IMPRESSION: 1. Altered mental status probably with metabolic encephalopathy with a component of hepatic encephalopathy; however, her serum ammonia levels have been normal for the last three to four days and remains on oral lactulose. Neurology following the patient closely. 2. Mild elevation of serum transaminases and no history of chronic liver disease, but this cannot be entirely excluded. So far her workup has been negative. Cannot rule out occult liver cirrhosis. 3. History of schizophrenia. 4. Acute respiratory failure, remains on the vent. RECOMMENDATIONS: 1. Continue management as per ICU. 2. In regards to the mild elevations in transaminases, will continue to monitor them closely. 3. Continue with J-tube feeds as patient is tolerating well. Will follow with you closely. Thank you for this consultation. MMODL / IJN: [id number] /
[2020-02-05 17:30] LABS: Glucose,Whole Blood 124 mg/dL (75-99)
[2020-02-05] MEDS ORDERED: ACETAMINOPHEN TAB 325 MG TAB PEJ/J-Tube PRN (17:39)
--- NOTE | 2020-02-05 17:46 | P.PN ---
Subjective Progress Note Date: 02/05/20 (delayed charting seen at 1300) Principal diagnosis: altered mentation Patient is a 59-year-old female with a past medical history of stroke, multiple falls, chronic pain, and prior John-en-Y gastric bypass who presented to the ER via EMS with confusion. On presentation to the ER code stroke was called and he was noted to be hypertensive with a blood pressure 166/118. CT of the head was performed was negative for any acute intracranial abnormality but indicated mild bifrontal atrophy, CTA of the neck indicated a known dissection of the left ICA extending into the vertical history as segment without any critical ICA stenosis, there was no large vessel or intracranial occlusion or aneurysmal change. The ER physician contacted Dr. Schulte of the [place] stroke ne twork who recommended admission to our facility. She was also found to have elevated LFTs and history of schizoaffective disorder. She was seen by neurology and was felt to have signs suspicious for complex partial seizures stat MRI of the brain was ordered this indicated no acute infarction, midline shift, or mass effect. She was noted to have hypo-intensity along cranial aspect of the central sulcus on the right, mild burden of nonspecific white matter changes most likely due to chronic microangiopathy. She was given a stat dose of Keppra IV. Echocardiogram was ordered which showed an EF of 55-60% without any significant valvular disease, moderate pulmonary hypertension. Overnight on 01/23 the patient became less responsive. She was noted to have a stiff neck. There is concern for possible partial seizure, catatonia, or neuroleptic malignant syndrome. Cardiology was consulted for accelerated hypertension and they recommended adding Norvasc. Her Coumadin was held secondary to needing an LP. She was seen by psychiatry who felt that she likely had delirium secondary to CVA versus seizures versus UTI. EEG demonstrated an abnormal focus involving the right hemisphere and abnormal activity in the bifrontal lobes and neurology suggested continuing Keppra. On 01/24 the patient had an NG tube ordered secondary to poor nutritional intake. She did develop a significant nosebleed. She became hypoxic and subsequently required intubation. Her Keppra and Synthroid were transitioned to IV. She was also started on Zosyn for concern for aspiration pneumonia. 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 LP obtained which showed benign CSF. Infectious disease consulted who was concerned for aspiration PNA and UTI and agreed with Zosyn. 01/27 reevaluated by neurology off sedation for multiple hours and not following commands. Dilantin was added to her keppra and ASA was recommended for her ICA dissection. By 01/28 she had been off sedation for 24 hours and still did not show any neurologic improvement. Repeat EEG on 01/27 neurology was concerned for hepatic encephalopathy and patient was started on lactulose. Urine culture showed ESBL E Coli and her Zosyn was transitioned to Merrem. SHe was tested for CVOID and Flu A/B all of which were negative. GI was consulted for elevated liver enzymes and stated possible hepa tic encephalopathy, hepatitis profile negative. Trach completed on 01/31/2020. EEG from 01/30 had slight improvement and less triphasic waves. J-tube placed . She was reevaluated by psychiatry 02/01/20 for but she did not meet criteria for inpatient psychiatric admission and did not recommended adding Lexapro or Zyprexa. She did have an increase in wakefullness on 02/02 but was not purposefully following commands. Weaning: Attempted for a few minutes without success 02/01, able to tolerate 9 hours 02/02. Attempted weaning again on 02/04 with good results. More awake and alert on 02/04 She is following commands intermittently but does so well when awake. Patient seen and examined at bedside. Denies pain, is able to tell me that Faheem is her Grandson. She can lift arms off the med and wiggle her feet. Objective - Vital Signs Vital signs: Vital Signs Temp 99 F 02/05/20 08:00 Pulse 86 02/05/20 09:00 Resp 21 02/05/20 09:00 BP 129/77 02/05/20 09:00 Pulse Ox 97 02/05/20 09:00 Intake & Output 02/04/20 02/05/20 02/05/20 18:59 06:59 18:59 Intake Total 2045 1638 699 Output Total 920 815 255 Balance 1125 823 444 Weight 72.1 kg 72.1 kg Intake: IV 925 1000 225 Meropenem 1 gm In Sodium 100 100 Chloride 0.9% 100 ml @ 200 mls/hr IVPB Q8H [facility] Rx#:[id number] Sodium Chloride 0.9% 1, 825 900 225 000 ml @ 75 mls/hr IV . [id number] [facility] Rx#:[id number] Intake, IV Titration 100 100 Amount levETIRAcetam IV 500 mg 100 100 In Sodium Chloride 0.9% 100 ml @ 400 mls/hr IVPB Q12HR [facility] Rx#:[id number] Tube Feeding 620 538 174 Other 500 200 Output: Urine 920 815 255 Other: Voiding Method Indwelling Catheter Indwelling Catheter Indwelling Catheter ABP, PAP, CO, CI - Last Documented Arterial Blood Pressure 94/79 - Exam General: non toxic, no distress, appears at stated age Derm: warm, dry Head: atraumatic, normocephalic, symmetric Eyes: EOMI, no lid lag, anicteric sclera Mouth: no lip lesion, mucus membranes dry, trach in place Cardiovascular: S1S2 reg, no murmur, positive posterior tibial pulse bilateral, Lungs: Coarse breath sounds bilateral, no rhonchi, no rales , no accessory muscle use, on vent Abdominal: soft, nontender to palpation, no guarding, no appreciable organomegaly Ext: no gross muscle atrophy, diffuse anasarca, no contractures Neuro: Able to lift both of her arms off the bed, able to dorsi and plantar flex feet, unable to squeeze hand, trying to speak over the vent and is able to tell me that Michael's her grandson. Will not track her eyes for me. Psych: Awake, alert to self, following simple commands - Labs CBC & Chem 7: 02/05/20 05:15 02/05/20 05:15 Labs: Abnormal Lab Results - Last 24 Hours (Table) 02/04/20 02/04/20 02/05/20 Range/Units 18:30 23:50 04:56 RBC (3.80-5.40) m/uL Hgb (11.4-16.0) gm/dL Hct (34.0-46.0) % Plt Count (150-450) k/uL Neutrophils # (1.3-7.7) k/uL Lymphocytes # (1.0-4.8) k/uL ABG pH 7.48 H (7.35-7.45) ABG pCO2 31 L (35-45) mmHg ABG pO2 113 H (83-108) mmHg ABG O2 Saturation 98.4 H (94-97) % Sodium (137-145) mmol/L Chloride (98-107) mmol/L Creatinine (0.52-1.04) mg/dL Glucose (74-99) mg/dL POC Glucose (mg/dL) 141 H 140 H (75-99) mg/dL Calcium (8.4-10.2) mg/dL AST (14-36) U/L ALT (4-34) U/L Alkaline Phosphatase (38-126) U/L Total Protein (6.3-8.2) g/dL Albumin (3.5-5.0) g/dL 02/05/20 02/05/20 02/05/20 Range/Units 05:15 05:15 11:24 RBC 2.99 L (3.80-5.40) m/uL Hgb 9.4 L (11.4-16.0) gm/dL Hct 28.8 L (34.0-46.0) % Plt Count 460 H (150-450) k/uL Neutrophils # 8.6 H (1.3-7.7) k/uL Lymphocytes # 0.9 L (1.0-4.8) k/uL ABG pH (7.35-7.45) ABG pCO2 (35-45) mmHg ABG pO2 (83-108) mmHg ABG O2 Saturation (94-97) % Sodium 135 L (137-145) mmol/L Chloride 109 H (98-107) mmol/L Creatinine 0.28 L (0.52-1.04) mg/dL Glucose 125 H (74-99) mg/dL POC Glucose (mg/dL) 139 H (75-99) mg/dL Calcium 7.2 L (8.4-10.2) mg/dL AST 62 H (14-36) U/L ALT 57 H (4-34) U/L Alkaline Phosphatase 136 H (38-126) U/L Total Protein 4.8 L (6.3-8.2) g/dL Albumin 2.3 L (3.5-5.0) g/dL Microbiology - Last 24 Hours (Table) 01/25/20 14:08 Blood Fungal Culture - Preliminary Blood Assessment and Plan Assessment: Acute hypoxic respiratory failure secondary to aspiration pneumonia requiring ventilator support -Vent management per pulmonary continue CPAP trials -ID recommendations appreciated -Continue with meropenem D # 10 -Pulmonary hygiene -Sputum culture with normal respiratory geoffrey Acute toxic/metabolic encephalopathy with unclear etiology, improving - more awake and alert and following commands -Per neurology EEG appears consistent with hepatic encephalopathy, on lactulose with minimal improvements. - D/w neurology feels that she has had slow improvement and may continue to improve over time and would benefit from LTAC with continued weaning and tincture of time. -On Keppra for possible seizure (was given trail of dilantin in addition but this has been removed) -CSF fluid culture negative -Neurology recommendations appreciated, await re-eval today ESBL urinary tract infection -Continue with meropenem D # 10 - ID recs Chronic left carotid dissection - was on coumadin per neuro can be on ASA now - rectal ASA Schizoaffective disorder and PTSD - psych recs appreciated - unable to have oral meds and lexapro not indicated at this time Hypothyroidism -change to J-tube liquid Mild transaminitis, undetermined etiology - follow liver enyzmes. Dyslipidemia Update over the phone 14 minutes. DVT prophylaxis: Lovenox Discussed with: Nursing Anticipated discharge: 1-[address]: LTAC A total of 35 minutes was spent on the care of this complex patient more than 50% of the time was spent in counseling and care coordination.
--- NOTE | 2020-02-05 19:02 | PN ---
PROGRESS NOTE DATE OF SERVICE: 02/05/2020 REASON FOR FOLLOWUP: ESBL E coli UTI and aspiration pneumonitis. INTERVAL HISTORY: The patient is currently afebrile. The patient is more awake, alert. She does respond to her and tries to answer some simple questions. She has been tolerating her tube feeds. No diarrhea has been reported. PHYSICAL EXAMINATION: Blood pressure 129/77 with a pulse of 86, temperature 99. She is 97% on 25% FiO2. General description is a middle-aged female lying in bed in no distress. RESPIRATORY SYSTEM: Unlabored breathing with decreased breath sounds at the base. No wheeze. HEART: S1, S2. Regular rate and rhythm. ABDOMEN: Soft. No tenderness. LABS: Hemoglobin 9.4, white count 10.5, BUN of 10, creatinine 0.28. DIAGNOSTIC IMPRESSION AND PLAN: Patient with acute respiratory failure which is likely multifactorial in this patient with a component of aspiration pneumonitis. Also with ESBL E coli urinary tract infection. Patient is currently covered with meropenem; to continue. Will monitor her clinical course closely. MMODL / IJN: [id number] /
[2020-02-05] MEDS: ATORVASTATIN 40 MG TAB PEJ/J-Tube SCH (19:43)
[2020-02-05] MEDS: ENOXAPARIN 40 MG/0.4 ML SYRINGE SQ SCH (19:49)
[2020-02-06 00:07] LABS: Glucose,Whole Blood 139 mg/dL (75-99)
[2020-02-06] MEDS: INSULIN ASPART (NovoLOG) 100 UNIT/ML VIAL SQ SCH ×4 (00:13→18:09)
[2020-02-06] MEDS: MEROPENEM 1 GM in SODIUM CHLORIDE 0.9% 100 ML IVPB SCH ×4 (00:13→22:00)
[2020-02-06 04:30] LABS: Basophils % (A) 0 %; Eosinophils # (A) 0.2 k/uL (0-0.7); Eosinophils % (A) 2 %; HCT 26.6 % (34.0-46.0); HGB 8.7 gm/dL (11.4-16.0); Lymphocytes # (A) 0.9 k/uL (1.0-4.8); Lymphocytes % (A) 9 %; MCHC 32.7 g/dL (31.0-37.0); MCV 97.9 fL (80.0-100.0); Mean Platelet Volume 7.5; Monocytes # (A) 0.3 k/uL (0-1.0); Monocytes % (A) 3 %; Neutrophils # (A) 8.2 k/uL (1.3-7.7); Neutrophils % (A) 83 %; Platelet Count 473 k/uL (150-450); RBC 2.72 m/uL (3.80-5.40); RDW 14.2 % (11.5-15.5); WBC 9.9 k/uL (3.8-10.6)
[2020-02-06] MEDS: LEVOTHYROXINE 50 MCG TAB PEJ/J-Tube SCH (04:42)
[2020-02-06] MEDS: SODIUM CHLORIDE 0.9% 1,000 ML IV SCH (04:42)
[2020-02-06 04:46] LABS: ALT 50 U/L (4-34); AST 47 U/L (14-36); African American GFR (CKD) >90 (>60 ml/min/1.73 sqM); Albumin 2.1 g/dL (3.5-5.0); Alkaline Phosphatase 116 U/L (38-126); Anion Gap 1 mmol/L; Blood Urea Nitrogen 12 mg/dL (7-17); Calcium 7.2 mg/dL (8.4-10.2); Carbon Dioxide 24 mmol/L (22-30); Chloride 109 mmol/L (98-107); Glucose 119 mg/dL (74-99); Non-African American GFR(CKD) >90 (>60 ml/min/1.73 sqM); Potassium 4.2 mmol/L (3.5-5.1); Sodium 134 mmol/L (137-145); Total Bilirubin 0.2 mg/dL (0.2-1.3); Total Protein 4.6 g/dL (6.3-8.2)
[2020-02-06 05:01] LABS: ABG Base Excess -0.9 mmol/L; ABG HCO3 22 mmol/L (21-25); ABG Oxygen Saturation 96.9 % (94-97); ABG PCO2 29 mmHg (35-45); ABG PH 7.49 (7.35-7.45); ABG PO2 95 mmHg (83-108); ABG TCO2 23 mmol/L (19-24); Allen Test Performed? Yes
[2020-02-06 06:16] LABS: Glucose,Whole Blood 125 mg/dL (75-99)
--- NOTE | 2020-02-06 07:59 | XR ---
EXAMINATION TYPE: XR chest 1V portable DATE OF EXAM: 02/06/2020 COMPARISON: 02/05/2020 INDICATION: Follow-up previous abnormal chest TECHNIQUE: Single frontal view of the chest is obtained. FINDINGS: The heart size is mildly prominent. The pulmonary vasculature is mildly prominent. Left lower lobe infiltrate appears to be present with silhouetting left diaphragm. Pleural effusion c ould be considered. Tracheostomy tube is present in the midline. Increased density is in the mediastinal region on the fr ontal projection. Left central venous catheter is present with the tip in the right atrium. IMPRESSION: 1. Left lower lobe infiltrate. 2. Lines and catheters discussed above.
[2020-02-06] MEDS: ESCITALOPRAM 20 MG TAB PO SCH (08:01)
[2020-02-06] MEDS: CHLORHEXIDINE GLUCONATE 15 ML CUP MUCOUS MEM SCH ×2 (08:06→20:32)
[2020-02-06] MEDS: levETIRAcetam IV 500 MG in SODIUM CHLORIDE 0.9% 100 ML IVPB SCH (08:06)
[2020-02-06] MEDS: PANTOPRAZOLE 40 MG/10 ML VIAL IVP SCH (08:06)
[2020-02-06] MEDS: ASPIRIN 300 MG SUPP RECTAL SCH (08:06)
[2020-02-06 11:41] LABS: Glucose,Whole Blood 130 mg/dL (75-99)
--- NOTE | 2020-02-06 13:56 | P.PN ---
Subjective Progress Note Date: 02/06/20 Principal diagnosis: Altered mental status On 02/06/2020 patient seen in follow-up in the intensive care unit, she is awake and alert, she is following simple commands, and she squeezing hands on command she is nodding her head appropriately to questions, and she is mouthing some words. She remains trached to the ventilator she is currently on assist control mode of ventilation with a rate of 30, tidal vital 350, FiO2 of 25 percent, and PEEP of 5. This morning's blood gases revealed a pO2 of 95, pCO2 of 29, and pH of 7.49 consistent with mild respiratory alkalosis. This was done and FiO2 of 25%. Today's chest x-ray showed a left lower lobe infiltrate, mildly prominent pulmonary vasculature, left lower lobe infiltrate versus pleural effusion. Lung sounds are clear, diminished at the bases, no rhonchi or wheezing. Patient has been afebrile, hemodynamically she is stable, she is on 0.9 normal saline at a rate of 75 ML per hour, tube feedings are Glucerna at a rate of 58, patient is tolerating tube feedings very well, she remains on meropenem for ESBL E. coli. Objective - Vital Signs Vital signs: Vital Signs Temp 98.8 F 02/06/20 09:00 Pulse 72 02/06/20 09:00 Resp 30 H 02/06/20 09:00 BP 114/65 02/06/20 09:00 Pulse Ox 97 02/06/20 09:00 Intake & Output 02/05/20 02/06/20 02/06/20 18:59 06:59 18:59 Intake Total 2196 1680 680 Output Total 855 1145 200 Balance 1341 535 480 Weight 72.1 kg 77.2 kg Intake: IV 1000 1100 150 Meropenem 1 gm In Sodium 100 200 Chloride 0.9% 100 ml @ 200 mls/hr IVPB Q8H [facility] Rx#:[id number] Sodium Chloride 0.9% 1, 900 900 150 000 ml @ 75 mls/hr IV . [id number] [facility] Rx#:[id number] Intake, IV Titration 100 100 Amount levETIRAcetam IV 500 mg 100 100 In Sodium Chloride 0.9% 100 ml @ 400 mls/hr IVPB Q12HR [facility] Rx#:[id number] Tube Feeding 696 580 230 Other 400 200 Output: Urine 855 1145 200 Other: Voiding Method Indwelling Catheter Indwelling Catheter Indwelling Catheter # Bowel Movements 1 ABP, PAP, CO, CI - Last Documented Arterial Blood Pressure 94/79 - Exam GENERAL EXAM: Alert, very pleasant, 59-year-old white female, trached to the ventilator, awake, following simple commands, able to squeeze hands on command, she is mouthing some words, and answering questions with nodding or shaking her head no appropriately, comfortable in no apparent distress. HEAD: Normocephalic/atraumatic. EYES: Normal reaction of pupils, equal size. Conjunctiva pink, sclera white. NOSE: Clear with pink turbinates. THROAT: No erythema or exudates. NECK: No masses, no JVD, no thyroid enlargement, no adenopathy. Midline tracheostomy CHEST: No chest wall deformity. Symmetrical expansion. LUNGS: Equal air entry with no crackles, wheeze, rhonchi or dullness. CVS: Regular rate and rhythm, normal S1 and S2, no gallops, no murmurs, no rubs ABDOMEN: Soft, nontender. No hepatosplenomegaly, normal bowel sounds, no guarding or rigidity. PEG tube is in place with tube feedings infusing EXTREMITIES: No clubbing, no edema, no cyanosis, 2+ pulses and upper and lower extremities. MUSCULOSKELETAL: Muscle strength and tone normal. SPINE: No scoliosis or deformity SKIN: No rashes CENTRAL NERVOUS SYSTEM: Alert and oriented -3. No focal deficits, tone is normal in all 4 extremities. PSYCHIATRIC: Alert and oriented -3. Appropriate affect. Intact judgment and insight. - Labs CBC & Chem 7: 02/06/20 04:15 02/06/20 04:15 Labs: Abnormal Lab Results - Last 24 Hours (Table) 02/05/20 02/06/20 02/06/20 Range/Units 17:28 00:05 04:15 RBC 2.72 L (3.80-5.40) m/uL Hgb 8.7 L (11.4-16.0) gm/dL Hct 26.6 L (34.0-46.0) % Plt Count 473 H (150-450) k/uL Neutrophils # 8.2 H (1.3-7.7) k/uL Lymphocytes # 0.9 L (1.0-4.8) k/uL ABG pH (7.35-7.45) ABG pCO2 (35-45) mmHg Sodium (137-145) mmol/L Chloride (98-107) mmol/L Creatinine (0.52-1.04) mg/dL Glucose (74-99) mg/dL POC Glucose (mg/dL) 124 H 139 H (75-99) mg/dL Calcium (8.4-10.2) mg/dL AST (14-36) U/L ALT (4-34) U/L Total Protein (6.3-8.2) g/dL Albumin (3.5-5.0) g/dL 02/06/20 02/06/20 02/06/20 Range/Units 04:15 04:51 06:15 RBC (3.80-5.40) m/uL Hgb (11.4-16.0) gm/dL Hct (34.0-46.0) % Plt Count (150-450) k/uL Neutrophils # (1.3-7.7) k/uL Lymphocytes # (1.0-4.8) k/uL ABG pH 7.49 H (7.35-7.45) ABG pCO2 29 L (35-45) mmHg Sodium 134 L (137-145) mmol/L Chloride 109 H (98-107) mmol/L Creatinine 0.27 L (0.52-1.04) mg/dL Glucose 119 H (74-99) mg/dL POC Glucose (mg/dL) 125 H (75-99) mg/dL Calcium 7.2 L (8.4-10.2) mg/dL AST 47 H (14-36) U/L ALT 50 H (4-34) U/L Total Protein 4.6 L (6.3-8.2) g/dL Albumin 2.1 L (3.5-5.0) g/dL 02/06/20 Range/Units 11:39 RBC (3.80-5.40) m/uL Hgb (11.4-16.0) gm/dL Hct (34.0-46.0) % Plt Count (150-450) k/uL Neutrophils # (1.3-7.7) k/uL Lymphocytes # (1.0-4.8) k/uL ABG pH (7.35-7.45) ABG pCO2 (35-45) mmHg Sodium (137-145) mmol/L Chloride (98-107) mmol/L Creatinine (0.52-1.04) mg/dL Glucose (74-99) mg/dL POC Glucose (mg/dL) 130 H (75-99) mg/dL Calcium (8.4-10.2) mg/dL AST (14-36) U/L ALT (4-34) U/L Total Protein (6.3-8.2) g/dL Albumin (3.5-5.0) g/dL Assessment and Plan Plan: Assessment: 1 Acute hypoxic respiratory failure and possible aspiration pneumonia requiring intubation mechanical ventilatory support. She remains ventilator dependent and is status post tracheostomy and PEG tube placement. 2 Acute mental status change, acute metabolic encephalopathy, etiology remains unclear. Improved, and on today's exam on 02/06/2020, patient is awake and alert, she is following simple commands, she is squeezing hands on commands, and she is mouthing words 3 History of left carotid dissection. 4 History of dyslipidemia. 5 History of schizoaffective disorder. 6 Possible complex partial seizures 7 History of post traumatic shock disorder. 8 History of moderate mitral regurgitation 9 History of chronic anxiety and depression. 10 ESBL E. coli urinary tract infection Plan: Mentation continues to improve, patient is following simple commands, she is shaking her head yes or no appropriately to questions, she is mouthing simple words back, no agitation, patient is calm and cooperative, hemodynamically she remains stable, no changes on the ventilator, she remains trached to the ventilator, today's blood gases have been reviewed and are consistent with mild respiratory alkalosis, FiO2 is at 25%. She is tolerating tube feedings, no acute events overnight, continues on meropenem for ESBL E. coli, a is afebrile. From pulmonary/critical care perspective patient is stable for discharge to LTAC facility when insurance company approves it. In the meanwhile consult physical therapy, increase mobility, passive and active range of motion. We'll continue to follow I performed a history & physical examination of the patient and discussed their management with my nurse practitioner, Jennifer Abraham. I reviewed the nurse practitioner's note and agree with the documented findings and plan of care. Lung sounds are positive for diminished breath sounds. The findings and the impression was discussed with the patient. I attest to the documentation by the nurse practitioner. Time with Patient: Greater than 30
--- NOTE | 2020-02-06 15:29 | P.PN ---
Subjective Progress Note Date: 02/06/20 (delayed charting seen at 1145) Principal diagnosis: altered mentation Patient is a 59-year-old female with a past medical history of stroke, multiple falls, chronic pain, and prior John-en-Y gastric bypass who presented to the ER via EMS with confusion. On presentation to the ER code stroke was called and he was noted to be hypertensive with a blood pressure 166/118. CT of the head was performed was negative for any acute intracranial abnormality but indicated mild bifrontal atrophy, CTA of the neck indicated a known dissection of the left ICA extending into the vertical history as segment without any critical ICA stenosis, there was no large vessel or intracranial occlusion or aneurysmal change. The ER physician contacted Dr. Schulte of the [facility] who recommended admission to our facility. She was also found to have elevated LFTs and history of schizoaffective disorder. She was seen by neurology and was felt to have signs suspicious for complex partial seizures stat MRI of the brain was ordered this indicated no acute infarction, midline shift, or mass effect. She was noted to have hypo-intensity along cranial aspect of the central sulcus on the right, mild burden of nonspecific white matter changes most likely due to chronic microangiopathy. She was given a stat dose of Keppra IV. Echocardiogram was ordered which showed an EF of 55-60% without any significant valvular disease, moderate pulmonary hypertension. Overnight on 01/23 the patient became less responsive. She was noted to have a stiff neck. There is concern for possible partial seizure, catatonia, or neuroleptic malignant syndrome. Cardiology was consulted for accelerated hypertension and they recommended adding Norvasc. Her Coumadin was held secondary to needing an LP. She was seen by psychiatry who felt that she likely had delirium secondary to CVA versus seizures versus UTI. EEG demonstrated an abnormal focus involving the right hemisphere and abnormal activity in the bifrontal lobes and neurology suggested continuing Keppra. On 01/24 the patient had an NG tube ordered secondary to poor nutritional intake. She did develop a significant nosebleed. She became hypoxic and subsequently required intubation. Her Keppra and Synthroid were transitioned to IV. She was also started on Zosyn for concern for aspiration pneumonia. 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 LP obtained which showed benign CSF. Infectious disease consulted who was concerned for aspiration PNA and UTI and agreed with Zosyn. 01/27 reevaluated by neurology off sedation for multiple hours and not following commands. Dilantin was added to her keppra and ASA was recommended for her ICA dissection. By 01/28 she had been off sedation for 24 hours and still did not show any neurologic improvement. Repeat EEG on 01/27 neurology was concerned for hepatic encephalopathy and patient was started on lactulose. Urine culture showed ESBL E Coli and her Zosyn was transitioned to Merrem. SHe was tested for CVOID and Flu A/B all of which were negative. GI was consulted for elevated liver enzymes and stated possible hepa tic encephalopathy, hepatitis profile negative. Trach completed on 01/31/2020. EEG from 01/30 had slight improvement and less triphasic waves. J-tube placed . She was reevaluated by psychiatry 02/01/20 for but she did not meet criteria for inpatient psychiatric admission and did not recommended adding Lexapro or Zyprexa. She did have an increase in wakefullness on 02/02 but was not purposefully following commands. Weaning: Attempted for a few minutes without success 02/01, able to tolerate 9 hours 02/02, unable to tolerate 02/03, able to tolerate 5 hrs on 02/04. Attempted weaning again on 02/04 with good results. More awake and alert on 02/04 She is following commands intermittently but does so well when awake. 02/05 awake and alert, following simple commands. Able to tell me she loves [place] [place] and [place]inderella, recognize faces. Patient seen and examined at bedside. Deneis pain, feels tired, no nausea, no vomiting, no diarrhea. Objective - Vital Signs Vital signs: Vital Signs Temp 98.8 F 02/06/20 09:00 Pulse 76 02/06/20 14:00 Resp 24 02/06/20 14:00 BP 131/71 02/06/20 14:00 Pulse Ox 98 02/06/20 14:00 Intake & Output 02/05/20 02/06/20 02/06/20 18:59 06:59 18:59 Intake Total 2196 1680 1185 Output Total 855 1145 350 Balance 1341 535 835 Weight 72.1 kg 77.2 kg Intake: IV 1000 1100 225 Meropenem 1 gm In Sodium 100 200 Chloride 0.9% 100 ml @ 200 mls/hr IVPB Q8H [facility] Rx#:[id number] Sodium Chloride 0.9% 1, 900 900 225 000 ml @ 75 mls/hr IV . [id number] [facility] Rx#:[id number] Intake, IV Titration 100 100 Amount levETIRAcetam IV 500 mg 100 100 In Sodium Chloride 0.9% 100 ml @ 400 mls/hr IVPB Q12HR [facility] Rx#:[id number] Tube Feeding 696 580 460 Other 400 400 Output: Urine 855 1145 350 Other: Voiding Method Indwelling Catheter Indwelling Catheter Indwelling Catheter # Bowel Movements 1 ABP, PAP, CO, CI - Last Documented Arterial Blood Pressure 94/79 - Exam General: non toxic, no distress, appears at stated age Derm: multiple areas of ecchymosis, warm, dry Head: atraumatic, normocephalic, symmetric Eyes: EOMI, no lid lag, anicteric sclera Mouth: no lip lesion, mucus membranes dry, trach in place Cardiovascular: S1S2 reg, no murmur, positive posterior tibial pulse bilateral, Lungs: Coarse breath sounds bilateral, no rhonchi, no rales , no accessory muscle use, on vent Abdominal: soft, nontender to palpation, no guarding, no appreciable organomegaly Ext: no gross muscle atrophy, diffuse anasarca decreasing, no contractures Neuro: Able to lift both of her arms off the bed, able to dorsi and plantar flex feet, unable to squeeze hand, able to tell me that Perico is her and that she wants to hear his voice. Psych: awake, up set and tearful, no nausea, no vomiting. - Labs CBC & Chem 7: 02/06/20 04:15 02/06/20 04:15 Labs: Abnormal Lab Results - Last 24 Hours (Table) 02/05/20 02/06/20 02/06/20 Range/Units 17:28 00:05 04:15 RBC 2.72 L (3.80-5.40) m/uL Hgb 8.7 L (11.4-16.0) gm/dL Hct 26.6 L (34.0-46.0) % Plt Count 473 H (150-450) k/uL Neutrophils # 8.2 H (1.3-7.7) k/uL Lymphocytes # 0.9 L (1.0-4.8) k/uL ABG pH (7.35-7.45) ABG pCO2 (35-45) mmHg Sodium (137-145) mmol/L Chloride (98-107) mmol/L Creatinine (0.52-1.04) mg/dL Glucose (74-99) mg/dL POC Glucose (mg/dL) 124 H 139 H (75-99) mg/dL Calcium (8.4-10.2) mg/dL AST (14-36) U/L ALT (4-34) U/L Total Protein (6.3-8.2) g/dL Albumin (3.5-5.0) g/dL 02/06/20 02/06/20 02/06/20 Range/Units 04:15 04:51 06:15 RBC (3.80-5.40) m/uL Hgb (11.4-16.0) gm/dL Hct (34.0-46.0) % Plt Count (150-450) k/uL Neutrophils # (1.3-7.7) k/uL Lymphocytes # (1.0-4.8) k/uL ABG pH 7.49 H (7.35-7.45) ABG pCO2 29 L (35-45) mmHg Sodium 134 L (137-145) mmol/L Chloride 109 H (98-107) mmol/L Creatinine 0.27 L (0.52-1.04) mg/dL Glucose 119 H (74-99) mg/dL POC Glucose (mg/dL) 125 H (75-99) mg/dL Calcium 7.2 L (8.4-10.2) mg/dL AST 47 H (14-36) U/L ALT 50 H (4-34) U/L Total Protein 4.6 L (6.3-8.2) g/dL Albumin 2.1 L (3.5-5.0) g/dL 02/06/20 Range/Units 11:39 RBC (3.80-5.40) m/uL Hgb (11.4-16.0) gm/dL Hct (34.0-46.0) % Plt Count (150-450) k/uL Neutrophils # (1.3-7.7) k/uL Lymphocytes # (1.0-4.8) k/uL ABG pH (7.35-7.45) ABG pCO2 (35-45) mmHg Sodium (137-145) mmol/L Chloride (98-107) mmol/L Creatinine (0.52-1.04) mg/dL Glucose (74-99) mg/dL POC Glucose (mg/dL) 130 H (75-99) mg/dL Calcium (8.4-10.2) mg/dL AST (14-36) U/L ALT (4-34) U/L Total Protein (6.3-8.2) g/dL Albumin (3.5-5.0) g/dL Assessment and Plan Assessment: Acute hypoxic respiratory failure secondary to aspiration pneumonia requiring ventilator support -Vent management per pulmonary continue CPAP trials -ID recommendations appreciated -Continue with meropenem D # 11 -Pulmonary hygiene -Sputum culture with normal respiratory geoffrey Acute toxic/metabolic encephalopathy with unclear etiology, improving - more awake and alert and following commands -Per neurology EEG appears consistent with hepatic encephalopathy, on lactulose with significant overall improvements. - D/w neurology feels that she has shown great improvement and anticipates continued improvement over time and would benefit from LTAC with continued weaning and tincture of time. -On Keppra for possible seizure (was given trail of dilantin in addition but this has been removed) -CSF fluid culture negative, Loced-in syndorme ruled out, CVA ruled out, No continued seizure activity see on repeat EEGs -Neurology recommendations appreciated ESBL urinary tract infection -Continue with meropenem D # 11 - ID recs Chronic left carotid dissection - was on coumadin per neuro can be on ASA - rectal ASA Schizoaffective disorder and PTSD - psych recs appreciated - unable to have oral meds and lexapro Hypothyroidism -change to J-tube liquid Mild transaminitis, undetermined etiology - follow liver enyzmes. Dyslipidemia DVT prophylaxis: Lovenox Discussed with: Nursing Anticipated discharge: in AM Anticipated discharge place: LTAC A total of 35 minutes was spent on the care of this complex patient more than 50% of the time was spent in counseling and care coordination.
--- NOTE | 2020-02-06 15:48 | P.PN ---
Subjective Progress Note Date: 02/06/20 02/06/2020: Patient fully alert and awake. Patient nodding appropriately, trying to communicate. Patient still very weak, able to flex at the biceps with some resistance, slightly move deltoid but millinery blocker is very weak. Likewise ankles are slightly stronger than proximally in the lower limbs. Reflexes are almost absent. Plantars are flat. Tone is decreased in the arms and legs. 02/05/2020: Patient more alert and awake. Patient following commands as she did yesterday. Still appears very generalized weak. Denies headache. Patient able to recognize the name of her grandson. No seizures reported. 02/04/2020: Patient is very alert, awake, tracheostomy in place. Patient is making eye contact, trying to communicate with head, nodding appropriately. Patient following commands, trying to moving arms and legs. Patient appears diffusely weak, but still able to comprehend and follow directions. 02/01/2020: Patient showing slight but definite clinical improvement. She tried to open her eyes when I called her name. She then closed her eyes. After I manually opened her eyes, she held her eyes open appeared much more awake. Still not much tracking or following commands. 01/31/2020: Patient had undergone track and PEG today. She has very minimally responded to calling her name loudly with minimal trying to open the eyes. Otherwise no change. She is off sedation since 01/28/2020. 01/30/2020: Patient continues to be comatose. Not responding to vocal or painful stimuli. Patient continues to have some twitching of her eyelids on manually opening the eyelids. No twitching of the eyes. No twitching of facial muscles, or extremities. No obvious seizure noted by the staff. Patient's liver ultrasound showed liver appears course and low [place]. Un derlying cirrhotic liver disease is not excluded. Dilated common bile duct 1 cm. Gallbladder not well visualized. Patient's liver functions shows worsening pattern with AST 87 (62 yesterday), ALT 86 (70 yesterday). Repeat ammonia level normal 27. CPK and temperature is normal, therefore doubt NMS. Patient has been seen by gastroenterology, who does not feel symptoms are completely explained by hepatic encephalopathy although may be a component of hepatic encephalopathy. Patient is a 59-year-old female admitted to the hospital on 01/23/2020 for strokelike symptoms. She was having difficulty with manipulating remote control for the TV and according to the EMS also had difficulty speaking on the morning of admission. CT head showed mild bifrontal atrophy. CTA of the neck showed bovine configuration to the aortic arch. No dissection of the upper cervical left ICA extending into the vertical petrous segment. There is similar enhancement within both lumens without arterial occlusion. No significant ICA stenosis. Dominant left vertebral artery. CT of the brain showed nondominant V4 segment right vertebral artery becomes very hypoplastic, possibly terminating as a PICA branch. No continuation of the patient's known left ICA dissection beyond the petrous segment. No large vessel intercranial arterial occlusion or aneurysmal change. Patient had a repeat CTA of head and neck on 01/26/2020 again revealed the visualization of the patient's known distal left ICA dissection. Diminutive right vertebral artery. Borderline appearance of the aortic arch. 2-D echo showed moderate concentric LVH, EF 55-60%. Left atrium is moderately dilated. Moderate MR, TR. MRI of the brain showed no acute process. T2/FLAIR hypointensity along the cranial aspect of the central sulcus on the right when correlated with the CT of the same date could represent hemosiderin deposition from old chronic subarachnoid hemorrhage or prominent draining veins. Patient's blood test shows normal WBC 9.7 hemoglobin 11.1 PT/PTT normal. Sodium 148, potassium 3.6, renal functions with BUN 26, creatinine 0.49. A1c 6.3, AST is 47, ALT 61 both elevated. Ammonia is <9. TSH is mildly low 0.226, free T4 normal. Prolactin mildly elevated 37.0, B12 627. Folate 18.0. Total cholesterol 133, LDL 46, HDL 77 and triglycerides 48. CSF protein is normal 29, glucose 75, WBC 0, RBC 2. Viral panel negative including HSV 1, and HSV 2, varicella-zoster, CMV, adenovirus and enterovirus. Urine drug screen positive for methamphetamine. Patient is off sedation since 10:30 AM yesterday. Patient still not showing any clinical improvement. She is not following any commands. Please refer to exa mination below. Objective - Vital Signs Vital signs: Vital Signs Temp 98.8 F 02/06/20 09:00 Pulse 76 02/06/20 14:00 Resp 24 02/06/20 14:00 BP 131/71 02/06/20 14:00 Pulse Ox 98 02/06/20 14:00 Intake & Output 02/05/20 02/06/20 02/06/20 18:59 06:59 18:59 Intake Total 2196 1680 1185 Output Total 855 1145 350 Balance 1341 535 835 Weight 72.1 kg 77.2 kg Intake: IV 1000 1100 225 Meropenem 1 gm In Sodium 100 200 Chloride 0.9% 100 ml @ 200 mls/hr IVPB Q8H [facility] Rx#:[id number] Sodium Chloride 0.9% 1, 900 900 225 000 ml @ 75 mls/hr IV . [id number] [facility] Rx#:[id number] Intake, IV Titration 100 100 Amount levETIRAcetam IV 500 mg 100 100 In Sodium Chloride 0.9% 100 ml @ 400 mls/hr IVPB Q12HR [facility] Rx#:[id number] Tube Feeding 696 580 460 Other 400 400 Output: Urine 855 1145 350 Other: Voiding Method Indwelling Catheter Indwelling Catheter Indwelling Catheter # Bowel Movements 1 ABP, PAP, CO, CI - Last Documented Arterial Blood Pressure 94/79 - Exam On examination patient is very alert and awake. Patient follows commands. Patient makes eye contact, tracks on either side. Patient's strengths appear somewhat better than yesterday. Able to flex her ankles with some resistance. Able to flex arms at the elbow, and have some movement in the deltoid. First Helper is still very weak. Reflexes are absent and plantars are flat. Decreased tone. - Labs CBC & Chem 7: 02/06/20 04:15 02/06/20 04:15 Labs: Abnormal Lab Results - Last 24 Hours (Table) 02/05/20 02/06/20 02/06/20 Range/Units 17:28 00:05 04:15 RBC 2.72 L (3.80-5.40) m/uL Hgb 8.7 L (11.4-16.0) gm/dL Hct 26.6 L (34.0-46.0) % Plt Count 473 H (150-450) k/uL Neutrophils # 8.2 H (1.3-7.7) k/uL Lymphocytes # 0.9 L (1.0-4.8) k/uL ABG pH (7.35-7.45) ABG pCO2 (35-45) mmHg Sodium (137-145) mmol/L Chloride (98-107) mmol/L Creatinine (0.52-1.04) mg/dL Glucose (74-99) mg/dL POC Glucose (mg/dL) 124 H 139 H (75-99) mg/dL Calcium (8.4-10.2) mg/dL AST (14-36) U/L ALT (4-34) U/L Total Protein (6.3-8.2) g/dL Albumin (3.5-5.0) g/dL 02/06/20 02/06/20 02/06/20 Range/Units 04:15 04:51 06:15 RBC (3.80-5.40) m/uL Hgb (11.4-16.0) gm/dL Hct (34.0-46.0) % Plt Count (150-450) k/uL Neutrophils # (1.3-7.7) k/uL Lymphocytes # (1.0-4.8) k/uL ABG pH 7.49 H (7.35-7.45) ABG pCO2 29 L (35-45) mmHg Sodium 134 L (137-145) mmol/L Chloride 109 H (98-107) mmol/L Creatinine 0.27 L (0.52-1.04) mg/dL Glucose 119 H (74-99) mg/dL POC Glucose (mg/dL) 125 H (75-99) mg/dL Calcium 7.2 L (8.4-10.2) mg/dL AST 47 H (14-36) U/L ALT 50 H (4-34) U/L Total Protein 4.6 L (6.3-8.2) g/dL Albumin 2.1 L (3.5-5.0) g/dL 02/06/20 Range/Units 11:39 RBC (3.80-5.40) m/uL Hgb (11.4-16.0) gm/dL Hct (34.0-46.0) % Plt Count (150-450) k/uL Neutrophils # (1.3-7.7) k/uL Lymphocytes # (1.0-4.8) k/uL ABG pH (7.35-7.45) ABG pCO2 (35-45) mmHg Sodium (137-145) mmol/L Chloride (98-107) mmol/L Creatinine (0.52-1.04) mg/dL Glucose (74-99) mg/dL POC Glucose (mg/dL) 130 H (75-99) mg/dL Calcium (8.4-10.2) mg/dL AST (14-36) U/L ALT (4-34) U/L Total Protein (6.3-8.2) g/dL Albumin (3.5-5.0) g/dL Assessment and Plan Assessment: * Acute encephalopathy, probably toxic metabolic, with some component of hepatic encephalopathy/hepatic coma. Patient has triphasic waves seen on the EEG, which is classically seen with hepatic encephalopathy. Patient has persistently abnormal LFTs. * Patient's encephalopathy remarkably improved. Patient is quite alert and awake, following commands. Mentation has further improved. * Generalized weakness, possible critical illness neuropathy/myopathy versus deconditioning. * History of left ICA dissection. Patient was on Coumadin, now on aspirin regimen. Plan: * Patient's mentation appears fairly normal. However patient appears generalized weak. Possible critical illness neuropathy versus deconditioning. Patient will require prolonged PT OT. She may be a candidate for inpatient rehabilitation. Prognosis appears good. * Patient is status post trach and PEG 01/31/2020.. * Patient's LFTs continues to be elevated, although improving now. Hepatitis panel negative, ramirez virus PCR negative. Influenza negative. Ammonia is normal <9.0. B12 627, folate 18.0, TSH is slightly decreased 0.226 with normal free T4 1.46. Hemoglobin A1c 6.3. We will check IgG, IgM and immune fixation electrophoresis, CPK, COVID-19 negative. * Continue aspirin 81 mg daily due to her history of left ICA dissection for stroke prevention. * We will decrease Keppra down to 250 mg twice a day. * Possible transfer to LTAC, when approved by insurance.
--- NOTE | 2020-02-06 15:54 | P.PN ---
Subjective Progress Note Date: 02/06/20 CHIEF COMPLAINT: CVA HISTORY OF PRESENT ILLNESS: Patient examined at the bedside. Patient is status post trach and jejunostomy. Tube feedings are infusing. Patient tolerating well. PHYSICAL EXAM: VITAL SIGNS: Reviewed. GENERAL: Well-developed in no acute distress. HEENT: Trach intact. No sclera icterus. Extraocular movements grossly intact. Moist buccal mucosa. Head is atraumatic, normocephalic. ABDOMEN: Soft. Nondistended. Nontender. J-tube noted. NEUROLOGIC: Not thoroughly examined. ASSESSMENT: 1. CVA 2. Acute hypoxic respiratory failure PLAN: -Continue tube feeds via J-tube as tolerated -No meds to be given down J tube per Dr. Garcia Nurse practitioner note has been reviewed by physician. Signing provider agrees with the documented findings, assessment, and plan of care. Objective - Vital Signs Vital signs: Vital Signs Temp 98.8 F 02/06/20 09:00 Pulse 72 02/06/20 09:00 Resp 30 H 02/06/20 09:00 BP 114/65 02/06/20 09:00 Pulse Ox 97 02/06/20 09:00 Intake & Output 02/05/20 02/06/20 02/06/20 18:59 06:59 18:59 Intake Total 2196 1680 680 Output Total 855 1145 200 Balance 1341 535 480 Weight 72.1 kg 77.2 kg Intake: IV 1000 1100 150 Meropenem 1 gm In Sodium 100 200 Chloride 0.9% 100 ml @ 200 mls/hr IVPB Q8H [facility] Rx#:[id number] Sodium Chloride 0.9% 1, 900 900 150 000 ml @ 75 mls/hr IV . [id number] [facility] Rx#:[id number] Intake, IV Titration 100 100 Amount levETIRAcetam IV 500 mg 100 100 In Sodium Chloride 0.9% 100 ml @ 400 mls/hr IVPB Q12HR [facility] Rx#:[id number] Tube Feeding 696 580 230 Other 400 200 Output: Urine 855 1145 200 Other: Voiding Method Indwelling Catheter Indwelling Catheter Indwelling Catheter # Bowel Movements 1 ABP, PAP, CO, CI - Last Documented Arterial Blood Pressure 94/79 - Labs CBC & Chem 7: 02/06/20 04:15 02/06/20 04:15 Labs: Abnormal Lab Results - Last 24 Hours (Table) 02/05/20 02/05/20 02/06/20 Range/Units 11:24 17:28 00:05 RBC (3.80-5.40) m/uL Hgb (11.4-16.0) gm/dL Hct (34.0-46.0) % Plt Count (150-450) k/uL Neutrophils # (1.3-7.7) k/uL Lymphocytes # (1.0-4.8) k/uL ABG pH (7.35-7.45) ABG pCO2 (35-45) mmHg Sodium (137-145) mmol/L Chloride (98-107) mmol/L Creatinine (0.52-1.04) mg/dL Glucose (74-99) mg/dL POC Glucose (mg/dL) 139 H 124 H 139 H (75-99) mg/dL Calcium (8.4-10.2) mg/dL AST (14-36) U/L ALT (4-34) U/L Total Protein (6.3-8.2) g/dL Albumin (3.5-5.0) g/dL 02/06/20 02/06/20 02/06/20 Range/Units 04:15 04:15 04:51 RBC 2.72 L (3.80-5.40) m/uL Hgb 8.7 L (11.4-16.0) gm/dL Hct 26.6 L (34.0-46.0) % Plt Count 473 H (150-450) k/uL Neutrophils # 8.2 H (1.3-7.7) k/uL Lymphocytes # 0.9 L (1.0-4.8) k/uL ABG pH 7.49 H (7.35-7.45) ABG pCO2 29 L (35-45) mmHg Sodium 134 L (137-145) mmol/L Chloride 109 H (98-107) mmol/L Creatinine 0.27 L (0.52-1.04) mg/dL Glucose 119 H (74-99) mg/dL POC Glucose (mg/dL) (75-99) mg/dL Calcium 7.2 L (8.4-10.2) mg/dL AST 47 H (14-36) U/L ALT 50 H (4-34) U/L Total Protein 4.6 L (6.3-8.2) g/dL Albumin 2.1 L (3.5-5.0) g/dL 02/06/20 Range/Units 06:15 RBC (3.80-5.40) m/uL Hgb (11.4-16.0) gm/dL Hct (34.0-46.0) % Plt Count (150-450) k/uL Neutrophils # (1.3-7.7) k/uL Lymphocytes # (1.0-4.8) k/uL ABG pH (7.35-7.45) ABG pCO2 (35-45) mmHg Sodium (137-145) mmol/L Chloride (98-107) mmol/L Creatinine (0.52-1.04) mg/dL Glucose (74-99) mg/dL POC Glucose (mg/dL) 125 H (75-99) mg/dL Calcium (8.4-10.2) mg/dL AST (14-36) U/L ALT (4-34) U/L Total Protein (6.3-8.2) g/dL Albumin (3.5-5.0) g/dL
--- NOTE | 2020-02-06 16:47 | PN ---
PROGRESS NOTE DATE OF SERVICE: 02/06/2020 REASON FOR FOLLOWUP: Aspiration pneumonia, ESBL E coli urinary tract infection. INTERVAL HISTORY: The patient is currently afebrile. The patient is hemodynamically stable. The patient remains to be intubated on the vent. FiO2 is currently 30%. Tolerating her tube feeds and no diarrhea reported. PHYSICAL EXAMINATION: Blood pressure 131/70 with a pulse of 76, temperature 98, she is 30% FiO2. General description is a middle-aged female, lying in bed in no distress. RESPIRATORY SYSTEM: Unlabored breathing, clear to auscultation anteriorly. HEART: S1, S2. Regular rate and rhythm. ABDOMEN: Soft, no tenderness. LABS: Hemoglobin 8.7, white count 9.9, BUN of 12, creatinine 0.27. DIAGNOSTIC IMPRESSION AND PLAN: Patient in acute respiratory failure which is likely multifactorial in this patient who did have aspiration pneumonitis and with ESBL E coli UTI. The patient is currently on meropenem to continue her 2-week course of therapy and monitor clinical course closely. MMODL / IJN: [id number] /
[2020-02-06 18:08] LABS: Glucose,Whole Blood 121 mg/dL (75-99)
--- NOTE | 2020-02-06 18:44 | PN ---
PROGRESS NOTE DATE OF DICTATION: 02/06/2020 This patient is a 59-year-old pleasant white female who remains in the intensive care unit on the vent through the trach. She is more awake and alert today, responding to simple questions. No other symptoms overnight. She continues to remain stable. Has a tube feed in place with a J-tube, tolerating well. PHYSICAL EXAMINATION: Blood pressure is 131/71, pulse rate 76, temperature 98. HEENT examination unremarkable. Conjunctivae pink. Sclerae anicteric. Trach in place. ABDOMEN: Benign. J-tube in place. Tolerating tube feeds very well. No organomegaly. EXTREMITIES: No pedal edema. NEUROLOGIC: Responding to simple commands. LABS: Labs from today show WBC 9.8, hemoglobin 8.7, platelets 473, BUN 12, creatinine 2.27. IMPRESSION: 1. Altered mental status/metabolic encephalopathy, gradually improving. Patient is more awake and alert today. 2. Mild elevation of serum transaminases that remain stable. Questionable history of chronic liver disease and possible mild hepatic encephalopathy. However, ammonia levels have been within normal limits. 3. History of schizoaffective disorder. 4. History of gastric bypass surgery with magaly-en-Y anastomosis in the past. RECOMMENDATIONS: 1. As patient is doing well, continue with symptomatic and supportive care as per the testing director. 2. Continue lactulose. 3. Continue tube feeds and increase to the goal rate as recommended by the dietitian. 4. In regards to the elevated LFTs, we will investigate this further as an outpatient when her overall condition improves. Will follow with you closely. Thank you for this consultation. MMALFREDOL / IJN: [id number] /
[2020-02-06] MEDS: ENOXAPARIN 40 MG/0.4 ML SYRINGE SQ SCH (20:32)
[2020-02-06] MEDS ORDERED: levETIRAcetam 250 MG TAB PO SCH (21:00)
[2020-02-06] MEDS: ATORVASTATIN 40 MG TAB PEJ/J-Tube SCH (21:37)
[2020-02-06] MEDS: levETIRAcetam ORAL SOLN 500 MG/5 ML CUP PEG/G-TUBE SCH (21:56)
[2020-02-06] MEDS: ACETAMINOPHEN SUPPOSITORY 650 MG SUPP RECTAL PRN (22:25)
[2020-02-07 00:05] LABS: Glucose,Whole Blood 99 mg/dL (75-99)
[2020-02-07 01:35] LABS: Glucose,Whole Blood 106 mg/dL (75-99)
[2020-02-07] MEDS: SODIUM CHLORIDE 0.9% 1,000 ML IV SCH ×2 (02:36→09:57)
[2020-02-07] MEDS: INSULIN ASPART (NovoLOG) 100 UNIT/ML VIAL SQ SCH ×3 (02:41→12:46)
[2020-02-07 05:14] LABS: Basophils % (A) 0 %; Eosinophils # (A) 0.3 k/uL (0-0.7); Eosinophils % (A) 4 %; HCT 25.4 % (34.0-46.0); HGB 8.3 gm/dL (11.4-16.0); Lymphocytes # (A) 1.1 k/uL (1.0-4.8); Lymphocytes % (A) 13 %; MCH 31.8 pg (25.0-35.0); MCHC 32.9 g/dL (31.0-37.0); MCV 96.8 fL (80.0-100.0); Mean Platelet Volume 8.7; Monocytes # (A) 0.5 k/uL (0-1.0); Monocytes % (A) 6 %; Neutrophils % (A) 76 %; Platelet Count 317 k/uL (150-450); RBC 2.62 m/uL (3.80-5.40); RDW 14.5 % (11.5-15.5)
[2020-02-07 05:37] LABS: African American GFR (CKD) >90 (>60 ml/min/1.73 sqM); Anion Gap 2 mmol/L; Blood Urea Nitrogen 13 mg/dL (7-17); Calcium 7.4 mg/dL (8.4-10.2); Carbon Dioxide 23 mmol/L (22-30); Chloride 109 mmol/L (98-107); Glucose 101 mg/dL (74-99); Non-African American GFR(CKD) >90 (>60 ml/min/1.73 sqM); Potassium 4.7 mmol/L (3.5-5.1); Sodium 134 mmol/L (137-145)
[2020-02-07 05:45] LABS: Glucose,Whole Blood 108 mg/dL (75-99)
[2020-02-07] MEDS: MEROPENEM 1 GM in SODIUM CHLORIDE 0.9% 100 ML IVPB SCH (05:50)
[2020-02-07 06:21] LABS: ABG Base Excess -0.9 mmol/L; ABG HCO3 22 mmol/L (21-25); ABG PCO2 29 mmHg (35-45); ABG PO2 103 mmHg (83-108); ABG TCO2 23 mmol/L (19-24)
--- NOTE | 2020-02-07 07:48 | XR ---
EXAMINATION TYPE: XR chest 1V portable DATE OF EXAM: 02/07/2020 HISTORY: Shortness of breath. COMPARISON: 02/06/2020 TECHNIQUE: Single view of the chest is submitted. FINDINGS: Tracheostomy tube is redemonstrated. Central venous line has been removed. No evidence for pneumothor ax. Consolidation left lower lobe persists although may be slightly improved. The heart is stable. Hilar and mediastinal structures are within normal limits. Degenerative changes are seen of the dorsal spine. IMPRESSION: 1. Consolidation left lower lobe persists although may be slightly improved.
--- NOTE | 2020-02-07 08:55 | PN ---
PROGRESS NOTE DATE OF DICTATION: 02/07/2020 Patient is a 59-year-old pleasant white female who presently remains in the intensive care unit with tracheostomy and J-tube placement and remains on the vent. She presented with altered mental status and acute respiratory failure. The patient is more awake today. She is responding to simple questions. She denies any abdominal pain. She reports no nausea, vomiting. She has a J-tube in place and tolerating tube feeds well. Neurology is following the patient closely. PHYSICAL EXAMINATION: On physical examination, she is awake and responsive to simple verbal stimuli. VITAL SIGNS: Blood pressure is 126/80, pulse rate 66, and temperature 98.2. HEENT: Examination unremarkable. Conjunctivae pink. Sclerae anicteric. Oral cavity no lesions. NECK: No JVD or lymph node enlargement. CHEST: Clear to auscultation. HEART: Regular rate and rhythm. ABDOMEN: Was soft. J-tube in place, was benign. EXTREMITIES: No pedal edema. SKIN: No rashes. NEURO: She is awake, responding to simple questions. LABS: Labs from today: WBC 8, hemoglobin 8.3, platelets normal. Basic metabolic panel is within normal limits. BUN is 13, creatinine 0.26. LFTs from yesterday AST is 47, ALT is 50. T bilirubin and alkaline phosphatase are within normal limits. The ammonia has been within normal limits. Chest x-ray from this morning consolidation of the left upper lobe is slightly improved. IMPRESSION: 1. Acute respiratory failure with possible aspiration pneumonia on broad-spectrum antibiotics. She is presently Mer[place]. 2. Altered mental status, which has significantly improved, most likely related to metabolic encephalopathy with a component of hepatic encephalopathy. The patient is much more awake and alert today. Neurology following the patient closely. 3. Urinary tract infection, on antibiotics. 4. Mild elevation of serum transaminases, which continued to remain stable. It is unclear whether patient has chronic liver disease at the present time. 5. At the time of admission, she did have slightly elevated ammonia level, which was treated with lactulose and her ammonia has been normal since then. 6. History of gastric bypass surgery with John-en-Y surgery, status post J-tube placement on tube feeds, tolerating well. RECOMMENDATIONS: 1. Continue management per the ICU. 2. Continue with tube feeds for now. 3. Monitor LFTs on a close basis. 4. Continue lactulose as needed. 5. Protonix 40 mg twice daily. 6. We will follow with you closely. Thank you for this consultation. MMODL / IJN: [id number] /
[2020-02-07] MEDS: PANTOPRAZOLE 40 MG/10 ML VIAL IVP SCH (08:58)
[2020-02-07] MEDS: ACETAMINOPHEN SUPPOSITORY 650 MG SUPP RECTAL PRN (08:58)
[2020-02-07] MEDS: ASPIRIN 300 MG SUPP RECTAL SCH (08:59)
[2020-02-07] MEDS: CHLORHEXIDINE GLUCONATE 15 ML CUP MUCOUS MEM SCH (08:59)
[2020-02-07] MEDS: ESCITALOPRAM 20 MG TAB PO SCH (09:47)
[2020-02-07] MEDS: LEVOTHYROXINE 50 MCG TAB PEJ/J-Tube SCH (09:47)
[2020-02-07] MEDS: levETIRAcetam ORAL SOLN 500 MG/5 ML CUP PEG/G-TUBE SCH (09:47)
[2020-02-07 11:08] LABS: Immunoglobulin M 65.1 mg/dL (40.0-280.0)
--- NOTE | 2020-02-07 11:21 | P.PN ---
Subjective Progress Note Date: 02/07/20 Principal diagnosis: Altered mental status On 02/06/2020 patient seen in follow-up in the intensive care unit, she is awake and alert, she is following simple commands, and she squeezing hands on command she is nodding her head appropriately to questions, and she is mouthing some words. She remains trached to the ventilator she is currently on assist control mode of ventilation with a rate of 30, tidal vital 350, FiO2 of 25 percent, and PEEP of 5. This morning's blood gases revealed a pO2 of 95, pCO2 of 29, and pH of 7.49 consistent with mild respiratory alkalosis. This was done and FiO2 of 25%. Today's chest x-ray showed a left lower lobe infiltrate, mildly prominent pulmonary vasculature, left lower lobe infiltrate versus pleural effusion. Lung sounds are clear, diminished at the bases, no rhonchi or wheezing. Patient has been afebrile, hemodynamically she is stable, she is on 0.9 normal saline at a rate of 75 ML per hour, tube feedings are Glucerna at a rate of 58, patient is tolerating tube feedings very well, she remains on meropenem for ESBL E. coli. On 02/07/2020 patient seen in follow-up in the intensive care unit, she is awake and alert, she is following command, she is calm and comfortable, does not appear to be in any acute distress, she is able to squeeze hands on command, we will her toes, however she is very profoundly generally weak. Remains trached to the ventilator, current settings are assist-control with a rate of 30, tidal volume of 350, FiO2 of 25% and PEEP of 5, this morning his blood gases showed pO2 of 103, pCO2 of 29, pH of 7.49 consistent with respiratory alkalosis. Her pulse ox is about 99%, lung sounds are clear, diminished at the bases, no rhonchi, no wheezing, 0.9 with secondary to 20 ML per hour, tube feedings include Glucerna at 58 ML per hour, vital signs have been stable, she has been in sinus mechanism with a rate of 83 bpm. No fever, she remains on meropenem ESBL E. coli urinary tract infection. Objective - Vital Signs Vital signs: Vital Signs Temp 98.3 F 02/07/20 09:00 Pulse 69 02/07/20 11:00 Resp 23 02/07/20 11:00 BP 122/77 02/07/20 11:00 Pulse Ox 100 02/07/20 11:00 Intake & Output 02/06/20 02/07/20 02/07/20 18:59 06:59 18:59 Intake Total 1485 2138 807 Output Total 1000 1265 815 Balance 485 873 -8 Weight 79 kg Intake: IV 525 900 375 Sodium Chloride 0.9% 1, 525 900 375 000 ml @ 75 mls/hr IV . [id number] [facility]A Rx#:[id number] Intake, IV Titration 100 Amount levETIRAcetam IV 500 mg 100 In Sodium Chloride 0.9% 100 ml @ 400 mls/hr IVPB Q12HR K[facility]A Rx#:[id number] Tube Feeding 460 638 232 Other 400 600 200 Output: Urine 1000 1265 815 Other: Voiding Method Indwelling Catheter Indwelling Catheter Indwelling Catheter ABP, PAP, CO, CI - Last Documented Arterial Blood Pressure 94/79 - Exam GENERAL EXAM: Alert, very pleasant, 59-year-old white female, trached to the ventilator, awake, following simple commands, able to squeeze hands on command, she is mouthing some words, and answering questions with nodding or shaking her head no appropriately, comfortable in no apparent distress. HEAD: Normocephalic/atraumatic. EYES: Normal reaction of pupils, equal size. Conjunctiva pink, sclera white. NOSE: Clear with pink turbinates. THROAT: No erythema or exudates. NECK: No masses, no JVD, no thyroid enlargement, no adenopathy. Midline tracheostomy CHEST: No chest wall deformity. Symmetrical expansion. LUNGS: Equal air entry with no crackles, wheeze, rhonchi or dullness. CVS: Regular rate and rhythm, normal S1 and S2, no gallops, no murmurs, no rubs ABDOMEN: Soft, nontender. No hepatosplenomegaly, normal bowel sounds, no guarding or rigidity. PEG tube is in place with tube feedings infusing EXTREMITIES: No clubbing, no edema, no cyanosis, 2+ pulses and upper and lower extremities. MUSCULOSKELETAL: Muscle strength and tone normal. SPINE: No scoliosis or deformity SKIN: No rashes CENTRAL NERVOUS SYSTEM: Alert and oriented -3. No focal deficits, tone is norm al in all 4 extremities. PSYCHIATRIC: Alert and oriented -3. Appropriate affect. Intact judgment and insight. - Labs CBC & Chem 7: 02/07/20 04:54 02/07/20 04:54 Labs: Abnormal Lab Results - Last 24 Hours (Table) 02/06/20 02/06/20 02/06/20 Range/Units 11:39 16:25 18:07 RBC (3.80-5.40) m/uL Hgb (11.4-16.0) gm/dL Hct (34.0-46.0) % ABG pH (7.35-7.45) ABG pCO2 (35-45) mmHg Sodium (137-145) mmol/L Chloride (98-107) mmol/L Creatinine (0.52-1.04) mg/dL Glucose (74-99) mg/dL POC Glucose (mg/dL) 130 H 121 H (75-99) mg/dL Calcium (8.4-10.2) mg/dL IgG 671.0 L (700.0-1600.0) mg/dL 02/07/20 02/07/20 02/07/20 Range/Units 01:33 04:54 04:54 RBC 2.62 L (3.80-5.40) m/uL Hgb 8.3 L (11.4-16.0) gm/dL Hct 25.4 L (34.0-46.0) % ABG pH (7.35-7.45) ABG pCO2 (35-45) mmHg Sodium 134 L (137-145) mmol/L Chloride 109 H (98-107) mmol/L Creatinine 0.26 L (0.52-1.04) mg/dL Glucose 101 H (74-99) mg/dL POC Glucose (mg/dL) 106 H (75-99) mg/dL Calcium 7.4 L (8.4-10.2) mg/dL IgG (700.0-1600.0) mg/dL 02/07/20 02/07/20 Range/Units 05:43 06:02 RBC (3.80-5.40) m/uL Hgb (11.4-16.0) gm/dL Hct (34.0-46.0) % ABG pH 7.50 H (7.35-7.45) ABG pCO2 29 L (35-45) mmHg Sodium (137-145) mmol/L Chloride (98-107) mmol/L Creatinine (0.52-1.04) mg/dL Glucose (74-99) mg/dL POC Glucose (mg/dL) 108 H (75-99) mg/dL Calcium (8.4-10.2) mg/dL IgG (700.0-1600.0) mg/dL Microbiology - Last 24 Hours (Table) 02/06/20 16:25 Catheter Tip Culture - Preliminary Catheter Tip Assessment and Plan Plan: Assessment: 1 Acute hypoxic respiratory failure and possible aspiration pneumonia requiring intubation mechanical ventilatory support. She remains ventilator dependent and is status post tracheostomy and PEG tube placement. 2 Acute mental status change, acute metabolic encephalopathy, etiology remains unclear. Improved, and on today's exam on 02/06/2020, patient is awake and alert, she is following simple commands, she is squeezing hands on commands, and she is mouthing words 3 History of left carotid dissection. 4 History of dyslipidemia. 5 History of schizoaffective disorder. 6 Possible complex partial seizures 7 History of post traumatic shock disorder. 8 History of moderate mitral regurgitation 9 History of chronic anxiety and depression. 10 ESBL E. coli urinary tract infection Plan: Patient has been stable on last 24 hours, afebrile, she remains on meropenem for ESBL E. coli urinary tract infection, she is awake and alert, following commands, she is able to squeeze hands on command, no evidence of any distress, we will place her on pressure-support of 5 and CPAP of 5. No acute events over night, increase activity as tolerated, active and passive range of motion. Continue tube feeding. Awaiting authorization from insurance company for transfer to LTAC facility I performed a history & physical examination of the patient and discussed their management with my nurse practitioner, Jennifer Abraham. I reviewed the nurse practitioner's note and agree with the documented findings and plan of care. Lung sounds are positive for diminished breath sounds. The findings and the impression was discussed with the patient. I attest to the documentation by the nurse practitioner. Time with Patient: Greater than 30
[2020-02-07 12:17] VITALS: TEMP 98.5
--- NOTE | 2020-02-07 12:18 | P.DS ---
Providers Date of admission: 01/23/20 09:37 Expected date of discharge: 02/07/20 Attending physician: Rani Cao, Consults: 01/23/20 09:37 Consult Physician Routine Consulting Provider: Becki Pagan Consult Reason/Comments: CVA Do you want consulting provider notified?: Yes 01/23/20 13:15 Consult Physician Stat Consulting Provider: Suzan Castillo Consult Reason/Comments: Acute CVA Do you want consulting provider notified?: Yes 01/24/20 05:37 Consult Physician Routine Consulting Provider: Jose Mathis Consult Reason/Comments: altered mental status Do you want consulting provider notified?: Yes 01/25/20 21:13 Consult Physician Stat Consulting Provider: Anyi Caldwell Consult Reason/Comments: ICU admit Do you want consulting provider notified?: Already Contacted 01/26/20 15:03 Consult Physician Routine Consulting Provider: Kelly Taylor Consult Reason/Comments: pneumonia Do you want consulting provider notified?: Yes 01/29/20 12:43 Consult Physician Urgent Consulting Provider: Crispin Ramirez Consult Reason/Comments: hepatic encephalopathy Do you want consulting provider notified?: Already Contacted 01/30/20 08:13 Consult Physician Routine Consulting Provider: Abdifatah Garcia Consult Reason/Comments: trach and PEG Do you want consulting provider notified?: Yes 02/01/20 12:06 Consult Physician Routine Consulting Provider: Jose Mathis Consult Reason/Comments: managment of psych meds, lexapro and zyprexa. Husban insist on restarting. Do you want consulting provider notified?: Yes Primary care physician: Physician Nonstaff - Discharge Diagnosis(es) (1) Metabolic encephalopathy Patient has a history of CVA's , multiple falls, who presented confusion. Init ially patient had a stroke call-down, CT head negative for acute etiology, CTA of the neck showed known dissection of the left ICA. Laurenn was seen by neurology, MRI of the brain did not acute infarction or mid-line shift. Patient was given Keppra for possible seizure. She was given a trial of dialntin but this was discontinued. CSF fluid was negative for infection repeat EEG did not show any evidence of seizure. Patient following simple commands awake and alert Current Visit: Yes Status: Acute Onset Date: ~01/23/20 (2) Aspiration pneumonia On 01/24 patient had NGT placed for nutritional support. Patient developed a significant nose bleed She became hypoxic and was subsequently intubated. Patient was treated with Zosyn for possible aspiration pneumonia and was later transitioned to Meropenen. Patient is currently day #11 of Merrem for ESBL UTI she was unable to tolerate weaning and was trached 01/31/20. Today patient trached on AC 30, TV 350, FiO2 25%, PEEP 5. ABG this am with pO2 of 103, PCO2 29, PH 7.49. Will need continued weaning and pulmonary hygeine respiratory culture with normal geoffrey Current Visit: Yes Status: Acute (3) UTI (urinary tract infection) ESBL being treated with Meropenen was seen by ID 14 days of treatment recommended Current Visit: Yes Status: Acute Hospital Course: Patient has a known history of schizophrenia and was evaluated by psychiatry 01/31 but did not meet the criteria for inpatient psych. She was seen by GI fro transaminitis possible hepatic encephalopathy J tube placed on 01/31 and currently tolerating Glucerna at 58 ml/h Time spent on the day of discharge 40 minutes Assessment: Alert and oriented simple commands Procedures: J tube 01/31 Trach 01/30 Patient Condition at Discharge: Serious Plan - Discharge Summary Discharge Rx Participant: No New Discharge Prescriptions: No Action Gabapentin [Gralise] 600 mg PO HS Cyclobenzaprine [Flexeril] 10 mg PO HS PRN PRN Reason: muscle spasms Atorvastatin [Lipitor] 40 mg PO HS OLANZapine [ZyPREXA] 10 mg PO DAILY Escitalopram [Lexapro] 20 mg PO DAILY Solifenacin Succinate [Vesicare] 5 mg PO DAILY Pilocarpine [Salagen] 5 mg PO TID PRN PRN Reason: Dry Mouth Midodrine HCl [ProAmatine] 10 mg PO TID Multivitamins, Thera [Multivitamin (formulary)] 1 tab PO DAILY Mirabegron [Myrbetriq] 50 mg PO DAILY Calcium Carbonate [Calcium] 600 mg PO BID Ergocalciferol (Vitamin D2) [Drisdol] 50,000 unit PO DIRECTED Nascobal (B12) 500mcg/[place] 1 spray NASAL Q7D Levothyroxine Sodium [Synthroid] 50 mcg PO MOTUWETHFRSA Levothyroxine Sodium [Synthroid] 25 mcg PO ORTIZ Pantoprazole [Protonix] 40 mg PO DAILY PRN PRN Reason: gerds Warfarin Sodium [Coumadin] 9 mg PO SUMOWEFR Follow up Appointment(s)/Referral(s): Nonstaff,Physician [Primary Care Provider] - 1-2 days Activity/Diet/Wound Care/Special Instructions: Glucerna @ 58 ml/h Discharge Disposition: [facility] Plan of Treatment: Continue Meropenem Day #10/06
[2020-02-07 12:44] LABS: Glucose,Whole Blood 101 mg/dL (75-99)
[2020-02-07 13:10] VITALS: RESP 30
[2020-02-07 14:25] VITALS: BP 117/76; PULSE 72
--- NOTE | 2020-02-07 14:27 | P.PN ---
Progress Note - Text Progress Note Date: 02/07/20 Interval History: Patient was seen for psychiatric follow-up as requested by Dr. Stanton today. Nurse taking care patient states that patient has been more alert and awake and following more commands however continues to be weak. Nurse also claim the patient has not been receiving her by mouth medications as she cannot take it through the PEG tube at this time. At that point psychiatric medications were held including Lexapro and Zyprexa as there was no significant reason to restart them. Patient remains on the ventilator and is getting tube feeding. Patient was seen at the bedside and was nonverbal however was able to follow some commands and nodded when she was asked if she seen production underwriter before. She did appear to be generally weak and lethargic. Mental Status Exam: General Appearance: Patient appears to be stated age is laying in bed, more awake today however remains nonverbal. Patient appears to have fair hygiene and grooming wearing hospital gown. Behavior: Following some commands. Speech: Nonverbal. Mood/Affect: Unable to assess Suicidality/Homicidality: Unable to assess Perceptions: Unable to assess Though content/process: Unable to assess Memory and concentration: She was able to follow some commands. Judgment and insight: Unable to assess. Assessment Delirium/encephalopathy, with unknown etiology Plan: -At this time patient DOES NOT meet criteria for inpatient psychiatric admission. -Delirium precautions recommended with patient including - avoiding use of narcotics and SERVICE STATION MANAGER sedatives, limit anticholinergic medications when possible, frequent re-orientation, minimize use of restraints, open window shades during the day and close them at night -Would recommend the following medication changes/additions: Again, continue to recommend the patient not have her Zyprexa restarted at this time as there is no immediate indication for it as patient is not having any agitation or aggression and is already fairly sedated. Lexapro can be restarted at 10 mg daily once patient is able to tolerate by mouth meds and then Zyprexa can be slowly introduced at that time as well starting at 5 mg at nighttime. -Patient to be discharged today to LTAC. -Please call with any questions. Psychiatry signing off.
--- NOTE | 2020-02-07 14:34 | P.PN ---
Subjective Progress Note Date: 02/07/20 02/07/2020: Patient ready to be transferred to in [place]. Patient was seen briefly. Patient is fully alert and awake. Her strength has significantly improved, which is very affirmative of generalized weakness possibly from deconditioning, probably not critical illness neuropathy. 02/06/2020: Patient fully alert and awake. Patient nodding appropriately, trying to communicate. Patient still very weak, able to flex at the biceps with some resistance, slightly move deltoid but screenplay writer is very weak. Likewise ankles are slightly stronger than proximally in the lower limbs. Reflexes are almost absent. Plantars are flat. Tone is decreased in the arms and legs. 02/05/2020: Patient more alert and awake. Patient following commands as she did yesterday. Still appears very generalized weak. Denies headache. Patient able to recognize the name of her grandson. No seizures reported. 02/04/2020: Patient is very alert, awake, tracheostomy in place. Patient is making eye contact, trying to communicate with head, nodding appropriately. Patient following commands, trying to moving arms and legs. Patient appears diffusely weak, but still able to comprehend and follow directions. 02/01/2020: Patient showing slight but definite clinical improvement. She tried to open her eyes when I called her name. She then closed her eyes. After I manually opened her eyes, she held her eyes open appeared much more awake. Still not much tracking or following commands. 01/31/2020: Patient had undergone track and PEG today. She has very minimally responded to calling her name loudly with minimal trying to open the eyes. Otherwise no change. She is off sedation since 01/28/2020. 01/30/2020: Patient continues to be comatose. Not responding to vocal or painful stimuli. Patient continues to have some twitching of her eyelids on manually opening the eyelids. No twitching of the eyes. No twitching of facial muscles, or extremities. No obvious seizure noted by the staff. Patient's liver ultrasound showed liver appears course and low Tamiko. Underlying cirrhotic liver disease is not excluded. Dilated common bile duct 1 cm. Gallbladder not well visualized. Patient's liver functions shows worsening pattern with AST 87 (62 yesterday), ALT 86 (70 yesterday). Repeat ammonia level normal 27. CPK and temperature is normal, therefore doubt NMS. Patient has been seen by gastroenterology, who does not feel symptoms are completely explained by hepatic encephalopathy although may be a component of hepatic encephalopathy. Patient is a 59-year-old female admitted to the hospital on 01/23/2020 for strokelike symptoms. She was having difficulty with manipulating remote control for the TV and according to the EMS also had difficulty speaking on the morning of admission. CT head showed mild bifrontal atrophy. CTA of the neck showed bovine configuration to the aortic arch. No dissection of the upper cervical left ICA extending into the vertical petrous segment. There is similar enhancement within both lumens without arterial occlusion. No significant ICA stenosis. Dominant left vertebral artery. CT of the brain showed nondominant V4 segment right vertebral artery becomes very hypoplastic, possibly terminating as a PICA branch. No continuation of the patient's known left ICA dissection beyond the petrous segment. No large vessel intercranial arterial occlusion or aneurysmal change. Patient had a repeat CTA of head and neck on 01/26/2020 again revealed the visualization of the patient's known distal left ICA dissection. Diminutive right vertebral artery. Borderline appearance of the aortic arch. 2-D echo showed moderate concentric LVH, EF 55-60%. Left atrium is moderately dilated. Moderate MR, TR. MRI of the brain showed no acute process. T2/FLAIR hypointensity along the cranial aspect of the central sulcus on the right when correlated with the CT of the same date could represent hemosiderin deposition from old chronic subarachnoid hemorrhage or prominent draining veins. Patient's blood test shows normal WBC 9.7 hemoglobin 11.1 PT/PTT normal. Sodium 148, potassium 3.6, renal functions with BUN 26, creatinine 0.49. A1c 6.3, AST is 47, ALT 61 both elevated. Ammonia is <9. TSH is mildly low 0.226, free T4 normal. Prolactin mildly elevated 37.0, B12 627. Folate 18.0. Total cholesterol 133, LDL 46, HDL 77 and triglycerides 48. CSF protein is normal 29, glucose 75, WBC 0, RBC 2. Viral panel negative including HSV 1, and HSV 2, varicella-zoster, CMV, adenovirus and enterovirus. Urine drug screen positive for methamphetamine. Patient is off sedation since 10:30 AM yesterday. Patient still not showing any clinical improvement. She is not following any commands. Please refer to examination below. Objective - Vital Signs Vital signs: Vital Signs Temp 98.5 F 02/07/20 12:00 Pulse 72 02/07/20 14:00 Resp 30 H 02/07/20 14:00 BP 117/76 02/07/20 14:00 Pulse Ox 100 02/07/20 14:00 Intake & Output 02/06/20 02/07/20 02/07/20 18:59 06:59 18:59 Intake Total 1485 2138 1273 Output Total 1000 1265 1065 Balance 485 873 208 Weight 79 kg Intake: IV 525 900 525 Sodium Chloride 0.9% 1, 525 900 525 000 ml @ 75 mls/hr IV . [id number] [facility] Rx#:[id number] Intake, IV Titration 100 Amount levETIRAcetam IV 500 mg 100 In Sodium Chloride 0.9% 100 ml @ 400 mls/hr IVPB Q12HR [facility] Rx#:[id number] Tube Feeding 460 638 348 Other 400 600 400 Output: Urine 1000 1265 1065 Other: Voiding Method Indwelling Catheter Indwelling Catheter Indwelling Catheter ABP, PAP, CO, CI - Last Documented Arterial Blood Pressure 94/79 - Exam On examination patient is very alert and awake. Patient follows commands. Patient makes eye contact, tracks on either side. Patient's mentation completely normal now. Patient's strength also appears to have improved remarkably. Patient able to lift her arms, squeeze the hands, wiggling her feet much better than before. - Labs CBC & Chem 7: 02/07/20 04:54 02/07/20 04:54 Labs: Abnormal Lab Results - Last 24 Hours (Table) 02/06/20 02/06/20 02/07/20 Range/Units 16:25 18:07 01:33 RBC (3.80-5.40) m/uL Hgb (11.4-16.0) gm/dL Hct (34.0-46.0) % ABG pH (7.35-7.45) ABG pCO2 (35-45) mmHg Sodium (137-145) mmol/L Chloride (98-107) mmol/L Creatinine (0.52-1.04) mg/dL Glucose (74-99) mg/dL POC Glucose (mg/dL) 121 H 106 H (75-99) mg/dL Calcium (8.4-10.2) mg/dL IgG 671.0 L (700.0-1600.0) mg/dL 02/07/20 02/07/20 02/07/20 Range/Units 04:54 04:54 05:43 RBC 2.62 L (3.80-5.40) m/uL Hgb 8.3 L (11.4-16.0) gm/dL Hct 25.4 L (34.0-46.0) % ABG pH (7.35-7.45) ABG pCO2 (35-45) mmHg Sodium 134 L (137-145) mmol/L Chloride 109 H (98-107) mmol/L Creatinine 0.26 L (0.52-1.04) mg/dL Glucose 101 H (74-99) mg/dL POC Glucose (mg/dL) 108 H (75-99) mg/dL Calcium 7.4 L (8.4-10.2) mg/dL IgG (700.0-1600.0) mg/dL 02/07/20 02/07/20 Range/Units 06:02 12:42 RBC (3.80-5.40) m/uL Hgb (11.4-16.0) gm/dL Hct (34.0-46.0) % ABG pH 7.50 H (7.35-7.45) ABG pCO2 29 L (35-45) mmHg Sodium (137-145) mmol/L Chloride (98-107) mmol/L Creatinine (0.52-1.04) mg/dL Glucose (74-99) mg/dL POC Glucose (mg/dL) 101 H (75-99) mg/dL Calcium (8.4-10.2) mg/dL IgG (700.0-1600.0) mg/dL Microbiology - Last 24 Hours (Table) 02/06/20 16:25 Catheter Tip Culture - Preliminary Catheter Tip Assessment and Plan Assessment: * Acute encephalopathy, probably toxic metabolic, with some component of hepatic encephalopathy/hepatic coma. Encephalopathy completely resolved. * Generalized weakness, also improved, probably deconditioning. * History of left ICA dissection. Patient was on Coumadin, now on aspirin regimen. Plan: * Patient's mentation is now completely normal. Muscle strength also is improving gradually, noticeably, therefore doubt critical illness neuropathy. Weakness likely from deconditioning from prolonged hospital stay. Prognosis appears good. * Patient is status post trach and PEG 01/31/2020.. * Patient's LFTs continues to be elevated, although improving now. Hepatitis panel negative, ramirez virus PCR negative. Influenza negative. Ammonia is normal <9.0. B12 627, folate 18.0, TSH is slightly decreased 0.226 with nor mal free T4 1.46. Hemoglobin A1c 6.3. Quantitative immunoglobulin shows normal IgM, IgA, IgG is slightly decreased 671. Immunoelectrophoresis still pending. CPK normal 66, COVID-19 negative. * Continue aspirin 81 mg daily due to her history of left ICA dissection for stroke prevention. * Continue Keppra 250 mg twice a day. * Patient currently being transferred to LTAC.
--- NOTE | 2020-02-07 15:29 | PN ---
PROGRESS NOTE DATE OF SERVICE: 02/07/2020 REASON FOR FOLLOWUP: Aspiration pneumonia, ESBL E coli bacteremia. INTERVAL HISTORY: The patient is currently afebrile. She has been breathing comfortably. The patient responded to her name, hemodynamically stable, not on pressor support. FiO2 is at 25%. Tolerating her tube feeds, no diarrhea reported. PHYSICAL EXAMINATION: Blood pressure 170/76, pulse of 72, temperature 98.5, she is 100% on 25% FiO2. General description is an elderly female, lying in bed in no distress. RESPIRATORY SYSTEM: Unlabored breathing, decreased breath sounds at the base, no wheeze. HEART: S1, S2. Regular rate and rhythm. ABDOMEN: Soft, no tenderness. LABS: Hemoglobin 8.8, white count 8.0, BUN of 13, creatinine 0.26. DIAGNOSTIC IMPRESSION AND PLAN: Patient with acute respiratory failure, which is multifactorial. Did have a component of aspiration pneumonia, ESBL E coli UTI. Patient is covered with meropenem. She will continue to finish a 2-week course of therapy. Continue supportive care. MMODL / IJN: [id number] /
--- NOTE | 2020-02-08 09:54 | CDI ---
Documentation Clarification Form Date: 02/08/20 From: Bree Arias Phone: If you have a question about this query, please contact April Kapoor, Radiologist Chief Of Breast Imaging at [phone] between 8am and 5pm. Admit Date: 01/23/20 Discharge Date:02/07/20 Patient Name: Moira Luong Visit Number: [id number] ATTENTION: The Clinical Documentation Specialists (CDI) and [facility] Coding Staff appreciate your assistance in clarifying documentation. Please respond to the clarification below the line at the bottom and electronically sign. The CDI & [facility] Coding staff will review the response and follow-up if needed. Please note: Queries are made part of the Legal Health Record. If you have any questions, please contact the author of this message via ITS. Dear Dr. Cao Conflicting documentation has been found in the medical record: Toxic/metabolic encephalopathy is documented in your 02/01 - 02/05 progress notes. You documented metabolic encephalopathy in the discharge summary. History/Risk Factors:History of CVA, Hypertensive urgency, possible seizure, dissection of the left ICA, possible, acute hypoxic respiratory failure, hepatic encephalopathy, UTI, aspiration pneumonia Clinical Indicators: Confusion CT: Head - negative for acute etiology MRI: Brain - did not show acute infarction or mid-line shift Treatment: Lactulose for hepatic encephalopathy, IV Meropenem, IV Keppra, IV Zosyn, In your opinion, what is the most clinically appropriate diagnosis for this patient? Toxic/metabolic Encephalopathy Metabolic Encephalopathy Other explanation of clinical findings: Unable to determine (no explanation for clinical findings) I didn't complete the discharge summary. In my opinion still Toxic/metabolic Encephalopathy MTDD
== END 2020-02-07 14:36 | DRG 4 ==
LOC: EC 07:17 → 3SCARD 09:37 → 2SICU 01-25 21:02
PROVIDERS: ADMIT Internal Medicine; ATTEND Internal Medicine
PROC: 5A1955Z Respiratory Ventilation, Greater than 96 Consecutive Hours (ICD-10-PCS; principal; 2020-01-25)
PROC: 0BH17EZ Insertion of Endotracheal Airway into Trachea, Via Natural or Artificial Opening (ICD-10-PCS; principal; 2020-01-25)
PROC: 0B113F4 Bypass Trachea to Cutaneous with Tracheostomy Device, Percutaneous Approach (ICD-10-PCS; 2020-01-25)
PROC: 0DJ08ZZ Inspection of Upper Intestinal Tract, Via Natural or Artificial Opening Endoscopic (ICD-10-PCS; 2020-01-25)
PROC: 009U3ZX Drainage of Spinal Canal, Percutaneous Approach, Diagnostic (ICD-10-PCS; 2020-01-26)
PROC: 05HY33Z Insertion of Infusion Device into Upper Vein, Percutaneous Approach (ICD-10-PCS; 2020-01-26)
PROC: 0DHA0UZ Insertion of Feeding Device into Jejunum, Open Approach (ICD-10-PCS; 2020-02-01)
PROC: 05HB33Z Insertion of Infusion Device into Right Basilic Vein, Percutaneous Approach (ICD-10-PCS; 2020-02-05)
DX: G92 Toxic encephalopathy (principal); I77.71 Dissection of carotid artery; J69.0 Pneumonitis due to inhalation of food and vomit; J96.01 Acute respiratory failure with hypoxia; K72.01 Acute and subacute hepatic failure with coma; E87.0 Hyperosmolality and hypernatremia; E87.4 Mixed disorder of acid-base balance; I47.1 Supraventricular tachycardia; J98.11 Atelectasis; N39.0 Urinary tract infection, site not specified; Z16.12 Extended spectrum beta lactamase (ESBL) resistance; E46 Unspecified protein-calorie malnutrition; Z20.828 Contact with and (suspected) exposure to other viral communicable diseases; G83.5 Locked-in state; K83.8 Other specified diseases of biliary tract; F25.9 Schizoaffective disorder, unspecified; R56.9 Unspecified convulsions; B96.20 Unspecified Escherichia coli [E. coli] as the cause of diseases classified elsewhere; E03.9 Hypothyroidism, unspecified; E78.5 Hyperlipidemia, unspecified; I27.20 Pulmonary hypertension, unspecified; F15.90 Other stimulant use, unspecified, uncomplicated; F32.9 Major depressive disorder, single episode, unspecified; F43.10 Post-traumatic stress disorder, unspecified; I08.1 Rheumatic disorders of both mitral and tricuspid valves; I10 Essential (primary) hypertension; I16.0 Hypertensive urgency; J44.9 Chronic obstructive pulmonary disease, unspecified; N32.81 Overactive bladder; R04.0 Epistaxis; R29.707 NIHSS score 7; R32 Unspecified urinary incontinence; F41.9 Anxiety disorder, unspecified; G31.9 Degenerative disease of nervous system, unspecified; G89.29 Other chronic pain; T42.6X5A Adverse effect of other antiepileptic and sedative-hypnotic drugs, initial encounter; R40.2434 Glasgow coma scale score 3-8, 24 hours or more after hospital admission; Z79.01 Long term (current) use of anticoagulants; Z79.82 Long term (current) use of aspirin; Z79.890 Hormone replacement therapy; Z79.899 Other long term (current) drug therapy; Z62.810 Personal history of physical and sexual abuse in childhood; Z86.73 Personal history of transient ischemic attack (TIA), and cerebral infarction without residual deficits; Z98.84 Bariatric surgery status; Z96.652 Presence of left artificial knee joint; Z90.710 Acquired absence of both cervix and uterus; Z87.442 Personal history of urinary calculi; Z90.49 Acquired absence of other specified parts of digestive tract; Z91.81 History of falling; Z80.1 Family history of malignant neoplasm of trachea, bronchus and lung; Z82.5 Family history of asthma and other chronic lower respiratory diseases; Z80.0 Family history of malignant neoplasm of digestive organs
CPT/HCPCS: 36410; 36415; 36600; 43235; 70450; 70496; 70498; 70553; 71045; 71046; 76705; 76937; 80048; 80053; 80061; 80074; 80185; 80299; 80306; 81001; 82140; 82150; 82175; 82550; 82553; 82570; 82607; 82728; 82746; 82784; 82805; 82945; 82977; 83036; 83615; 83655; 83735; 83825; 84100; 84132; 84146; 84157; 84207; 84439; 84443; 84450; 84460; 84484; 85025; 85379; 85610; 85652; 85730; 86140; 86334; 86738; 87040; 87070; 87077; 87086; 87103; 87186; 87205; 87252; 87502; 87529; 87635; 88108; 89050; 93005; 93306; 94002; 94003; 95819; 96374; 99291